=== PATIENT | male | born 1955 | race Caucasian/White ===

== ENCOUNTER 2016-08-28 09:50 | Inpatient (IN) ==
--- NOTE | 2016-08-28 10:11 | Emergency Department Note ---
Disposition Clinical Impression: Splenic infarction, Abdominal pain Atrial fibrillation Qualifiers: Atrial fibrillation type: chronic Qualified Code(s): I48.2 - Chronic atrial fibrillation Disposition: Admitted As Inpatient Condition: Fair Time of Disposition: 13:00 Abdominal Pain HPI - General Chief Complaint: ED Abdominal Pain Stated Complaint: LLQ pain Time Seen by Provider: 08/28/16 10:09 Source: patient, family - History of Present Illness HPI Narrative: . 61-year-old male with past medical history significant for CVA, HI status post angioplasty/stent, atrial fibrillation, CAD, see the A, DM2, HLD, HTN, GERD , nephrolithiasis, arthritis, anxiety, history of tobacco abuse. Patient presents with a five-day history of left lower abdominal pain and constipation. Patient has been previously seen in the ED. He had an x-ray on 08/25/2016 which demonstrates no evidence of bowel obstruction. He was treated as an outpatient with stool softeners and MiraLAX. He then saw his PCP yesterday and was prescribed lactulose. Patient states that he took 2 doses of lactulose, but has still not had a bowel movement. Patient does admit to some chills, nausea, 2 episodes of nonbloody vomit last night. Patient denies fever, diaphoresis, chest pain, shortness of breath, hematochezia, melena. Patient states last colonoscopy was approximately 3 years ago in which he had polyps resected. Patient denies any history of previous bowel surgeries Pain Scale: 10 - Related Data Home Medications Medication Instructions Recorded Confirmed Cholecalciferol (Vitamin D3) 50,000 unit PO MO 11/23/14 08/28/16 [Vitamin D3] Fenofibrate [Tricor] 145 mg PO HS #0 11/23/14 08/28/16 Lisinopril [Zestril] 40 mg PO DAILY 11/23/14 08/28/16 Metoprolol [Lopressor] 100 mg PO BID 11/23/14 08/28/16 Rosuvastatin [Crestor] 40 mg PO HS 11/23/14 08/28/16 Esomeprazole Magnesium [Nexium] 20 mg PO DAILY 08/13/15 08/28/16 Gemfibrozil [Lopid] 600 mg PO BIDWM 08/13/15 08/28/16 Oxybutynin Chloride [Ditropan Xl] 10 mg PO DAILY 08/13/15 08/28/16 Ranitidine HCl [Heartburn Relief] 150 mg PO BID 08/13/15 08/28/16 Baclofen 20 mg PO HS 08/01/16 08/28/16 Docusate [Colace] 100 mg PO BID 08/01/16 08/28/16 [place]-3/Dha/Epa/Fish Oil [Fish Oil 1,000 mg PO TID 08/01/16 08/28/16 1,000 mg Softgel] Oxycodone HCl [Oxaydo] 5 mg PO Q6H PRN 08/01/16 08/28/16 Aspirin [Ecotrin] 325 mg PO DAILY 08/28/16 08/28/16 BuPROPion XL (24 HR) [Wellbutrin 150 mg PO DAILY 08/28/16 08/28/16 XL] Clopidogrel [Plavix] 75 mg PO DAILY 08/28/16 08/28/16 Insulin ASPART [NovoLOG] 6 unit SQ TIDWM MDD PLUS SLIDING 08/28/16 08/28/16 SCALE Insulin Glargine [Lantus] 42 unit SQ BID 08/28/16 08/28/16 Isosorbide MONOnitrate (24 HR) 120 mg PO DAILY 08/28/16 08/28/16 [Imdur] Lactulose 10 gm PO DAILY 08/28/16 08/28/16 Magnesium Oxide [Magnesium] 400 mg PO DAILY 08/28/16 08/28/16 Potassium Chloride [Klor-Con] 20 meq PO DAILY 08/28/16 08/28/16 Sitagliptin Phosphate [Januvia] 50 mg PO DAILY 08/28/16 08/28/16 Previous Rx's Medication Instructions Recorded Polyethylene Glycol 3350 [MiraLAX 1 scoop PO BID #510 gm 08/26/16 Powder Bulk 17.9 Oz] Allergies Allergy/AdvReac Type Severity Reaction Status Date / Time No Known Allergies Allergy Verified 08/28/16 09:54 All systems ED: reviewed and negative except as stated. Constitutional: Reports: as per HPI Eyes: Reports: as per HPI ENT ED: Reports: as per HPI Cardiovascular: Reports: as per HPI Respiratory: Reports: as per HPI Gastrointestinal: Reports: as per HPI Genitourinary: Reports: as per HPI Musculoskeletal: Reports: as per HPI Integumentary: Reports: as per HPI Neurological: Reports: as per HPI Psychiatric: Reports: as per HPI Endocrine: Reports: as per HPI Hematological/Lymphatic: Reports: as per HPI Allergic/Immunologic: Reports: as per HPI Abdominal Pain PMH - Past Medical History Medical history: Reports: arthritis, atrial fibrillation, coronary artery disease, CVA, diabetes, GERD, hyperlipidemia, hypertension, kidney stones, myocardial infarction Male Surgical History: Reports: angioplasty/stent Psychiatric history: Reports: anxiety - Social History Smoking status: Former smoker Alcohol use: Reports: none Drug use: Reports: none Physical Exam - General Limitations: no limitations General appearance: alert, in no apparent distress - Head Head exam: atraumatic, normocephalic, normal inspection - Neck Neck exam: Present: normal inspection, full ROM - Chest Chest inspection: Present: normal inspection, symmetric chest wall rise. Absent : tenderness - Respiratory Respiratory exam: Present: normal lung sounds bilaterally - Cardiovascular Cardiovascular exam: Present: irregular rhythm, +S1, +S2. Absent: systolic murmur, diastolic murmur - Abdominal Exam Abdominal exam: Present: soft, tenderness, distention, rebound (Rebound tenderness to left lower quadrant left lateral abdomen upon palpation of right abdomen), rigidity (Rigidity to left lateral abdomen), hyperactive bowel sounds , other (Approximately 12cm area of firmness to left lateral abdominal wall). Absent: guarding Abdominal tenderness: Present: LUQ, LLQ - Extremities Exam Extremities exam: Present: normal inspection, full ROM - Back Exam Back exam: Present: CVA tenderness (L). Absent: CVA tenderness (R) - Neurological Exam Neurological exam: Present: alert, oriented X3 - Psychiatric Psychiatric exam: Present: normal affect, normal mood - Skin Skin exam: Present: warm, dry, intact Course - Reevaluation(s) Reevaluation #1: CT results demonstrate splenic infarct with a splenic inflammatory changes. Also, CT demonstrates fat stranding at the pancreatic tell which may be related to use a splenic infarct or may be due to acute pancreatitis. My suspicion for pancreatitis is low given that the patient has a normal lipase. I suspect that the inflammatory changes around the pancreatic tell are related to the splenic infarct. I have spoken to the hospitalists, who except patient for admission. Time: 12:57 Vital Signs Temperature 97.8 F 08/28/16 09:51 Pulse Rate 70 08/28/16 09:51 Respiratory Rate 17 08/28/16 09:51 Blood Pressure 122/68 08/28/16 09:51 O2 Sat by Pulse Oximetry 96 08/28/16 09:51 Temperature 97.8 F 08/28/16 09:51 Pulse Rate 73 08/28/16 12:24 Respiratory Rate 16 08/28/16 15:18 Blood Pressure 129/83 08/28/16 15:18 O2 Sat by Pulse Oximetry 96 08/28/16 12:24 Oxygen Delivery Oxygen Delivery Room Air Abdominal Pain - MDM Narrative Medical decision making narrative: Patient is here with 5 day history of constipation. He has failed outpatient treatment with stool softener, MiraLAX, lactulose. He had abdominal x-ray performed on 08/25/2016 which demonstrated no evidence of bowel obstruction. He did have substantial amount of stool with gas in the colon. On exam, patient does have tenderness to left upper quadrant and left lateral abdomen as well as tenderness left lower quadrant. Given that the patient has failed outpatient therapy, we will proceed with CT with IV contrast to further evaluate the abdomen. Patient has recent CVA on 08/08/2016 for which she was transferred to [facility]. Patient's Coumadin was stopped at that time as the patient was placed on Plavix. - Lab Data Result diagrams: 08/28/16 10:36 08/28/16 10:36 Lab Results 08/28/16 08/28/16 08/28/16 Range/Units 10:36 10:36 10:36 WBC 9.7 (4.3-11.1) K/mcL RBC 4.87 (4.19-5.50) M/mcL Hgb 14.5 (12.9-16.9) g/dL Hct 43.4 (37.5-50.1) % MCV 89.1 (83.0-100.0) fL MCH 29.8 (28.0-33.3) pg MCHC 33.4 (31.6-35.5) g/dL RDW 13.7 (11.5-14.5) % Plt Count 227 (140-400) K/mcL MPV 10.1 (9.4-12.4) fL PT 14.1 H (9.4-12.1) Seconds INR 1.3 APTT 35.5 (26.0-36.0) Seconds Sodium 136 (136-145) mEq/L Potassium 4.5 (3.5-4.5) mEq/L Chloride 105 (98-109) mEq/L Carbon Dioxide 20 (19-29) mEq/L BUN 21 (8-26) mg/dL Creatinine 1.16 (0.72-1.25) mg/dL Est GFR ( Amer) > 60 (> 60) Est GFR (Non-Af Amer) > 60 (> 60) BUN/Creatinine Ratio 18 (6-26) Glucose 120 H (70-99) mg/dL Calculated Osmolality 286 (280-300) Lactic Acid (0.5-2.2) mmol/L Calcium 10.1 (8.6-10.8) mg/dL Total Bilirubin 1.1 (0.2-1.2) mg/dL AST 23 (5-34) Units/L ALT 16 (0-55) Units/L Alkaline Phosphatase 55 (38-126) Units/L Serum Total Protein 8.1 (6.0-8.3) g/dL Albumin 3.5 (3.5-5.0) g/dL Globulin 4.6 H (2.4-3.5) g/dL Albumin/Globulin Ratio 0.8 L (1.1-2.2) Lipase 19 (8-78) Units/L 05/25/17 Range/Units 11:15 WBC (4.3-11.1) K/mcL RBC (4.19-5.50) M/mcL Hgb (12.9-16.9) g/dL Hct (37.5-50.1) % MCV (83.0-100.0) fL MCH (28.0-33.3) pg MCHC (31.6-35.5) g/dL RDW (11.5-14.5) % Plt Count (140-400) K/mcL MPV (9.4-12.4) fL PT (9.4-12.1) Seconds INR APTT (26.0-36.0) Seconds Sodium (136-145) mEq/L Potassium (3.5-4.5) mEq/L Chloride (98-109) mEq/L Carbon Dioxide (19-29) mEq/L BUN (8-26) mg/dL Creatinine (0.72-1.25) mg/dL Est GFR ( Amer) (> 60) Est GFR (Non-Af Amer) (> 60) BUN/Creatinine Ratio (6-26) Glucose (70-99) mg/dL Calculated Osmolality (280-300) Lactic Acid 0.8 (0.5-2.2) mmol/L Calcium (8.6-10.8) mg/dL Total Bilirubin (0.2-1.2) mg/dL AST (5-34) Units/L ALT (0-55) Units/L Alkaline Phosphatase (38-126) Units/L Serum Total Protein (6.0-8.3) g/dL Albumin (3.5-5.0) g/dL Globulin (2.4-3.5) g/dL Albumin/Globulin Ratio (1.1-2.2) Lipase (8-78) Units/L
[2016-08-28 10:43] LABS: Hematocrit 43.4 % (37.5-50.1); Hemoglobin 14.5 g/dL (12.9-16.9); Mean Corpuscular HGB Conc 33.4 g/dL (31.6-35.5); Mean Corpuscular Hemoglobin 29.8 pg (28.0-33.3); Mean Corpuscular Volume 89.1 fL (83.0-100.0); Mean Platelet Volume 10.1 fL (9.4-12.4); Platelet Count 227 K/mcL (140-400); Red Blood Count 4.87 M/mcL (4.19-5.50); Red Cell Distribution Width 13.7 % (11.5-14.5)
[2016-08-28 10:57] LABS: BUN/Creatinine Ratio 18 (6-26); Blood Urea Nitrogen 21 mg/dL (8-26); Calcium 10.1 mg/dL (8.6-10.8); Carbon Dioxide 20 mEq/L (19-29); Chloride 105 mEq/L (98-109); Glucose 120 mg/dL (70-99); Osmolality,Calculated 286 (280-300); Potassium 4.5 mEq/L (3.5-4.5); Sodium 136 mEq/L (136-145); eGFR For African Americans > 60 (> 60); eGFR For Non-African Americans > 60 (> 60)
--- NOTE | 2016-08-28 11:04 | Emergency Department Note ---
START Narrative - START START: I examined this patient and my medical decision-making was reviewed with the SHIPPING AND RECEIVING SPECIALIST/PA/Advanced Practice Nurse/Resident Physician. I agree with the documented findings, disposition and treatment plan as described except to the extent set forth below. Patient does complain of left lower quadrant abdominal pain and I did review the previous record. Did have a abdominal x-ray which was negative. On my exam most the pain is left upper quadrant and this is minimal to moderate pain but soft without rigidity, rebound, guarding. Abdominal skin is normal in appearance. The patient denies any chest pain or shortness of breath or diaphoresis. CT scan and lab results are pending 1104 I did review the patient's EKG which shows atrial fibrillation with rate of 60 without acute ischemic change. The patient does have a history of atrial fibrillation 1105 I did review the patient's CT showing a splenic infarction although the splenic artery and vein are patent. The patient will be admitted to the hospital 1254
[2016-08-28 11:11] LABS: Alanine Aminotransferase 16 Units/L (0-55); Albumin 3.5 g/dL (3.5-5.0); Albumin/Globulin Ratio 0.8 (1.1-2.2); Alkaline Phosphatase 55 Units/L (38-126); Aspartate Amino Transferase 23 Units/L (5-34); Bilirubin,Total 1.1 mg/dL (0.2-1.2); Globulin 4.6 g/dL (2.4-3.5); Lipase 19 Units/L (8-78); Total Protein 8.1 g/dL (6.0-8.3)
[2016-08-28 13:13] LABS: INR 1.3; Prothrombin Time 14.1 Seconds (9.4-12.1)
[2016-08-28 13:16] LABS: Activated Partial Thrombo Time 35.5 Seconds (26.0-36.0)
--- NOTE | 2016-08-28 14:24 | Electrocardiograph Report ---
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
[2016-08-28] MEDS ORDERED: *HR* HYDROcodone/Acet 5/325 mg TABLET PO PRN (14:48)
[2016-08-28] MEDS ORDERED: *HR* Morphine 2 MG/ML SYRINGE IVP PRN (14:48)
[2016-08-28] MEDS ORDERED: Acetaminophen 325 MG TABLET PO PRN (14:48)
[2016-08-28] MEDS ORDERED: Naloxone 0.4 MG/ML INJ IVP PRN (14:48)
[2016-08-28] MEDS ORDERED: MOM Conc 10 ML UD.LIQ PO PRN (14:48)
--- NOTE | 2016-08-28 15:18 | Internal Med History&Physical ---
<DenisIban - Last Filed: 08/28/16 16:15> Date of Encounter: 08/28/16 Time of Encounter: 14:30 Assessment and Plan (1) Abdominal pain Current visit: Yes Status: Acute Assess: Mr. Sapp is a 61 year old male presents from the ED with chief complaint of left lower quadrant pain. Patient reports this is new and he has no history of this. CT of abdomen/pelvis dated shows splenic infarction with unclear etiology, possibly due to acute pancreatitis. Patient's lipase levels currently normal on first lab draw. Plan: NPO except for medications Continue IV fluids Pain medications ordered based on mild, moderate, or severe pain MRI of abdomen/pelvis w/wo contrast ordered U/S of gallbladder ordered Continue aspirin and Plavix therapy Possible consult with vascular surgery to be placed based on patient's MRI results Qualifiers: Abdominal location: left lower quadrant Qualified Code(s): R10.32 - Left lower quadrant pain (2) Splenic infarction Current visit: Yes Status: Acute Assess: Patient presents with chief complaint of left lower quadrant pain. Patient reports this is new and he has no history of this. CT of abdomen/pelvis dated shows splenic infarction with unclear etiology, possibly due to acute pancreatitis. Patient's lipase levels currently normal on first lab draw. Plan: NPO except for medications Continue IV fluids Pain medications ordered based on mild, moderate, or severe pain MRI of abdomen/pelvis w/wo contrast ordered U/S of gallbladder ordered Continue aspirin and Plavix therapy Possible consult with vascular surgery to be placed based on patient's MRI results (3) Constipation Current visit: Yes Status: Acute Assess: Patient presents with current acute complaint of constipation since 08/24/16. Patient was previously seen in ED on 08/25/16. He was also treated as an outpatient with stool softeners and MiraLAX for complaint of constipation and was prescribed lactulose. Patient reports after 2 doses of lactulose he still had no BM. Plan: Lactulose 20 mg BID ordered Continue Colace Continue Miralax Monitor I&O NPO except for medications Qualifiers: Constipation type: other constipation type Qualified Code(s): K59.09 - Other constipation (4) A-fib Current visit: Yes Status: Chronic Assess: Patient presents with history of chronic atrial fibrillation. EKG dated she is patient is currently in atrial fibrillation with rate of 60 without acute ischemic change. Plan: Continuous cardiac telemetry Continue Plavix and aspirin therapy Continue isosorbide Continue Lopressor Continue Crestor INR and APTT labs ordered Qualifiers: Atrial fibrillation type: paroxysmal Qualified Code(s): I48.0 - Paroxysmal atrial fibrillation (5) CAD (coronary artery disease) Current visit: Yes Status: Chronic Assess: Patient presents with history of chronic atrial fibrillation. EKG dated she is patient is currently in atrial fibrillation with rate of 60 without acute ischemic change. Patient has history of stent placement left carotid artery. Plan: Continuous cardiac telemetry Continue Plavix and aspirin therapy Continue isosorbide Continue Lopressor Continue Crestor INR and APTT labs ordered Qualifiers: Coronary Disease-Associated Artery/Lesion type: [place] artery [place] vs. transplanted heart: [place] heart Associated angina: with unspecified angina Qualified Code(s): I25.119 - Atherosclerotic heart disease of [place] coronary artery with unspecified angina pectoris (6) Diabetes mellitus Current visit: Yes Status: Acute Assess: Patient presents with history of chronic diabetes mellitus. Plan: Blood glucose monitoring ordered Continue patient's insulin Continue Januvia Correction dosing protocol ordered Qualifiers: Diabetes mellitus type: type 1 Diabetes mellitus complication status: without complication Qualified Code(s): E10.9 - Type 1 diabetes mellitus without complications (7) DVT prophylaxis Current visit: Yes Status: Acute Assess: Patient received DVT prophylaxis inpatient bed rest status. Plan: Continue Plavix and aspirin therapy Antiembolic stockings ordered Internal Medicine - H&P: HPI Chief complaint: LLQ abdominal pain/Splenic infarction Admitted From: Emergency Dept Plans for Post Hospital Care: Home History of present illness: Mr. Sapp is a 61 year old male presents from the ED with chief complaint of left lower quadrant pain. Patient also reports current problem of constipation and states his last bowel movement was 08/24/16. Patient reports moderate pain without rigidity or rebound. Abdominal skin is normal in appearance, yet abdomen appears distended. Patient also reports LLQ pain radiates to back. Mr. Sapp states that he is experiencing nausea and vomiting as well. Patient denies chest pain, SOB, diaphoresis, or bloody emesis. CT abdomen and pelvis dated 08/28/16 show splenic infarction with splenic artery and vein remaining patent. Patient has past medical history of CVAs (last CVA event of 08/08/16), MIs 2, status post angioplasty/stent, atrial fibrillation, CAD, DM, hyperlipidemia, hypertension, GERD, nephrolithiasis, arthritis, anxiety, and history of tobacco abuse (3 PPD). Patient was previously on Coumadin which was stopped when he was seen at [facility]. He was then placed on Plavix and aspirin therapy. Patient's EKG dated 08/28/16 shows he is currently in atrial fibrillation with rate of 60 without acute ischemic change. Patient states last colonoscopy was approximately 3 years ago with removal of polyps. Patient places inpatient status with continuous cardiac telemetry, nothing by mouth status, MRI of abdomen/pelvis w/wo contrast, and ultrasound gallbladder based on patient's report of presence of gallstones. Possible consult with vascular surgery based on results of patient's MRI. Past Med Surg Social Fam HX - Past Medical History Medical history: arthritis, atrial fibrillation, coronary artery disease, CVA, diabetes, GERD, hyperlipidemia, hypertension, kidney stones, myocardial infarction Psychiatric history: anxiety - Past Surgical History Surgical History: angioplasty/stent (Left carotid artery), other - Social History Smoking Status: Former smoker Packs per day: 3 PPD Smokeless Tobacco Status: Yes Alcohol use: none Drug use: none Current living situation: Home, With Family Activity Level: Independent ambulation Recent Out of Country Travel Within the Last 8 Weeks: No Exposure or Possible Exposure to Illness During Travel: No - Family History Father Adopted: No Race: Family Member Ethnicity: Non- Living Status: Age at : 50 Cause of : Massive DC Hx Family Cardiac Disorders: Yes (DC) Mother Race: Family Member Ethnicity: Non- Living Status: Age at : 65 Cause of : Renal failure Hx Family Cardiac Disorders: Yes (HTN, TIAs) Hx Family Genitourinary Disorders: Yes (Kidney failure) Brother Race: Family Member Ethnicity: Non- Living Status: Age at : 50 Cause of : DC Hx Family Cardiac Disorders: Yes (DC, HD) Sister Race: Family Member Ethnicity: Non- Living Status: Age at : 35 Cause of : Ovarian cancer Hx Family Cancer: Yes (Ovarian) Internal Medicine - H&P: Meds Cholecalciferol (Vitamin D3) [Vitamin D3] 50,000 unit PO MO 11/23/14 [History] Fenofibrate [Tricor] 145 mg PO HS #0 11/23/14 [History] Lisinopril [Zestril] 40 mg PO DAILY 11/23/14 [History] Metoprolol [Lopressor] 100 mg PO BID 11/23/14 [History] Rosuvastatin [Crestor] 40 mg PO HS 11/23/14 [History] Esomeprazole Magnesium [Nexium] 20 mg PO DAILY 08/13/15 [History] Gemfibrozil [Lopid] 600 mg PO BIDWM 08/13/15 [History] Oxybutynin Chloride [Ditropan Xl] 10 mg PO DAILY 08/13/15 [History] Ranitidine HCl [Heartburn Relief] 150 mg PO BID 08/13/15 [History] Baclofen 20 mg PO HS 08/01/16 [History] Docusate [Colace] 100 mg PO BID 08/01/16 [History] [place]-3/Dha/Epa/Fish Oil [Fish Oil 1,000 mg Softgel] 1,000 mg PO TID 08/01/16 [ History] Oxycodone HCl [Oxaydo] 5 mg PO Q6H PRN 08/01/16 [History] Polyethylene Glycol 3350 [MiraLAX Powder Bulk 17.9 Oz] 1 scoop PO BID #510 gm [Rx] Aspirin [Ecotrin] 325 mg PO DAILY 08/28/16 [History] BuPROPion XL (24 HR) [Wellbutrin XL] 150 mg PO DAILY 08/28/16 [History] Clopidogrel [Plavix] 75 mg PO DAILY 08/28/16 [History] Insulin ASPART [NovoLOG] 6 unit SQ TIDWM MDD PLUS SLIDING SCALE 08/28/16 [ History] Insulin Glargine [Lantus] 42 unit SQ BID 08/28/16 [History] Isosorbide MONOnitrate (24 HR) [Imdur] 120 mg PO DAILY 08/28/16 [History] Lactulose 10 gm PO DAILY 08/28/16 [History] Magnesium Oxide [Magnesium] 400 mg PO DAILY 08/28/16 [History] Potassium Chloride [Klor-Con] 20 meq PO DAILY 08/28/16 [History] Sitagliptin Phosphate [Januvia] 50 mg PO DAILY 08/28/16 [History] Allergies No Known Allergies Allergy (Verified 08/28/16 09:54) All Systems PM: A 10-system review of systems was performed and is negative for pertinent findings except as documented above in the HPI. - Constitutional Constitutional: as per HPI, anorexia (Related to abdominal pain, nausea, and vomiting) - EENT Eyes: no change in vision, no discharge, no pain, no photophobia Ears: no ear discharge, no ear pain, no tinnitus Nose, mouth and throat: no dysphagia, no nasal discharge, no neck pain, no sore throat - Breasts Breasts: as per HPI - Cardiovascular Cardiovascular ROS IM: as per HPI, irregular heart rhythm - Respiratory Respiratory: no cough, no dyspnea, no wheezing, no excessive phlegm production - Gastrointestinal Gastrointestinal: as per HPI, abdominal pain, constipation, nausea, vomiting - Genitourinary Genitourinary ROS male: as per HPI - Musculoskeletal Musculoskeletal ROS IM: no numbness, no tingling - Integumentary Integumentary IM: no rash, no unusual bruising - Neurological Neurological ROS: no confusion, no convulsions, no focal weakness, no numbness, no tingling, no tremor(s) - Psychiatric Psychiatric: as per HPI - Endocrine Endocrine IM: as per HPI - Hematologic/Lymphatic Hematologic/Lymphatic: no easy bruising - Allergic/Immunologic Allergic/Immunologic: as per HPI - Constitutional Vitals: Temp Pulse Resp BP Pulse Ox 97.8 F 73 16 138/81 96 08/28/16 09:51 08/28/16 12:24 08/28/16 12:24 08/28/16 12:24 08/28/16 12:24 General appearance: Present: cooperative, mild distress, A&O X 3, morbidly obese , pleasant, answers questions appropriately - Head Head exam: Present: atraumatic, normocephalic - Eye Eye exam: Present: PERRL, conjuntiva pink, sclera anicteric Pupils: Present: PERRL - ENT ENT exam: Present: normal exam, normal external ear exam - Neck Neck exam general surgery: Present: supple, trachea midline. Absent: lymphadenopathy - Respiratory Respiratory exam: Present: CTAB. Absent: accessory muscle use, rales, rhonchi, wheezes - Cardiovascular Cardiovascular exam: Present: irregular rhythm - GI/Abdominal GI/Abdominal exam: Present: distended, guarding, hypoactive bowel sounds, soft, tenderness - Rectal Rectal exam: Present: deferred - Additional comments: exam deferred. - Extremities Exam Extremities exam: Present: normal capillary refill, normal inspection, warm, radial pulses palpable and symetrical. Absent: calf tenderness, cyanotic, pedal edema - Back Exam Back exam: Present: normal inspection - Neurological Exam Neurological exam: Present: CN II-XII intact, oriented X3, no focal deficits. Absent: pronater drift, facial droop, speech deficit - Psychiatric Psychiatric exam: Present: normal affect, normal mood - Skin Skin exam: Present: dry, intact Internal Med - H&P Results - Labs CBC & Chem 7: 08/28/16 10:36 08/28/16 10:36 - EKG Data Prior EKG available for review: yes When compared to previous EKG: there are significant changes EKG comments: 08/28/16 15:26 EKG dated 08/25/16 shows sinus bradycardia with first-degree AV block, left axis deviation, and poor R-wave progression. EKG dated 08/28/16 shows atrial fibrillation with marked left axis deviation [ QRS axis < -30]. Pattern consistent with pulmonary disease. - Diagnostic Studies CT scan - abdomen Additional comments: CT of the abdomen/pelvis with contrast dated 08/28/16 shows: LOWER CHEST: Linear opacity in the left lower lobe likely representing subsegmental atelectasis. Additional gravity dependent atelectasis in both lower lobes. No pleural effusions. Mild cardiomegaly. Mild to moderate concentric left ventricular hypertrophy, sparing the apex. Trace pericardial effusion. At least moderate coronary atherosclerotic calcifications. ORGANS: Granulomatous calcifications in the liver. Mild hepatomegaly. Mild pancreatic atrophy. Stranding adjacent to the pancreatic tail and spleen. Wedge-shaped hypodensity in the inferior spleen. Unchanged 1.3 cm 1.0 cm left adrenal adenoma. Multiple bilateral simple appearing cysts (Bosniak category 1) . Exophytic 6.2 cm cyst arising from the medial interpolar region of the left kidney with thin area of calcification (Bosniak category 2). Non-obstructing calculi in both renal collecting systems. Normal gallbladder and right adrenal gland. GI/BOWEL: Redundant sigmoid colon. Otherwise normal course and caliber of the stomach, small bowel, colon, and rectum without obstruction. Normal appendix. Mild colonic diverticulosis without findings of acute diverticulitis. PELVIS: Mild anterior urinary bladder wall thickening with adjacent perivesical stranding. Moderate prostatomegaly. PERITONEUM/RETROPERITONEUM: Normal variant accessory right renal artery. Mild atherosclerosis. No evidence of hemodynamically significant stenoses nor venous thrombosis. Unchanged mildly enlarged is enteric lymph nodes, likely reactive. No retroperitoneal or pelvic lymphadenopathy. No free intraperitoneal fluid or gas. BONES/SOFT TISSUES: Laxity of the anterior abdominal wall musculature. Suspected sequela of medicinal injections in the subcutaneous tissues of the right lower quadrant anterior abdominal wall. Tiny fat-containing bilateral inguinal hernias. No inguinal lymphadenopathy. Diffuse osseous demineralization. No acute fractures or suspicious osseous lesions. OVERALL IMPRESSION: Acute appearing infarction involving the inferior spleen with adjacent inflammatory stranding. Of note, the splenic artery and splenic vein appear patent. Additional stranding adjacent portions of the pancreatic tail could be related to above process or acute pancreatitis. Incidental findings as above for which no follow-up is recommended. <Itz Vasquez H - Last Filed: 08/28/16 18:33> Date of Encounter: 08/28/16 Internal Medicine - H&P: HPI History of present illness: Mr. Sapp is a 61 year old male All Systems PM: A 10-system review of systems was performed and is negative for pertinent findings except as documented above in the HPI. - Constitutional Vitals: Temp Pulse Resp BP Pulse Ox 98.2 F 60 16 125/78 94 08/28/16 16:01 08/28/16 16:01 08/28/16 16:01 08/28/16 16:01 08/28/16 16:01 Internal Med - H&P Results - Labs CBC & Chem 7: 08/28/16 10:36 08/28/16 10:36 - Attending Attestation 1. Splenic infarct from unclear etiology possibly related to acute pancreatitis Lipase is normal by moment we will treat as acute pancreatitis clinically Nothing by mouth, continue IV fluids, morphine for pain Order an MRI with contrast to assess the possibility of either a pancreatic mass or an artery stenosis Consider vascular surgery vs GI consults depending on findings Order ultrasound of the right upper quadrant Continue aspirin and Plavix for now 2. History of CVA and atrial fibrillation, the patient went to [facility] where Coumadin was stopped and he was started on Plavix 3. Diabetes type 2, continue insulin sliding scale 4. History of left carotid stenosis status post and endarterectomy 5. Atrial fibrillation, stable 6. CAD with history of stents, continue aspirin and Plavix Patient will be admitted as inpatient. Expected stay more than 2 midnights. Full code. Time spent on this admission 40 minutes. Omeprazole for GI prophylaxis and subcutaneous heparin for DVT prophylaxis I examined this patient and my medical decision-making was reviewed with the GEOGRAPHIC INFORMATION SYSTEMS ENGINEER/PA/Advanced Practice Nurse/Resident Physician. I agree with the documented findings, disposition and treatment plan as described except to the extent set forth below.
--- NOTE | 2016-08-28 15:36 | Event Note ---
Date of Encounter: 08/28/16 Time of Encounter: 15:36 1. Splenic infarct from unclear etiology possibly related to acute pancreatitis Lipase is normal by moment we will treat as acute pancreatitis clinically Nothing by mouth, continue IV fluids, morphine for pain Order an MRI with contrast to assess the possibility of either a pancreatic mass or an artery stenosis Consider vascular surgery vs GI consults depending on findings Order ultrasound of the right upper quadrant Continue aspirin and Plavix for now 2. History of CVA and atrial fibrillation, the patient went to [facility] where Coumadin was stopped and he was started on Plavix 3. Diabetes type 2, continue insulin sliding scale 4. History of left carotid stenosis status post and endarterectomy 5. Atrial fibrillation, stable 6. CAD with history of stents, continue aspirin and Plavix Patient will be admitted as inpatient. Expected stay more than 2 midnights. Full code. Time spent on this admission 40 minutes. Omeprazole for GI prophylaxis and subcutaneous heparin for DVT prophylaxis
[2016-08-28] MEDS: Insulin LISPRO 300 UNITS/3 ML VIAL SQ SCH (18:40)
[2016-08-28] MEDS: 0.9 % Sodium Chloride 1,000 ML IVC SCH (18:52)
[2016-08-28 19:27] LABS: Hemoglobin A1C 7.4 %
[2016-08-28 20:08] LABS: Bilirubin,Urine Negative (Negative); Blood,Urine Negative (Negative); Clarity,Urine Clear (Clear); Color,Urine Yellow (Yellow); Glucose,Urine (UA) Normal (Normal); Ketones,Urine Negative (Negative); Leukocyte Esterase,Urine Negative (Negative); Nitrite,Urine Negative (Negative); PH,Urine 5.5 pH Units (5.0-8.0); Protein,Urine 30 mg/dL (Neg-Trace); Specific Gravity,Urine > 1.030 (1.010-1.025); Urobilinogen,Urine Normal (Normal)
[2016-08-28 20:10] LABS: Bacteria,Urine None Seen per hpf (None-Few); Hyaline Casts,Urine None Seen per lpf (None-Few); RBC,Urine 0-3 per hpf (0-3); Squamous Epithelial Cell,Urine Moderate per lpf (None-Few); WBC,Urine 0-3 per hpf (0-3)
[2016-08-28] MEDS: Baclofen 10 MG TABLET PO SCH (22:42)
[2016-08-28] MEDS: Fenofibrate 54 MG TABLET PO SCH (22:42)
[2016-08-28] MEDS: Metoprolol 100 MG TABLET PO SCH (22:42)
[2016-08-28] MEDS: Famotidine 20 MG TABLET PO SCH (22:43)
[2016-08-28] MEDS: Insulin DETEMIR 100 UNIT/ML X5UNITS SQ SCH (22:43)
[2016-08-28] MEDS: Lactulose Oral Soln 20 GM/30 ML UDC PO SCH (22:43)
[2016-08-28] MEDS: (Omega-3/Dha/Epa/Fish Oil [Fish Oil 1,000 Mg Softgel]) PO SCH (22:43)
[2016-08-29 05:02] LABS: Basophils % 0.5 %; Eosinophils # 0.1 K/mcL (0.0-0.6); Eosinophils % 1.2 %; Hematocrit 43.3 % (37.5-50.1); Hemoglobin 14.4 g/dL (12.9-16.9); Immature Granulocytes % 0.6 % (0-4); Lymphocytes # 1.6 K/mcL (0.6-4.6); Lymphocytes % 19.5 %; Mean Corpuscular HGB Conc 33.3 g/dL (31.6-35.5); Mean Corpuscular Hemoglobin 29.9 pg (28.0-33.3); Mean Corpuscular Volume 89.8 fL (83.0-100.0); Mean Platelet Volume 10.7 fL (9.4-12.4); Monocytes # 1.1 K/mcL (0.0-1.3); Neutrophils # 5.4 K/mcL (1.6-8.9); Platelet Count 248 K/mcL (140-400); Red Blood Count 4.82 M/mcL (4.19-5.50); Red Cell Distribution Width 13.7 % (11.5-14.5); Segmented Neutrophils % 65.2 %
[2016-08-29 05:18] LABS: INR 1.4
[2016-08-29 05:21] LABS: Activated Partial Thrombo Time 33.8 Seconds (26.0-36.0); Alanine Aminotransferase 14 Units/L (0-55); Albumin 3.2 g/dL (3.5-5.0); Albumin/Globulin Ratio 0.7 (1.1-2.2); Alkaline Phosphatase 54 Units/L (38-126); Aspartate Amino Transferase 23 Units/L (5-34); BUN/Creatinine Ratio 21 (6-26); Bilirubin,Total 0.9 mg/dL (0.2-1.2); Blood Urea Nitrogen 26 mg/dL (8-26); Calcium 10.2 mg/dL (8.6-10.8); Carbon Dioxide 20 mEq/L (19-29); Chloride 109 mEq/L (98-109); Chol/HDL Ratio 9.1 (0-4.9); Cholesterol 136 mg/dL (< 200); Globulin 4.8 g/dL (2.4-3.5); Glucose 82 mg/dL (70-99); HDL Cholesterol 15 mg/dL (40-59); LDL Cholesterol,Calculated 89 mg/dL (0-99); Osmolality,Calculated 290 (280-300); Sodium 138 mEq/L (136-145); Triglycerides 162 mg/dL (< 150); eGFR For African Americans > 60 (> 60); eGFR For Non-African Americans > 60 (> 60)
[2016-08-29] MEDS: 0.9 % Sodium Chloride 1,000 ML IVC SCH ×2 (06:29→17:01)
[2016-08-29] MEDS: Insulin LISPRO 300 UNITS/3 ML VIAL SQ SCH ×3 (07:36→17:20)
[2016-08-29] MEDS: Famotidine 20 MG TABLET PO SCH ×2 (08:54→21:33)
[2016-08-29] MEDS: Aspirin Enteric Coated 81 MG Tablet PO SCH (08:55)
[2016-08-29] MEDS: Magnesium Oxide 400 MG TABLET PO SCH (08:55)
[2016-08-29] MEDS: Metoprolol 100 MG TABLET PO SCH ×2 (08:55→21:33)
[2016-08-29] MEDS: Cholecalciferol (D-3) 1,000 UNIT TABLET PO SCH (08:55)
[2016-08-29] MEDS: Lisinopril 20 MG TABLET PO SCH (08:55)
[2016-08-29] MEDS: Isosorbide MONOnitrate (24 HR) 60 MG TAB.ER.24H PO SCH (08:55)
[2016-08-29] MEDS: BuPROPion XL (24 HR) 150 MG TABLET PO SCH (08:55)
[2016-08-29] MEDS: Lactulose Oral Soln 20 GM/30 ML UDC PO SCH ×2 (08:56→21:32)
[2016-08-29] MEDS: Pantoprazole 40 MG VIAL IVP SCH (08:56)
[2016-08-29] MEDS: *HR* SitaGLIPtin 25 MG TABLET PO SCH (08:57)
[2016-08-29] MEDS: Insulin DETEMIR 100 UNIT/ML X5UNITS SQ SCH ×2 (08:58→21:41)
[2016-08-29] MEDS ORDERED: NON-FORMULARY MEDICATION 1 EACH EACH (Esomeprazole Magnesium [Nexium] 20 MG) PO SCH (09:00)
[2016-08-29] MEDS: (Omega-3/Dha/Epa/Fish Oil [Fish Oil 1,000 Mg Softgel]) PO SCH ×3 (09:18→21:33)
--- NOTE | 2016-08-29 11:00 | Internal Med Progress Note ---
Date of Encounter: 08/29/16 Time of Encounter: 10:00 - Assessment and plan (1) Splenic infarction Current Visit: Yes Status: Acute Assessment and plan: Likely secondary to cardioembolic event given history of A. fib and strokes. He will need anticoagulation. He may benefit from PEPE and left a troponin which ablation. I have called and discussed the case with cardiology. (2) Atrial fibrillation Current Visit: Yes Status: Acute Assessment and plan: Currently he is not anticoagulated. He has been on Coumadin in the past and this was stopped with and carotid stent was placed due to initiation of therapy with Plavix. Qualifiers: Atrial fibrillation type: paroxysmal Qualified Code(s): I48.0 - Paroxysmal atrial fibrillation (3) Abdominal pain Current Visit: Yes Status: Acute Assessment and plan: We will treat this with IV morphine. Pain is likely related to acute splenic infarct. Qualifiers: Abdominal location: left lower quadrant Qualified Code(s): R10.32 - Left lower quadrant pain (4) Diabetes mellitus Current Visit: Yes Status: Acute Assessment and plan: Insulin sliding scale. Qualifiers: Diabetes mellitus type: type 1 Diabetes mellitus complication status: without complication Qualified Code(s): E10.9 - Type 1 diabetes mellitus without complications (5) Stenosis of left internal carotid artery with cerebral infarction Current Visit: No Status: Acute Assessment and plan: Status post carotid stent placement. Continue with aspirin and Plavix. - Subjective Interval history: 08/29/2016: Patient reports left lower quadrant abdominal pain sharp on and off for the last 5 days, improved at this moment. Denies any aggravating or alleviating factors. No nausea or vomiting associated. He does report some diarrhea. He presented to the hospital 5 days ago and his x-ray showed constipation. His symptoms did not improve and he came back to the hospital for further evaluation and treatment. - Constitutional Vitals: Temp Pulse Resp BP Pulse Ox 97.8 F 62 16 117/68 94 08/29/16 07:36 08/29/16 07:36 08/29/16 07:36 08/29/16 07:36 08/29/16 07:36 General appearance: Present: cooperative, mild distress, A&O X 3, morbidly obese , pleasant, answers questions appropriately - Eye Eye exam: Present: PERRL, conjuntiva pink, sclera anicteric Pupils: Present: PERRL - Neck Neck exam general surgery: Present: supple, trachea midline. Absent: lymphadenopathy - Respiratory Respiratory exam: Present: CTAB. Absent: accessory muscle use, rales, rhonchi, wheezes - Cardiovascular Cardiovascular exam: Present: irregular rhythm, +S1, +S2. Absent: diastolic murmur, gallop, rubs, systolic murmur - GI/Abdominal GI/Abdominal exam: Present: normal bowel sounds, soft, no peritoneal signs. Absent: distended, tenderness - Extremities Exam Extremities exam: Present: warm, radial pulses palpable and symetrical. Absent : calf tenderness, cyanotic, pedal edema - Skin Skin exam: Present: dry, intact Internal Medicine: Result - Labs CBC & Chem 7: 08/29/16 16:47 08/29/16 04:45 Labs: Short CBC 08/29/16 Range/Units 04:45 WBC 8.3 (4.3-11.1) K/mcL Hgb 14.4 (12.9-16.9) g/dL Hct 43.3 (37.5-50.1) % Plt Count 248 (140-400) K/mcL Neutrophils # 5.4 (1.6-8.9) K/mcL BMP 08/29/16 04:45 Sodium 138 Potassium 4.0 Chloride 109 Carbon Dioxide 20 BUN 26 Creatinine 1.21 Glucose 82 Calcium 10.2 Liver Function 08/29/16 Range/Units 04:45 Total Bilirubin 0.9 (0.2-1.2) mg/dL AST 23 (5-34) Units/L ALT 14 (0-55) Units/L Alkaline Phosphatase 54 (38-126) Units/L Albumin 3.2 L (3.5-5.0) g/dL Urine 08/28/16 Range/Units 18:05 Urine Color Yellow (Yellow) Urine Clarity Clear (Clear) Urine pH 5.5 (5.0-8.0) pH Units Ur Specific [place] > 1.030 H (1.010-1.025) Urine Protein 30 H (Neg-Trace) mg/dL Urine Glucose (UA) Normal (Normal) mg/dL - ABG Interpretation ABG results: PT/INR, D-dimer PT 15.0 Seconds (9.4-12.1) H 08/29/16 04:45 - Impressions Impressions Abdomen MRI 08/28/16 15:02 IMPRESSION: 1. Findings compatible with splenic infarct. 2. No suspicious soft tissue mass identified. D/ / 08/28/2016 23:25:13 Vic Osman MD / aniyah Interpreting Provider: Vic Osman MD Gallbladder Ultrasound 08/28/16 20:30 IMPRESSION: 1. No cholelithiasis or acute abnormality in the upper abdomen. 2. Multiple small simple right renal cysts. D/ / Miguel Angel Moran MD / Miguel Angel Moran MD Interpreting Provider: Miguel Angel Moran MD - VTE Documentation of Mechanical Device: Graduated compression elastic hosiery Consult Discharge Plan - Plan Referrals: Jayme Alarcon MD [Primary Care Provider] -
--- NOTE | 2016-08-29 12:09 | Cardiology Consult Note ---
Addendum entered and electronically signed by Raimundo Ray CNP 08/29/16 14:30: If okay with neurology to start Coumadin, recommend bridging with heparin gtt until therapeutic. Discussed with urology regarding hemorrhagic renal cyst noted on MRI of ABD. No contraindication to anticoagulation from urology standpoint, as these hemorrhagic cysts are low risk. Await neurology recommendations. Original Note: Date of Encounter: 08/29/16 Time of Encounter: 12:01 Assessment and Plan (1) A-fib Current Visit: Yes Status: Chronic Known hx of PAF, previously anticoagulated on Coumadin. Coumadin was recently stopped 08/2016 by [facility] following CVA and left carotid stenting with distal protective device for high grade left internal carotid stenosis. He was started on DAPT with 325mg ASA and 75mg Plavix daily. Plan was for follow -up in 4 weeks with carotid duplex at that time, then determine when to restart Coumadin. However, pt now presents with splenic infart. CHADSVASC is 5 (Age, HTN, vascular disease, DM). He is high risk for recurrent embolic events. Rate controlled on BB. 24 hour tele AVG HR 61, A-Fib, longest pause 2.8 seconds during stress. Would recommend resuming Coumadin now that he presents with embolic event-- splenic infarct. However, had CVA 3 weeks ago at [facility]. Will consult neurology for their input/approval prior to restarting Coumadin. If okay with neurology, will restart. Will need to remain on ASA and Plavix as well given recent left carotid stent. 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 Now s/p left carotid stenting with distal protective device. On ASA and Plavix. Coumadin was stopped by [facility] with plans to discuss restart date when he has carotid duplex in upcoming weeks. Now presents with splenic infarct. Recommend resuming Coumadin if okay with neurology. Will consult. Will need to remain on ASA and Plavix as well given recent left carotid stent. (3) CAD (coronary artery disease) Current Visit: Yes Status: Chronic Known hx of CAD and PCI. Most recent LHC was 08/01/16, showed double vessel CAD, previously stented mid RCA and OM1 are patent. ASA, Plavix, Statin, BB, LANETTE-I, nitrates. Qualifiers: Coronary Disease-Associated Artery/Lesion type: [place] artery [place] vs. transplanted heart: [place] heart Associated angina: with unspecified angina Qualified Code(s): I25.119 - Atherosclerotic heart disease of [place] coronary artery with unspecified angina pectoris (4) Splenic infarction Current Visit: Yes Status: Acute As above, management per primary team. Splenic infarct with known A-Fib with Coumadin currently on hold s/p CVA . Recommend resuming Coumadin if okay with neurology. Discussion w patient/family: The assessment and plan as outlined above was discussed with the patient and/or family members who expressed understanding and agreement. All questions were answered. Thank you for involving us in the care of your patient. Please call with any questions. I will discuss all the above with Dr. Pitts and make changes as necessary. History of Present Illness Consult date: 08/29/16 Requesting physician: Kendell Mosquera Consult reason: A-Fib, splenic infarct, anticoagulation recommendations Chief complaint: abdominal pain History of present illness: Mr. Sapp is a 61 year old male with PMH of CVAs, most recently 08/08/16 at which time he had left carotid stenting with distal protection device for high grade left carotid stenosis, PAF previously on Coumadin stopped recently at [facility] , CAD s/p OR and PCI, anxiety/depression, DM, GERD, s/p loop recorder insertion 08/2015 for frequent PVCs, NSVT--had normal EP study that presented from the ED with chief complaint of left lower quadrant pain. Patient also reports problems with constipation and states his last bowel movement was 08/24/16, but now he has started having diarrhea since admission. Patient reports moderate pain without rigidity or rebound. LLQ pain radiates to back. Pain was intermittent, associated with nausea and vomiting. Patient denies chest pain, SOB, diaphoresis. CT abdomen and pelvis 08/28/16 shows splenic infarction with splenic artery and vein remaining patent. Cardiology has been consulted for embolic event in setting of A-Fib. EKG on admission A-Fib HR 60. Recent CV testing: Loop interrogation 08/20/16 Multiple episodes sensed--pauses, tachycardia and bradycardia, EGM attached in eCW for review.Per Dr. Jcarlos Marti on 08/26/16 PAF, PVC's, sinus vikram/th. C 08/01/16: Double vessel CAD. Previously stented mid RCA and OM1 are patent. Stress 01/17/16: Frequent monomorphic PVCs, possibly outflow tract origin noted during stress and recovery. Gated EF 65%. Small sized, moderate intensity, fixed apical inferior perfusion defect possibly due to small prior infarct. Perfusion imaging was negative for ischemia. Echo 01/16/16: SR with frequent PVCs, LVEF 60-65%, mild concentric LVH, moderate diastolic dysfunction, mild dilated left atrium, no significant valvular dysfunction. EP study 08/2015 normal with nothing inducible. Past Med Surg Social Fam HX - Past Medical History Medical history: arthritis, atrial fibrillation, coronary artery disease, CVA, diabetes, GERD, hyperlipidemia, hypertension, kidney stones, myocardial infarction Psychiatric history: anxiety - Past Surgical History Surgical History: angioplasty/stent (Left carotid artery), other - Social History Smoking Status: Former smoker Packs per day: 3 PPD Smokeless Tobacco Status: Yes Alcohol use: none Drug use: none - Family History Mother Race: Family Member Ethnicity: Non- Living Status: Age at : 65 Cause of : Renal failure Hx Family Cardiac Disorders: Yes (HTN, TIAs) Hx Family Genitourinary Disorders: Yes (Kidney failure) Brother Race: Family Member Ethnicity: Non- Living Status: Age at : 50 Cause of : OR Hx Family Cardiac Disorders: Yes ([place], HD) Sister Race: Family Member Ethnicity: Non- Living Status: Age at : 35 Cause of : Ovarian cancer Hx Family Cancer: Yes (Ovarian) Father Adopted: No Race: Family Member Ethnicity: Non- Living Status: Age at : 50 Cause of : Massive OR Hx Family Cardiac Disorders: Yes (OR) Medications and Allergies Cholecalciferol (Vitamin D3) [Vitamin D3] 50,000 unit PO MO 11/23/14 [History] Fenofibrate [Tricor] 145 mg PO HS #0 11/23/14 [History] Lisinopril [Zestril] 40 mg PO DAILY 11/23/14 [History] Metoprolol [Lopressor] 100 mg PO BID 11/23/14 [History] Rosuvastatin [Crestor] 40 mg PO HS 11/23/14 [History] Esomeprazole Magnesium [Nexium] 20 mg PO DAILY 08/13/15 [History] Gemfibrozil [Lopid] 600 mg PO BIDWM 08/13/15 [History] Oxybutynin Chloride [Ditropan Xl] 10 mg PO DAILY 08/13/15 [History] Ranitidine HCl [Heartburn Relief] 150 mg PO BID 08/13/15 [History] Baclofen 20 mg PO HS 08/01/16 [History] Docusate [Colace] 100 mg PO BID 08/01/16 [History] [place]-3/Dha/Epa/Fish Oil [Fish Oil 1,000 mg Softgel] 1,000 mg PO TID 08/01/16 [ History] Oxycodone HCl [Oxaydo] 5 mg PO Q6H PRN 08/01/16 [History] Polyethylene Glycol 3350 [MiraLAX Powder Bulk 17.9 Oz] 1 scoop PO BID #510 gm [Rx] Aspirin [Ecotrin] 325 mg PO DAILY 08/28/16 [History] BuPROPion XL (24 HR) [Wellbutrin XL] 150 mg PO DAILY 08/28/16 [History] Clopidogrel [Plavix] 75 mg PO DAILY 08/28/16 [History] Insulin ASPART [NovoLOG] 6 unit SQ TIDWM MDD PLUS SLIDING SCALE 08/28/16 [ History] Insulin Glargine [Lantus] 42 unit SQ BID 08/28/16 [History] Isosorbide MONOnitrate (24 HR) [Imdur] 120 mg PO DAILY 08/28/16 [History] Lactulose 10 gm PO DAILY 08/28/16 [History] Magnesium Oxide [Magnesium] 400 mg PO DAILY 08/28/16 [History] Potassium Chloride [Klor-Con] 20 meq PO DAILY 08/28/16 [History] Sitagliptin Phosphate [Januvia] 50 mg PO DAILY 08/28/16 [History] Allergies No Known Allergies Allergy (Verified 08/28/16 09:54) All Systems Review: A 10-system review of systems was performed and is negative for pertinent findings except as documented above in the HPI. - Cardiovascular Cardiovascular: as per HPI - Gastrointestinal Gastrointestinal: abdominal pain, constipation, diarrhea, nausea Physical Examination Vital Signs Temp Pulse Resp BP Pulse Ox 08/29/16 12:03 98.4 F 66 20 108/71 96 08/29/16 07:36 97.8 F 62 16 117/68 94 08/29/16 02:55 98.4 F 64 14 115/70 95 08/28/16 19:22 98.5 F 68 16 118/72 95 08/28/16 16:01 98.2 F 60 16 125/78 94 08/28/16 15:18 16 129/83 08/28/16 13:54 69 16 128/96 95 08/28/16 12:24 73 16 138/81 96 Intake and Output 08/28/16 08/29/16 08/29/16 23:59 07:59 15:59 Intake Total 1000 / 1000 270 / 270 Output Total 0 / 0 0 / 0 500 / 500 Balance 0 / 0 1000 / 1000 -230 / -230 Intake: IV Fluids 1000 / 1000 270 / 270 0.9 % Sodium Chloride 1, 1000 / 1000 270 / 270 000 ML @ 100 mls/hr IVC . Q10H [facility] Rx#:[id number] Output: Urine 0 / 0 0 / 0 500 / 500 Other: Meal NPO Stool Size Small Stool Consistency loose Stool Color Brown # Voids 1 # Bowel Movements 1 Weight 105.69 kg Blood Glucose* 89 78 67 Patient Weight 08/29/16 23:59 Weight 105.69 kg General: Conversant, No Apparent Distress HEENT: Atraumatic, Normocephaly, Mucus Membranes Moist Neck: No JVD, Normal carotid pulses Cardiac: Other (irregularly irregular) Lungs: Normal Breath Sounds, No Wheeze, Rales, Rhonchi Neuro: Alert and responsive, No focal deficits noted Abdomen: Soft Skin: No rashes noted on visualized skin Musculoskeletal: No Chest Wall Tenderness Extremities: No Clubbing, No Cyanosis, No Edema, Normal Pulses Results 08/29/16 04:45 08/29/16 04:45 Lab Results 08/29/16 08/29/16 08/29/16 04:45 04:45 04:45 WBC 8.3 Hgb 14.4 Hct 43.3 Plt Count 248 INR 1.4 APTT 33.8 Sodium 138 Potassium 4.0 Chloride 109 Carbon Dioxide 20 BUN 26 Creatinine 1.21 Glucose 82 Calcium 10.2 Total Bilirubin 0.9 AST 23 ALT 14 Alkaline Phosphatase 54 Short CBC 08/29/16 Range/Units 04:45 WBC 8.3 (4.3-11.1) K/mcL Hgb 14.4 (12.9-16.9) g/dL Hct 43.3 (37.5-50.1) % Plt Count 248 (140-400) K/mcL Neutrophils # 5.4 (1.6-8.9) K/mcL BMP 08/29/16 Range/Units 04:45 Sodium 138 (136-145) mEq/L Potassium 4.0 (3.5-4.5) mEq/L Chloride 109 (98-109) mEq/L Carbon Dioxide 20 (19-29) mEq/L BUN 26 (8-26) mg/dL Creatinine 1.21 (0.72-1.25) mg/dL Glucose 82 (70-99) mg/dL Calcium 10.2 (8.6-10.8) mg/dL Liver Function 08/29/16 Range/Units 04:45 Total Bilirubin 0.9 (0.2-1.2) mg/dL AST 23 (5-34) Units/L ALT 14 (0-55) Units/L Alkaline Phosphatase 54 (38-126) Units/L Albumin 3.2 L (3.5-5.0) g/dL Urine 08/28/16 Range/Units 18:05 Urine Color Yellow (Yellow) Urine Clarity Clear (Clear) Urine pH 5.5 (5.0-8.0) pH Units Ur Specific [place] > 1.030 H (1.010-1.025) Urine Protein 30 H (Neg-Trace) mg/dL Urine Glucose (UA) Normal (Normal) mg/dL Impressions Abdomen/Pelvis CT 08/28/16 10:47 IMPRESSION: 1. Acute appearing infarction involving the inferior spleen with adjacent inflammatory stranding. Of note, the splenic artery and splenic vein appear patent. 2. Additional stranding adjacent to portions of the pancreatic tail could be related to the above process or acute pancreatitis. 3. Incidental findings as above for which no follow-up is recommended. D/ / Wesley Hedrick MD / Wesley Hedrick MD Interpreting Provider: Wesley Hedrick MD Abdomen MRI 08/28/16 15:02 IMPRESSION: 1. Findings compatible with splenic infarct. 2. No suspicious soft tissue mass identified. D/ / 08/28/2016 23:25:13 Vic Osman MD / aniyah Interpreting Provider: Vic Osman MD Gallbladder Ultrasound 08/28/16 20:30 IMPRESSION: 1. No cholelithiasis or acute abnormality in the upper abdomen. 2. Multiple small simple right renal cysts. D/ / Miguel Angel Moran MD / Miguel Angel Moran MD Interpreting Provider: Miguel Angel Moran MD Active Medications Acetaminophen (Tylenol) 650 mg PO Q6HR PRN PRN Reason: Mild Pain (1-3) Stop: 02/27/17 14:49 Acetaminophen/Hydrocodone Bitart ([place] 5-325 Mg) 1 tab PO Q4HR PRN PRN Reason: Moderate Pain (4-6) Stop: 02/27/17 14:49 Last Admin: 08/29/16 01:31 Dose: 1 tab Aspirin (Aspirin Ec) 81 mg PO DAILY [facility] Stop: 02/28/17 09:01 Last Admin: 08/29/16 08:55 Dose: 81 mg Baclofen (Lioresal) 20 mg PO HS [facility] Stop: 02/27/17 21:01 Last Admin: 08/28/16 22:42 Dose: 20 mg Bupropion HCl (Wellbutrin Xl) 150 mg PO DAILY [facility] Stop: 02/28/17 09:01 Last Admin: 08/29/16 08:55 Dose: 150 mg Clopidogrel Bisulfate (Plavix) 75 mg PO DAILY [facility] Stop: 02/28/17 09:01 Last Admin: 08/29/16 08:54 Dose: 75 mg Docusate Sodium (Colace) 100 mg PO BID PRN PRN Reason: Constipation Stop: 02/27/17 14:49 Famotidine (Pepcid) 20 mg PO BID [facility] Stop: 02/27/17 21:01 Last Admin: 08/29/16 08:54 Dose: 20 mg Fenofibrate (Tricor) 162 mg PO HS [facility] PRN Reason: Protocol Stop: 02/27/17 21:01 Last Admin: 08/28/16 22:42 Dose: 162 mg Gemfibrozil (Lopid) 600 mg PO BIDWM [facility] Stop: 02/27/17 17:01 Last Admin: 08/29/16 08:54 Dose: 600 mg Sodium Chloride (0.9 % Sodium Chloride) 1,000 mls @ 100 mls/hr IVC .Q10H [facility] Stop: 02/27/17 17:16 Last Infusion: 08/29/16 09:05 Dose: 100 mls/hr Insulin Detemir (Levemir) 42 unit SQ BID [facility] Stop: 02/27/17 21:01 Last Admin: 08/29/16 08:58 Dose: Not Given Insulin Human Lispro (Humalog) 6 units SQ TIDAC [facility] Stop: 02/27/17 16:31 Last Admin: 08/29/16 07:36 Dose: Not Given Isosorbide Mononitrate (Imdur) 120 mg PO DAILY [facility] Stop: 02/28/17 09:01 Last Admin: 08/29/16 08:55 Dose: 120 mg Lactulose (Lactulose) 20 gm PO BID [facility] Stop: 02/27/17 21:01 Last Admin: 08/29/16 08:56 Dose: 20 gm Lisinopril (Zestril) 40 mg PO DAILY [facility] PRN Reason: Protocol Stop: 02/28/17 09:01 Last Admin: 08/29/16 08:55 Dose: 40 mg Magnesium Hydroxide (Milk Of Magnesia Conc) 10 ml PO DAILY PRN PRN Reason: Indigestion Stop: 02/27/17 14:49 Magnesium Oxide (Mag-Ox) 400 mg PO DAILY [facility] PRN Reason: Protocol Stop: 02/28/17 09:01 Last Admin: 08/29/16 08:55 Dose: 400 mg Metoprolol Tartrate (Lopressor) 100 mg PO BID [facility] Stop: 02/27/17 21:01 Last Admin: 08/29/16 08:55 Dose: 100 mg Morphine Sulfate (Morphine Sulfate) 2 mg IVP Q4HR PRN PRN Reason: Severe Pain (7-10) Stop: 02/27/17 14:49 Naloxone HCl (Narcan) 0.4 mg IVP Q2MIN PRN PRN Reason: Opioid Reversal Stop: 02/27/17 14:49 ([place]-3/Dha/Epa/Fish Oil [Fish Oil 1 ,000 Mg Softgel]) 1,000 mg PO TID [facility] Stop: 02/27/17 21:01 Last Admin: 08/29/16 09:18 Dose: Not Given Oxybutynin Chloride (Ditropan) 5 mg PO BID [facility] Stop: 02/28/17 09:01 Last Admin: 08/29/16 08:55 Dose: 5 mg Pantoprazole Sodium (Protonix) 40 mg IVP DAILY [facility] Stop: 02/28/17 09:01 Last Admin: 08/29/16 08:56 Dose: 40 mg Potassium Chloride (Potassium Chloride) 20 meq PO DAILY [facility] Stop: 02/28/17 09:01 Last Admin: 08/29/16 08:55 Dose: 20 meq Promethazine HCl (Phenergan) 12.5 mg PO Q6HR PRN PRN Reason: Nausea And Vomiting Stop: 02/27/17 14:49 Rosuvastatin Calcium (Crestor) 40 mg PO HS [facility] Stop: 02/27/17 21:01 Last Admin: 08/28/16 22:43 Dose: 40 mg Sitagliptin Phosphate (Januvia) 50 mg PO DAILY [facility] Stop: 02/28/17 09:01 Last Admin: 08/29/16 08:57 Dose: Not Given Vitamin D (Vitamin D) 1,000 unit PO DAILY [facility] Stop: 02/28/17 09:01 Last Admin: 08/29/16 08:55 Dose: 1,000 unit - Imaging and Cardiology Stress Test: report reviewed Echo: report reviewed Cardiac cath: report reviewed - EKG Interpretation EKG results cardiology: personally reviewed (A-Fib rate 60), other (24 hr tele AVG HR 61, A-Fib, longest pause 2.8 seconds.) Consult Discharge Plan - Plan Referrals: Jayme Alarcon MD [Primary Care Provider] -
[2016-08-29] MEDS ORDERED: D5% in Water 1,000 ML IVC PRN (12:32)
[2016-08-29] MEDS ORDERED: *HR* Dextrose 50 % in Water (Syg) 50 ML SYRINGE IVP PRN (12:32)
[2016-08-29] MEDS ORDERED: Dextrose Gel 15 GM PO PRN ×2 (12:32)
--- NOTE | 2016-08-29 16:05 | Neurology - Consult Note ---
Date of Encounter: 08/29/16 Time of Encounter: 15:56 Assessment and Plan (1) Atrial fibrillation Current Visit: Yes Status: Acute Patient has no signs and symptoms of new neurological symptoms. The CT of head was reviewed and showed resolving left frontal infarct without cerebral hemorrhage, midline shift or mass effects. Patient is three weeks out since last stroke. I think it is okay to start anticoagulation due to the discovered splenic infarct and risk of further arterial embolism related to atrial fibrillation. Discussed with the detention attendant radiologic electronic specialist and agrees to proceed with heparin drip bridge to coumadin.Also discussed with the patient and family members. Thank you for the consultation Qualifiers: Atrial fibrillation type: paroxysmal Qualified Code(s): I48.0 - Paroxysmal atrial fibrillation History of Present Illness Chief complaint: history of CVA and the use of coumadin HPI: Mr. Sapp is a 61 year old male with recent CVA, s/p left carotid stent placement, CAD, hyperlipidemia, Obesity, HTN, CKD, who developed acute onset of abdominal pain and was found to have spleen infarct. Neurology was consulted regarding coumadin use. Patient has history of atrial fibrillation and he was on anticoagulation therapy. he developed stroke like symptoms on 08/08/2016 and eventually transferred to [facility] where he has stroke work up and found left hemisphere cerebral infarct. He was found to have critical left ICA stenosis and had stent placement. Apparently he has been doing well since the procedure. Weakness is minimal at present time. His coumadin was discontinued and he was told to be re-evaluated later (09/24/2016) for possible resumption of anticoagulation therapy. He developed abdominal pain and found to have spleen infarct. Patient completed CT of head which showed no acute intracranial abnormality. No acute cerebral hemorrhage. Subacute or chronic cerebral infarct at the left frontal lobe noted. Currently patient has no discomforts. Abdonimal pain improved. He has no focal neurological deficits. Is somewhat indifferent, this could be related to left frontal infarct. Past Med Surg Social Fam HX - Past Medical History Medical history: arthritis, atrial fibrillation, coronary artery disease, CVA, diabetes, GERD, hyperlipidemia, hypertension, kidney stones, myocardial infarction Psychiatric history: anxiety - Past Surgical History Surgical History: angioplasty/stent (Left carotid artery), other - Social History Smoking Status: Former smoker Packs per day: 3 PPD Smokeless Tobacco Status: Yes Alcohol use: none Drug use: none - Family History Mother Race: Family Member Ethnicity: Non- Living Status: Age at : 65 Cause of : Renal failure Hx Family Cardiac Disorders: Yes (HTN, TIAs) Hx Family Genitourinary Disorders: Yes (Kidney failure) Brother Race: Family Member Ethnicity: Non- Living Status: Age at : 50 Cause of : PA Hx Family Cardiac Disorders: Yes ([place], HD) Sister Race: Family Member Ethnicity: Non- Living Status: Age at : 35 Cause of : Ovarian cancer Hx Family Cancer: Yes (Ovarian) Father Adopted: No Race: Family Member Ethnicity: Non- Living Status: Age at : 50 Cause of : Massive PA Hx Family Cardiac Disorders: Yes (PA) Medications and Allergies Cholecalciferol (Vitamin D3) [Vitamin D3] 50,000 unit PO MO 11/23/14 [History] Fenofibrate [Tricor] 145 mg PO HS #0 11/23/14 [History] Lisinopril [Zestril] 40 mg PO DAILY 11/23/14 [History] Metoprolol [Lopressor] 100 mg PO BID 11/23/14 [History] Rosuvastatin [Crestor] 40 mg PO HS 11/23/14 [History] Esomeprazole Magnesium [Nexium] 20 mg PO DAILY 08/13/15 [History] Gemfibrozil [Lopid] 600 mg PO BIDWM 08/13/15 [History] Oxybutynin Chloride [Ditropan Xl] 10 mg PO DAILY 08/13/15 [History] Ranitidine HCl [Heartburn Relief] 150 mg PO BID 08/13/15 [History] Baclofen 20 mg PO HS 08/01/16 [History] Docusate [Colace] 100 mg PO BID 08/01/16 [History] [place]-3/Dha/Epa/Fish Oil [Fish Oil 1,000 mg Softgel] 1,000 mg PO TID 08/01/16 [ History] Oxycodone HCl [Oxaydo] 5 mg PO Q6H PRN 08/01/16 [History] Polyethylene Glycol 3350 [MiraLAX Powder Bulk 17.9 Oz] 1 scoop PO BID #510 gm [Rx] Aspirin [Ecotrin] 325 mg PO DAILY 08/28/16 [History] BuPROPion XL (24 HR) [Wellbutrin XL] 150 mg PO DAILY 08/28/16 [History] Clopidogrel [Plavix] 75 mg PO DAILY 08/28/16 [History] Insulin ASPART [NovoLOG] 6 unit SQ TIDWM MDD PLUS SLIDING SCALE 08/28/16 [ History] Insulin Glargine [Lantus] 42 unit SQ BID 08/28/16 [History] Isosorbide MONOnitrate (24 HR) [Imdur] 120 mg PO DAILY 08/28/16 [History] Lactulose 10 gm PO DAILY 08/28/16 [History] Magnesium Oxide [Magnesium] 400 mg PO DAILY 08/28/16 [History] Potassium Chloride [Klor-Con] 20 meq PO DAILY 08/28/16 [History] Sitagliptin Phosphate [Januvia] 50 mg PO DAILY 08/28/16 [History] Allergies No Known Allergies Allergy (Verified 08/28/16 09:54) All Systems: A 10-system review of systems was performed and is negative for pertinent findings except as documented above in the HPI. 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, hip flexors, tibialis Anterior, quadriceps, toe extension (EHL), plantarflexion Motor examination - left side: 5/5: deltoids, biceps, triceps, wrist flexion, wrist extension, hip flexors, 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, quadriceps, tibialis Anterior, toe extension (EHL), plantarflexion Detailed sensory examination: intact Posture: other (none) Reflex and gait examination: normal gait Reflexes: Biceps: 1+, Triceps: 1+, Brachioradialis: 1+, Patella: 1+, Achilles: 1 + Mental Status Examination: awake, alert (patient is somewhat indifferent), oriented to person, oriented to place, oriented to time, follows commands appropriately, answers questions appropriately, no agnosia, no aphasia, no aproxia, lucid Cranial nerve examination: PERRL, EOMI, visual riley intact, corneal reflexes brisk symmetrically, sensory to face intact, mastication intact, no facial asymmetry is present, no dysarthria, hearing is intact symmetrically, soft palate elevates bilaterally upon phonation, gag reflex intact, flexes SCM and trapezius muscles symmetrically with full power, tongue protrudes midline, no atrophy or facial fasiculations present Results - Laboratory Findings CBC and BMP: 08/29/16 04:45 08/29/16 04:45 Abnormal lab findings: Abnormal lab results PT 15.0 Seconds (9.4-12.1) H 08/29/16 04:45 Hemoglobin A1c 7.4 % (-5.6) H 08/28/16 10:41 Albumin 3.2 g/dL (3.5-5.0) L 08/29/16 04:45 Globulin 4.8 g/dL (2.4-3.5) H 08/29/16 04:45 Albumin/Globulin Ratio 0.7 (1.1-2.2) L 08/29/16 04:45 Triglycerides 162 mg/dL (< 150) H 08/29/16 04:45 VLDL Cholesterol, Calc 32 mg/dL (< 31) H 08/29/16 04:45 HDL Cholesterol 15 mg/dL (40-59) L 08/29/16 04:45 Cholesterol/HDL Ratio 9.1 (0-4.9) H 08/29/16 04:45 Ur Specific [place] > 1.030 (1.010-1.025) H 08/28/16 18:05 Urine Protein 30 mg/dL (Neg-Trace) H 08/28/16 18:05 Ur Squamous Epith Cells Moderate per lpf (None-Few) H 08/28/16 18:05 Consult Discharge Plan - Plan Referrals: Jayme Alarcon MD [Primary Care Provider] -
[2016-08-29] MEDS ORDERED: *HR* Heparin 5,000 UNIT/ML VIAL IVP ONE (16:16)
[2016-08-29] MEDS ORDERED: *HR* Heparin 5,000 UNIT/ML VIAL IVP PRN ×2 (16:16)
--- NOTE | 2016-08-29 16:25 | Event Note ---
Date of Encounter: 08/29/16 Time of Encounter: 16:24 - Cardiology Event Note Per discussion with , will start coumadin per pharmacy and heparin drip for bridging. Will continue to monitor.
[2016-08-29 16:55] LABS: Hemoglobin 14.3 g/dL (12.9-16.9); Mean Corpuscular HGB Conc 33.3 g/dL (31.6-35.5); Mean Corpuscular Hemoglobin 29.9 pg (28.0-33.3); Mean Corpuscular Volume 89.8 fL (83.0-100.0); Mean Platelet Volume 10.3 fL (9.4-12.4); Platelet Count 274 K/mcL (140-400); Red Blood Count 4.79 M/mcL (4.19-5.50); Red Cell Distribution Width 13.8 % (11.5-14.5)
[2016-08-29 16:59] LABS: INR 1.3; Prothrombin Time 14.6 Seconds (9.4-12.1)
[2016-08-29] MEDS ORDERED: Warfarin perPT PO PRN ×2 (18:00→18:50)
[2016-08-29] MEDS: Heparin 25,000 UNIT/500 ML D5W 25,000 UNIT/500 ML MLS IVC SCH (18:27)
[2016-08-29] MEDS ORDERED: *HR* Warfarin 4 MG TABLET PO SCH (18:59)
[2016-08-29] MEDS ORDERED: *HR* Warfarin 5 MG TABLET PO ONE ×2 (19:15)
[2016-08-29] MEDS ORDERED: *HR* Warfarin 1 MG TABLET PO ONE ×2 (19:15)
[2016-08-29] MEDS: Baclofen 10 MG TABLET PO SCH (21:33)
[2016-08-29] MEDS: Fenofibrate 54 MG TABLET PO SCH (21:33)
[2016-08-30 01:04] LABS: Basophils % 0.5 %; Eosinophils # 0.2 K/mcL (0.0-0.6); Eosinophils % 3.1 %; Hematocrit 42.1 % (37.5-50.1); Hemoglobin 13.7 g/dL (12.9-16.9); Immature Granulocytes % 0.2 % (0-4); Lymphocytes # 1.8 K/mcL (0.6-4.6); Lymphocytes % 27.7 %; Mean Corpuscular HGB Conc 32.5 g/dL (31.6-35.5); Mean Corpuscular Hemoglobin 29.2 pg (28.0-33.3); Mean Corpuscular Volume 89.8 fL (83.0-100.0); Mean Platelet Volume 10.6 fL (9.4-12.4); Monocytes # 0.8 K/mcL (0.0-1.3); Monocytes % 12.1 %; Neutrophils # 3.6 K/mcL (1.6-8.9); Platelet Count 249 K/mcL (140-400); Red Blood Count 4.69 M/mcL (4.19-5.50); Red Cell Distribution Width 13.6 % (11.5-14.5); Segmented Neutrophils % 56.4 %
[2016-08-30 01:17] LABS: BUN/Creatinine Ratio 20 (6-26); Blood Urea Nitrogen 23 mg/dL (8-26); Calcium 9.6 mg/dL (8.6-10.8); Carbon Dioxide 20 mEq/L (19-29); Chloride 107 mEq/L (98-109); Glucose 109 mg/dL (70-99); Osmolality,Calculated 290 (280-300); Potassium 3.9 mEq/L (3.5-4.5); Sodium 138 mEq/L (136-145); eGFR For African Americans > 60 (> 60); eGFR For Non-African Americans > 60 (> 60)
[2016-08-30 01:20] LABS: INR 1.4; Prothrombin Time 14.7 Seconds (9.4-12.1)
[2016-08-30] MEDS: *HR* SitaGLIPtin 25 MG TABLET PO SCH (07:57)
[2016-08-30] MEDS: Lisinopril 20 MG TABLET PO SCH (07:57)
[2016-08-30] MEDS: Famotidine 20 MG TABLET PO SCH ×2 (07:57→19:40)
[2016-08-30] MEDS: Aspirin Enteric Coated 81 MG Tablet PO SCH (07:57)
[2016-08-30] MEDS: Metoprolol 100 MG TABLET PO SCH (07:57)
[2016-08-30] MEDS: Magnesium Oxide 400 MG TABLET PO SCH (07:57)
[2016-08-30] MEDS: Cholecalciferol (D-3) 1,000 UNIT TABLET PO SCH (07:57)
[2016-08-30] MEDS: BuPROPion XL (24 HR) 150 MG TABLET PO SCH (07:57)
[2016-08-30] MEDS: Lactulose Oral Soln 20 GM/30 ML UDC PO SCH ×2 (07:58→19:38)
[2016-08-30] MEDS: Isosorbide MONOnitrate (24 HR) 60 MG TAB.ER.24H PO SCH (07:58)
[2016-08-30] MEDS: Pantoprazole 40 MG VIAL IVP SCH (07:58)
[2016-08-30] MEDS: (Omega-3/Dha/Epa/Fish Oil [Fish Oil 1,000 Mg Softgel]) PO SCH ×3 (08:06→19:40)
[2016-08-30] MEDS: Insulin LISPRO 300 UNITS/3 ML VIAL SQ SCH ×3 (08:49→17:42)
[2016-08-30] MEDS: Insulin DETEMIR 100 UNIT/ML X5UNITS SQ SCH ×2 (08:49→19:44)
--- NOTE | 2016-08-30 11:21 | Cardiology Progress Note ---
Date of Encounter: 08/30/16 Time of Encounter: 11:19 Assessment and Plan (1) Afib Current Visit: No Status: Chronic Reviewed hospital medical records. Briefly, patient recently had a CVA 2016 and underwent left carotid stenting with a distal protective device. He was not on coumadin post procedure with plans to discuss at follow up visit. He now presents with splenic infarct. Neurology felt there was no contraindication from their standpoint to restart anticoagulation. Heparin to coumadin bridge is currently active. Patient should remain on ASA/Plavix for a minimum of 30days post stenting and then triple therapy can be further discussed. Presently, Hgb is stable and there is no evidence for bleeding. Patient has no new complaints today. Patient is rate controlled on metoprolol. Noted on telemetry are occasional pauses up to 2.8 seconds which are mainly nocturnal. Recommend decreasing metoprolol to 75mg BID. Coumadin to be dosed by pharmacy. Heparin should be stopped when INR 2-3. No further recommendations. We will sign off. Please call with questions. Qualifiers: Atrial fibrillation type: persistent Qualified Code(s): I48.1 - Persistent atrial fibrillation Discussion w patient/family: The assessment and plan as outlined above was discussed with the patient and/or family members who expressed understanding and agreement. All questions were answered. Thank you for involving us in the care of your patient. Please call with any questions. Subjective Principal diagnosis: Splenic Infarct Interval history: Patient reports no new complaints today. There were no acute overnight findings. Family at bedside. Objective Vital signs were reviewed. Afebrile Normotensive Normal heart rate Oxygenating on room air General: Conversant, No Apparent Distress HEENT: Mucus Membranes Moist Neck: No JVD Cardiac: Normal S1 and S2, No Murmur, Other (irregular rhythm, normal rate) Lungs: Normal Breath Sounds, No Wheeze, Rales, Rhonchi Neuro: Alert and responsive, No focal deficits noted Abdomen: Soft, Other (bowel sounds present) Extremities: No Edema Results 08/30/16 00:31 08/30/16 00:31 Lab Results 08/29/16 08/29/16 08/30/16 16:34 16:47 00:31 WBC 8.0 Hgb 14.3 Hct 43.0 Plt Count 274 INR 1.3 APTT 36.0 62.6 H D Sodium Potassium Chloride Carbon Dioxide BUN Creatinine Glucose Calcium 08/30/16 08/30/16 08/30/16 00:31 00:31 00:31 WBC 6.4 Hgb 13.7 Hct 42.1 Plt Count 249 INR 1.4 APTT Sodium 138 Potassium 3.9 Chloride 107 Carbon Dioxide 20 BUN 23 Creatinine 1.13 Glucose 109 H Calcium 9.6 08/30/16 07:56 WBC Hgb Hct Plt Count INR APTT 62.4 H Sodium Potassium Chloride Carbon Dioxide BUN Creatinine Glucose Calcium - EKG Interpretation EKG results cardiology: other (Telemetry reviewed; average HR 62 bpm, occasional pauses up to 2.8 seconds mainly nocturnal) - VTE Documentation of Mechanical Device: Graduated compression elastic hosiery Consult Discharge Plan - Plan Referrals: Jayme Alarcon MD [Primary Care Provider] -
[2016-08-30] MEDS: 0.9 % Sodium Chloride 1,000 ML IVC SCH ×2 (11:49→14:45)
[2016-08-30] MEDS: Heparin 25,000 UNIT/500 ML D5W 25,000 UNIT/500 ML MLS IVC SCH (11:58)
--- NOTE | 2016-08-30 12:13 | Internal Med Progress Note ---
Date of Encounter: 08/30/16 Time of Encounter: 10:00 - Assessment and plan (1) HTN (hypertension) Current Visit: No Status: Chronic Assessment and plan: BP is stable, continue home medications Qualifiers: Hypertension type: essential hypertension Qualified Code(s): I10 - Essential (primary) hypertension (2) CAD (coronary artery disease) Current Visit: Yes Status: Chronic Assessment and plan: Continue aspirin, Plavix, beta allan, and statin. Patient has no chest pain Qualifiers: Coronary Disease-Associated Artery/Lesion type: [place] artery [place] vs. transplanted heart: [place] heart Associated angina: with unspecified angina Qualified Code(s): I25.119 - Atherosclerotic heart disease of [place] coronary artery with unspecified angina pectoris (3) DM2 (diabetes mellitus, type 2) Current Visit: Yes Status: Chronic Assessment and plan: Continue patient's basal and prandial insulin. Closely monitor glucose level. Qualifiers: Diabetes mellitus complication status: without complication Diabetes mellitus shelter insulin use: with shelter use Qualified Code(s): E11.9 - Type 2 diabetes mellitus without complications; Z79.4 - assisted (current) use of insulin (4) DVT prophylaxis Current Visit: Yes Status: Acute Assessment and plan: Patient is on heparin drip and Coumadin. (5) Splenic infarction Current Visit: Yes Status: Acute Assessment and plan: Likely secondary to cardioembolic event given history of A. fib and strokes. He will need anticoagulation. Cardiology consult appreciated. Heparin drip and Coumadin started. Follow-up PT/INR. Patient is abdominal pain-free now. (6) Atrial fibrillation Current Visit: Yes Status: Acute Assessment and plan: Patient is started with Coumadin and bridged with heparin drip. - We will continue follow-up PT/INR until therapeutic. Pt is at high risk because he is on heparin drip, need close monitoring. 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 Continue with aspirin and Plavix. - Time Spent With Patient Greater than 35 minutes - Subjective Interval history: Patient is a 61-year-old male admitted for splenic infarction. History is significant for A. fib, CVA, carotid stenosis S/P stent, CAD, diabetes, tobacco abuse, hypertension Patient was seen and examined. No further abdominal pain. Vitals are stable. Cardiology and neurology consult appreciated. On heparin drip and Coumadin. - Constitutional Vitals: Temp Pulse Resp BP Pulse Ox 97.7 F 64 18 105/67 95 08/30/16 11:20 08/30/16 11:20 08/30/16 11:20 08/30/16 11:20 08/30/16 11:20 General appearance: Present: cooperative, mild distress, A&O X 3, morbidly obese , pleasant, answers questions appropriately - Head Head exam: Present: atraumatic, normocephalic - Eye Eye exam: Present: PERRL, conjuntiva pink, sclera anicteric Pupils: Present: PERRL - Neck Neck exam general surgery: Present: supple, trachea midline. Absent: lymphadenopathy - Respiratory Respiratory exam: Present: CTAB. Absent: accessory muscle use, rales, rhonchi, wheezes - Cardiovascular Cardiovascular exam: Present: irregular rhythm, +S1, +S2. Absent: diastolic murmur, gallop, rubs, systolic murmur - GI/Abdominal GI/Abdominal exam: Present: normal bowel sounds, soft, no peritoneal signs. Absent: distended, tenderness - Extremities Exam Extremities exam: Present: warm, radial pulses palpable and symetrical. Absent : calf tenderness, cyanotic, pedal edema - Neurological Exam Neurological exam: Present: CN II-XII intact, oriented X3, no focal deficits. Absent: pronater drift, facial droop, speech deficit - Skin Skin exam: Present: dry, intact Internal Medicine: Result - Labs CBC & Chem 7: 08/30/16 00:31 08/30/16 00:31 Labs: Short CBC 08/29/16 08/30/16 Range/Units 16:47 00:31 WBC 8.0 6.4 (4.3-11.1) K/mcL Hgb 14.3 13.7 (12.9-16.9) g/dL Hct 43.0 42.1 (37.5-50.1) % Plt Count 274 249 (140-400) K/mcL Neutrophils # 3.6 (1.6-8.9) K/mcL BMP 08/30/16 00:31 Sodium 138 Potassium 3.9 Chloride 107 Carbon Dioxide 20 BUN 23 Creatinine 1.13 Glucose 109 H Calcium 9.6 - ABG Interpretation ABG results: PT/INR, D-dimer PT 14.7 Seconds (9.4-12.1) H 08/30/16 00:31 - Impressions Impressions Abdomen MRI 08/28/16 15:02 IMPRESSION: 1. Findings compatible with splenic infarct. 2. No suspicious soft tissue mass identified. D/ / 08/28/2016 23:25:13 Vic Osman MD / [facility] Interpreting Provider: Vic Osman MD Head CT 08/29/16 13:24 IMPRESSION: 1. Stable left frontal lobe hypodense changes suggesting subacute versus remote infarct. There may be some cortical laminar necrosis. 2. No acute intracranial hemorrhage or global mass effect. D/ / 08/29/2016 14:17:47 Jatinder Martinez MD / [facility] Inter[facility] Provider: Jatinder Martinez MD - VTE Documentation of Mechanical Device: Graduated compression elastic hosiery Consult Discharge Plan - Plan Referrals: Jayme Alarcon MD [Primary Care Provider] -
[2016-08-30] MEDS ORDERED: *HR* Warfarin 5 MG TABLET PO SCH (18:00)
[2016-08-30] MEDS: Baclofen 10 MG TABLET PO SCH (19:39)
[2016-08-30] MEDS: Fenofibrate 54 MG TABLET PO SCH (19:39)
[2016-08-31] MEDS: Heparin 25,000 UNIT/500 ML D5W 25,000 UNIT/500 ML MLS IVC SCH ×2 (03:26→17:48)
[2016-08-31 05:49] LABS: Basophils % 0.8 %; Eosinophils # 0.2 K/mcL (0.0-0.6); Eosinophils % 4.1 %; Hematocrit 40.9 % (37.5-50.1); Hemoglobin 13.2 g/dL (12.9-16.9); Immature Granulocytes % 0.2 % (0-4); Immature Platelets 2.9 % (1.1-6.1); Lymphocytes # 1.8 K/mcL (0.6-4.6); Lymphocytes % 37.3 %; Mean Corpuscular HGB Conc 32.3 g/dL (31.6-35.5); Mean Corpuscular Hemoglobin 29.3 pg (28.0-33.3); Mean Corpuscular Volume 90.9 fL (83.0-100.0); Mean Platelet Volume 10.4 fL (9.4-12.4); Monocytes # 0.6 K/mcL (0.0-1.3); Monocytes % 12.4 %; Neutrophils # 2.2 K/mcL (1.6-8.9); Platelet Count 256 K/mcL (140-400); Red Cell Distribution Width 13.4 % (11.5-14.5); Segmented Neutrophils % 45.2 %
[2016-08-31 05:54] LABS: INR 1.8; Prothrombin Time 19.2 Seconds (9.4-12.1)
[2016-08-31 05:57] LABS: Activated Partial Thrombo Time 73.9 Seconds (26.0-36.0)
[2016-08-31 06:00] LABS: BUN/Creatinine Ratio 14 (6-26); Blood Urea Nitrogen 16 mg/dL (8-26); Calcium 9.7 mg/dL (8.6-10.8); Carbon Dioxide 23 mEq/L (19-29); Chloride 109 mEq/L (98-109); Glucose 143 mg/dL (70-99); Osmolality,Calculated 294 (280-300); Potassium 3.9 mEq/L (3.5-4.5); Sodium 140 mEq/L (136-145); eGFR For African Americans > 60 (> 60); eGFR For Non-African Americans > 60 (> 60)
[2016-08-31] MEDS: Isosorbide MONOnitrate (24 HR) 60 MG TAB.ER.24H PO SCH (07:51)
[2016-08-31] MEDS: Magnesium Oxide 400 MG TABLET PO SCH (07:51)
[2016-08-31] MEDS: *HR* SitaGLIPtin 25 MG TABLET PO SCH (07:51)
[2016-08-31] MEDS: Famotidine 20 MG TABLET PO SCH (07:51)
[2016-08-31] MEDS: Lisinopril 20 MG TABLET PO SCH (07:56)
[2016-08-31] MEDS: BuPROPion XL (24 HR) 150 MG TABLET PO SCH (07:56)
[2016-08-31] MEDS: Cholecalciferol (D-3) 1,000 UNIT TABLET PO SCH (07:56)
[2016-08-31] MEDS: Aspirin Enteric Coated 81 MG Tablet PO SCH (07:56)
[2016-08-31] MEDS: Pantoprazole 40 MG VIAL IVP SCH (07:56)
[2016-08-31] MEDS: Insulin LISPRO 300 UNITS/3 ML VIAL SQ SCH ×3 (07:57→17:50)
[2016-08-31] MEDS: Lactulose Oral Soln 20 GM/30 ML UDC PO SCH ×2 (07:57→20:42)
[2016-08-31] MEDS: Insulin DETEMIR 100 UNIT/ML X5UNITS SQ SCH ×2 (07:58→20:43)
[2016-08-31] MEDS: (Omega-3/Dha/Epa/Fish Oil [Fish Oil 1,000 Mg Softgel]) PO SCH ×3 (07:59→20:44)
--- NOTE | 2016-08-31 17:10 | Internal Med Progress Note ---
Date of Encounter: 08/31/16 Time of Encounter: 09:00 - Assessment and plan (1) HTN (hypertension) Current Visit: No Status: Chronic Assessment and plan: BP is stable, continue home medications Qualifiers: Hypertension type: essential hypertension Qualified Code(s): I10 - Essential (primary) hypertension (2) CAD (coronary artery disease) Current Visit: Yes Status: Chronic Assessment and plan: Continue aspirin, Plavix, beta allan, and statin. Patient has no chest pain Qualifiers: Coronary Disease-Associated Artery/Lesion type: [place] artery [place] vs. transplanted heart: [place] heart Associated angina: with unspecified angina Qualified Code(s): I25.119 - Atherosclerotic heart disease of [place] coronary artery with unspecified angina pectoris (3) DM2 (diabetes mellitus, type 2) Current Visit: Yes Status: Chronic Assessment and plan: Continue patient's basal and prandial insulin. Closely monitor glucose level. Qualifiers: Diabetes mellitus complication status: without complication Diabetes mellitus penitentiary insulin use: with penitentiary use Qualified Code(s): E11.9 - Type 2 diabetes mellitus without complications; Z79.4 - jail (current) use of insulin (4) DVT prophylaxis Current Visit: Yes Status: Acute Assessment and plan: Patient is on heparin drip and Coumadin. (5) Splenic infarction Current Visit: Yes Status: Acute Assessment and plan: Likely secondary to cardioembolic event given history of A. fib and strokes. He will need anticoagulation. Cardiology consult appreciated. Heparin drip and Coumadin started. Follow-up PT/INR. Patient is abdominal pain-free now. (6) Atrial fibrillation Current Visit: Yes Status: Acute Assessment and plan: Patient is started with Coumadin and bridged with heparin drip. - We will continue follow-up PT/INR until therapeutic. Pt is at high risk because he is on heparin drip, need close monitoring. 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 Continue with aspirin and Plavix. - Time Spent With Patient Greater than 35 minutes - Subjective Interval history: Patient is a 61-year-old male admitted for splenic infarction. History is significant for A. fib, CVA, carotid stenosis S/P stent, CAD, diabetes, tobacco abuse, hypertension Patient was seen and examined. No further abdominal pain. Vitals are stable. Cardiology and neurology consult appreciated. On heparin drip and Coumadin. INR 1.8 today - Constitutional Vitals: Temp Pulse Resp BP Pulse Ox 97.7 F 53 18 133/64 97 08/31/16 15:55 08/31/16 15:55 08/31/16 15:55 08/31/16 15:55 08/31/16 15:55 General appearance: Present: cooperative, A&O X 3, morbidly obese, pleasant, no acute distress, answers questions appropriately - Head Head exam: Present: atraumatic, normocephalic - Eye Eye exam: Present: PERRL, conjuntiva pink, sclera anicteric Pupils: Present: PERRL - Neck Neck exam general surgery: Present: supple, trachea midline. Absent: lymphadenopathy - Respiratory Respiratory exam: Present: CTAB. Absent: accessory muscle use, rales, rhonchi, wheezes - Cardiovascular Cardiovascular exam: Present: RRR, +S1, +S2. Absent: diastolic murmur, gallop, rubs, systolic murmur - GI/Abdominal GI/Abdominal exam: Present: normal bowel sounds, soft, no peritoneal signs. Absent: distended, tenderness - Extremities Exam Extremities exam: Present: warm, radial pulses palpable and symetrical. Absent : calf tenderness, cyanotic, pedal edema - Neurological Exam Neurological exam: Present: CN II-XII intact, oriented X3, no focal deficits. Absent: pronater drift, facial droop, speech deficit - Skin Skin exam: Present: dry, intact Internal Medicine: Result - Labs CBC & Chem 7: 08/31/16 05:40 08/31/16 05:40 Labs: Short CBC 08/31/16 Range/Units 05:40 WBC 4.9 (4.3-11.1) K/mcL Hgb 13.2 (12.9-16.9) g/dL Hct 40.9 (37.5-50.1) % Plt Count 256 (140-400) K/mcL Neutrophils # 2.2 (1.6-8.9) K/mcL BMP 08/31/16 05:40 Sodium 140 Potassium 3.9 Chloride 109 Carbon Dioxide 23 BUN 16 Creatinine 1.12 Glucose 143 H Calcium 9.7 - ABG Interpretation ABG results: PT/INR, D-dimer PT 19.2 Seconds (9.4-12.1) H 08/31/16 05:40 - VTE Documentation of Mechanical Device: Graduated compression elastic hosiery Consult Discharge Plan - Plan Referrals: Jayme Alarcon MD [Primary Care Provider] -
[2016-08-31] MEDS ORDERED: *HR* Warfarin 3 MG TABLET PO SCH (18:00)
[2016-08-31] MEDS: Fenofibrate 54 MG TABLET PO SCH (20:42)
[2016-08-31] MEDS: Baclofen 10 MG TABLET PO SCH (20:43)
[2016-09-01] MEDS: Aspirin Enteric Coated 81 MG Tablet PO SCH (08:15)
[2016-09-01] MEDS: *HR* SitaGLIPtin 25 MG TABLET PO SCH (08:16)
[2016-09-01] MEDS: Isosorbide MONOnitrate (24 HR) 60 MG TAB.ER.24H PO SCH (08:16)
[2016-09-01] MEDS: Lactulose Oral Soln 20 GM/30 ML UDC PO SCH (08:17)
[2016-09-01] MEDS: Insulin DETEMIR 100 UNIT/ML X5UNITS SQ SCH (08:17)
[2016-09-01] MEDS: Insulin LISPRO 300 UNITS/3 ML VIAL SQ SCH ×2 (08:18→12:25)
[2016-09-01] MEDS: Lisinopril 20 MG TABLET PO SCH (08:18)
[2016-09-01] MEDS: BuPROPion XL (24 HR) 150 MG TABLET PO SCH (08:18)
[2016-09-01] MEDS: Cholecalciferol (D-3) 1,000 UNIT TABLET PO SCH (08:18)
[2016-09-01] MEDS: (Omega-3/Dha/Epa/Fish Oil [Fish Oil 1,000 Mg Softgel]) PO SCH (08:29)
[2016-09-01] MEDS: Magnesium Oxide 400 MG TABLET PO SCH (08:30)
[2016-09-01] MEDS: Heparin 25,000 UNIT/500 ML D5W 25,000 UNIT/500 ML MLS IVC SCH (08:31)
[2016-09-01 08:48] LABS: INR 2.2; Prothrombin Time 24.1 Seconds (9.4-12.1)
[2016-09-01 08:51] LABS: Activated Partial Thrombo Time 59.2 Seconds (26.0-36.0)
--- NOTE | 2016-09-01 11:02 | Discharge Summary ---
Date of Encounter: 09/01/16 Time of Encounter: 10:00 - Discharge Diagnosis (1) HTN (hypertension) Priority: Secondary Status: Chronic Qualifiers: Hypertension type: essential hypertension Qualified Code(s): I10 - Essential (primary) hypertension (2) CAD (coronary artery disease) Priority: Secondary Status: Chronic Qualifiers: Coronary Disease-Associated Artery/Lesion type: [place] artery [place] vs. transplanted heart: [place] heart Associated angina: with unspecified angina Qualified Code(s): I25.119 - Atherosclerotic heart disease of [place] coronary artery with unspecified angina pectoris (3) DM2 (diabetes mellitus, type 2) Priority: Secondary Status: Chronic Qualifiers: Diabetes mellitus complication status: without complication Diabetes mellitus detention insulin use: with extermination supervisor use Qualified Code(s): E11.9 - Type 2 diabetes mellitus without complications; Z79.4 - assisted (current) use of insulin (4) DVT prophylaxis Priority: Secondary Status: Acute (5) Splenic infarction Priority: Primary Status: Acute (6) Atrial fibrillation Priority: Primary Status: Acute Qualifiers: Atrial fibrillation type: paroxysmal Qualified Code(s): I48.0 - Paroxysmal atrial fibrillation (7) 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 Metoprolol [Lopressor] 50 mg PO BID #60 tablet Warfarin [Coumadin] 2.5 mg PO TUTHSA@1800 #7 tablet Warfarin [Coumadin] 5 mg PO SUMOWEFR@1800 #8 tablet Home Medications: Cholecalciferol (Vitamin D3) [Vitamin D3] 50,000 unit PO MO 11/23/14 [History] Fenofibrate [Tricor] 145 mg PO HS #0 11/23/14 [History] Lisinopril [Zestril] 40 mg PO DAILY 11/23/14 [History] Rosuvastatin [Crestor] 40 mg PO HS 11/23/14 [History] Esomeprazole Magnesium [Nexium] 20 mg PO DAILY 08/13/15 [History] Gemfibrozil [Lopid] 600 mg PO BIDWM 08/13/15 [History] Oxybutynin Chloride [Ditropan Xl] 10 mg PO DAILY 08/13/15 [History] Ranitidine HCl [Heartburn Relief] 150 mg PO BID 08/13/15 [History] Baclofen 20 mg PO HS 08/01/16 [History] Docusate [Colace] 100 mg PO BID 08/01/16 [History] Hector-3/Dha/Epa/Fish Oil [Fish Oil 1,000 mg Softgel] 1,000 mg PO TID 08/01/16 [ History] Oxycodone HCl [Oxaydo] 5 mg PO Q6H PRN 08/01/16 [History] Polyethylene Glycol 3350 [MiraLAX Powder Bulk 17.9 Oz] 1 scoop PO BID #510 gm [Rx] BuPROPion XL (24 HR) [Wellbutrin Xl] 150 mg PO DAILY 08/28/16 [History] Clopidogrel [Plavix] 75 mg PO DAILY 08/28/16 [History] Insulin ASPART [NovoLOG] 6 unit SQ TIDWM MDD PLUS SLIDING SCALE 08/28/16 [ History] Insulin Glargine [Lantus] 42 unit SQ BID 08/28/16 [History] Isosorbide MONOnitrate (24 HR) [Imdur] 120 mg PO DAILY 08/28/16 [History] Lactulose 10 gm PO DAILY 08/28/16 [History] Magnesium Oxide [Magnesium] 400 mg PO DAILY 08/28/16 [History] Potassium Chloride [Klor-Con] 20 meq PO DAILY 08/28/16 [History] Sitagliptin Phosphate [Januvia] 50 mg PO DAILY 08/28/16 [History] Aspirin Enteric Coated [Aspirin EC] 81 mg PO DAILY #30 tablet. 09/01/16 [Rx] Metoprolol [Lopressor] 50 mg PO BID #60 tablet 09/01/16 [Rx] Warfarin [Coumadin] 2.5 mg PO TUTHSA@1800 #7 tablet 09/01/16 [Rx] Warfarin [Coumadin] 5 mg PO SUMOWEFR@1800 #8 tablet 09/01/16 [Rx] Allergies/Adverse Reactions: Allergies No Known Allergies Allergy (Verified 08/28/16 09:54) Procedures/tests Complete & Pending: Procedures Performed prior 72 hours Category Date Time Status CT head/brain wo con [CT] Stat Cat Scan 08/29/16 13:24 Completed - Notes to Outpatient Provider 1. Follow-up with anticoagulation clinic in 5 days. 2. Home medication adjustment: Metoprolol decreased to 50 mg twice a day because of bradycardia. Aspirin dose decreased to 81 mg daily because co- adminitration of Coumadin. Date of admission: 08/28/16 14:48 Primary care physician: Jayme Alarcon MD Consults: 08/29/16 10:17 Consult to Cardiology [CONS] Routine Comment: Consulting Provider: Cardiology Mary Reason for Consult: A flutter; cardioembolic event Time Notified: 10:18 Call Completed: Yes 08/29/16 13:04 Consult to Neurology [CONS] Routine Consulting Provider: Neurology [facility] Reason for Consult: Recent CVA 08/08/16 secondary to left ICA stenosis at [facility]. Known A-Fib. Now with splenic infarct off Coumadin and on ASA and Plavix s/p left carotid stent. Want to resume Coumadin if okay from neuro standpoint. Call Completed: Yes Discharging clinician: Shakila Dent Anticipated date of discharge: 09/01/16 - Patient Status Disposition: Home Health Service Condition: Fair Functional capacity at discharge: uses cane/walker Overall status at discharge: patient is back to baseline - Discharge Instructions Follow Up With: Jayme Alarcon MD [Primary Care Provider] - Additional Instructions: Anticoagulation clinic on 09/05 - Diet and Activity Activity: increase activity as tolerated Diet: diabetic diet Interval History: Mr. Sapp is a 61 year old male presents from the ED with chief complaint of left lower quadrant pain. Patient also reports current problem of constipation and states his last bowel movement was 08/24/16. Patient reports moderate pain without rigidity or rebound. Abdominal skin is normal in appearance, yet abdomen appears distended. Patient also reports LLQ pain radiates to back. Mr. Sapp states that he is experiencing nausea and vomiting as well. Patient denies chest pain, SOB, diaphoresis, or bloody emesis. CT abdomen and pelvis dated 08/28/16 show splenic infarction with splenic artery and vein remaining patent. Patient has past medical history of CVAs (last CVA event of 08/08/16), MIs 2, status post angioplasty/stent, atrial fibrillation, CAD, DM, hyperlipidemia, hypertension, GERD, nephrolithiasis, arthritis, anxiety, and history of tobacco abuse (3 PPD). Patient was previously on Coumadin which was stopped when he was seen at [facility]. He was then placed on Plavix and aspirin therapy. Patient's EKG dated 08/28/16 shows he is currently in atrial fibrillation with rate of 60 without acute ischemic change. Patient states last colonoscopy was approximately 3 years ago with removal of polyps. Hospital course: Mr. Sapp is a 61 year old male admitted for splenic infarct. Patient has a history of A. fib on Coumadin previously. His Coumadin is on hold recently because of carotid procedure in [facility]. He was placed on pain medication, close monitoring. Cardiology and neurology consult was called. Patient was recommended to restart Coumadin, and bridged by heparin drip. After treatment, his abdominal pain resolved. His INR reached therapeutic level, heparin drip was discontinued. Patient feels fine, no complaints. Patient is stable to discharge home and continue previous level of care. Patient was seen and examined. He is awake alert, oriented 3. No complaint. No abdominal pain. Vitals are stable. Stable to discharge home with by mouth Coumadin at his previous dose. Patient followed up with anticoagulation clinic for previously and will continue to follow up with them after placed on Coumadin. - Time Spent with Patient Total time spent providing and/or coordinating discharge services: 40 min Greater than 30 minutes - Constitutional Vitals: Temp Pulse Resp BP Pulse Ox 98.1 F 48 16 145/84 99 09/01/16 06:54 09/01/16 06:54 09/01/16 06:54 09/01/16 06:54 09/01/16 06:54 General appearance: Present: cooperative, A&O X 3, morbidly obese, pleasant, no acute distress, answers questions appropriately - Head Head exam: Present: atraumatic, normocephalic - Eye Eye exam: Present: PERRL, conjuntiva pink, sclera anicteric Pupils: Present: PERRL - Neck Neck exam general surgery: Present: supple, trachea midline. Absent: lymphadenopathy - Respiratory Respiratory exam: Present: CTAB. Absent: accessory muscle use, rales, rhonchi, wheezes - Cardiovascular Cardiovascular exam: Present: RRR, +S1, +S2. Absent: diastolic murmur, gallop, rubs, systolic murmur - GI/Abdominal GI/Abdominal exam: Present: normal bowel sounds, soft, no peritoneal signs. Absent: distended, tenderness - Extremities Exam Extremities exam: Present: warm, radial pulses palpable and symetrical. Absent : calf tenderness, cyanotic, pedal edema - Neurological Exam Neurological exam: Present: CN II-XII intact, oriented X3, no focal deficits. Absent: pronater drift, facial droop, speech deficit - Skin Skin exam: Present: dry, intact - VTE Documentation of Mechanical Device: Graduated compression elastic hosiery
--- NOTE | 2016-09-01 11:34 | Physician Discharge Referral ---
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 For more information, call the [place] Tobacco Quit Line at 8-907-HJBY-NOW. - Diet/Nutrition Diet/Nutrition Orders: Cardiac, No Concentrated Sweets - Services Needed Following services are medically necessary services: Nursing, Home Health Aide - Transfer Medications Prescriptions: Aspirin Enteric Coated [Aspirin EC] 81 mg PO DAILY #30 tablet. Metoprolol [Lopressor] 50 mg PO BID #60 tablet Warfarin [Coumadin] 2.5 mg PO TUTHSA@1800 #7 tablet Warfarin [Coumadin] 5 mg PO SUMOWEFR@1800 #8 tablet Home Medications: Cholecalciferol (Vitamin D3) [Vitamin D3] 50,000 unit PO MO 11/23/14 [History] Fenofibrate [Tricor] 145 mg PO HS #0 11/23/14 [History] Lisinopril [Zestril] 40 mg PO DAILY 11/23/14 [History] Rosuvastatin [Crestor] 40 mg PO HS 11/23/14 [History] Esomeprazole Magnesium [Nexium] 20 mg PO DAILY 08/13/15 [History] Gemfibrozil [Lopid] 600 mg PO BIDWM 08/13/15 [History] Oxybutynin Chloride [Ditropan Xl] 10 mg PO DAILY 08/13/15 [History] Ranitidine HCl [Heartburn Relief] 150 mg PO BID 08/13/15 [History] Baclofen 20 mg PO HS 08/01/16 [History] Docusate [Colace] 100 mg PO BID 08/01/16 [History] [place]-3/Dha/Epa/Fish Oil [Fish Oil 1,000 mg Softgel] 1,000 mg PO TID 08/01/16 [ History] Oxycodone HCl [Oxaydo] 5 mg PO Q6H PRN 08/01/16 [History] Polyethylene Glycol 3350 [MiraLAX Powder Bulk 17.9 Oz] 1 scoop PO BID #510 gm [Rx] BuPROPion XL (24 HR) [Wellbutrin Xl] 150 mg PO DAILY 08/28/16 [History] Clopidogrel [Plavix] 75 mg PO DAILY 08/28/16 [History] Insulin ASPART [NovoLOG] 6 unit SQ TIDWM MDD PLUS SLIDING SCALE 08/28/16 [ History] Insulin Glargine [Lantus] 42 unit SQ BID 08/28/16 [History] Isosorbide MONOnitrate (24 HR) [Imdur] 120 mg PO DAILY 08/28/16 [History] Lactulose 10 gm PO DAILY 08/28/16 [History] Magnesium Oxide [Magnesium] 400 mg PO DAILY 08/28/16 [History] Potassium Chloride [Klor-Con] 20 meq PO DAILY 08/28/16 [History] Sitagliptin Phosphate [Januvia] 50 mg PO DAILY 08/28/16 [History] Aspirin Enteric Coated [Aspirin EC] 81 mg PO DAILY #30 tablet. 09/01/16 [Rx] Metoprolol [Lopressor] 50 mg PO BID #60 tablet 09/01/16 [Rx] Warfarin [Coumadin] 2.5 mg PO TUTHSA@1800 #7 tablet 09/01/16 [Rx] Warfarin [Coumadin] 5 mg PO SUMOWEFR@1800 #8 tablet 09/01/16 [Rx] Allergies/Adverse Reactions: Allergies No Known Allergies Allergy (Verified 08/28/16 09:54) Certification: Further, I certify that my clinical findings support that this patient is homebound (i.e. absences from home require considerable and taxing effort and are for medical reasons or evangelical services or infrequently or short duration when for other reasons) because: Homebound Reason: Patient requires assistance of a person or device to safely leave home Attestation: My signature below is to certify that this patient is under my care and that I, or nurse practitioner, or a physician's patient clerical assistant working with me, has a face-to -face encounter with this patient.
[2016-09-01 11:42] VITALS: BP 106/61
[2016-09-01] MEDS ORDERED: *HR* Warfarin 5 MG TABLET PO SCH (18:00)
--- NOTE | 2016-09-02 17:35 | Electrocardiograph Report ---
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
[2016-09-02] MEDS ORDERED: *HR* Warfarin 2.5 MG TABLET PO SCH (18:00)
== END 2016-09-01 13:00 | disposition home health service (06) | DRG 816 ==
LOC: EMEROO 09:50 → 3ANU 09:50 → SUATTDRO 14:48 → 3ANU 15:34
PROVIDERS: ADMIT Internal Medicine; ATTEND Internal Medicine

== ENCOUNTER 2017-03-01 16:46 | Inpatient (IN) ==
[2017-03-01] MEDS: 0.9 % Sodium Chloride 1,000 ML IVC SCH ×3 (17:22→23:00)
[2017-03-01 17:25] LABS: Basophils # 0.1 K/mcL (0.0-0.2); Basophils % 0.4 %; Hematocrit 44.9 % (37.5-50.1); Hemoglobin 14.8 g/dL (12.9-16.9); Immature Granulocytes % 1.1 % (0-4); Lymphocytes # 1.6 K/mcL (0.6-4.6); Lymphocytes % 8.3 %; Mean Corpuscular Hemoglobin 29.8 pg (28.0-33.3); Mean Corpuscular Volume 90.5 fL (83.0-100.0); Mean Platelet Volume 10.8 fL (9.4-12.4); Monocytes % 10.7 %; Platelet Count 236 K/mcL (140-400); Red Blood Count 4.96 M/mcL (4.19-5.50); Red Cell Distribution Width 14.2 % (11.5-14.5); Segmented Neutrophils % 79.5 %
[2017-03-01 17:29] LABS: INR 2.2; Prothrombin Time 23.8 Seconds (9.4-12.1)
[2017-03-01] MEDS ORDERED: Ondansetron 4 MG/2 ML VIAL IVP ONE (17:35)
--- NOTE | 2017-03-01 17:38 | Emergency Department Note ---
START Narrative - START START: I examined this patient and my medical decision-making was reviewed with the Resident Physician. I agree with the documented findings, disposition and treatment plan as described except to the extent set forth below. 62-year-old male presents to the ER with fevers malaise weakness. Started getting sick 2 days ago. Having some difficulty with urination. Now he feels extremely weak. Denies any cough or sputum production. Denies abdominal pain. No head or neck pain. Fever up to 102 today. Concerns for Sirs with sepsis. We have ordered blood cultures. IV fluids. Fever control. We will treat with antibiotics accordingly. Critical care time approximately 35 minutes spent in medical management medical resuscitation of sepsis. Patient was found to be in A. fib. He states this is chronic. He is on Coumadin. We will also check coags.
[2017-03-01 17:40] LABS: Albumin 3.4 g/dL (3.5-5.0); Albumin/Globulin Ratio 0.7 (1.1-2.2); Bilirubin,Direct 0.6 mg/dL (0.0-0.5); Bilirubin,Indirect 0.7 mg/dL (0.0-1.2); Bilirubin,Total 1.3 mg/dL (0.2-1.2); Calcium 10.3 mg/dL (8.6-10.8); Magnesium 1.8 mg/dL (1.6-2.6); Potassium 4.7 mEq/L (3.5-4.5); Total Protein 8.4 g/dL (6.0-8.3)
--- NOTE | 2017-03-01 17:47 | Emergency Department Note ---
Disposition Clinical Impression: UTI (urinary tract infection) Qualifiers: Urinary tract infection type: acute cystitis Hematuria presence: without hematuria Qualified Code(s): N30.00 - Acute cystitis without hematuria Sepsis Qualifiers: Sepsis type: sepsis due to unspecified organism Qualified Code(s): A41.9 - Sepsis, unspecified organism Disposition: Admitted As Inpatient Condition: Fair Referrals: Jayme Alarcon MD [Primary Care Provider] - Forms: ED Satisfaction Letter Time of Disposition: 18:41 General Adult HPI - General Chief complaint: ED Nausea/Vomiting/Diarrhea Stated complaint: Fatigue, vomiting Time Seen by Provider: 03/01/17 16:55 Source: patient, family Limitations: no limitations Nursing Notes Reviewed: Yes Vital Signs Reviewed: Yes - History of Present Illness HPI Narrative: 62-year-old male presenting to the emergency department with chief complaint of feeling overall [place] not well for the past 2 days. According to his patient does have significant past medical history multiple stent placements, previous stroke, A. fib. He is currently on Coumadin for the A. fib. It was last checked approximately one week ago was within normal limits. Patient states for the past 2 days he has just been feeling not well, weak and more tired than normal. Patient slightly toxic appearing in the room. According to symptoms have progressively been getting worse since yesterday. He is febrile here 102.3. Patient denies any chest pain, shortness of breath or abdominal pain. He denies any dizziness, passing out or hitting his head. Pain Scale: 8 - Related Data Home Medications Medication Instructions Recorded Confirmed Cholecalciferol (Vitamin D3) 50,000 unit PO MO 11/23/14 10/09/16 [Vitamin D3] Fenofibrate [Tricor] 145 mg PO HS #0 11/23/14 10/09/16 Lisinopril [Zestril] 40 mg PO DAILY 11/23/14 10/09/16 Rosuvastatin [Crestor] 20 mg PO HS 11/23/14 10/09/16 Esomeprazole Magnesium [Nexium] 20 mg PO DAILY 08/13/15 10/09/16 Gemfibrozil [Lopid] 600 mg PO BIDWM 08/13/15 10/09/16 Oxybutynin Chloride [Ditropan Xl] 10 mg PO DAILY 08/13/15 10/09/16 Ranitidine HCl [Heartburn Relief] 150 mg PO BID 08/13/15 10/09/16 Baclofen 20 mg PO HS 08/01/16 10/09/16 Docusate [Colace] 100 mg PO BID 08/01/16 10/09/16 [place]-3/Dha/Epa/Fish Oil [Fish Oil 1,000 mg PO TID 08/01/16 10/09/16 1,000 mg Softgel] Oxycodone HCl [Oxaydo] 5 mg PO Q6H PRN 08/01/16 10/09/16 BuPROPion XL (24 HR) [Wellbutrin 150 mg PO DAILY 08/28/16 10/09/16 Xl] Insulin ASPART [NovoLOG] 6 unit SQ TIDWM MDD PLUS SLIDING 08/28/16 10/09/16 SCALE Insulin Glargine [Lantus] 42 unit SQ BID 08/28/16 10/09/16 Isosorbide MONOnitrate (24 HR) 120 mg PO DAILY 08/28/16 10/09/16 [Imdur] Sitagliptin Phosphate [Januvia] 100 mg PO DAILY 08/28/16 10/09/16 Previous Rx's Medication Instructions Recorded Aspirin Enteric Coated [Aspirin EC] 81 mg PO DAILY #30 tablet. 09/01/16 Metoprolol [Lopressor] 50 mg PO BID #60 tablet 09/01/16 Warfarin [Coumadin] 2.5 mg PO TUTHSA@1800 #7 tablet 09/01/16 Warfarin [Coumadin] 5 mg PO SUMOWEFR@1800 #8 tablet 09/01/16 Clotrimazole 1% CRM [Lotrimin 1%] 1 appl TP TID PRN #30 tube 10/09/16 Fluconazole [Diflucan] 100 mg PO Q2HR #4 tablet 10/09/16 Allergies Allergy/AdvReac Type Severity Reaction Status Date / Time No Known Allergies Allergy Verified 03/01/17 16:52 All systems ED: reviewed and negative except as stated. Constitutional: Reports: fever, weakness Eyes: Reports: as per HPI ENT ED: Reports: as per HPI Cardiovascular: Denies: chest pain, palpitations Respiratory: Denies: cough, dyspnea, wheezes Gastrointestinal: Denies: abdominal pain, nausea, vomiting Genitourinary: Reports: as per HPI Musculoskeletal: Reports: as per HPI Integumentary: Denies: rash, abrasion, lesions Neurological: Reports: as per HPI Psychiatric: Reports: as per HPI Endocrine: Reports: as per HPI Hematological/Lymphatic: Reports: as per HPI Allergic/Immunologic: Reports: as per HPI Past Medical History - Past Medical History Attestation: Yes The following information was validated with the patient. Medical history: Reports: non-contributory, atrial fibrillation, CVA, diabetes, hyperlipidemia, hypertension, renal disease Surgical history: Reports: angioplasty/stent (Left carotid artery), other Psychiatric history: Reports: anxiety - Social History Smoking Status: Never smoker Smokeless Tobacco Status: No Alcohol use: Reports: none Drug use: Reports: none Physical Exam - General Limitations: no limitations General appearance: alert, in no apparent distress - Head Head exam: atraumatic, normocephalic, normal inspection - Eye Eye exam: Present: normal appearance. Absent: scleral icterus, conjunctival injection - ENT ENT exam: normal exam, normal oropharynx, mucous membranes dry - Neck Neck exam: Present: normal inspection, full ROM. Absent: tenderness, meningismus - Chest Chest inspection: Present: normal inspection, symmetric chest wall rise. Absent : tenderness, rash - Respiratory Respiratory exam: Present: normal lung sounds bilaterally. Absent: respiratory distress, wheezes - Cardiovascular Cardiovascular exam: Present: regular rate, normal rhythm, normal heart sounds - Abdominal Exam Abdominal exam: Present: soft, Non-Tender. Absent: distention, guarding, rebound - Extremities Exam Extremities exam: Present: normal inspection, full ROM - Back Exam Back exam: Present: normal inspection. Absent: CVA tenderness (R), CVA tenderness (L) - Neurological Exam Neurological exam: Present: alert, oriented X3 - Psychiatric Psychiatric exam: Present: normal affect, normal mood - Skin Skin exam: Present: warm, intact Course Course Narrative: 62-year-old male presenting to the emergency Department chief complaint of overall weakness and not feeling well. Patient is slightly toxic appearing in the room. Concern for sepsis at this time. We will perform a septic workup including UA, chest x-ray and blood cultures along with basic lab work. Patient denies any specific concerns at this time including chest pain or shortness of breath. Disposition most likely will be admission although pending these results. He is febrile but otherwise stable at this time. Vital signs are stable. He is alert and oriented 3 with family at bedside. He agrees with this plan. - Reevaluation(s) Reevaluation #1: Patient lab work shows elevated white blood cell count along with elevated lactic acid. We have provided the patient with 3 L of fluid and will start Rocephin at this time for urinary tract infection. Urinary tract infection to be the source at this time. No other signs of infection on any of the patient' s other lab work. We will admit the patient this time for sepsis due to UTI. The accepting physician Dr. Read agrees to accept the patient at this time. Patient alert and oriented 3 in the room with stable vital signs at this time. He agrees with this plan. Family at bedside also agrees with this plan. Time: 18:48 Vital Signs Temperature 102.3 F H 03/01/17 16:47 Pulse Rate 96 03/01/17 16:47 Respiratory Rate 18 03/01/17 16:47 Blood Pressure 100/51 03/01/17 16:47 O2 Sat by Pulse Oximetry 93 03/01/17 16:47 Temperature 102.3 F H 03/01/17 16:47 Pulse Rate 78 03/01/17 18:39 Respiratory Rate 22 03/01/17 18:39 Blood Pressure 122/67 03/01/17 18:39 O2 Sat by Pulse Oximetry 94 03/01/17 18:39 Oxygen Delivery Oxygen Delivery Nasal Cannula Medical Decision Making - Lab Data Result diagrams: 03/01/17 17:10 03/01/17 17:10 Lab Results 03/01/17 03/01/17 03/01/17 Range/Units 17:10 17:10 17:10 WBC 18.8 H (4.3-11.1) K/mcL RBC 4.96 (4.19-5.50) M/mcL Hgb 14.8 (12.9-16.9) g/dL Hct 44.9 (37.5-50.1) % MCV 90.5 (83.0-100.0) fL MCH 29.8 (28.0-33.3) pg MCHC 33.0 (31.6-35.5) g/dL RDW 14.2 (11.5-14.5) % Plt Count 236 (140-400) K/mcL MPV 10.8 (9.4-12.4) fL Immature Gran % 1.1 (0-4) % Seg Neutrophils % 79.5 % Lymphocytes % 8.3 % Monocytes % 10.7 % Eosinophils % 0.0 % Basophils % 0.4 % Neutrophils # 15.0 H (1.6-8.9) K/mcL Lymphocytes # 1.6 (0.6-4.6) K/mcL Monocytes # 2.0 H (0.0-1.3) K/mcL Eosinophils # 0.0 (0.0-0.6) K/mcL Basophils # 0.1 (0.0-0.2) K/mcL PT 23.8 H (9.4-12.1) Seconds INR 2.2 Sodium 135 L (136-145) mEq/L Potassium 4.7 H (3.5-4.5) mEq/L Chloride 102 (98-109) mEq/L Carbon Dioxide 22 (19-29) mEq/L BUN 40 H (8-26) mg/dL Creatinine 2.00 H (0.72-1.25) mg/dL Est GFR ( Amer) 41 L (> 60) Est GFR (Non-Af Amer) 34 L (> 60) BUN/Creatinine Ratio 20 (6-26) Glucose 274 H (70-99) mg/dL Calculated Osmolality 300 (280-300) Lactic Acid (0.5-2.2) mmol/L Calcium 10.3 (8.6-10.8) mg/dL Magnesium 1.8 (1.6-2.6) mg/dL Total Bilirubin 1.3 H (0.2-1.2) mg/dL Direct Bilirubin 0.6 H (0.0-0.5) mg/dL Indirect Bilirubin 0.7 (0.0-1.2) mg/dL AST 26 (5-34) Units/L ALT 24 (0-55) Units/L Alkaline Phosphatase 78 (38-126) Units/L Troponin I (0-0.03) ng/mL Serum Total Protein 8.4 H (6.0-8.3) g/dL Albumin 3.4 L (3.5-5.0) g/dL Globulin 5.0 H (2.4-3.5) g/dL Albumin/Globulin Ratio 0.7 L (1.1-2.2) Urine Color (Yellow) Urine Clarity (Clear) Urine pH (5.0-8.0) pH Units Ur Specific [place] (1.010-1.025) Urine Protein (Neg-Trace) mg/dL Urine Glucose (UA) (Normal) mg/dL Urine Ketones (Negative) mg/dL Urine Blood (Negative) Urine Nitrite (Negative) Urine Bilirubin (Negative) Urine Urobilinogen (Normal) mg/dL Ur Leukocyte Esterase (Negative) Urine Microscopic RBC (0-3) per hpf Urine Microscopic WBC (0-3) per hpf Ur Squamous Epith Cells (None-Few) per lpf Urine Bacteria (None-Few) per hpf Ur Culture Indicated? (NO) 03/01/17 03/01/17 03/01/17 Range/Units 17:10 17:10 18:06 WBC (4.3-11.1) K/mcL RBC (4.19-5.50) M/mcL Hgb (12.9-16.9) g/dL Hct (37.5-50.1) % MCV (83.0-100.0) fL MCH (28.0-33.3) pg MCHC (31.6-35.5) g/dL RDW (11.5-14.5) % Plt Count (140-400) K/mcL MPV (9.4-12.4) fL Immature Gran % (0-4) % Seg Neutrophils % % Lymphocytes % % Monocytes % % Eosinophils % % Basophils % % Neutrophils # (1.6-8.9) K/mcL Lymphocytes # (0.6-4.6) K/mcL Monocytes # (0.0-1.3) K/mcL Eosinophils # (0.0-0.6) K/mcL Basophils # (0.0-0.2) K/mcL PT (9.4-12.1) Seconds INR Sodium (136-145) mEq/L Potassium (3.5-4.5) mEq/L Chloride (98-109) mEq/L Carbon Dioxide (19-29) mEq/L BUN (8-26) mg/dL Creatinine (0.72-1.25) mg/dL Est GFR ( Amer) (> 60) Est GFR (Non-Af Amer) (> 60) BUN/Creatinine Ratio (6-26) Glucose (70-99) mg/dL Calculated Osmolality (280-300) Lactic Acid 3.5 H (0.5-2.2) mmol/L Calcium (8.6-10.8) mg/dL Magnesium (1.6-2.6) mg/dL Total Bilirubin (0.2-1.2) mg/dL Direct Bilirubin (0.0-0.5) mg/dL Indirect Bilirubin (0.0-1.2) mg/dL AST (5-34) Units/L ALT (0-55) Units/L Alkaline Phosphatase (38-126) Units/L Troponin I 0.03 (0-0.03) ng/mL Serum Total Protein (6.0-8.3) g/dL Albumin (3.5-5.0) g/dL Globulin (2.4-3.5) g/dL Albumin/Globulin Ratio (1.1-2.2) Urine Color Dark Yellow (Yellow) Urine Clarity Turbid A (Clear) Urine pH 5.5 (5.0-8.0) pH Units Ur Specific [place] 1.022 (1.010-1.025) Urine Protein 100 H (Neg-Trace) mg/dL Urine Glucose (UA) Normal (Normal) mg/dL Urine Ketones Negative (Negative) mg/dL Urine Blood Large H (Negative) Urine Nitrite Negative (Negative) Urine Bilirubin Small H (Negative) Urine Urobilinogen Normal (Normal) mg/dL Ur Leukocyte Esterase Large H (Negative) Urine Microscopic RBC Present (0-3) per hpf Urine Microscopic WBC TNTC H (0-3) per hpf Ur Squamous Epith Cells Many H (None-Few) per lpf Urine Bacteria Many H (None-Few) per hpf Ur Culture Indicated? YES A (NO)
[2017-03-01 18:16] LABS: Bilirubin,Urine Small (Negative); Blood,Urine Large (Negative); Clarity,Urine Turbid (Clear); Color,Urine Dark Yellow (Yellow); Glucose,Urine (UA) Normal (Normal); Ketones,Urine Negative (Negative); Leukocyte Esterase,Urine Large (Negative); Nitrite,Urine Negative (Negative); PH,Urine 5.5 pH Units (5.0-8.0); Protein,Urine 100 mg/dL (Neg-Trace); Specific Gravity,Urine 1.022 (1.010-1.025); Urobilinogen,Urine Normal (Normal)
[2017-03-01 18:19] LABS: Bacteria,Urine Many per hpf (None-Few); Squamous Epithelial Cell,Urine Many per lpf (None-Few); WBC,Urine TNTC per hpf (0-3)
[2017-03-01 18:28] LABS: RBC,Urine Present per hpf (0-3)
[2017-03-01] MEDS ORDERED: cefTRIAXone 2,000 MG in Water for inj. (sterile) 20 ML IVP ONE (18:33)
[2017-03-01] MEDS ORDERED: 0.9 % Sodium Chloride 1,000 ML IVC ONE ×2 (18:34→20:26)
[2017-03-01] MEDS ORDERED: Naloxone 0.4 MG/ML INJ IVP PRN (20:22)
[2017-03-01] MEDS ORDERED: Acetaminophen 325 MG TABLET PO PRN (20:22)
[2017-03-01] MEDS ORDERED: Ondansetron ODT 4 MG TAB.RAPDIS SL PRN (20:22)
--- NOTE | 2017-03-01 20:22 | Internal Med History&Physical ---
<Ramona Mcallister - Last Filed: 03/01/17 21:28> Date of Encounter: 03/01/17 Time of Encounter: 20:14 Assessment and Plan (1) Sepsis Current visit: Yes Status: Acute 3 SIRS criteria: (HR 96, temperature 102.3, WBC 18.8) lactic acid 3.5, creatinine 2.0 at admission Severe sepsis with source of infection most likely UTI due to abnormal urinalysis showing large leukocyte esterase positive Patient reported dysuria, increased urinary frequency, fever, chills, weakness, fatigue CXR showed no acute cardiopulmonary process Upon my exam he was afebrile, BP 100/52, HR 71, lactic acid 1.5 Blood and urine cultures pending IV ceftriaxone IV fluids 100ml/hr IV fluid bolus (1) close hemodynamic monitoring Qualifiers: Sepsis type: sepsis due to unspecified organism Qualified Code(s): A41.9 - Sepsis, unspecified organism (2) UTI (urinary tract infection) Current visit: Yes Status: Acute Comlicated UTI Abnormal urinalysis showing large leukocyte esterase positive Patient reported dysuria, increased urinary frequency, fever, chills, weakness No history of UTI, urethral discharge, genital lesions IV ceftriaxone urine culture pending Qualifiers: Urinary tract infection type: acute cystitis Hematuria presence: without hematuria Qualified Code(s): N30.00 - Acute cystitis without hematuria (3) ELIN (acute kidney injury) Current visit: Yes Status: Acute Patient has a history of reported renal disease. He has an ELIN due to baseline creatinine about 1.2 and creatinine now is 2.0 which is 1.5x the baseline continue IV fluids avoid nephrotoxic agents close creatinine monitoring (4) Atrial fibrillation Current visit: No Status: Acute Patient has a history of A. fib that is rate controlled with metoprolol and anticoagulation with coumadin HR stable continue home medications pharmacy to dose coumadin monitor PT and INR Qualifiers: Atrial fibrillation type: paroxysmal Qualified Code(s): I48.0 - Paroxysmal atrial fibrillation (5) Diabetes mellitus Current visit: No Status: Acute Patient has a history of diabetes on insulin not well controlled glucose 274 close glucose monitoring levemir 20unit BID lispro 5unit TIDWM and ACHS PRN diabetic diet Qualifiers: Diabetes mellitus type: type 1 Diabetes mellitus complication status: without complication Qualified Code(s): E10.9 - Type 1 diabetes mellitus without complications (6) HIRAL (obstructive sleep apnea) Current visit: Yes Status: Acute Patient uses CPAP at night CPAP ordered (7) DVT prophylaxis Current visit: No Status: Acute continue coumadin that patient takes for A.fib Internal Medicine - H&P: HPI Chief complaint: weakness Admitted From: Home Plans for Post Hospital Care: Home History of present illness: Mr. Sapp is a 62 year old male with a past medical history of CAD, 3 stents, A.fib on Coumadin, CVA, diabetes, renal disease who presented to the hospital complaining of weakness. He stated that 2 days ago he started having dysuria and yesterday evening he became lethargic. His is at bedside and stated that the lethargy continued to worsen today and that he was sleeping most of the day, so then she told him he had to go to the hospital. He stated that he had to dysuria, increased urinary frequency, weakness, fever, chills, decreased appetite, nausea, confusion. He reported that he has had kidney stones before that he was able to pass a home. He denied hematuria, headache, changes in vision, chest pain, shortness of breath, vomiting, diarrhea, back pain. He denied ever having a UTI in the past, recent travel or sickness. The patient is a full code. Patient found to be septic. Urinalysis demonstrated UTI with leukocyte esterase positive. In the ED the patient was given 3 IV fluid boluses, dose of Rocephin, blood and urine cultures taken. Past Med Surg Social Fam HX - Past Medical History Medical history: non-contributory, atrial fibrillation, CVA, diabetes, hyperlipidemia, hypertension, myocardial infarction, renal disease Psychiatric history: anxiety - Past Surgical History Surgical History: angioplasty/stent, other - Social History Smoking Status: Former smoker Smokeless Tobacco Status: No Alcohol use: none Drug use: none Current living situation: Home - Family History Mother Family Member Ethnicity: Non- Living Status: Hx Family Cardiac Disorders: Yes (HTN, TIAs) Brother Family Member Ethnicity: Non- Living Status: Hx Family Cardiac Disorders: Yes ([place], HD) Sister Family Member Ethnicity: Non- Living Status: Hx Family Cardiac Disorders: Yes Hx Family Cancer: Yes (Ovarian) Father Adopted: No Family Member Ethnicity: Non- Living Status: Hx Family Cardiac Disorders: Yes ([place]) Internal Medicine - H&P: Meds Cholecalciferol (Vitamin D3) [Vitamin D3] 50,000 unit PO MO 11/23/14 [History] Fenofibrate [Tricor] 145 mg PO HS #0 11/23/14 [History] Lisinopril [Zestril] 40 mg PO DAILY 11/23/14 [History] Rosuvastatin [Crestor] 20 mg PO HS 11/23/14 [History] Esomeprazole Magnesium [Nexium] 20 mg PO DAILY 08/13/15 [History] Gemfibrozil [Lopid] 600 mg PO BIDWM 08/13/15 [History] Oxybutynin Chloride [Ditropan Xl] 10 mg PO DAILY 08/13/15 [History] Ranitidine HCl [Heartburn Relief] 150 mg PO BID 08/13/15 [History] Baclofen 20 mg PO HS 08/01/16 [History] Docusate [Colace] 100 mg PO BID 08/01/16 [History] [place]-3/Dha/Epa/Fish Oil [Fish Oil 1,000 mg Softgel] 1,000 mg PO TID 08/01/16 [ History] Oxycodone HCl [Oxaydo] 5 mg PO Q6H PRN 08/01/16 [History] BuPROPion XL (24 HR) [Wellbutrin Xl] 150 mg PO DAILY 08/28/16 [History] Insulin ASPART [NovoLOG] 6 unit SQ TIDWM MDD PLUS SLIDING SCALE 08/28/16 [ History] Insulin Glargine [Lantus] 42 unit SQ BID 08/28/16 [History] Isosorbide MONOnitrate (24 HR) [Imdur] 120 mg PO DAILY 08/28/16 [History] Sitagliptin Phosphate [Januvia] 100 mg PO DAILY 08/28/16 [History] Aspirin Enteric Coated [Aspirin EC] 81 mg PO DAILY #30 tablet. 09/01/16 [Rx] Metoprolol [Lopressor] 50 mg PO BID #60 tablet 09/01/16 [Rx] Warfarin [Coumadin] 2.5 mg PO TUTHSA@1800 #7 tablet 09/01/16 [Rx] Warfarin [Coumadin] 5 mg PO SUMOWEFR@1800 #8 tablet 09/01/16 [Rx] Clotrimazole 1% CRM [Lotrimin 1%] 1 appl TP TID PRN #30 tube 10/09/16 [Rx] Fluconazole [Diflucan] 100 mg PO Q2HR #4 tablet 10/09/16 [Rx] 3 Allergy/AdvReac Type Severity Reaction Status Date / Time No Known Allergies Allergy Verified 03/01/17 16:52 All Systems PM: A 10-system review of systems was performed and is negative for pertinent findings except as documented above in the HPI. - Constitutional Constitutional: anorexia, chills, fatigue, fever(s), malaise, weakness - EENT Eyes: no blurry vision, no change in vision - Cardiovascular Cardiovascular ROS IM: no chest pain, no edema, no syncope - Respiratory Respiratory: cough, no dyspnea, no wheezing - Gastrointestinal Gastrointestinal: nausea, no abdominal pain, no diarrhea, no vomiting - Genitourinary Genitourinary ROS male: difficulty urinating, dysuria, urinary frequency, no flank pain, no genital lesions, no genital pain, no hematuria, no penile discharge, no testicular pain - Musculoskeletal Musculoskeletal ROS IM: no back pain - Neurological Neurological ROS: confusion, no dizziness, no frequent falls, no headache(s) - Constitutional Vitals: Temp Pulse Resp BP Pulse Ox 98.2 F 71 18 100/52 97 03/01/17 19:44 03/01/17 19:44 03/01/17 19:44 03/01/17 19:44 03/01/17 19:44 General appearance: Present: mild distress, A&O X 3, obese - Head Head exam: Present: atraumatic, normocephalic - Eye Eye exam: Present: conjunctival injection, PERRL. Absent: scleral icterus - ENT ENT exam: Present: mucous membranes moist, normal exam - Neck Neck exam general surgery: Present: supple. Absent: lymphadenopathy, tenderness - Respiratory Respiratory exam: Present: CTAB. Absent: rales, rhonchi, wheezes - Cardiovascular Cardiovascular exam: Present: irregular rhythm. Absent: clicks - GI/Abdominal GI/Abdominal exam: Present: normal bowel sounds, soft. Absent: firm, guarding, tenderness - Extremities Exam Extremities exam: Present: normal inspection. Absent: joint swelling, tenderness - Back Exam Back exam: Present: normal inspection. Absent: CVA tenderness (L), CVA tenderness (R), tenderness - Skin Skin exam: Present: diaphoretic, dry, intact Internal Med - H&P Results - Labs CBC & Chem 7: 03/01/17 17:10 03/01/17 17:10 <Kendell Mosquera - Last Filed: 03/01/17 23:22> Date of Encounter: 03/01/17 Internal Medicine - H&P: HPI History of present illness: Mr. Sapp is a 62 year old male All Systems PM: A 10-system review of systems was performed and is negative for pertinent findings except as documented above in the HPI. - Constitutional Vitals: Temp Pulse Resp BP Pulse Ox 98.2 F 71 32 100/52 100 03/01/17 19:44 03/01/17 19:44 03/01/17 22:51 03/01/17 19:44 03/01/17 22:51 Internal Med - H&P Results - Labs CBC & Chem 7: 03/01/17 17:10 03/01/17 17:10 - Attending Attestation I conducted a face to face diagnostic evaluation of this patient and my medical decision-making was reviewed with the Resident Physician, Dr. Ramona Mcallister. I agree with the documented findings, disposition and treatment plan as described except to the extent set forth below: Patient is confused, awake alert to self and place, not to date. Heart is irregularly irregular S1 and S2. Lungs are clear. Abdomen soft. Urinalysis positive for large leukocyte esterase, WBC too numerous to count, large blood. EKG personally reviewed shows atrial fibrillation 92 bpm, left axis deviation, left anterior fascicular block and no ST or T-wave changes. Plan: Patient will be admitted for severe sepsis secondary to UTI. We will initiate treatment with IV ceftriaxone, IV fluids. Follow-up blood cultures urine culture and de-escalate antibiotic therapy accordingly. He is at high risk for morbidity, mortality and complications due to acute change in mental status secondary to sepsis induced metabolic encephalopathy.
[2017-03-01] MEDS: Insulin LISPRO 300 UNITS/3 ML VIAL SQ SCH (23:00)
[2017-03-01] MEDS: cefTRIAXone 2,000 MG in Water for inj. (sterile) 20 ML IVP SCH (23:00)
[2017-03-01] MEDS: Insulin DETEMIR 100 UNIT/ML X5UNITS SQ SCH (23:16)
[2017-03-02 04:13] LABS: Basophils # 0.1 K/mcL (0.0-0.2); Basophils % 0.4 %; Eosinophils % 0.1 %; Hematocrit 40.6 % (37.5-50.1); Immature Granulocytes % 0.5 % (0-4); Lymphocytes % 15.1 %; Mean Corpuscular Hemoglobin 29.8 pg (28.0-33.3); Mean Corpuscular Volume 93.1 fL (83.0-100.0); Mean Platelet Volume 10.7 fL (9.4-12.4); Monocytes % 7.9 %; Neutrophils # 10.1 K/mcL (1.6-8.9); Platelet Count 169 K/mcL (140-400); Red Blood Count 4.36 M/mcL (4.19-5.50); Red Cell Distribution Width 14.2 % (11.5-14.5)
[2017-03-02 04:21] LABS: Potassium 4.1 mEq/L (3.5-4.5)
[2017-03-02 04:32] LABS: Calcium 8.4 mg/dL (8.6-10.8)
[2017-03-02] MEDS: Insulin DETEMIR 100 UNIT/ML X5UNITS SQ SCH ×2 (08:36→21:32)
[2017-03-02] MEDS: Insulin LISPRO 300 UNITS/3 ML VIAL SQ SCH ×3 (08:36→18:02)
--- NOTE | 2017-03-02 09:14 | Internal Med Progress Note ---
<Iban Moya - Last Filed: 03/02/17 14:38> Date of Encounter: 03/02/17 Time of Encounter: 09:09 - Assessment and plan (1) Sepsis Current Visit: Yes Status: Acute Assessment and plan: Patient met sepsis criteria with heart rate greater than 90, elevated WBC, fevers greater than 102 and urinary tract infection. - Patient responding well to ceftriaxone for antibiotic coverage - Tolerating IV fluids with current blood pressure stable. - Blood cultures pending results - Lactic acid improved from 3.5-1.5. Qualifiers: Sepsis type: sepsis due to unspecified organism Qualified Code(s): A41.9 - Sepsis, unspecified organism (2) HTN (hypertension) Current Visit: No Status: Chronic Assessment and plan: History of hypertension, blood pressure currently stable in the setting of sepsis. - Continue to hold antihypertensive medications until blood pressures stabilized. Qualifiers: Hypertension type: essential hypertension Qualified Code(s): I10 - Essential (primary) hypertension (3) A-fib Current Visit: No Status: Chronic Assessment and plan: History of atrial fibrillation, takes metoprolol 25 mg by mouth twice a day. Patient currently rate controlled without metoprolol in the setting of sepsis. - We will restart metoprolol tomorrow if blood pressure stable. - Continue warfarin therapy. Qualifiers: Atrial fibrillation type: paroxysmal Qualified Code(s): I48.0 - Paroxysmal atrial fibrillation (4) CAD (coronary artery disease) Current Visit: No Status: Chronic Assessment and plan: Continue aspirin, rosuvastatin, cardiac diet, beta allan when patient is stable. Qualifiers: Coronary Disease-Associated Artery/Lesion type: [place] artery [place] vs. transplanted heart: [place] heart Associated angina: with unspecified angina Qualified Code(s): I25.119 - Atherosclerotic heart disease of [place] coronary artery with unspecified angina pectoris (5) UTI (urinary tract infection) Current Visit: Yes Status: Acute Assessment and plan: Patient admitted with sepsis with urinary tract infection. - Improving on ceftriaxone - Continue 14 days of antibiotic coverage Qualifiers: Urinary tract infection type: acute cystitis Hematuria presence: without hematuria Qualified Code(s): N30.00 - Acute cystitis without hematuria (6) ELIN (acute kidney injury) Current Visit: Yes Status: Acute Assessment and plan: Patient presented with acute kidney injury in the setting of urinary tract infection sepsis. Creatinine at admission was 2.0 currently 1.45. Turning in the correct direction after IV fluids and antibiotics. - Continue to monitor daily. - Avoid nephrotoxic medications and renally dose antibiotics (7) HIRAL (obstructive sleep apnea) Current Visit: Yes Status: Acute Assessment and plan: Known history of HIRAL, continue use BiPAP and patient. (8) DM2 (diabetes mellitus, type 2) Current Visit: No Status: Chronic Assessment and plan: Known type II diabetic, currently glucose is controlled. Continue before meals and at bedtime glucose checks - Continue Levemir and sliding scale insulin. 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 Sapp 62-year-old male is seen and evaluated patient bedside this morning. He is alert awake oriented interactive in no acute distress. He states that he is feeling well but does have occasional sweating and chills. He denies any nausea, vomiting, chest pain, chest pressure or shortness of breath, nausea vomiting diarrhea constipation. He has had occasional urinary discomfort and lack of appetite. He states that his lack of appetite has been present since Thursday. He denies any pelvic pain or back pain or flank pain. He has not noticed any blood in his urine or abnormal urinary smell. He does however say that when he passes gas he has a white output around his rectum which she states is likely his infection with his bladder. - Constitutional Vitals: Temp Pulse Resp BP Pulse Ox 99.0 F 87 20 129/83 98 03/02/17 07:39 03/02/17 07:44 03/02/17 07:39 03/02/17 07:39 03/02/17 07:39 General appearance: Present: mild distress, A&O X 3, obese - Head Head exam: Present: atraumatic, normocephalic - Neck Neck exam general surgery: Present: supple, trachea midline. Absent: lymphadenopathy - Respiratory Respiratory exam: Present: CTAB. Absent: accessory muscle use, rales, rhonchi, wheezes - Cardiovascular Cardiovascular exam: Present: irregular rhythm - GI/Abdominal GI/Abdominal exam: Present: normal bowel sounds, soft Additional comments: Obese abdomen, soft nontender to palpation, patient has diastases recti., Negative for CVA tenderness - Extremities Exam Extremities exam: Present: warm, radial pulses palpable and symmetrical. Absent : calf tenderness, cyanotic, pedal edema - Neurological Exam Neurological exam: Present: alert, oriented X3, no focal deficits. Absent: pronater drift, facial droop, speech deficit - Psychiatric Psychiatric exam: Present: normal affect, normal mood Internal Medicine: Result - Labs CBC & Chem 7: 03/02/17 03:17 03/02/17 03:17 Labs: Short CBC 03/02/17 Range/Units 03:17 WBC 13.2 H (4.3-11.1) K/mcL Hgb 13.0 D (12.9-16.9) g/dL Hct 40.6 (37.5-50.1) % Plt Count 169 (140-400) K/mcL Neutrophils # 10.1 H (1.6-8.9) K/mcL BMP 03/02/17 03:17 Sodium 139 Potassium 4.1 Chloride 111 H Carbon Dioxide 20 BUN 34 H Creatinine 1.45 H Glucose 123 H Calcium 8.4 L D - ABG Interpretation ABG results: PT/INR, D-dimer PT 23.8 Seconds (9.4-12.1) H 03/01/17 17:10 Consult Discharge Plan - Plan Referrals: Jayme Alarcon MD [Primary Care Provider] - 03/10/17 9:45 am () <Itz Vasquez H - Last Filed: 03/02/17 15:25> Date of Encounter: 03/02/17 - Constitutional Vitals: Temp Pulse Resp BP Pulse Ox 98.6 F 81 16 120/60 97 03/02/17 10:00 03/02/17 13:57 03/02/17 13:57 03/02/17 10:00 03/02/17 13:57 Internal Medicine: Result - Labs CBC & Chem 7: 03/02/17 03:17 03/02/17 03:17 Labs: Short CBC 03/02/17 Range/Units 03:17 WBC 13.2 H (4.3-11.1) K/mcL Hgb 13.0 D (12.9-16.9) g/dL Hct 40.6 (37.5-50.1) % Plt Count 169 (140-400) K/mcL Neutrophils # 10.1 H (1.6-8.9) K/mcL BMP 03/02/17 03:17 Sodium 139 Potassium 4.1 Chloride 111 H Carbon Dioxide 20 BUN 34 H Creatinine 1.45 H Glucose 123 H Calcium 8.4 L D - ABG Interpretation ABG results: PT/INR, D-dimer PT 23.8 Seconds (9.4-12.1) H 03/01/17 17:10 - Impressions Impressions Abdomen/Pelvis CT 03/02/17 09:06 IMPRESSION: 1. Mild stranding adjacent to the urinary bladder and focus of gas within the bladder could be seen with urinary tract infection. Recent instrumentation could introduce gas into the bladder. 2. Bilateral renal calculi without evidence of obstructing calculus. 3. Fatty infiltration of the liver. 4. Evolution of the splenic infarct with scarring now present. 5. Colonic diverticulosis without evidence of acute diverticulitis. D/ / Geoff Gallagher MD / Geoff Gallagher MD Interpreting Provider: Geoff Gallagher MD - Attending Attestation Sepsis secondary to UTI Continue Rocephin day 2 BPH Start Flomax I examined this patient and my medical decision-making was reviewed with the Resident Physician. I agree with the documented findings, disposition and treatment plan as described except to the extent set forth below.
[2017-03-02] MEDS: 0.9 % Sodium Chloride 1,000 ML IVC SCH ×2 (10:51→21:39)
--- NOTE | 2017-03-02 11:32 | Electrocardiograph Report ---
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
[2017-03-02] MEDS ORDERED: Warfarin perPT PO PRN (18:00)
[2017-03-02] MEDS ORDERED: *HR* Warfarin 5 MG TABLET PO ONE (18:00)
[2017-03-02] MEDS: cefTRIAXone 2,000 MG in Water for inj. (sterile) 20 ML IVP SCH (21:32)
[2017-03-03] MEDS: 0.9 % Sodium Chloride 1,000 ML IVC SCH (07:27)
[2017-03-03] MEDS: Insulin LISPRO 300 UNITS/3 ML VIAL SQ SCH (07:44)
[2017-03-03 08:32] LABS: Basophils % 0.4 %; Eosinophils # 0.1 K/mcL (0.0-0.6); Eosinophils % 0.6 %; Hematocrit 36.7 % (37.5-50.1); Hemoglobin 12.3 g/dL (12.9-16.9); Immature Granulocytes % 0.4 % (0-4); Lymphocytes # 1.1 K/mcL (0.6-4.6); Lymphocytes % 13.6 %; Mean Corpuscular HGB Conc 33.5 g/dL (31.6-35.5); Mean Corpuscular Hemoglobin 30.1 pg (28.0-33.3); Mean Corpuscular Volume 89.7 fL (83.0-100.0); Monocytes # 0.6 K/mcL (0.0-1.3); Monocytes % 6.8 %; Neutrophils # 6.5 K/mcL (1.6-8.9); Platelet Count 154 K/mcL (140-400); Red Blood Count 4.09 M/mcL (4.19-5.50); Red Cell Distribution Width 13.9 % (11.5-14.5); Segmented Neutrophils % 78.2 %
[2017-03-03 08:34] LABS: INR 1.9; Prothrombin Time 20.6 Seconds (9.4-12.1)
[2017-03-03 08:47] LABS: Alanine Aminotransferase 15 Units/L (0-55); Albumin/Globulin Ratio 0.5 (1.1-2.2); Alkaline Phosphatase 68 Units/L (38-126); Aspartate Amino Transferase 21 Units/L (5-34); BUN/Creatinine Ratio 16 (6-26); Bilirubin,Total 0.6 mg/dL (0.2-1.2); Calcium 9.2 mg/dL (8.6-10.8); Carbon Dioxide 24 mEq/L (19-29); Chloride 104 mEq/L (98-109); Globulin 4.6 g/dL (2.4-3.5); Glucose 169 mg/dL (70-99); Osmolality,Calculated 285 (280-300); Potassium 3.7 mEq/L (3.5-4.5); Sodium 135 mEq/L (136-145); eGFR For African Americans > 60 (> 60); eGFR For Non-African Americans > 60 (> 60)
[2017-03-03 08:50] LABS: Albumin 2.4 g/dL (3.5-5.0); Blood Urea Nitrogen 16 mg/dL (8-26)
[2017-03-03] MEDS: Insulin DETEMIR 100 UNIT/ML X5UNITS SQ SCH (09:07)
--- NOTE | 2017-03-03 09:33 | Discharge Summary ---
<Iban Moya - Last Filed: 03/03/17 09:09> Date of Encounter: 03/03/17 Time of Encounter: 09:10 - Discharge Diagnosis (1) Sepsis Priority: Primary Status: Acute Qualifiers: Sepsis type: sepsis due to unspecified organism Qualified Code(s): A41.9 - Sepsis, unspecified organism (2) UTI (urinary tract infection) Priority: Primary Status: Acute Qualifiers: Urinary tract infection type: acute cystitis Hematuria presence: without hematuria Qualified Code(s): N30.00 - Acute cystitis without hematuria (3) HTN (hypertension) Priority: Secondary Status: Chronic Qualifiers: Hypertension type: essential hypertension Qualified Code(s): I10 - Essential (primary) hypertension (4) A-fib Priority: Secondary Status: Chronic Qualifiers: Atrial fibrillation type: paroxysmal Qualified Code(s): I48.0 - Paroxysmal atrial fibrillation (5) CAD (coronary artery disease) Priority: Secondary Status: Chronic Qualifiers: Coronary Disease-Associated Artery/Lesion type: [place] artery [place] vs. transplanted heart: [place] heart Associated angina: with unspecified angina Qualified Code(s): I25.119 - Atherosclerotic heart disease of [place] coronary artery with unspecified angina pectoris (6) ELIN (acute kidney injury) Priority: Primary Status: Acute (7) HIRAL (obstructive sleep apnea) Priority: Secondary Status: Acute (8) DM2 (diabetes mellitus, type 2) Priority: Secondary Status: Chronic Qualifiers: Diabetes mellitus complication status: without complication Diabetes mellitus prison insulin use: with prison use Qualified Code(s): E11.9 - Type 2 diabetes mellitus without complications; Z79.4 - correction (current) use of insulin - Discharge Medications Prescriptions: Cefdinir [Omnicef] 300 mg PO Q12H 8 Days #16 capsule Tamsulosin [Flomax] 0.4 mg PO DAILY 30 Days #30 capsule Home Medications: Cholecalciferol (Vitamin D3) [Vitamin D3] 50,000 unit PO MO 11/23/14 [History] Fenofibrate [Tricor] 145 mg PO HS #0 11/23/14 [History] Lisinopril [Zestril] 40 mg PO DAILY 11/23/14 [History] Esomeprazole Magnesium [Nexium] 20 mg PO DAILY 08/13/15 [History] Gemfibrozil [Lopid] 600 mg PO BIDWM 08/13/15 [History] Oxybutynin Chloride [Ditropan Xl] 10 mg PO DAILY 08/13/15 [History] Ranitidine HCl [Heartburn Relief] 150 mg PO BID 08/13/15 [History] Baclofen 20 mg PO HS 08/01/16 [History] Docusate [Colace] 100 mg PO BID 08/01/16 [History] [place]-3/Dha/Epa/Fish Oil [Fish Oil 1,000 mg Softgel] 1,000 mg PO TID 08/01/16 [ History] BuPROPion XL (24 HR) [Wellbutrin Xl] 150 mg PO DAILY 08/28/16 [History] Isosorbide MONOnitrate (24 HR) [Imdur] 120 mg PO DAILY 08/28/16 [History] Aspirin Enteric Coated [Aspirin EC] 81 mg PO DAILY #30 tablet. 09/01/16 [Rx] Insulin Regular U-500 [HumuLIN R U-500] 50 unit SQ 1200 03/02/17 [History] Insulin Regular U-500 [HumuLIN R U-500] 70 unit SQ BID 03/02/17 [History] Metoprolol [Lopressor] 25 mg PO BID 03/02/17 [History] Potassium Chloride [K-Tab ER] 20 meq PO DAILY 03/02/17 [History] Rosuvastatin [Crestor] 40 mg PO HS 03/02/17 [History] Warfarin [Coumadin] 2.5 mg PO SUTUWETHSA 03/02/17 [History] Warfarin [Coumadin] 5 mg PO MOFR 03/02/17 [History] Cefdinir [Omnicef] 300 mg PO Q12H 8 Days #16 capsule 03/03/17 [Rx] Tamsulosin [Flomax] 0.4 mg PO DAILY 30 Days #30 capsule 03/03/17 [Rx] Allergies/Adverse Reactions: 3 Allergy/AdvReac Type Severity Reaction Status Date / Time No Known Allergies Allergy Verified 03/01/17 16:52 Procedures/tests Complete & Pending: Procedures Performed prior 72 hours Category Date Time Status CT kidney stone [CT] Stat Cat Scan 03/02/17 09:06 Completed Date of admission: 03/01/17 19:01 Primary care physician: Jayme Alarcon MD Consults: 03/01/17 19:59 Consult to Nutrition [CONS] Routine Comment: Consulting Provider: NUTRITION Reason for Dietary Consult: MST Score Other:: pt family states he has lost weight consistently for a few months Discharging clinician: Iban Moya Anticipated date of discharge: 03/03/17 - Patient Status Disposition: Home, Self-Care Condition: Good Functional capacity at discharge: independent ambulation Overall status at discharge: patient is progressing back to baseline - Discharge Instructions Instructions: Urinary Tract Infection in Men (DC) Follow Up With: Jayme Alarcon MD [Primary Care Provider] - 03/10/17 9:45 am () Additional Instructions: 1. Follow-up with your primary care provider in the next 3-5 days 2. Take all prescriptions as prescribed, any concerns or questions contact her primary care provider. 3. Return to the emergency department if: Recurrence of fevers, chills sweating , burning with urination or trouble urinating. 4.Follow up with urology within 2 weeks - Diet and Activity Activity: increase activity as tolerated Diet: advance to your usual diet, diabetic diet Interval History: Mr. Sapp 62 year old male with a past medical history of CAD, 3 stents, A.fib on Coumadin, CVA, diabetes, renal disease who presented to the hospital complaining of weakness on 03/01/2017. Laboratory work and urinalysis were collected used on a having a urinary tract infection, leukocytosis, fever of 102.3 and low blood pressure. He was also found to have acute kidney injury with a creatinine 2.0 and hyperglycemia. He was started on ceftriaxone, provided IV fluids and blood cultures were collected. After initiation of therapy Mr. Sapp demonstrated significant improvements in his symptoms and his WBC count started to trend down. He remained afebrile after initiation of antibiotic therapy and receiving fluids. CT with stone protocol was ordered as patient demonstrated large blood in his urine and a history of renal stones. No obstructing renal stones were identified but he does have stones in his kidneys bilaterally. After further discussion patient had frequent nightly awakenings to use the bathroom and difficulty with initiating and discontinuing his stream. He was started on Flomax 0.4 mg orally daily. His urine culture grew Escherichia coli. On 03/03/2017 he was seen and evaluated patient bedside and deemed stable for discharge home. He denied any fevers chills sweating, urinary burning discomfort or difficulty starting or stopping his stream. There is discussed he should follow-up with his primary care provider which has an appointment on Thursday of next week. A prescription for Omnicef and tamsulosin was provided at the time of discharge. Hospital course: Mr. Sapp is a 62 year old male - Time Spent with Patient Total time spent providing and/or coordinating discharge services: - Constitutional Vitals: Temp Pulse Resp BP Pulse Ox 99.1 F 87 16 151/87 98 03/03/17 07:33 03/03/17 07:33 03/03/17 07:33 03/03/17 07:33 03/03/17 07:33 General appearance: Present: mild distress, A&O X 3, obese Exam: General: Patient alert, awake, oriented 3, interactive, in no acute distress HEENT: Normocephalic, atraumatic, pupils equal reactive to light, nasal cavity patent and open septum median position, oral mucosa moist, uvula midline, neck supple trachea midline no palpable lymphadenopathy, no thyromegaly. Chest: Symmetric bilateral correlating with respiratory effort, effort nonlabored. Cardiac: Irregularly irregular heart rate and rhythm. Radial pulses 2+ bilateral, posterior tibial and dorsal pedal pulses 2+ bilateral. Respiratory: Clear to auscultation all lung riley Abdomen: Soft, obese, nontender to palpation, diathesis recti, positive bowel sounds Extremities: Symmetric bilateral, bilateral lower extremities without erythema or edema patient moving all 4 extremities spontaneously. Neurologic: No focal deficits appreciated on examination. Face symmetric, muscle strength symmetric bilateral upper and lower extremities. <Itz Vasquez H - Last Filed: 03/03/17 10:30> Date of Encounter: 03/03/17 Procedures/tests Complete & Pending: Procedures Performed prior 72 hours Category Date Time Status CT kidney stone [CT] Stat Cat Scan 03/02/17 09:06 Completed Date of admission: 03/01/17 19:01 Primary care physician: Jayme Alarcon MD Consults: 03/01/17 19:59 Consult to Nutrition [CONS] Routine Comment: Consulting Provider: NUTRITION Reason for Dietary Consult: MST Score Other:: pt family states he has lost weight consistently for a few months Hospital course: Mr. Sapp is a 62 year old male - Time Spent with Patient Total time spent providing and/or coordinating discharge services: Greater than 30 minutes (40 min) - Constitutional Vitals: Temp Pulse Resp BP Pulse Ox 99.1 F 85 16 151/87 98 03/03/17 07:33 03/03/17 10:06 03/03/17 07:33 03/03/17 07:33 03/03/17 10:06 - Attending Attestation sepsis 2ry to E coli UTI will call the patient to switch antibiotic therapy if needed after obtaining the final report of the culture I examined this patient and my medical decision-making was reviewed with the Resident Physician. I agree with the documented findings, disposition and treatment plan as described except to the extent set forth below.
[2017-03-03 11:07] VITALS: BP 143/70
--- NOTE | 2017-03-03 11:46 | Physician Discharge Referral ---
Home Health/Hosp Referral Info Transfer to: Home Health Provider in Charge Post Discharge: PCP - Diagnosis (1) Sepsis Priority: Primary Status: Acute (2) UTI (urinary tract infection) Priority: Primary Status: Acute (3) HTN (hypertension) Priority: Primary Status: Chronic (4) A-fib Priority: Secondary Status: Chronic (5) CAD (coronary artery disease) Priority: Secondary Status: Chronic (6) ELIN (acute kidney injury) Priority: Primary Status: Resolved (7) HIRAL (obstructive sleep apnea) Priority: Secondary Status: Acute (8) DM2 (diabetes mellitus, type 2) Priority: Secondary Status: Chronic - Respiratory Orders Smoking Cessation: Smoking cessation has been advised. For more information, call the [place] Tobacco Quit Line at 7-839-HAFL-NOW. - Diet/Nutrition Diet/Nutrition: List: Diabetic diet - Activity Activity Orders: Ambulate - Services Needed Following services are medically necessary services: Nursing, Home Health Aide - Transfer Medications Prescriptions: Cefdinir [Omnicef] 300 mg PO Q12H 8 Days #16 capsule Tamsulosin [Flomax] 0.4 mg PO DAILY 30 Days #30 capsule Home Medications: Cholecalciferol (Vitamin D3) [Vitamin D3] 50,000 unit PO MO 11/23/14 [History] Fenofibrate [Tricor] 145 mg PO HS #0 11/23/14 [History] Lisinopril [Zestril] 40 mg PO DAILY 11/23/14 [History] Esomeprazole Magnesium [Nexium] 20 mg PO DAILY 08/13/15 [History] Gemfibrozil [Lopid] 600 mg PO BIDWM 08/13/15 [History] Oxybutynin Chloride [Ditropan Xl] 10 mg PO DAILY 08/13/15 [History] Ranitidine HCl [Heartburn Relief] 150 mg PO BID 08/13/15 [History] Baclofen 20 mg PO HS 08/01/16 [History] Docusate [Colace] 100 mg PO BID 08/01/16 [History] [place]-3/Dha/Epa/Fish Oil [Fish Oil 1,000 mg Softgel] 1,000 mg PO TID 08/01/16 [ History] BuPROPion XL (24 HR) [Wellbutrin Xl] 150 mg PO DAILY 08/28/16 [History] Isosorbide MONOnitrate (24 HR) [Imdur] 120 mg PO DAILY 08/28/16 [History] Aspirin Enteric Coated [Aspirin EC] 81 mg PO DAILY #30 tablet. 09/01/16 [Rx] Insulin Regular U-500 [HumuLIN R U-500] 50 unit SQ 1200 03/02/17 [History] Insulin Regular U-500 [HumuLIN R U-500] 70 unit SQ BID 03/02/17 [History] Metoprolol [Lopressor] 25 mg PO BID 03/02/17 [History] Potassium Chloride [K-Tab ER] 20 meq PO DAILY 03/02/17 [History] Rosuvastatin [Crestor] 40 mg PO HS 03/02/17 [History] Warfarin [Coumadin] 2.5 mg PO SUTUWETHSA 03/02/17 [History] Warfarin [Coumadin] 5 mg PO MOFR 03/02/17 [History] Cefdinir [Omnicef] 300 mg PO Q12H 8 Days #16 capsule 03/03/17 [Rx] Tamsulosin [Flomax] 0.4 mg PO DAILY 30 Days #30 capsule 03/03/17 [Rx] Allergies/Adverse Reactions: 3 Allergy/AdvReac Type Severity Reaction Status Date / Time No Known Allergies Allergy Verified 03/01/17 16:52 Certification: Further, I certify that my clinical findings support that this patient is homebound (i.e. absences from home require considerable and taxing effort and are for medical reasons or islam services or infrequently or short duration when for other reasons) because: Homebound Reason: Patient requires assistance of a person or device to safely leave home, Leaving home requires considerable and taxing effort due to condition Attestation: My signature below is to certify that this patient is under my care and that I, or nurse practitioner, or a physician's hearing and speech assistant working with me, has a face-to -face encounter with this patient.
[2017-03-03] MEDS ORDERED: FLUARIX QUAD 2017-18 36MOS UP/PF 0.5 ML SYRINGE IM ONE (12:10)
[2017-03-03] MEDS ORDERED: *HR* Warfarin 2.5 MG TABLET PO ONE (18:00)
== END 2017-03-03 13:00 | disposition home or self-care (01) | DRG 871 ==
LOC: EMEROO 16:46 → 2NNU 19:01 → SUATTDRO 19:01 → 2NNU 19:27
PROVIDERS: ADMIT Internal Medicine; ATTEND Internal Medicine

== ENCOUNTER 2017-04-03 16:00 | Inpatient (IN) ==
[2017-04-03] MEDS ORDERED: 0.9 % Sodium Chloride 1,000 ML IVC ONE (16:44)
--- NOTE | 2017-04-03 16:49 | Emergency Department Note ---
Disposition Clinical Impression: Ureterolithiasis, Elevated troponin, Acute kidney injury Sepsis Qualifiers: Sepsis type: sepsis due to unspecified organism Qualified Code(s): A41.9 - Sepsis, unspecified organism Altered mental status Qualifiers: Altered mental status type: unspecified Qualified Code(s): R41.82 - Altered mental status, unspecified Disposition: Admitted As Inpatient Condition: Fair Altered Mental Status HPI - General Chief Complaint: ED Urogenital-Male Stated Complaint: Poss UTI Time Seen by Provider: 04/03/17 16:36 Source: patient Mode of arrival: private vehicle Limitations: no limitations Nursing Notes Reviewed: Yes Vital Signs Reviewed: Yes - History of Present Illness HPI Narrative: 62-year-old male history of atrial fibrillation on Coumadin, diabetes, recurrent nephrolithiasis, UTI who presents to the ER from urologist office due to altered mental status and concern for UTI. Family reports she was treated 2 weeks ago for UTI. States he finished his course of oral antibiotics at home. He was following up today at the urologist office where he was noted to be altered and less responsive. Family reports for 2 days he has been less responsive at home. States she has been confused intermittent leg. No trauma. No fevers. No chest pain, shortness of breath or cough. He has had intermittent nausea and vomiting. No diarrhea. No dysuria or hematuria. Noted to be hypotensive on arrival. MD complaint: altered mental status Onset (ago): day(s) Timing confirmed by: family member Context: history of similar presentation Associated symptoms: Reports: chills, nausea/vomiting. Denies: chest pain, cough, fever, shortness of breath - Related Data Home Medications Medication Instructions Recorded Confirmed Cholecalciferol (Vitamin D3) 50,000 unit PO MO 11/23/14 04/03/17 [Vitamin D3] Fenofibrate [Tricor] 145 mg PO HS #0 11/23/14 04/03/17 Lisinopril [Zestril] 40 mg PO DAILY 11/23/14 04/03/17 Esomeprazole Magnesium [Nexium] 20 mg PO DAILY 08/13/15 04/03/17 Gemfibrozil [Lopid] 600 mg PO BIDWM 08/13/15 04/03/17 Oxybutynin Chloride [Ditropan Xl] 10 mg PO DAILY 08/13/15 04/03/17 Ranitidine HCl [Heartburn Relief] 150 mg PO BID 08/13/15 04/03/17 Baclofen 20 mg PO HS 08/01/16 04/03/17 Docusate [Colace] 100 mg PO BID PRN 08/01/16 04/03/17 [place]-3/Dha/Epa/Fish Oil [Fish Oil 1,000 mg PO TID 08/01/16 04/03/17 1,000 mg Softgel] BuPROPion XL (24 HR) [Wellbutrin 150 mg PO DAILY 08/28/16 04/03/17 Xl] Isosorbide MONOnitrate (24 HR) 120 mg PO DAILY 08/28/16 04/03/17 [Imdur] Insulin Regular U-500 [HumuLIN R 200 unit SQ 1200 03/02/17 04/03/17 U-500] Insulin Regular U-500 [HumuLIN R 300 unit SQ QAM 03/02/17 04/03/17 U-500] Metoprolol [Lopressor] 25 mg PO BID 03/02/17 04/03/17 Potassium Chloride [K-Tab ER] 20 meq PO DAILY 03/02/17 04/03/17 Rosuvastatin [Crestor] 40 mg PO HS 03/02/17 04/03/17 Warfarin [Coumadin] 2.5 mg PO SUTUWETHSA 03/02/17 04/03/17 Warfarin [Coumadin] 5 mg PO MOFR 03/02/17 04/03/17 ALPRAZolam [Xanax 1 MG Tablet] 1 mg PO BID PRN 04/03/17 04/03/17 Insulin Regular U-500 [HumuLIN R 425 unit SQ QPM 04/03/17 04/03/17 U-500] Metformin HCl [Glucophage] 1,000 mg PO BID 04/03/17 04/03/17 Previous Rx's Medication Instructions Recorded Aspirin Enteric Coated [Aspirin EC] 81 mg PO DAILY #30 tablet. 09/01/16 Allergies Allergy/AdvReac Type Severity Reaction Status Date / Time No Known Allergies Allergy Verified 03/01/17 16:52 All systems ED: reviewed and negative except as stated. Constitutional: Reports: chills, weakness. Denies: fever Cardiovascular: Denies: chest pain Respiratory: Denies: cough, dyspnea Gastrointestinal: Reports: abdominal pain, nausea, vomiting. Denies: diarrhea Genitourinary: Denies: dysuria, hematuria Neurological: Reports: weakness Past Medical History - Past Medical History Attestation: Yes The following information was validated with the patient. Source: patient, old records reviewed, obtained from family Medical history: Reports: atrial fibrillation, CVA, diabetes, hyperlipidemia, hypertension, myocardial infarction, renal disease Surgical history: Reports: angioplasty/stent, other Psychiatric history: Reports: anxiety - Social History Smoking Status: Former smoker Smokeless Tobacco Status: No Alcohol use: Reports: none Drug use: Reports: none Physical Exam - General Limitations: no limitations General appearance: alert, in no apparent distress - Head Head exam: atraumatic, normocephalic, normal inspection - Eye Eye exam: Present: normal appearance, PERRL, EOMI - ENT ENT exam: normal exam - Neck Neck exam: Present: normal inspection, full ROM - Chest Chest inspection: Present: normal inspection, symmetric chest wall rise - Respiratory Respiratory exam: Present: normal lung sounds bilaterally - Cardiovascular Cardiovascular exam: Present: normal rhythm, tachycardia, normal heart sounds - Abdominal Exam Abdominal exam: Present: soft, tenderness (Mild bilateral CVA tenderness.). Absent: distention, rigidity - Extremities Exam Extremities exam: Present: normal inspection, full ROM - Expanded Upper Extremity Exam Shoulder exam: Present: normal inspection, full ROM Arm exam: Present: normal inspection, full ROM Elbow exam: Present: normal inspection, full ROM Forearm/Wrist exam: Present: normal inspection, full ROM Hand exam: Present: normal inspection, full ROM - Expanded Lower Extremity Exam Hip/Pelvis exam: Present: normal inspection, full ROM Upper leg exam: Present: normal inspection, full ROM Knee exam: Present: normal inspection, full ROM Lower leg exam: Present: normal inspection, full ROM Ankle exam: Present: normal inspection, full ROM Foot/toe exam: Present: normal inspection, full ROM Neurovascular/Tendon exam: Absent: motor deficit, sensory deficit - Neurological Exam Neurological exam: Present: alert, oriented X3, CN II-XII intact. Absent: motor sensory deficit - Expanded Neurological Exam Patient oriented to: Present: person, place, time Speech: Present: fluid speech Cranial nerves: EOM function (II, III, IV, ): Normal, facial sensation (V): Normal, spinal accessory function (XI): Normal, tongue deviation (XII): Normal Motor strength - LUE: 5/5 Motor strength - RUE: 5/5 Motor strength - LLE: 5/5 Motor strength - RLE: 5/5 Sensory exam upper extremity: light touch: Normal Sensory exam lower extremity: light touch: Normal Coma Scale Eye Opening: Spontaneous Coma Scale Motor Response: Obeys Commands Coma Scale Verbal Response: Oriented Coma Scale Total: 15 - Psychiatric Psychiatric exam: Present: normal affect - Skin Skin exam: Present: warm, dry, intact Course Course Narrative: Patient seen and examined the time of arrival. Alert and oriented 3. He is slow to respond but answers appropriately. Noted to be hypotensive. We will start 2 IVs, IV fluid resuscitation as well as an EKG, chest x-ray, CT scan of the head and abdomen as well as lactate and cultures - Reevaluation(s) Reevaluation #1: Discussed results of findings with patient and family. We will speak with Dr. Bernstein given his stones. Reevaluation #2: I updated the family on recommendations from urology. - Consultations Consultation #1: I spoke with the on-call urologist Dr. Bernstein. Discussed the patient's history exam labs and imaging to date. He recommends admit to the hospitalist service to start IV antibiotics and that he will see him tomorrow. Vital Signs Temperature 98.4 F 04/03/17 16:29 Pulse Rate 102 04/03/17 16:29 Respiratory Rate 18 04/03/17 16:29 Blood Pressure 86/48 04/03/17 16:29 O2 Sat by Pulse Oximetry 96 04/03/17 16:29 Temperature 98.4 F 04/03/17 16:29 Pulse Rate 99 04/03/17 19:37 Respiratory Rate 16 04/03/17 19:37 Blood Pressure 129/86 04/03/17 19:37 O2 Sat by Pulse Oximetry 93 04/03/17 19:37 Oxygen Delivery Oxygen Delivery Room Air Altered Mental Status - MDM Narrative Medical decision making narrative: 62-year-old presents to the ER due to altered mental status as well as concern for UTI and kidney stone. Was sent from urologist office. Family reports altered mental status for 2 days. Noted to be tachycardic and hypotensive here. Alert and oriented 3 with a nonfocal exam. CT scan demonstrates multiple ureteral stones with perinephric stranding and hydronephrosis. White count elevated at 15. Urinalysis to measure his UTI. He also does have an ELIN with a creatinine of 3. Case discussed with urology and admitted to the hospitalist service. Vancomycin And Zosyn started. He was pansensitive to Escherichia coli on his last UA. - Lab Data Lab results reviewed: Yes I reviewed the patient's lab results. Result diagrams: 04/03/17 16:55 04/03/17 16:55 Lab Results 04/03/17 04/03/17 04/03/17 Range/Units 16:55 16:55 16:55 WBC 15.4 H (4.3-11.1) K/mcL RBC 5.11 (4.19-5.50) M/mcL Hgb 15.0 (12.9-16.9) g/dL Hct 45.1 (37.5-50.1) % MCV 88.3 (83.0-100.0) fL MCH 29.4 (28.0-33.3) pg MCHC 33.3 (31.6-35.5) g/dL RDW 15.1 H (11.5-14.5) % Plt Count 215 (140-400) K/mcL MPV 10.6 (9.4-12.4) fL Immature Gran % 1.0 (0-4) % Seg Neutrophils % 88.7 % Lymphocytes % 5.2 % Monocytes % 4.6 % Eosinophils % 0.0 % Basophils % 0.5 % Neutrophils # 13.7 H (1.6-8.9) K/mcL Lymphocytes # 0.8 (0.6-4.6) K/mcL Monocytes # 0.7 (0.0-1.3) K/mcL Eosinophils # 0.0 (0.0-0.6) K/mcL Basophils # 0.1 (0.0-0.2) K/mcL Reactive Lymphocytes Present A (Not Present) Immature Plt Fraction 3.1 (1.1-6.1) % PT 37.6 H (9.4-12.1) Seconds INR 3.4 Sodium 135 L (136-145) mEq/L Potassium 4.7 (3.5-5.1) mEq/L Chloride 103 (98-107) mEq/L Carbon Dioxide 17 L (23-29) mEq/L BUN 51 H (8-23) mg/dL Creatinine 2.99 H (0.70-1.30) mg/dL Est GFR ( Amer) 26 L (> 60) Est GFR (Non-Af Amer) 21 L (> 60) BUN/Creatinine Ratio 17 (6-26) Glucose 212 H (70-105) mg/dL Calculated Osmolality 300 (280-300) Lactic Acid (0.5-2.2) mmol/L Calcium 9.0 (8.6-10.3) mg/dL Total Bilirubin 1.4 H (0.3-1.0) mg/dL AST 34 (13-39) Units/L ALT 17 (7-52) Units/L Alkaline Phosphatase 51 (34-104) Units/L Ammonia (16-53) mcmol/L Troponin I (< 0.04) ng/mL Serum Total Protein 7.2 (6.4-8.9) g/dL Albumin 3.8 (3.5-5.7) g/dL Globulin 3.4 (2.4-3.5) g/dL Albumin/Globulin Ratio 1.1 (1.1-2.2) TSH 4.587 (0.340-5.600) mcIU/mL Ur Specimen Adequacy Urine Color (Yellow) Urine Clarity (Clear) Urine pH (5.0-8.0) pH Units Ur Specific [facility] (1.010-1.025) Urine Protein (Neg-Trace) mg/dL Urine Glucose (UA) (Normal) mg/dL Urine Ketones (Negative) mg/dL Urine Blood (Negative) Urine Nitrite (Negative) Urine Bilirubin (Negative) Urine Urobilinogen (Normal) mg/dL Ur Leukocyte Esterase (Negative) Urine Microscopic RBC (0-3) per hpf Urine Microscopic WBC (0-3) per hpf Ur Squamous Epith Cells (None-Few) per lpf Amorphous Sediment (Few) Urine Bacteria (None-Few) per hpf Hyaline Casts (None-Few) per lpf Urine Mucus (Few) Ur Culture Indicated? (NO) Urine Opiates Screen (Tznuoz=071) ng/mL Ur Barbiturates Screen (Oyhptj=456) ng/mL Ur Phencyclidine Scrn (Cutoff=25) ng/mL Ur Amphetamines Screen (Jqawhm=0404) ng/mL U Benzodiazepines Scrn (Hkqnsu=814) ng/mL Urine Cocaine Screen (Cutoff= 300) ng/mL U Marijuana (THC) Screen (Cutoff = 50) ng/mL 04/03/17 04/03/17 04/03/17 Range/Units 16:55 16:55 16:55 WBC (4.3-11.1) K/mcL RBC (4.19-5.50) M/mcL Hgb (12.9-16.9) g/dL Hct (37.5-50.1) % MCV (83.0-100.0) fL MCH (28.0-33.3) pg MCHC (31.6-35.5) g/dL RDW (11.5-14.5) % Plt Count (140-400) K/mcL MPV (9.4-12.4) fL Immature Gran % (0-4) % Seg Neutrophils % % Lymphocytes % % Monocytes % % Eosinophils % % Basophils % % Neutrophils # (1.6-8.9) K/mcL Lymphocytes # (0.6-4.6) K/mcL Monocytes # (0.0-1.3) K/mcL Eosinophils # (0.0-0.6) K/mcL Basophils # (0.0-0.2) K/mcL Reactive Lymphocytes (Not Present) Immature Plt Fraction (1.1-6.1) % PT (9.4-12.1) Seconds INR Sodium (136-145) mEq/L Potassium (3.5-5.1) mEq/L Chloride (98-107) mEq/L Carbon Dioxide (23-29) mEq/L BUN (8-23) mg/dL Creatinine (0.70-1.30) mg/dL Est GFR ( Amer) (> 60) Est GFR (Non-Af Amer) (> 60) BUN/Creatinine Ratio (6-26) Glucose (70-105) mg/dL Calculated Osmolality (280-300) Lactic Acid 2.1 (0.5-2.2) mmol/L Calcium (8.6-10.3) mg/dL Total Bilirubin (0.3-1.0) mg/dL AST (13-39) Units/L ALT (7-52) Units/L Alkaline Phosphatase (34-104) Units/L Ammonia 77 H (16-53) mcmol/L Troponin I 0.06 H* (< 0.04) ng/mL Serum Total Protein (6.4-8.9) g/dL Albumin (3.5-5.7) g/dL Globulin (2.4-3.5) g/dL Albumin/Globulin Ratio (1.1-2.2) TSH (0.340-5.600) mcIU/mL Ur Specimen Adequacy Urine Color (Yellow) Urine Clarity (Clear) Urine pH (5.0-8.0) pH Units Ur Specific [facility] (1.010-1.025) Urine Protein (Neg-Trace) mg/dL Urine Glucose (UA) (Normal) mg/dL Urine Ketones (Negative) mg/dL Urine Blood (Negative) Urine Nitrite (Negative) Urine Bilirubin (Negative) Urine Urobilinogen (Normal) mg/dL Ur Leukocyte Esterase (Negative) Urine Microscopic RBC (0-3) per hpf Urine Microscopic WBC (0-3) per hpf Ur Squamous Epith Cells (None-Few) per lpf Amorphous Sediment (Few) Urine Bacteria (None-Few) per hpf Hyaline Casts (None-Few) per lpf Urine Mucus (Few) Ur Culture Indicated? (NO) Urine Opiates Screen (Opxqks=852) ng/mL Ur Barbiturates Screen (Htgten=582) ng/mL Ur Phencyclidine Scrn (Cutoff=25) ng/mL Ur Amphetamines Screen (Xctbgn=0542) ng/mL U Benzodiazepines Scrn (Vhkpsv=975) ng/mL Urine Cocaine Screen (Cutoff= 300) ng/mL U Marijuana (THC) Screen (Cutoff = 50) ng/mL 04/03/17 04/03/17 Range/Units 17:30 17:30 WBC (4.3-11.1) K/mcL RBC (4.19-5.50) M/mcL Hgb (12.9-16.9) g/dL Hct (37.5-50.1) % MCV (83.0-100.0) fL MCH (28.0-33.3) pg MCHC (31.6-35.5) g/dL RDW (11.5-14.5) % Plt Count (140-400) K/mcL MPV (9.4-12.4) fL Immature Gran % (0-4) % Seg Neutrophils % % Lymphocytes % % Monocytes % % Eosinophils % % Basophils % % Neutrophils # (1.6-8.9) K/mcL Lymphocytes # (0.6-4.6) K/mcL Monocytes # (0.0-1.3) K/mcL Eosinophils # (0.0-0.6) K/mcL Basophils # (0.0-0.2) K/mcL Reactive Lymphocytes (Not Present) Immature Plt Fraction (1.1-6.1) % PT (9.4-12.1) Seconds INR Sodium (136-145) mEq/L Potassium (3.5-5.1) mEq/L Chloride (98-107) mEq/L Carbon Dioxide (23-29) mEq/L BUN (8-23) mg/dL Creatinine (0.70-1.30) mg/dL Est GFR ( Amer) (> 60) Est GFR (Non-Af Amer) (> 60) BUN/Creatinine Ratio (6-26) Glucose (70-105) mg/dL Calculated Osmolality (280-300) Lactic Acid (0.5-2.2) mmol/L Calcium (8.6-10.3) mg/dL Total Bilirubin (0.3-1.0) mg/dL AST (13-39) Units/L ALT (7-52) Units/L Alkaline Phosphatase (34-104) Units/L Ammonia (16-53) mcmol/L Troponin I (< 0.04) ng/mL Serum Total Protein (6.4-8.9) g/dL Albumin (3.5-5.7) g/dL Globulin (2.4-3.5) g/dL Albumin/Globulin Ratio (1.1-2.2) TSH (0.340-5.600) mcIU/mL Ur Specimen Adequacy See below A Urine Color Yellow (Yellow) Urine Clarity Cloudy A (Clear) Urine pH 5.0 (5.0-8.0) pH Units Ur Specific [facility] >= 1.030 H (1.010-1.025) Urine Protein 30 H (Neg-Trace) mg/dL Urine Glucose (UA) 100 H (Normal) mg/dL Urine Ketones Negative (Negative) mg/dL Urine Blood Moderate H (Negative) Urine Nitrite Negative (Negative) Urine Bilirubin Moderate H (Negative) Urine Urobilinogen Normal (Normal) mg/dL Ur Leukocyte Esterase Small H (Negative) Urine Microscopic RBC 3-5 H (0-3) per hpf Urine Microscopic WBC 5-15 H (0-3) per hpf Ur Squamous Epith Cells Few (None-Few) per lpf Amorphous Sediment Moderate H (Few) Urine Bacteria Moderate H (None-Few) per hpf Hyaline Casts Few (None-Few) per lpf Urine Mucus Few (Few) Ur Culture Indicated? YES A (NO) Urine Opiates Screen Positive H (Rxdock=410) ng/mL Ur Barbiturates Screen Negative (Butqxx=067) ng/mL Ur Phencyclidine Scrn Negative (Cutoff=25) ng/mL Ur Amphetamines Screen Negative (Tcyxis=9600) ng/mL U Benzodiazepines Scrn Negative (Gokoaf=802) ng/mL Urine Cocaine Screen Negative (Cutoff= 300) ng/mL U Marijuana (THC) Screen Negative (Cutoff = 50) ng/mL - Radiology Data Radiology results reviewed: Yes I reviewed the patient's radiology results. Chest X-Ray 04/03/17 16:44 IMPRESSION: No acute process. D/ / Wesley Vázquez MD / Wesley Vázquez MD Interpreting Provider: Wesley Vázquez MD Abdomen/Pelvis CT 04/03/17 16:45 IMPRESSION: Left periureteral and perinephric stranding as well as left hydronephrosis and left hydroureter with 3 obstructing left ureteral stones, largest within the proximal ureter measuring 6 mm. Wall thickening of the urinary bladder suspected, likely accentuated by lack distention. Perivesical stranding is also present. Correlation for cystitis is recommended. Bilateral nephrolithiasis. D/ / Laurence Mcintosh Cha, MD / Laurence Mcintosh Cha, MD Interpreting Provider: Laurence Mcintosh Cha, MD Head CT 04/03/17 16:45 IMPRESSION: No acute intracranial abnormality. Remote left frontal infarct. D/ / 04/03/2017 18:15:07 Nasir Katz MD / [email or web address] Interpreting Provider: Nasir Katz MD Checklist - LKW: 3-4.5 hrs Add. Warnings/Precautions Patient/family understanding: The patient/family members have been counseled and understood the risk, benefit , and alternatives of treatment. S.B.A.R. - S.B.A.R. Situation: Demographics, MOA Background: Presenting Complaint, Relevant PMH, Meds, & Allergies Assessment: Vital Signs, Course and respsone to treatment, Exam Concerns, Patient/Family Expectation, Pertinant Lab Results Recommendation: Barrier(s) to disposition, Recommendation based on pending studies, treatments, or consults S.B.A.RRaúl Report Given to: Dr. Torres
[2017-04-03 17:05] LABS: Basophils # 0.1 K/mcL (0.0-0.2); Basophils % 0.5 %; Hematocrit 45.1 % (37.5-50.1); Immature Platelets 3.1 % (1.1-6.1); Lymphocytes # 0.8 K/mcL (0.6-4.6); Lymphocytes % 5.2 %; Mean Corpuscular HGB Conc 33.3 g/dL (31.6-35.5); Mean Corpuscular Hemoglobin 29.4 pg (28.0-33.3); Mean Corpuscular Volume 88.3 fL (83.0-100.0); Mean Platelet Volume 10.6 fL (9.4-12.4); Monocytes # 0.7 K/mcL (0.0-1.3); Monocytes % 4.6 %; Platelet Count 215 K/mcL (140-400); Red Blood Count 5.11 M/mcL (4.19-5.50); Red Cell Distribution Width 15.1 % (11.5-14.5); Segmented Neutrophils % 88.7 %
[2017-04-03 17:11] LABS: INR 3.4; Prothrombin Time 37.6 Seconds (9.4-12.1)
[2017-04-03 17:12] LABS: Neutrophils # 13.7 K/mcL (1.6-8.9)
[2017-04-03] MEDS ORDERED: Vancomycin 1,500 MG in D5% in Water 250 ML IVPB ONE ×2 (17:31→17:36)
[2017-04-03] MEDS ORDERED: Piperacillin/Tazobactam 3.375 GM in Water for inj. (sterile) 20 ML IVP ONE (17:31)
[2017-04-03 17:32] LABS: Reactive Lymphocytes Present (Not Present)
[2017-04-03 17:43] LABS: Bilirubin,Urine Moderate (Negative); Blood,Urine Moderate (Negative); Clarity,Urine Cloudy (Clear); Color,Urine Yellow (Yellow); Glucose,Urine (UA) 100 mg/dL (Normal); Ketones,Urine Negative (Negative); Leukocyte Esterase,Urine Small (Negative); Nitrite,Urine Negative (Negative); Protein,Urine 30 mg/dL (Neg-Trace); Specific Gravity,Urine >= 1.030 (1.010-1.025); Urobilinogen,Urine Normal (Normal)
[2017-04-03 17:45] LABS: Squamous Epithelial Cell,Urine Few per lpf (None-Few)
[2017-04-03 17:46] LABS: Hyaline Casts,Urine Few per lpf (None-Few)
[2017-04-03 17:47] LABS: Mucus,Urine Few (Few)
[2017-04-03 17:48] LABS: Amorphous Sediment,Urine Moderate (Few)
[2017-04-03 17:49] LABS: Bacteria,Urine Moderate per hpf (None-Few)
[2017-04-03 17:50] LABS: Amphetamine Screen,Urine Negative ng/mL (Cutoff=1000); Barbiturate Screen,Urine Negative ng/mL (Cutoff=200); Benzodiazepines Screen,Urine Negative ng/mL (Cutoff=200); Cannabinoid Screen,Urine Negative ng/mL (Cutoff = 50); Cocaine Screen,Urine Negative ng/mL (Cutoff= 300); Opiate Screen,Urine Positive ng/mL (Cutoff=300); Phencyclidine Screen,Urine Negative ng/mL (Cutoff=25)
[2017-04-03 17:58] LABS: Thyroid Stimulating Hormone 4.587 mcIU/mL (0.340-5.600)
[2017-04-03 18:43] LABS: Albumin 3.8 g/dL (3.5-5.7); Albumin/Globulin Ratio 1.1 (1.1-2.2); Bilirubin,Total 1.4 mg/dL (0.3-1.0); Globulin 3.4 g/dL (2.4-3.5); Potassium 4.7 mEq/L (3.5-5.1); Total Protein 7.2 g/dL (6.4-8.9)
[2017-04-03] MEDS ORDERED: Ondansetron 4 MG/2 ML VIAL IVP PRN (21:28)
[2017-04-03] MEDS ORDERED: Acetaminophen 325 MG TABLET PO PRN (21:28)
[2017-04-03] MEDS ORDERED: Naloxone 0.4 MG/ML INJ IVP PRN (21:28)
[2017-04-03] MEDS ORDERED: *HR* Morphine 2 MG/ML SYRINGE IVP PRN (21:28)
[2017-04-03] MEDS ORDERED: 0.9 % Sodium Chloride 1,000 ML IVC SCH (21:30)
[2017-04-03] MEDS ORDERED: D5% in Water 1,000 ML IVC PRN (21:31)
[2017-04-03] MEDS ORDERED: Dextrose Gel 15 GM/37.5 ML TUBE PO PRN ×2 (21:31)
[2017-04-03] MEDS ORDERED: *HR* Dextrose 50 % in Water (Syg) 50 ML SYRINGE IVP PRN (21:31)
[2017-04-03] MEDS ORDERED: ALPRAZolam 1 MG TABLET PO PRN (21:32)
--- NOTE | 2017-04-03 21:34 | Urology - Consult Note ---
Date of Encounter: 04/03/17 Time of Encounter: 21:32 - Assessment and Plan (1) Hydronephrosis with renal and ureteral calculus obstruction Current Visit: Yes Status: Acute Assessment and plan: I personally reviewed the CT scan. There are multiple ureteral calculi with severe hydronephrosis on the left side. Patient requires cystoscopy, retrograde pyelogram and ureteral stent placement. Unable to basket extract stones with his potential infection. Manipulation of his urinary track could increase risk of urosepsis. We will require a staged procedure. Patient's vital signs stabilized in the emergency room after IV fluids and antibiotics. We'll plan to proceed with the procedure in the morning and less patient destabilizes overnight. Appreciate hospitalist recommendations. Urology CN:[email or web address] Consult date: 04/03/17 Reason for consult Urology: Hydronephrosis History of present illness: Patient seen in the urology office and found to have worsening mental status and significant lethargy. Patient referred to emergency room secondary to significant symptoms. CT scan discovered multiple left ureteral calculi with severe hydronephrosis. Elevated white cell count 15,000. Acute renal insufficiency. Currently admitted the hospitalist. IV antibiotics and IV fluids started. Patient has had significant illness over the last week. Worsening symptoms. Poor historian regarding details Past Med Surg Social Fam HX - Past Medical History Medical history: atrial fibrillation, CVA, diabetes, hyperlipidemia, hypertension, myocardial infarction, renal disease Psychiatric history: anxiety - Past Surgical History Surgical History: angioplasty/stent, other - Social History Smoking Status: Former smoker Smokeless Tobacco Status: Yes Alcohol use: none Drug use: none - Family History Mother Family Member Ethnicity: Non- Living Status: Cause of : kidney failure Hx Family Cardiac Disorders: No Hx Family Respiratory Disorders: No Hx Family Cancer: No Hx Family GI Disorders: No Hx Family Genitourinary Disorders: No Hx Family Endocrine Disorder: No Hx Family Musculoskeletal Disorders: No Hx Family Neuromuscular Disorders: No Hx Family Neurologic Disorders: No Hx Family HEENT Disorders: No Hx Family Autoimmune Disorders: No Hx Family Reproductive Disorders: No Hx Family Psychosocial Disorders: No Brother Family Member Ethnicity: Non- Living Status: Hx Family Cardiac Disorders: Yes ([place], HD) Sister Family Member Ethnicity: Non- Living Status: Hx Family Cardiac Disorders: Yes Hx Family Cancer: Yes (Ovarian) Father Adopted: No Family Member Ethnicity: Non- Living Status: Cause of : [place] Hx Family Cardiac Disorders: Yes Hx Family Respiratory Disorders: No Hx Family Cancer: No Hx Family GI Disorders: No Hx Family Genitourinary Disorders: No Hx Family Endocrine Disorder: No Hx Family Musculoskeletal Disorders: No Hx Family Neuromuscular Disorders: No Hx Family Neurologic Disorders: No Hx Family HEENT Disorders: No Hx Family Autoimmune Disorders: No Hx Family Reproductive Disorders: No Hx Family Psychosocial Disorders: No Medications and Allergies Cholecalciferol (Vitamin D3) [Vitamin D3] 50,000 unit PO MO 11/23/14 [History] Fenofibrate [Tricor] 145 mg PO HS #0 11/23/14 [History] Lisinopril [Zestril] 40 mg PO DAILY 11/23/14 [History] Esomeprazole Magnesium [Nexium] 20 mg PO DAILY 08/13/15 [History] Gemfibrozil [Lopid] 600 mg PO BIDWM 08/13/15 [History] Oxybutynin Chloride [Ditropan Xl] 10 mg PO DAILY 08/13/15 [History] Ranitidine HCl [Heartburn Relief] 150 mg PO BID 08/13/15 [History] Baclofen 20 mg PO HS 08/01/16 [History] Docusate [Colace] 100 mg PO BID PRN 08/01/16 [History] [place]-3/Dha/Epa/Fish Oil [Fish Oil 1,000 mg Softgel] 1,000 mg PO TID 08/01/16 [ History] BuPROPion XL (24 HR) [Wellbutrin Xl] 150 mg PO DAILY 08/28/16 [History] Isosorbide MONOnitrate (24 HR) [Imdur] 120 mg PO DAILY 08/28/16 [History] Aspirin Enteric Coated [Aspirin EC] 81 mg PO DAILY #30 tablet. 09/01/16 [Rx] Insulin Regular U-500 [HumuLIN R U-500] 200 unit SQ 1200 03/02/17 [History] Insulin Regular U-500 [HumuLIN R U-500] 300 unit SQ QAM 03/02/17 [History] Metoprolol [Lopressor] 25 mg PO BID 03/02/17 [History] Potassium Chloride [K-Tab ER] 20 meq PO DAILY 03/02/17 [History] Rosuvastatin [Crestor] 40 mg PO HS 03/02/17 [History] Warfarin [Coumadin] 2.5 mg PO SUTUWETHSA 03/02/17 [History] Warfarin [Coumadin] 5 mg PO MOFR 03/02/17 [History] ALPRAZolam [Xanax 1 MG Tablet] 1 mg PO BID PRN 04/03/17 [History] Insulin Regular U-500 [HumuLIN R U-500] 425 unit SQ QPM 04/03/17 [History] Metformin HCl [Glucophage] 1,000 mg PO BID 04/03/17 [History] 3 Allergy/AdvReac Type Severity Reaction Status Date / Time No Known Allergies Allergy Verified 03/01/17 16:52 Review of Systems - Constitutional fever(s), malaise - EENT Nose, mouth and throat: no dizziness - Cardiovascular no chest pain - Respiratory no cough - Gastrointestinal abdominal pain, nausea - Genitourinary flank pain - Musculoskeletal back pain - Integumentary no erythema - Neurological confusion - Hematologic/Lymphatic no easy bleeding - Allergic/Immunologic no throat swelling Exam Initial Vital Signs Temp Pulse Resp BP Pulse Ox 98.4 F 102 18 86/48 96 04/03/17 16:29 04/03/17 16:29 04/03/17 16:29 04/03/17 16:29 04/03/17 16:29 - General physical appearance Present: no distress, chronically ill - Eyes Present: conjunctiva is clear - ENT Present: normal mucosa - Neck Present: no masses - Respiratory Present: normal respiratory effort - Cardiovascular Cardiovascular exam IM: tachycardia - Abdomen Abdomen: Present: soft, suprapubic tenderness. Absent: masses - Integumentary Present: no rash - Neurologic Present: normal coordination - Additional Findings Somewhat disoriented but able to answer person and place. Able to understand and communicate current medical issues. Some left CVA tenderness Urology Results - Labs 04/03/17 16:55 04/03/17 16:55 Abnormal lab results WBC 15.4 K/mcL (4.3-11.1) H 04/03/17 16:55 RDW 15.1 % (11.5-14.5) H 04/03/17 16:55 Neutrophils # 13.7 K/mcL (1.6-8.9) H 04/03/17 16:55 Reactive Lymphocytes Present (Not Present) A 04/03/17 16:55 PT 37.6 Seconds (9.4-12.1) H 04/03/17 16:55 Sodium 135 mEq/L (136-145) L 04/03/17 16:55 Carbon Dioxide 17 mEq/L (23-29) L 04/03/17 16:55 BUN 51 mg/dL (8-23) H 04/03/17 16:55 Creatinine 2.99 mg/dL (0.70-1.30) H 04/03/17 16:55 Est GFR ( Amer) 26 (> 60) L 04/03/17 16:55 Est GFR (Non-Af Amer) 21 (> 60) L 04/03/17 16:55 Glucose 212 mg/dL (70-105) H 04/03/17 16:55 POC Glucose 206 (58-89) H 04/03/17 17:11 Total Bilirubin 1.4 mg/dL (0.3-1.0) H 04/03/17 16:55 Ammonia 77 mcmol/L (16-53) H 04/03/17 16:55 Troponin I 0.06 ng/mL (< 0.04) H* 04/03/17 16:55 Ur Specimen Adequacy See below A 04/03/17 17:30 Urine Clarity Cloudy (Clear) A 04/03/17 17:30 Ur Specific [place] >= 1.030 (1.010-1.025) H 04/03/17 17:30 Urine Protein 30 mg/dL (Neg-Trace) H 04/03/17 17:30 Urine Glucose (UA) 100 mg/dL (Normal) H 04/03/17 17:30 Urine Blood Moderate (Negative) H 04/03/17 17:30 Urine Bilirubin Moderate (Negative) H 04/03/17 17:30 Ur Leukocyte Esterase Small (Negative) H 04/03/17 17:30 Urine Microscopic RBC 3-5 per hpf (0-3) H 04/03/17 17:30 Urine Microscopic WBC 5-15 per hpf (0-3) H 04/03/17 17:30 Amorphous Sediment Moderate (Few) H 04/03/17 17:30 Urine Bacteria Moderate per hpf (None-Few) H 04/03/17 17:30 Ur Culture Indicated? YES (NO) A 04/03/17 17:30 Urine Opiates Screen Positive ng/mL ([id number]) H 04/03/17 17:30 All other labs normal. Consult Discharge Plan - Plan Referrals: Jayme Alarcon MD [Primary Care Provider] -
--- NOTE | 2017-04-03 21:37 | Internal Med History&Physical ---
<Analy Torres - Last Filed: 04/03/17 21:36> Date of Encounter: 04/03/17 Time of Encounter: 21:15 Internal Medicine - H&P: HPI Chief complaint: Confusion, weakness, difficulty urination Admitted From: Emergency Dept Plans for Post Hospital Care: Home History of present illness: Mr. Sapp is a 62 year old male Past Med Surg Social Fam HX - Past Medical History Medical history: atrial fibrillation, CVA, diabetes, hyperlipidemia, hypertension, myocardial infarction, renal disease Psychiatric history: anxiety - Past Surgical History Surgical History: angioplasty/stent, other - Social History Smoking Status: Former smoker Smokeless Tobacco Status: Yes Alcohol use: none Drug use: none - Family History Mother Family Member Ethnicity: Non- Living Status: Cause of : kidney failure Hx Family Cardiac Disorders: No Hx Family Respiratory Disorders: No Hx Family Cancer: No Hx Family GI Disorders: No Hx Family Genitourinary Disorders: No Hx Family Endocrine Disorder: No Hx Family Musculoskeletal Disorders: No Hx Family Neuromuscular Disorders: No Hx Family Neurologic Disorders: No Hx Family HEENT Disorders: No Hx Family Autoimmune Disorders: No Hx Family Reproductive Disorders: No Hx Family Psychosocial Disorders: No Brother Family Member Ethnicity: Non- Living Status: Hx Family Cardiac Disorders: Yes ([place], HD) Sister Family Member Ethnicity: Non- Living Status: Hx Family Cardiac Disorders: Yes Hx Family Cancer: Yes (Ovarian) Father Adopted: No Family Member Ethnicity: Non- Living Status: Cause of : [place] Hx Family Cardiac Disorders: Yes Hx Family Respiratory Disorders: No Hx Family Cancer: No Hx Family GI Disorders: No Hx Family Genitourinary Disorders: No Hx Family Endocrine Disorder: No Hx Family Musculoskeletal Disorders: No Hx Family Neuromuscular Disorders: No Hx Family Neurologic Disorders: No Hx Family HEENT Disorders: No Hx Family Autoimmune Disorders: No Hx Family Reproductive Disorders: No Hx Family Psychosocial Disorders: No Internal Medicine - H&P: Meds Cholecalciferol (Vitamin D3) [Vitamin D3] 50,000 unit PO MO 11/23/14 [History] Fenofibrate [Tricor] 145 mg PO HS #0 11/23/14 [History] Lisinopril [Zestril] 40 mg PO DAILY 11/23/14 [History] Esomeprazole Magnesium [Nexium] 20 mg PO DAILY 08/13/15 [History] Gemfibrozil [Lopid] 600 mg PO BIDWM 08/13/15 [History] Oxybutynin Chloride [Ditropan Xl] 10 mg PO DAILY 08/13/15 [History] Ranitidine HCl [Heartburn Relief] 150 mg PO BID 08/13/15 [History] Baclofen 20 mg PO HS 08/01/16 [History] Docusate [Colace] 100 mg PO BID PRN 08/01/16 [History] [place]-3/Dha/Epa/Fish Oil [Fish Oil 1,000 mg Softgel] 1,000 mg PO TID 08/01/16 [ History] BuPROPion XL (24 HR) [Wellbutrin Xl] 150 mg PO DAILY 08/28/16 [History] Isosorbide MONOnitrate (24 HR) [Imdur] 120 mg PO DAILY 08/28/16 [History] Aspirin Enteric Coated [Aspirin EC] 81 mg PO DAILY #30 tablet. 09/01/16 [Rx] Insulin Regular U-500 [HumuLIN R U-500] 200 unit SQ 1200 03/02/17 [History] Insulin Regular U-500 [HumuLIN R U-500] 300 unit SQ QAM 03/02/17 [History] Metoprolol [Lopressor] 25 mg PO BID 03/02/17 [History] Potassium Chloride [K-Tab ER] 20 meq PO DAILY 03/02/17 [History] Rosuvastatin [Crestor] 40 mg PO HS 03/02/17 [History] Warfarin [Coumadin] 2.5 mg PO SUTUWETHSA 03/02/17 [History] Warfarin [Coumadin] 5 mg PO MOFR 03/02/17 [History] ALPRAZolam [Xanax 1 MG Tablet] 1 mg PO BID PRN 04/03/17 [History] Insulin Regular U-500 [HumuLIN R U-500] 425 unit SQ QPM 04/03/17 [History] Metformin HCl [Glucophage] 1,000 mg PO BID 04/03/17 [History] 3 Allergy/AdvReac Type Severity Reaction Status Date / Time No Known Allergies Allergy Verified 03/01/17 16:52 All Systems PM: A 10-system review of systems was performed and is negative for pertinent findings except as documented above in the HPI. - Constitutional Vitals: Temp Pulse Resp BP Pulse Ox 99.4 F 102 22 128/78 94 04/03/17 20:37 04/03/17 20:37 04/03/17 20:37 04/03/17 20:37 04/03/17 20:37 General appearance: Present: A&O X 1 (somnolent nad lethargic), obese. Absent: answers questions appropriately - Respiratory Respiratory exam: Present: CTAB. Absent: accessory muscle use, rales, rhonchi, wheezes - Cardiovascular Cardiovascular exam: Present: irregular rhythm, +S1, +S2. Absent: diastolic murmur, gallop, rubs, systolic murmur - GI/Abdominal GI/Abdominal exam: Present: normal bowel sounds, soft (obese), no peritoneal signs. Absent: distended, tenderness - Extremities Exam Extremities exam: Present: full ROM, warm, radial pulses palpable and symmetrical. Absent: calf tenderness, cyanotic, pedal edema - Neurological Exam Neurological exam: Present: altered (somnolent, confused, unable to answer questions appropriately), CN II-XII intact, no focal deficits. Absent: pronater drift, facial droop, speech deficit Internal Med - H&P Results - Labs CBC & Chem 7: 04/03/17 16:55 04/03/17 16:55 <Justin West F - Last Filed: 04/03/17 22:28> Date of Encounter: 04/03/17 Internal Medicine - H&P: HPI History of present illness: Mr. Sapp is a 62 year old male All Systems PM: A 10-system review of systems was performed and is negative for pertinent findings except as documented above in the HPI. - Constitutional Vitals: Temp Pulse Resp BP Pulse Ox 99.4 F 102 22 128/78 94 04/03/17 20:37 04/03/17 20:37 04/03/17 20:37 04/03/17 20:37 04/03/17 20:37 Internal Med - H&P Results - Labs CBC & Chem 7: 04/03/17 16:55 04/03/17 16:55 - Attending Attestation I examined this patient and my medical decision-making was reviewed with the Resident Physician. I agree with the documented findings, disposition and treatment plan as described except to the extent set forth below. Patient with findings consistent with infected stone. Patient also has findings of sepsis. Discussed case with on-call urologist. Urologist feels patient is safe till tomorrow morning for formal evaluation and possible surgical intervention. Discussed laboratory findings as well as advanced imaging findings with urologist. Patient be admitted to the floor after initiation of broad-spectrum antibiotics and wynn cultures.
[2017-04-03] MEDS ORDERED: Insulin DETEMIR 100 UNIT/ML X5UNITS SQ SCH (21:45)
[2017-04-04] MEDS: Insulin LISPRO 300 UNITS/3 ML VIAL SQ SCH ×4 (00:14→21:30)
--- NOTE | 2017-04-04 02:23 | Internal Med History&Physical ---
Date of Encounter: 04/03/17 Time of Encounter: 21:15 Assessment and Plan (1) UTI (urinary tract infection) Current visit: Yes Status: Acute Recurrent complicated UTIs secondary to obstructive uropathy/ureteral stones. Urine culture from recent admission grew pansensitive Escherichia coli. Received a dose of vancomycin and Zosyn in the emergency room. Continue IV Rocephin and follow up final urine culture. CT abdomen/pelvis showed left periureteral and perinephric stranding along with left-sided hydronephrosis and hydroureter with 3 obstructing stones, biggest stone measuring around 6 mm. Urology was consulted, appreciate recommendations- plan for OR tomorrow for cystoscopy and ureteral stenting and staged stone removal. Qualifiers: Urinary tract infection type: acute cystitis Hematuria presence: without hematuria Qualified Code(s): N30.00 - Acute cystitis without hematuria (2) Ureterolithiasis Current visit: Yes Status: Acute recurrent; plan as above; (3) Elevated troponin Current visit: Yes Status: Acute Mild troponin leak, likely demand ischemia due to underlying sepsis. Continue telemetry monitoring and cycle troponins. (4) Acute kidney injury Current visit: Yes Status: Acute Acute on chronic renal failure due to underlying infection. Continue IV hydration and monitor serum creatinine closely. Avoid nephrotoxic agents. We will hold metformin and LANETTE inhibitor for now. (5) Severe sepsis Current visit: Yes Status: Acute Presented with leukocytosis, tachycardia, acute kidney injury and troponin leak with source of infection-UTI. Continue IV hydration and IV antibiotics, remaining plan as above. (6) Afib Current visit: Yes Status: Chronic Currently rate controlled. Continue beta allan, on long-term anticoagulation with Coumadin. INR is noted to be elevated at 3.4, hold Coumadin for now. Qualifiers: Atrial fibrillation type: persistent Qualified Code(s): I48.1 - Persistent atrial fibrillation (7) HTN (hypertension) Current visit: Yes Status: Chronic Qualifiers: Hypertension type: essential hypertension Qualified Code(s): I10 - Essential (primary) hypertension (8) CAD (coronary artery disease) Current visit: Yes Status: Chronic Qualifiers: Coronary Disease-Associated Artery/Lesion type: [place] artery [place] vs. transplanted heart: [place] heart Associated angina: without angina Qualified Code(s): I25.10 - Atherosclerotic heart disease of [place] coronary artery without angina pectoris (9) DM2 (diabetes mellitus, type 2) Current visit: Yes Status: Chronic Blood sugars noted to be elevated due to infection. Start Accu-Chek blood glucose monitoring with basal bolus insulin regimen. Currently nothing by mouth. 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 Sapp is a 62 year old male with h/o- recurrent renal stones and UTIs was sent from Urology office with confusion and abdominal pain. Patient had a followup Urology appointment today after having a recent hospitalization for UTI and sepsis. He is currently quite sleepy and weak and unable to provide history, which is obtained from his at bedside. Patient has been having right-sided lower abdominal pain, radiating to his right flank associated with difficulty urinating for the last 2-3 days. He also had subjective chills, shortness of breath. No nausea, vomiting, leg swelling, fever. No hematuria. He was also noted to be more confused and sleepy today. Past Med Surg Social Fam HX - Past Medical History Medical history: atrial fibrillation, coronary artery disease, CVA, diabetes, hyperlipidemia, hypertension, myocardial infarction, renal disease Psychiatric history: anxiety - Past Surgical History Surgical History: angioplasty/stent, carotid endarterectomy (left), other ( implanted loop recorder) - Social History Smoking Status: Former smoker Smokeless Tobacco Status: Yes Alcohol use: none Drug use: none Occupational status: disabled Current living situation: Home, With Family Activity Level: Independent ambulation Recent Out of Country Travel Within the Last 8 Weeks: No Exposure or Possible Exposure to Illness During Travel: No - Family History Mother Family Member Ethnicity: Non- Living Status: Cause of : kidney failure Hx Family Cardiac Disorders: No Hx Family Respiratory Disorders: No Hx Family Cancer: No Hx Family GI Disorders: No Hx Family Genitourinary Disorders: No Hx Family Endocrine Disorder: No Hx Family Musculoskeletal Disorders: No Hx Family Neuromuscular Disorders: No Hx Family Neurologic Disorders: No Hx Family HEENT Disorders: No Hx Family Autoimmune Disorders: No Hx Family Reproductive Disorders: No Hx Family Psychosocial Disorders: No Brother Family Member Ethnicity: Non- Living Status: Hx Family Cardiac Disorders: Yes ([place], HD) Sister Family Member Ethnicity: Non- Living Status: Hx Family Cardiac Disorders: Yes Hx Family Cancer: Yes (Ovarian) Father Adopted: No Family Member Ethnicity: Non- Living Status: Cause of : [place] Hx Family Cardiac Disorders: Yes Hx Family Respiratory Disorders: No Hx Family Cancer: No Hx Family GI Disorders: No Hx Family Genitourinary Disorders: No Hx Family Endocrine Disorder: No Hx Family Musculoskeletal Disorders: No Hx Family Neuromuscular Disorders: No Hx Family Neurologic Disorders: No Hx Family HEENT Disorders: No Hx Family Autoimmune Disorders: No Hx Family Reproductive Disorders: No Hx Family Psychosocial Disorders: No Internal Medicine - H&P: Meds Cholecalciferol (Vitamin D3) [Vitamin D3] 50,000 unit PO MO 11/23/14 [History] Fenofibrate [Tricor] 145 mg PO HS #0 11/23/14 [History] Lisinopril [Zestril] 40 mg PO DAILY 11/23/14 [History] Esomeprazole Magnesium [Nexium] 20 mg PO DAILY 08/13/15 [History] Gemfibrozil [Lopid] 600 mg PO BIDWM 08/13/15 [History] Oxybutynin Chloride [Ditropan Xl] 10 mg PO DAILY 08/13/15 [History] Ranitidine HCl [Heartburn Relief] 150 mg PO BID 08/13/15 [History] Baclofen 20 mg PO HS 08/01/16 [History] Docusate [Colace] 100 mg PO BID PRN 08/01/16 [History] [place]-3/Dha/Epa/Fish Oil [Fish Oil 1,000 mg Softgel] 1,000 mg PO TID 08/01/16 [ History] BuPROPion XL (24 HR) [Wellbutrin Xl] 150 mg PO DAILY 08/28/16 [History] Isosorbide MONOnitrate (24 HR) [Imdur] 120 mg PO DAILY 08/28/16 [History] Aspirin Enteric Coated [Aspirin EC] 81 mg PO DAILY #30 tablet. 09/01/16 [Rx] Insulin Regular U-500 [HumuLIN R U-500] 200 unit SQ 1200 03/02/17 [History] Insulin Regular U-500 [HumuLIN R U-500] 300 unit SQ QAM 03/02/17 [History] Metoprolol [Lopressor] 25 mg PO BID 03/02/17 [History] Potassium Chloride [K-Tab ER] 20 meq PO DAILY 03/02/17 [History] Rosuvastatin [Crestor] 40 mg PO HS 03/02/17 [History] Warfarin [Coumadin] 2.5 mg PO SUTUWETHSA 03/02/17 [History] Warfarin [Coumadin] 5 mg PO MOFR 03/02/17 [History] ALPRAZolam [Xanax 1 MG Tablet] 1 mg PO BID PRN 04/03/17 [History] Insulin Regular U-500 [HumuLIN R U-500] 425 unit SQ QPM 04/03/17 [History] Metformin HCl [Glucophage] 1,000 mg PO BID 04/03/17 [History] 3 Allergy/AdvReac Type Severity Reaction Status Date / Time No Known Allergies Allergy Verified 03/01/17 16:52 All Systems PM: A 10-system review of systems was performed and is negative for pertinent findings except as documented above in the HPI. - Constitutional Constitutional: chills, fatigue, malaise, weakness, no fever(s), no night sweats - EENT Eyes: no change in vision, no discharge, no pain, no photophobia Ears: no ear discharge, no ear pain, no tinnitus Nose, mouth and throat: no dysphagia, no nasal discharge, no neck pain, no sore throat - Cardiovascular Cardiovascular ROS IM: no chest pain, no diaphoresis, no dyspnea, no lightheadedness, no palpitations, no syncope - Respiratory Respiratory: dyspnea - Gastrointestinal Gastrointestinal: abdominal pain - Genitourinary Genitourinary ROS male: difficulty urinating, dysuria - Musculoskeletal Musculoskeletal ROS IM: no numbness, no tingling - Integumentary Integumentary IM: no rash, no unusual bruising - Neurological Neurological ROS: confusion - Hematologic/Lymphatic Hematologic/Lymphatic: no easy bruising - Constitutional Vitals: Temp Pulse Resp BP Pulse Ox 101.0 F H 90 20 128/78 96 04/04/17 00:38 04/03/17 23:27 04/03/17 23:27 04/03/17 20:37 04/03/17 23:27 General appearance: Present: A&O X 1 (somnolent and lethargic), obese. Absent: answers questions appropriately - Respiratory Respiratory exam: Present: CTAB. Absent: accessory muscle use, rales, rhonchi, wheezes - Cardiovascular Cardiovascular exam: Present: irregular rhythm, +S1, +S2. Absent: diastolic murmur, gallop, rubs, systolic murmur - GI/Abdominal GI/Abdominal exam: Present: normal bowel sounds, soft (obese), no peritoneal signs. Absent: distended, tenderness - Extremities Exam Extremities exam: Present: full ROM, warm, radial pulses palpable and symmetrical. Absent: calf tenderness, cyanotic, pedal edema - Neurological Exam Neurological exam: Present: altered (somnolent, confused, unable to answer questions appropriately), CN II-XII intact, no focal deficits. Absent: pronater drift, facial droop, speech deficit - Skin Skin exam: Present: dry, intact Internal Med - H&P Results - Labs CBC & Chem 7: 04/03/17 16:55 04/03/17 16:55
[2017-04-04 04:35] LABS: Potassium 4.2 mEq/L (3.5-5.1)
[2017-04-04 04:48] LABS: Hematocrit 41.9 % (37.5-50.1); Hemoglobin 13.6 g/dL (12.9-16.9); Mean Corpuscular HGB Conc 32.5 g/dL (31.6-35.5); Mean Corpuscular Hemoglobin 29.1 pg (28.0-33.3); Mean Corpuscular Volume 89.5 fL (83.0-100.0); Mean Platelet Volume 10.7 fL (9.4-12.4); Platelet Count 165 K/mcL (140-400); Red Blood Count 4.68 M/mcL (4.19-5.50); Red Cell Distribution Width 15.2 % (11.5-14.5)
[2017-04-04 05:56] LABS: Platelet Estimate Normal (Normal)
[2017-04-04 05:59] LABS: Monocytes # 0.8 K/mcL (0.0-1.3); Neutrophils # 7.3 K/mcL (1.6-8.9)
[2017-04-04 06:01] LABS: Calcium 8.5 mg/dL (8.6-10.3); Magnesium 1.3 mg/dL (1.6-2.6)
[2017-04-04 06:18] LABS: Enterococcus by PCR Not Detected (Not Detect); Staphylococcus aureus by PCR Not Detected (Not Detect); Streptococcus agalactiae(B)PCR Not Detected (Not Detect); Streptococcus by PCR Not Detected (Not Detect); Streptococcus pneumoniae PCR Not Detected (Not Detect); Streptococcus pyogenes (A) PCR Not Detected (Not Detect); blaKPC Carbapenem-Resist Gene Not Detected (Not Detect)
[2017-04-04 06:19] LABS: Acinetobacter baumannii by PCR Not Detected (Not Detect); Candida albicans by PCR Not Detected (Not Detect); Candida glabrata by PCR Not Detected (Not Detect); Candida krusei by PCR Not Detected (Not Detect); Candida parapsilosis by PCR Not Detected (Not Detect); Candida tropicalis by PCR Not Detected (Not Detect); Escherichia coli by PCR ***DETECTED*** (Not Detect); Klebsiella oxytoca by PCR Not Detected (Not Detect); Klebsiella pneumoniae by PCR Not Detected (Not Detect); Pseudomonas aeruginosa by PCR Not Detected (Not Detect); Serratia marcescens by PCR Not Detected (Not Detect)
--- NOTE | 2017-04-04 08:01 | Urology Progress Note ---
Date of Encounter: 04/04/17 Time of Encounter: 07:56 - Assessment and Plan (1) Hydronephrosis with renal and ureteral calculus obstruction Current Visit: Yes Status: Acute Assessment and plan: Cr increased from 2.99 to 3.5. fever and tachycardia. BP stable. pt on the schedule for ureteral stent placement this AM. I discussed with the patient and the family that he could become more ill and potentially require ICU or 2N care after the procedure. pt voiced an understanding regarding the indication for the procedure. they understand that he has a very serious medical condition with multiple comorbidities and that the outcome is guarded even with intervention. Progress Note Narrative: pt states he "feels better" temp overnight Objective Initial Vital Signs Temp Pulse Resp BP Pulse Ox 98.4 F 102 18 86/48 96 04/03/17 16:29 04/03/17 16:29 04/03/17 16:29 04/03/17 16:29 04/03/17 16:29 - General physical appearance Present: no distress, chronically ill - Abdomen Present: soft - Labs 04/04/17 04:06 04/04/17 04:06 Diabetes panel 04/04/17 Range/Units 04:06 Sodium 134 L (136-145) mEq/L Potassium 4.2 (3.5-5.1) mEq/L Chloride 105 (98-107) mEq/L Carbon Dioxide 15 L (23-29) mEq/L BUN 61 H (8-23) mg/dL Creatinine 3.53 H (0.70-1.30) mg/dL Glucose 250 H (70-105) mg/dL Calcium 8.5 L (8.6-10.3) mg/dL Calcium panel 04/04/17 Range/Units 04:06 Calcium 8.5 L (8.6-10.3) mg/dL Pituitary panel 04/04/17 Range/Units 04:06 Sodium 134 L (136-145) mEq/L Potassium 4.2 (3.5-5.1) mEq/L Chloride 105 (98-107) mEq/L Carbon Dioxide 15 L (23-29) mEq/L BUN 61 H (8-23) mg/dL Creatinine 3.53 H (0.70-1.30) mg/dL Glucose 250 H (70-105) mg/dL Calcium 8.5 L (8.6-10.3) mg/dL Adrenal panel 04/04/17 Range/Units 04:06 Sodium 134 L (136-145) mEq/L Potassium 4.2 (3.5-5.1) mEq/L Chloride 105 (98-107) mEq/L Carbon Dioxide 15 L (23-29) mEq/L BUN 61 H (8-23) mg/dL Creatinine 3.53 H (0.70-1.30) mg/dL Glucose 250 H (70-105) mg/dL Calcium 8.5 L (8.6-10.3) mg/dL Consult Discharge Plan - Plan Referrals: Jayme Alarcon MD [Primary Care Provider] -
--- NOTE | 2017-04-04 08:54 | Anesthesia Evaluation PreOp ---
Date of Encounter: 04/04/17 Time of Encounter: 08:51 - Past History Planned Operation: Cystoscopy, left ureteral stent Cardiac History: ME, HTN, Hyperlipidemia, Arrhythmia ( paroxysymal a fib; holter : non-sustained V tach, freq PVC's, Nocturnal Pauses 2.8 sec.), Cardiac Stent ( 2011), Other Pulmonary History: Former smoker, HIRAL Dx, Other (lumbar stenosis) [employer] History: CVA ( CVA 08/08/2016) Other Medical History: Renal (Stones), Diabetes Type II (poorly controlled), GERD, Other (Severe sepsis) Anesthesia History: Past Anesthesia (Ear sx, Left CEA, angioplasty/Stent,) Alcohol Use: none Drug use: none Medications and Allergies Cholecalciferol (Vitamin D3) [Vitamin D3] 50,000 unit PO MO 11/23/14 [History] Fenofibrate [Tricor] 145 mg PO HS #0 11/23/14 [History] Lisinopril [Zestril] 40 mg PO DAILY 11/23/14 [History] Esomeprazole Magnesium [Nexium] 20 mg PO DAILY 08/13/15 [History] Gemfibrozil [Lopid] 600 mg PO BIDWM 08/13/15 [History] Oxybutynin Chloride [Ditropan Xl] 10 mg PO DAILY 08/13/15 [History] Ranitidine HCl [Heartburn Relief] 150 mg PO BID 08/13/15 [History] Baclofen 20 mg PO HS 08/01/16 [History] Docusate [Colace] 100 mg PO BID PRN 08/01/16 [History] [place]-3/Dha/Epa/Fish Oil [Fish Oil 1,000 mg Softgel] 1,000 mg PO TID 08/01/16 [ History] BuPROPion XL (24 HR) [Wellbutrin Xl] 150 mg PO DAILY 08/28/16 [History] Isosorbide MONOnitrate (24 HR) [Imdur] 120 mg PO DAILY 08/28/16 [History] Aspirin Enteric Coated [Aspirin EC] 81 mg PO DAILY #30 tablet. 09/01/16 [Rx] Insulin Regular U-500 [HumuLIN R U-500] 200 unit SQ 1200 03/02/17 [History] Insulin Regular U-500 [HumuLIN R U-500] 300 unit SQ QAM 03/02/17 [History] Metoprolol [Lopressor] 25 mg PO BID 03/02/17 [History] Potassium Chloride [K-Tab ER] 20 meq PO DAILY 03/02/17 [History] Rosuvastatin [Crestor] 40 mg PO HS 03/02/17 [History] Warfarin [Coumadin] 2.5 mg PO SUTUWETHSA 03/02/17 [History] Warfarin [Coumadin] 5 mg PO MOFR 03/02/17 [History] ALPRAZolam [Xanax 1 MG Tablet] 1 mg PO BID PRN 04/03/17 [History] Insulin Regular U-500 [HumuLIN R U-500] 425 unit SQ QPM 04/03/17 [History] Metformin HCl [Glucophage] 1,000 mg PO BID 04/03/17 [History] 3 Allergy/AdvReac Type Severity Reaction Status Date / Time No Known Allergies Allergy Verified 03/01/17 16:52 - Meds/Allergy Pre-op Review Medications Reviewed: Yes Allergies Reviewed: Yes Beta Blockers on Current Med List: Yes If Beta Blockers taken, Date/Time (Last Dose taken): 04/03/2017 @ 21:36 Anesthesia Results - Labs 04/04/17 04:06 04/04/17 04:06 Laboratory Tests 04/03/17 04/04/17 04/04/17 16:55 04:06 04:06 WBC 10.2 Hgb 13.6 Hct 41.9 Plt Count 165 INR 3.4 Sodium 134 L Potassium 4.2 Chloride 105 Carbon Dioxide 15 L BUN 61 H Creatinine 3.53 H CORONARY ANGIOGRAPHY 08/01/16 Indications: Unstable Angina Impressions: Double vessel coronary artery disease. Previously stented Mid RCA and OM1 are patent. Recommendations: Optimal medical therapy of patient's disease. Aggressive risk factor modification. Echo Date of Study: 01/16/2016 Impressions: Sinus rhythm with frequent PVCs. Normal LV systolic function, LVEF 60-65%. Mild concentric left ventricular hypertrophy. Moderate left ventricular diastolic dysfunction. Normal right ventricular structure and function. Mildly dilated left atrium. No significant valvular dysfunction. - Imaging EKG: report reviewed (AFIB, LAFB) Anesthesia Exam O2 Sat Height 1.65 m Weight 101.151 kg O2 Sat by Pulse Oximetry 95 O2 Sat by Pulse Oximetry 95 O2 Sat by Pulse Oximetry 96 O2 Sat by Pulse Oximetry 94 O2 Sat by Pulse Oximetry 93 O2 Sat by Pulse Oximetry 99 O2 Sat by Pulse Oximetry 96 Vital Signs Temp Pulse Resp BP Pulse Ox 98.4 F 102 18 86/48 96 04/03/17 16:29 04/03/17 16:29 04/03/17 16:29 04/03/17 16:29 04/03/17 16:29 Vital Signs/O2 Sat, Most Current Temp Pulse Resp BP Pulse Ox 100.7 F H 109 18 118/74 95 04/04/17 06:43 04/04/17 06:43 04/04/17 06:43 04/04/17 06:43 04/04/17 06:43 Height: 5'5'' Weight: 223# NPO (# of Hours): > 8 hrs Pain Scale: 0 - HEENT Pupil (Motor): Pupils equal, EOMI Mallampati: III Teeth: Missing, Edentulous Denture Type: Upper: Complete Oral Opening: Greater than 3 - [employer] LOC: Oriented [employer] Motor: Normal RUE [employer] Sensory: Normal: RUE, LUE, RLE, LLE, Face - Cardiac Rhythm: Irregular Murmur: None JVD: No Carotid Bruit: No - Pulmonary Breath Sounds: bilateral Clear Respiratory Effort: Symmetrical Anesthesia Assess/Plan ASA Score: 4, E Modified Jerome Scale for Level of Consciousness: Cooperative, oriented, and tranquil Anesthetic Plan: MAC Autologous Blood: Yes Monitoring Plan: Standard Monitors Recovery Plan: Other
[2017-04-04] MEDS ORDERED: Aspirin Enteric Coated 81 MG Tablet PO SCH (09:00)
[2017-04-04] MEDS ORDERED: cefTRIAXone 1,000 MG in Water for inj. (sterile) 10 ML IVP SCH (09:00)
[2017-04-04] MEDS ORDERED: BuPROPion XL (24 HR) 150 MG TABLET PO SCH (09:00)
[2017-04-04] MEDS ORDERED: *HR* Midazolam HCl 2 MG/2 ML VIAL ONE (10:26)
[2017-04-04] MEDS ORDERED: Ketamine *HR* 500 MG/10 ML MDV ONE (10:27)
[2017-04-04] MEDS ORDERED: *HR* FentaNYL (PF) 100 MCG/2 ML VIAL ONE (10:32)
--- NOTE | 2017-04-04 11:12 | Event Note ---
Date of Encounter: 04/04/17 Time of Encounter: 11:11 s/p stent placement. urosepsis. pts condition guarded and needs monitored bed. place 2N. discussed with hospitalists.
--- NOTE | 2017-04-04 11:18 | Operative Note ---
Date of procedure: 04/04/17 Pre-op diagnosis: left ureteral stones and urosepsis Post-op diagnosis: same Procedure: cystoscopy and left ureteral stent placement. Anesthesia: GETA Surgeon: Lencho Bernstein Was there an assistant women's soccer coach present: No Estimated blood loss (cc): 0 Specimen: none Condition: stable Disposition: PACU Procedure in Detail: PROCEDURE IN DETAIL: Patient was taken back to the operating room, positioned supine on the operating table. Secondary to the patient's significant comorbidities and current status general anesthetic or full Arnold anesthesia were not possible. He was kept in the supine position and prepped and draped in sterile fashion. Timeout was performed confirming the proper patient and procedure. Flexible cystoscope was inserted into the bladder without difficulty. Unfortunately, the patient did not tolerate placement of the flex scope well and continued to move, raise his legs and attempt to move from the table. His continued movement during the case made it difficult to complete the stent placement. I was able to identify the left ureteral orifice and cannulated the orifice with a zip wire. Under fluoroscopic vision the zip wire did pass up to the expected location of the kidney. It was significant gross purulent material draining from the left ureteral orifice. I passed a 4.8 x 26 stent through the flexible scope and used the 5 [place] ureteral catheter as the pusher. The patient was moving a tremendous amount during placement of the stent which resulted in the stent being pushed just proximal to the ureteral orifice. Unable to proceed with ureteroscopy to remove the stent into the bladder because the patient was not under anesthesia. It was obvious that significant purulent material continued to drain from the orifice and I elected to stop the procedure. Shipman catheter was placed in the procedure with obvious cloudy, brownish milky urine.
--- NOTE | 2017-04-04 11:23 | Anesthesia Evaluation Post Op ---
Date of Encounter: 04/04/17 Time of Encounter: 11:23 - Vital Signs Vital Signs: Vital Signs/O2 Sat, Most Current Temp Pulse Resp BP Pulse Ox 101.5 F H 90 16 131/76 96 04/04/17 11:18 04/04/17 11:18 04/04/17 11:18 04/04/17 11:18 04/04/17 11:18 - Lungs Lungs: Clear Ascult./Percussion - Airway Airway: Non-obstructed - Cardiovascular Regular Rate - Mental Status Mental Status: Alert & Oriented, Answers Appropriately - Pain Pain Scale: 0 Pain Scale used: Numeric (1 - 10) - Nausea Vomiting Nausea Vomiting: Not Present - Hydration Hydration: NPO, Has not voided - Discharge PostOp Status: Transfer Patient to floor
[2017-04-04] MEDS ORDERED: Ondansetron 4 MG/2 ML VIAL IVP PRN (11:55)
[2017-04-04] MEDS ORDERED: D5% in Water 1,000 ML IVC PRN (11:55)
[2017-04-04] MEDS ORDERED: *HR* Dextrose 50 % in Water (Syg) 50 ML SYRINGE IVP PRN (11:55)
[2017-04-04] MEDS ORDERED: Dextrose Gel 15 GM/37.5 ML TUBE PO PRN ×2 (11:55)
[2017-04-04] MEDS ORDERED: Naloxone 0.4 MG/ML INJ IVP PRN (11:55)
[2017-04-04] MEDS ORDERED: Insulin LISPRO 300 UNITS/3 ML VIAL SQ SCH (12:00)
[2017-04-04] MEDS: Acetaminophen 325 MG TABLET PO PRN ×2 (12:37→19:01)
[2017-04-04] MEDS: 0.9 % Sodium Chloride 1,000 ML IVC SCH (12:37)
--- NOTE | 2017-04-04 14:18 | Internal Med Progress Note ---
Date of Encounter: 04/04/17 Time of Encounter: 14:00 - Assessment and plan (1) Severe sepsis Current Visit: Yes Status: Acute Assessment and plan: Severe sepsis, present on admission, secondary to a UTI - with acute encephalopathy and ELIN Recurrent complicated UTIs secondary to obstructive uropathy Continue IV Zosyn, IV fluids, Tylenol PRN Blood cultures - positive for gram-negative rods Urine cultures - pending Chest x-ray - no acute process CT abdomen - left obstructing ureteral stone with left hydronephrosis and left hydroureter Patient and family explained about guarded condition and prognosis Urology following Labs in a.m., cardiac telemetry, monitor closely (2) UTI (urinary tract infection) Current Visit: Yes Status: Acute Assessment and plan: Urine Cultures - pending Plan as above Qualifiers: Urinary tract infection type: acute cystitis Hematuria presence: without hematuria Qualified Code(s): N30.00 - Acute cystitis without hematuria (3) Ureterolithiasis Current Visit: Yes Status: Acute Assessment and plan: Acute left side obstructing ureteral stones - with left hydronephrosis and left hydroureter S/p successful cystoscopy and left ureteral stent placement Urology following (4) Acute kidney injury Current Visit: Yes Status: Acute Assessment and plan: Severe acute kidney injury - secondary to sepsis and urinary tract obstruction Continue fluids, labs in a.m. Nephrology consultation if renal function worsens (5) Elevated troponin Current Visit: Yes Status: Acute Assessment and plan: Mild troponin leak, likely demand ischemia and due to sepsis - no anginal symptoms Troponin peak 0.07 EKG - atrial fibrillation with no acute ST-T changes Continue Aspirin, Crestor (6) Atrial fibrillation Current Visit: Yes Status: Acute Assessment and plan: Chronic atrial fibrillation, rate controlled Continue home dose of Lopressor, patient is on Coumadin for anticoagulation INR - 3.4 Restart Coumadin when ok with urology Qualifiers: Atrial fibrillation type: paroxysmal Qualified Code(s): I48.0 - Paroxysmal atrial fibrillation (7) CAD (coronary artery disease) Current Visit: Yes Status: Chronic Assessment and plan: History of coronary artery disease, s/p stents, stable - no anginal symptoms at this time [facility] (08/01/2016) - previously stented mid RCA and OM1 are patent Echocardiogram (01/16/2016) - LVEF 60-65%, normal RV structure and function, mild LVH, no valvular dysfunction Continue Aspirin, Crestor, Lopressor, Imdur Qualifiers: Coronary Disease-Associated Artery/Lesion type: [place] artery [place] vs. transplanted heart: [place] heart Associated angina: without angina Qualified Code(s): I25.10 - Atherosclerotic heart disease of [place] coronary artery without angina pectoris (8) DM2 (diabetes mellitus, type 2) Current Visit: Yes Status: Chronic Assessment and plan: Type 2 diabetes mellitus, insulin-dependent, hyperglycemia Continue insulin sliding scale and glucose checks Patient is on Glucophage and Humulin U-500 at home Qualifiers: Diabetes mellitus complication status: with kidney complications Diabetes mellitus complication detail: with chronic kidney disease Diabetes mellitus retirement insulin use: with 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 Chronic kidney disease stage: stage 3 (moderate) Qualified Code(s): E11.22 - Type 2 diabetes mellitus with diabetic chronic kidney disease; N18.3 - Chronic kidney disease, stage 3 ( moderate); N18.3 - Chronic kidney disease, stage 3 (moderate); Z79.4 - [facility] (current) use of insulin; Z79.4 - [facility] (current) use of insulin; 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; 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 (9) HLD (hyperlipidemia) Current Visit: Yes Status: Chronic Assessment and plan: Continue home dose of Crestor, TriCor, Lopid Qualifiers: Hyperlipidemia type: unspecified Qualified Code(s): E78.5 - Hyperlipidemia , unspecified (10) HTN (hypertension) Current Visit: Yes Status: Chronic Assessment and plan: Essential hypertension, controlled, monitor Continue home dose of Lopressor Hold Lisinopril due to ELIN Qualifiers: Hypertension type: essential hypertension Qualified Code(s): I10 - Essential (primary) hypertension (11) 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 fib Continue Aspirin, Crestor, will restart Coumadin when cleared by urology (12) DVT prophylaxis Current Visit: Yes Status: Acute Assessment and plan: Continue SCDs, restart Coumadin when cleared by urology - Time Spent With Patient 25 - 35 minutes - Subjective Interval history: Examined this afternoon. Patient is awake and alert. Not in any distress. Continues to have fever. Hemodynamically stable. Denies chest pain or shortness of breath. Denies abdominal pain or back pain. No other acute events or complaints. Admitted for ureterolithiasis and sepsis secondary to UTI. Cystoscopy and left ureteral stent placement done today by Dr. Bernstein. Patient has tolerated procedure well. - Constitutional Vitals: Temp Pulse Resp BP Pulse Ox 100.3 F H 92 20 134/78 94 04/04/17 13:45 04/04/17 13:30 04/04/17 13:30 04/04/17 13:30 04/04/17 13:30 General appearance: Present: cooperative, A&O X 3 (slightly confused at times, otherwise able to answer questions appropriately), pleasant, no acute distress, obese, answers questions appropriately - Head Head exam: Present: atraumatic - Eye Eye exam: Present: EOMI - ENT ENT exam: Present: mucous membranes dry - Respiratory Respiratory exam: Present: CTAB. Absent: accessory muscle use, chest wall tenderness, rales, respiratory distress, rhonchi, wheezes, tachypnea - Cardiovascular Cardiovascular exam: Present: RRR, +S1, +S2 - GI/Abdominal GI/Abdominal exam: Present: distended (Protuberant abdomen), soft (Obese), no peritoneal signs. Absent: firm, guarding, tenderness - Extremities Exam Extremities exam: Present: pedal edema (trace b/l), radial pulses palpable and symmetrical. Absent: calf tenderness, cyanotic - Neurological Exam Neurological exam: Present: alert, oriented X3, no focal deficits. Absent: facial droop, speech deficit Internal Medicine: Result - Labs CBC & Chem 7: 04/04/17 04:06 04/04/17 04:06 Labs: Short CBC 04/04/17 Range/Units 04:06 WBC 10.2 (4.3-11.1) K/mcL Hgb 13.6 (12.9-16.9) g/dL Hct 41.9 (37.5-50.1) % Plt Count 165 (140-400) K/mcL Neutrophils # 7.3 (1.6-8.9) K/mcL BMP 04/04/17 04:06 Sodium 134 L Potassium 4.2 Chloride 105 Carbon Dioxide 15 L BUN 61 H Creatinine 3.53 H Glucose 250 H Calcium 8.5 L Cardiac Enzymes 04/04/17 Range/Units 04:06 Troponin I 0.07 H* (< 0.04) ng/mL - ABG Interpretation ABG results: PT/INR, D-dimer PT 37.6 Seconds (9.4-12.1) H 04/03/17 16:55 - VTE Documentation of Mechanical Device: Intermittent pneumatic compression device Consult Discharge Plan - Plan Referrals: Jayme Alarcon MD [Primary Care Provider] -
[2017-04-04] MEDS ORDERED: Piperacillin/Tazobactam 3.375 GM/200 ML BAG IVPB SCH (16:00)
[2017-04-04] MEDS: *HR* OxyCODONE/APAP 5/325 TABLET PO PRN ×2 (17:00→22:57)
[2017-04-04] MEDS ORDERED: Fenofibrate 54 MG TABLET PO SCH (21:00)
[2017-04-04] MEDS: Insulin DETEMIR 100 UNIT/ML X5UNITS SQ SCH (22:56)
[2017-04-04] MEDS: Fenofibrate 54 MG TABLET PO SCH (22:56)
[2017-04-04] MEDS: ALPRAZolam 1 MG TABLET PO PRN (22:57)
[2017-04-05] MEDS ORDERED: 0.9 % Sodium Chloride 1,000 ML ONE ×2 (00:37→07:39)
[2017-04-05] MEDS: 0.9 % Sodium Chloride 1,000 ML IVC SCH ×3 (00:41→23:56)
[2017-04-05] MEDS: *HR* Morphine 2 MG/ML SYRINGE IVP PRN ×2 (00:41→04:14)
[2017-04-05] MEDS: Piperacillin/Tazobactam 3.375 GM/200 ML BAG IVPB SCH ×4 (02:28→23:56)
[2017-04-05] MEDS: Acetaminophen 325 MG TABLET PO PRN (03:44)
[2017-04-05 04:45] LABS: Basophils % 0.5 %; Hematocrit 36.9 % (37.5-50.1); Hemoglobin 12.3 g/dL (12.9-16.9); Immature Granulocytes % 0.7 % (0-4); Lymphocytes # 0.5 K/mcL (0.6-4.6); Lymphocytes % 8.6 %; Mean Corpuscular HGB Conc 33.3 g/dL (31.6-35.5); Mean Corpuscular Hemoglobin 29.5 pg (28.0-33.3); Mean Corpuscular Volume 88.5 fL (83.0-100.0); Mean Platelet Volume 10.8 fL (9.4-12.4); Monocytes # 0.3 K/mcL (0.0-1.3); Monocytes % 5.1 %; Platelet Count 108 K/mcL (140-400); Red Blood Count 4.17 M/mcL (4.19-5.50); Red Cell Distribution Width 15.4 % (11.5-14.5); Segmented Neutrophils % 85.1 %
[2017-04-05 04:55] LABS: INR 2.4; Prothrombin Time 26.3 Seconds (9.4-12.1)
[2017-04-05 04:57] LABS: ABG Base Excess -4 mEq/L (-2 to 3); ABG HCO3 19 mEq/L (21-27); ABG Oxygen Saturation 97 % (95-98); ABG PCO2 28 mmHg (35-45); ABG PH 7.44 pH Units (7.32-7.45); ABG PO2 89 mmHg (85-104); ABG TCO2 20 mEq/L (20-26)
[2017-04-05 05:04] LABS: Calcium 8.3 mg/dL (8.6-10.3); Magnesium 2.1 mg/dL (1.6-2.6)
--- NOTE | 2017-04-05 07:13 | Urology Progress Note ---
Date of Encounter: 04/05/17 Time of Encounter: 07:11 - Assessment and Plan (1) Hydronephrosis with renal and ureteral calculus obstruction Current Visit: Yes Status: Resolved Assessment and plan: s/p stent placement with significant pyonephrosis. pt urosepsis. it is encouraging his renal function has improved today and he is making decent output. no new recs. continue IVF and ABX. Progress Note Narrative: pt asleep. no acute events overnight. Objective Initial Vital Signs Temp Pulse Resp BP Pulse Ox 98.4 F 102 18 86/48 96 04/03/17 16:29 04/03/17 16:29 04/03/17 16:29 04/03/17 16:29 04/03/17 16:29 - General physical appearance Present: no distress, no pain - Additional Exam urine still with some debris but clearing. - Labs 04/05/17 04:35 04/05/17 04:35 Diabetes panel 04/05/17 Range/Units 04:35 Sodium 136 (136-145) mEq/L Potassium 4.0 (3.5-5.1) mEq/L Chloride 108 H (98-107) mEq/L Carbon Dioxide 18 L (23-29) mEq/L BUN 57 H (8-23) mg/dL Creatinine 2.47 H (0.70-1.30) mg/dL Glucose 210 H (70-105) mg/dL Calcium 8.3 L (8.6-10.3) mg/dL Calcium panel 04/05/17 Range/Units 04:35 Calcium 8.3 L (8.6-10.3) mg/dL Pituitary panel 04/05/17 Range/Units 04:35 Sodium 136 (136-145) mEq/L Potassium 4.0 (3.5-5.1) mEq/L Chloride 108 H (98-107) mEq/L Carbon Dioxide 18 L (23-29) mEq/L BUN 57 H (8-23) mg/dL Creatinine 2.47 H (0.70-1.30) mg/dL Glucose 210 H (70-105) mg/dL Calcium 8.3 L (8.6-10.3) mg/dL Adrenal panel 04/05/17 Range/Units 04:35 Sodium 136 (136-145) mEq/L Potassium 4.0 (3.5-5.1) mEq/L Chloride 108 H (98-107) mEq/L Carbon Dioxide 18 L (23-29) mEq/L BUN 57 H (8-23) mg/dL Creatinine 2.47 H (0.70-1.30) mg/dL Glucose 210 H (70-105) mg/dL Calcium 8.3 L (8.6-10.3) mg/dL - VTE Documentation of Mechanical Device: Intermittent pneumatic compression device Consult Discharge Plan - Plan Referrals: Jayme Alarcon MD [Primary Care Provider] -
[2017-04-05] MEDS: Aspirin Enteric Coated 81 MG Tablet PO SCH (07:52)
[2017-04-05] MEDS: BuPROPion XL (24 HR) 150 MG TABLET PO SCH (07:52)
[2017-04-05] MEDS: Insulin DETEMIR 100 UNIT/ML X5UNITS SQ SCH ×2 (07:53→22:05)
[2017-04-05] MEDS: Insulin LISPRO 300 UNITS/3 ML VIAL SQ SCH ×4 (08:03→22:04)
[2017-04-05] MEDS ORDERED: cefTRIAXone 1,000 MG in Water for inj. (sterile) 10 ML IVP SCH (09:00)
--- NOTE | 2017-04-05 13:55 | Internal Med Progress Note ---
Date of Encounter: 04/05/17 Time of Encounter: 08:40 - Assessment and plan (1) Severe sepsis Current Visit: Yes Status: Acute Assessment and plan: Severe sepsis, present on admission, secondary to a UTI - with acute encephalopathy and ELIN - slowly improving, continues to have fever Recurrent complicated UTIs secondary to obstructive uropathy Continue IV Zosyn, IV fluids, Tylenol PRN Blood cultures - E.coli Urine cultures - E.coli Chest x-ray - no acute process CT abdomen - left obstructing ureteral stone with left hydronephrosis and left hydroureter Patient and family explained about guarded condition and prognosis Urology following - appreciate input Labs in a.m., cardiac telemetry, monitor closely (2) UTI (urinary tract infection) Current Visit: Yes Status: Acute Assessment and plan: Urine Cultures - E.coli, sensitivities pending Plan as above Qualifiers: Urinary tract infection type: acute cystitis Hematuria presence: without hematuria Qualified Code(s): N30.00 - Acute cystitis without hematuria (3) Ureterolithiasis Current Visit: Yes Status: Acute Assessment and plan: Acute left side obstructing ureteral stones - with left hydronephrosis and left hydroureter S/p successful cystoscopy and left ureteral stent placement Urology following - appreciate input (4) Acute kidney injury Current Visit: Yes Status: Acute Assessment and plan: Severe acute kidney injury - secondary to sepsis and urinary tract obstruction Cr - 2.47 - slowly improving, good urine output Continue fluids, labs in a.m. Nephrology consultation if renal function worsens (5) Elevated troponin Current Visit: Yes Status: Acute Assessment and plan: Mild troponin leak, likely demand ischemia and due to sepsis - no anginal symptoms Troponin peak 0.07 EKG - atrial fibrillation with no acute ST-T changes Continue Aspirin, Crestor, Warfarin (6) Atrial fibrillation Current Visit: Yes Status: Acute Assessment and plan: Chronic atrial fibrillation, rate controlled Continue home dose of Lopressor, patient is on Coumadin for anticoagulation INR - 2.4 Restart Coumadin today Qualifiers: Atrial fibrillation type: paroxysmal Qualified Code(s): I48.0 - Paroxysmal atrial fibrillation (7) CAD (coronary artery disease) Current Visit: Yes Status: Chronic Assessment and plan: History of CAD s/p stents, stable - no anginal symptoms at this time [facility] (08/01/2016) - previously stented mid RCA and OM1 are patent Echocardiogram (01/16/2016) - LVEF 60-65%, normal RV structure and function, mild LVH, no valvular dysfunction Continue Aspirin, Crestor, Lopressor, Imdur Qualifiers: Coronary Disease-Associated Artery/Lesion type: [place] artery [place] vs. 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 Chronic kidney disease stage: stage 3 (moderate) Qualified Code(s): E11.22 - Type 2 diabetes mellitus with diabetic chronic kidney disease; N18.3 - Chronic kidney disease, stage 3 ( moderate); N18.3 - Chronic kidney disease, stage 3 (moderate); Z79.4 - FPC (current) use of insulin; Z79.4 - FPC (current) use of insulin; Z79.4 - FPC (current) use of insulin; Z79.4 - 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 insulin (9) HLD (hyperlipidemia) Current Visit: Yes Status: Chronic Assessment and plan: Continue home dose of Crestor, TriCor, Lopid Qualifiers: Hyperlipidemia type: unspecified Qualified Code(s): E78.5 - Hyperlipidemia , unspecified (10) HTN (hypertension) Current Visit: Yes Status: Chronic Assessment and plan: Essential hypertension, controlled, monitor Continue home dose of Lopressor Hold Lisinopril due to ELIN Qualifiers: Hypertension type: essential hypertension Qualified Code(s): I10 - Essential (primary) hypertension (11) 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 fib Continue Aspirin, Crestor, restart Coumadin today (12) DVT prophylaxis Current Visit: Yes Status: Acute Assessment and plan: Continue SCDs, restart Coumadin today INR therapeutic - Time Spent With Patient 25 - 35 minutes - Subjective Interval history: Examined this afternoon. Patient is awake and alert. Not in any distress. Continues to have fever spikes. Hemodynamically stable. Denies chest pain or shortness of breath. Denies abdominal pain or back pain. Complains of mild generalized weakness. No other acute events or complaints. Good urine output. Tolerating oral diet. Admitted for ureterolithiasis and sepsis secondary to UTI. Cystoscopy and left ureteral stent placement done by Dr. Bernstein. Patient has tolerated procedure well. Seems to be improving. - Constitutional Vitals: Temp Pulse Resp BP Pulse Ox 98.5 F 76 20 115/66 95 04/05/17 11:28 04/05/17 11:28 04/05/17 11:28 04/05/17 11:28 04/05/17 11:28 General appearance: Present: cooperative, A&O X 2, pleasant, no acute distress, obese, answers questions appropriately - Head Head exam: Present: atraumatic - Eye Eye exam: Present: EOMI - ENT ENT exam: Present: mucous membranes dry - Respiratory Respiratory exam: Present: CTAB. Absent: accessory muscle use, chest wall tenderness, rales, respiratory distress, rhonchi, wheezes, tachypnea - Cardiovascular Cardiovascular exam: Present: RRR, +S1, +S2 - GI/Abdominal GI/Abdominal exam: Present: soft (obese, protuberant), no peritoneal signs. Absent: distended, firm, guarding, tenderness - Extremities Exam Extremities exam: Present: pedal edema (trace b/l), radial pulses palpable and symmetrical. Absent: calf tenderness, cyanotic - Neurological Exam Neurological exam: Present: alert, no focal deficits. Absent: facial droop, speech deficit Additional comments: able to verbalize, follows verbal commands. No focal deficits. oriented to place and person, but not to time. Internal Medicine: Result - Labs CBC & Chem 7: 04/05/17 04:35 04/05/17 04:35 Labs: Short CBC 04/05/17 Range/Units 04:35 WBC 5.9 (4.3-11.1) K/mcL Hgb 12.3 L (12.9-16.9) g/dL Hct 36.9 L (37.5-50.1) % Plt Count 108 L (140-400) K/mcL Neutrophils # 5.0 (1.6-8.9) K/mcL BMP 04/05/17 04:35 Sodium 136 Potassium 4.0 Chloride 108 H Carbon Dioxide 18 L BUN 57 H Creatinine 2.47 H Glucose 210 H Calcium 8.3 L - ABG Interpretation ABG results: ABG ABG pH 7.44 pH Units (7.32-7.45) 04/05/17 04:53 ABG pCO2 28 mmHg (35-45) L 04/05/17 04:53 ABG pO2 89 mmHg (85-104) 04/05/17 04:53 ABG O2 Saturation 97 % (95-98) 04/05/17 04:53 PT/INR, D-dimer PT 26.3 Seconds (9.4-12.1) H 04/05/17 04:35 - VTE Documentation of Mechanical Device: Intermittent pneumatic compression device Consult Discharge Plan - Plan Referrals: Jayme Alarcon MD [Primary Care Provider] -
[2017-04-05] MEDS: (Omega-3/Dha/Epa/Fish Oil [Fish Oil 1,000 Mg Softgel]) PO SCH ×2 (14:48→21:28)
[2017-04-05] MEDS: *HR* OxyCODONE/APAP 5/325 TABLET PO PRN (17:23)
[2017-04-05] MEDS ORDERED: *HR* Warfarin 2.5 MG TABLET PO SCH (18:00)
[2017-04-05] MEDS: Fenofibrate 54 MG TABLET PO SCH (21:27)
[2017-04-05] MEDS: ALPRAZolam 1 MG TABLET PO PRN (22:00)
[2017-04-06] MEDS: Acetaminophen 325 MG TABLET PO PRN ×2 (00:47→21:11)
[2017-04-06] MEDS: *HR* Morphine 2 MG/ML SYRINGE IVP PRN ×2 (02:23→18:46)
[2017-04-06] MEDS: (Omega-3/Dha/Epa/Fish Oil [Fish Oil 1,000 Mg Softgel]) PO SCH ×3 (08:10→21:03)
[2017-04-06] MEDS: Insulin LISPRO 300 UNITS/3 ML VIAL SQ SCH ×4 (08:11→21:11)
[2017-04-06] MEDS: Famotidine 20 MG TABLET PO SCH (08:48)
[2017-04-06] MEDS: Piperacillin/Tazobactam 3.375 GM/200 ML BAG IVPB SCH ×3 (08:49→23:21)
[2017-04-06] MEDS: Aspirin Enteric Coated 81 MG Tablet PO SCH (08:49)
[2017-04-06] MEDS: BuPROPion XL (24 HR) 150 MG TABLET PO SCH (08:49)
[2017-04-06] MEDS: Insulin DETEMIR 100 UNIT/ML X5UNITS SQ SCH ×2 (08:51→21:12)
--- NOTE | 2017-04-06 08:53 | Urology Progress Note ---
Date of Encounter: 04/06/17 Time of Encounter: 08:48 - Assessment and Plan (1) Hydronephrosis with renal and ureteral calculus obstruction Current Visit: Yes Status: Resolved Assessment and plan: obstruction resolved with stent. labs pending. continue ABX. no further intervention at this time. with comorbidities pt will likely take significant time to recover. Progress Note Narrative: pt still with fever overnight. stable Objective Initial Vital Signs Temp Pulse Resp BP Pulse Ox 98.4 F 102 18 86/48 96 04/03/17 16:29 04/03/17 16:29 04/03/17 16:29 04/03/17 16:29 04/03/17 16:29 - Additional Exam sosa remains clear. - Labs 04/05/17 04:35 04/05/17 04:35 - VTE Documentation of Mechanical Device: Intermittent pneumatic compression device Consult Discharge Plan - Plan Referrals: Jayme Alarcon MD [Primary Care Provider] -
[2017-04-06 09:50] LABS: Basophils % 0.4 %; Eosinophils % 0.1 %; Hematocrit 36.6 % (37.5-50.1); Immature Granulocytes % 0.5 % (0-4); Lymphocytes # 0.5 K/mcL (0.6-4.6); Lymphocytes % 6.3 %; Mean Corpuscular HGB Conc 32.8 g/dL (31.6-35.5); Mean Corpuscular Hemoglobin 29.2 pg (28.0-33.3); Mean Corpuscular Volume 89.1 fL (83.0-100.0); Mean Platelet Volume 11.8 fL (9.4-12.4); Monocytes # 0.5 K/mcL (0.0-1.3); Monocytes % 6.9 %; Neutrophils # 6.6 K/mcL (1.6-8.9); Platelet Count 105 K/mcL (140-400); Red Blood Count 4.11 M/mcL (4.19-5.50); Red Cell Distribution Width 16.1 % (11.5-14.5); Segmented Neutrophils % 85.8 %
[2017-04-06 09:53] LABS: BUN/Creatinine Ratio 28 (6-26); Blood Urea Nitrogen 41 mg/dL (8-23); Calcium 8.2 mg/dL (8.6-10.3); Carbon Dioxide 17 mEq/L (23-29); Chloride 109 mEq/L (98-107); Glucose 164 mg/dL (70-105); Osmolality,Calculated 296 (280-300); Potassium 4.2 mEq/L (3.5-5.1); Sodium 136 mEq/L (136-145); eGFR For African Americans > 60 (> 60); eGFR For Non-African Americans 50 (> 60)
[2017-04-06 10:04] LABS: INR 3.1; Prothrombin Time 34.6 Seconds (9.4-12.1)
--- NOTE | 2017-04-06 11:49 | Internal Med Progress Note ---
Date of Encounter: 04/06/17 Time of Encounter: 08:50 - Assessment and plan (1) Severe sepsis Current Visit: Yes Status: Acute Assessment and plan: Severe sepsis, present on admission, secondary to a UTI - with acute encephalopathy and ELIN - slowly improving, continues to have fever and is also tachypneic Recurrent complicated UTIs secondary to obstructive uropathy Continue IV Zosyn, IV fluids, Tylenol PRN Blood cultures - E.coli - sensitivities pending Urine cultures - E.coli Chest x-ray - no acute process CT abdomen - left obstructing ureteral stone with left hydronephrosis and left hydroureter Patient and family explained about guarded condition and prognosis Urology following - appreciate input Labs in a.m., cardiac telemetry, monitor closely (2) UTI (urinary tract infection) Current Visit: Yes Status: Acute Assessment and plan: Urine Cultures - E.coli, sensitivities pending Plan as above Qualifiers: Urinary tract infection type: acute cystitis Hematuria presence: without hematuria Qualified Code(s): N30.00 - Acute cystitis without hematuria (3) Ureterolithiasis Current Visit: Yes Status: Acute Assessment and plan: Acute left side obstructing ureteral stones - with left hydronephrosis and left hydroureter S/p successful cystoscopy and left ureteral stent placement - postop day #2 Urology following - appreciate input (4) Acute kidney injury Current Visit: Yes Status: Acute Assessment and plan: Severe acute kidney injury - secondary to sepsis and urinary tract obstruction - improved Cr - 1.44 - improved, good urine output Continue fluids, labs in a.m. Nephrology consultation if renal function worsens (5) Elevated troponin Current Visit: Yes Status: Acute Assessment and plan: Mild troponin leak, likely demand ischemia and due to sepsis - no anginal symptoms Troponin peak 0.07 EKG - atrial fibrillation with no acute ST-T changes Continue Aspirin, Crestor, Warfarin INR is therapeutic (6) Atrial fibrillation Current Visit: Yes Status: Acute Assessment and plan: Chronic atrial fibrillation, rate controlled Continue home dose of Lopressor, patient is on Coumadin for anticoagulation INR - 3.1 Restart Coumadin today, pharmacy to dose Coumadin Qualifiers: Atrial fibrillation type: paroxysmal Qualified Code(s): I48.0 - Paroxysmal atrial fibrillation (7) CAD (coronary artery disease) Current Visit: Yes Status: Chronic Assessment and plan: History of CAD s/p stents, stable - no anginal symptoms at this time [facility] (08/01/2016) - previously stented mid RCA and OM1 are patent Echocardiogram (01/16/2016) - LVEF 60-65%, normal RV structure and function, mild LVH, no valvular dysfunction Continue Aspirin, Crestor, Lopressor, Imdur, Coumadin Qualifiers: Coronary Disease-Associated Artery/Lesion type: [place] artery [place] vs. 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 Chronic kidney disease stage: stage 3 (moderate) Qualified Code(s): E11.22 - Type 2 diabetes mellitus with diabetic chronic kidney disease; N18.3 - Chronic kidney disease, stage 3 ( moderate); N18.3 - Chronic kidney disease, stage 3 (moderate); Z79.4 - snf (current) use of insulin; Z79.4 - adjunct faculty for medical 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 (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) use of insulin; Z79.4 - adjunct faculty for medical terminology (current) use of insulin; Z79.4 - snf (current) use of insulin (9) HLD (hyperlipidemia) Current Visit: Yes Status: Chronic Assessment and plan: Continue home dose of Crestor, TriCor, Lopid Qualifiers: Hyperlipidemia type: unspecified Qualified Code(s): E78.5 - Hyperlipidemia , unspecified (10) HTN (hypertension) Current Visit: Yes Status: Chronic Assessment and plan: Essential hypertension, controlled, monitor Continue home dose of Lopressor Hold Lisinopril due to ELIN Qualifiers: Hypertension type: essential hypertension Qualified Code(s): I10 - Essential (primary) hypertension (11) 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 fib Continue Aspirin, Crestor, restart Coumadin today, pharmacy to dose Coumadin (12) DVT prophylaxis Current Visit: Yes Status: Acute Assessment and plan: Continue SCDs, restart Coumadin INR is therapeutic - Time Spent With Patient 25 - 35 minutes - Subjective Interval history: Examined this morning. Patient is awake and alert. Not in any distress. Patient had a fever spike last night and early this morning. Hemodynamically stable. Denies chest pain or shortness of breath. Patient however continues to be tachypneic. Complains of generalized weakness. Denies abdominal pain or back pain. No other acute events or complaints. Good urine output. Tolerating oral diet. Admitted for ureterolithiasis and sepsis secondary to UTI. Cystoscopy and left ureteral stent placement done by Dr. Bernstein. Patient has tolerated procedure well. ELIN has improved. - Constitutional Vitals: Temp Pulse Resp BP Pulse Ox 99.4 F 81 42 161/82 97 04/06/17 08:01 04/06/17 08:01 04/06/17 08:01 04/06/17 08:01 04/06/17 08:01 General appearance: Present: cooperative, A&O X 2, pleasant, no acute distress, obese, answers questions appropriately Exam: Generalized weakness. Ill-appearing - Head Head exam: Present: atraumatic - Eye Eye exam: Present: EOMI - ENT ENT exam: Present: mucous membranes moist - Respiratory Respiratory exam: Present: CTAB, tachypnea. Absent: accessory muscle use, chest wall tenderness, rales, respiratory distress, rhonchi, wheezes - Cardiovascular Cardiovascular exam: Present: RRR, +S1, +S2 - GI/Abdominal GI/Abdominal exam: Present: soft (Obese, protuberant), no peritoneal signs. Absent: distended, firm, guarding, tenderness - Extremities Exam Extremities exam: Present: pedal edema (Mild bilateral), radial pulses palpable and symmetrical. Absent: calf tenderness, cyanotic - Neurological Exam Neurological exam: Present: alert, oriented X3, no focal deficits. Absent: facial droop, speech deficit Internal Medicine: Result - Labs CBC & Chem 7: 04/06/17 09:21 04/06/17 09:21 Labs: Short CBC 04/06/17 Range/Units 09:21 WBC 7.7 (4.3-11.1) K/mcL Hgb 12.0 L (12.9-16.9) g/dL Hct 36.6 L (37.5-50.1) % Plt Count 105 L (140-400) K/mcL Neutrophils # 6.6 (1.6-8.9) K/mcL BMP 04/06/17 09:21 Sodium 136 Potassium 4.2 Chloride 109 H Carbon Dioxide 17 L BUN 41 H Creatinine 1.44 H Glucose 164 H Calcium 8.2 L - ABG Interpretation ABG results: ABG ABG pH 7.44 pH Units (7.32-7.45) 04/05/17 04:53 ABG pCO2 28 mmHg (35-45) L 04/05/17 04:53 ABG pO2 89 mmHg (85-104) 04/05/17 04:53 ABG O2 Saturation 97 % (95-98) 04/05/17 04:53 PT/INR, D-dimer PT 34.6 Seconds (9.4-12.1) H 04/06/17 09:21 - VTE Documentation of Mechanical Device: Intermittent pneumatic compression device Consult Discharge Plan - Plan Referrals: Jayme Alarcon MD [Primary Care Provider] -
[2017-04-06] MEDS: 0.9 % Sodium Chloride 1,000 ML IVC SCH (12:37)
[2017-04-06] MEDS ORDERED: Furosemide 40 MG/4 ML VIAL IVP ONE (13:44)
[2017-04-06] MEDS ORDERED: Furosemide 40 MG/4 ML VIAL ONE (13:51)
[2017-04-06 17:28] LABS: ABG Base Excess -4 mEq/L (-2 to 3); ABG HCO3 18 mEq/L (21-27); ABG Oxygen Saturation 97 % (95-98); ABG PCO2 26 mmHg (35-45); ABG PH 7.45 pH Units (7.32-7.45); ABG PO2 86 mmHg (85-104); ABG TCO2 19 mEq/L (20-26)
--- NOTE | 2017-04-06 17:55 | Event Note ---
Date of Encounter: 04/06/17 Time of Encounter: 17:30 Examined this evening. Patient seems more confused than this morning. Continues to be tachypneic. No fever spikes today. He has been hemodynamically stable throughout the day. ABG has been reviewed, and his PO2 is within normal limits and PCO2 level is low. PH is within normal limits. Chest x-ray done this morning revealed moderate to severe pulmonary vascular congestion. One dose of IV 40 mg Lasix was given and IV fluids were stopped. Patient had good diuresis. His creatinine is 1.4 today which is improved significantly. Patient has been continued on his Warfarin and his INR is 3.1 today. Unclear as to why patient is tachypneic and confused. Possibly due to sepsis and possible acute delirium. His O2 saturation has been above 95% on 2 L nasal cannula. Patient has been tolerating oral diet well. Continue to monitor closely and continue supportive care.
[2017-04-06] MEDS ORDERED: *HR* Warfarin 5 MG TABLET PO SCH (18:00)
[2017-04-06] MEDS ORDERED: *HR* LORazepam 2 MG/ML VIAL ONE (18:36)
[2017-04-06] MEDS ORDERED: *HR* Morphine 2 MG/ML SYRINGE IVP ONE (19:18)
[2017-04-06] MEDS: Fenofibrate 54 MG TABLET PO SCH (21:11)
[2017-04-07] MEDS: ALPRAZolam 1 MG TABLET PO PRN (04:26)
[2017-04-07] MEDS: Acetaminophen 325 MG TABLET PO PRN ×2 (06:20→20:24)
[2017-04-07 06:34] LABS: Prothrombin Time 65.4 Seconds (9.4-12.1)
[2017-04-07 06:35] LABS: INR 5.8
[2017-04-07 06:38] LABS: BUN/Creatinine Ratio 24 (6-26); Blood Urea Nitrogen 35 mg/dL (8-23); Calcium 8.7 mg/dL (8.6-10.3); Carbon Dioxide 22 mEq/L (23-29); Chloride 106 mEq/L (98-107); Glucose 80 mg/dL (70-105); Osmolality,Calculated 289 (280-300); Potassium 3.5 mEq/L (3.5-5.1); Sodium 136 mEq/L (136-145); eGFR For African Americans > 60 (> 60); eGFR For Non-African Americans 50 (> 60)
--- NOTE | 2017-04-07 07:43 | Urology Progress Note ---
Date of Encounter: 04/07/17 Time of Encounter: 07:37 - Assessment and Plan (1) Hydronephrosis with renal and ureteral calculus obstruction Current Visit: Yes Status: Resolved Assessment and plan: s/p stent placement. renal function has responded appropriately. pt continues to have low grade fevers and confusion. this is concerning but not unexpected based on his comorbidities and degree of urosepsis. continue current management for now. will follow. if pt does not improve over next few days will reimage with CT scan. Progress Note Narrative: pt continues to have confusion. Objective Initial Vital Signs Temp Pulse Resp BP Pulse Ox 98.4 F 102 18 86/48 96 04/03/17 16:29 04/03/17 16:29 04/03/17 16:29 04/03/17 16:29 04/03/17 16:29 - General physical appearance Present: chronically ill - Additional Exam pt opens eyes but did not respond to questions. urine clear. - Labs 04/06/17 09:21 04/07/17 05:43 Diabetes panel 04/06/17 04/07/17 Range/Units 09:21 05:43 Sodium 136 136 (136-145) mEq/L Potassium 4.2 3.5 (3.5-5.1) mEq/L Chloride 109 H 106 (98-107) mEq/L Carbon Dioxide 17 L 22 L (23-29) mEq/L BUN 41 H 35 H (8-23) mg/dL Creatinine 1.44 H 1.43 H (0.70-1.30) mg/dL Glucose 164 H 80 (70-105) mg/dL Calcium 8.2 L 8.7 (8.6-10.3) mg/dL Calcium panel 04/06/17 04/07/17 Range/Units 09:21 05:43 Calcium 8.2 L 8.7 (8.6-10.3) mg/dL Pituitary panel 04/06/17 04/07/17 Range/Units 09:21 05:43 Sodium 136 136 (136-145) mEq/L Potassium 4.2 3.5 (3.5-5.1) mEq/L Chloride 109 H 106 (98-107) mEq/L Carbon Dioxide 17 L 22 L (23-29) mEq/L BUN 41 H 35 H (8-23) mg/dL Creatinine 1.44 H 1.43 H (0.70-1.30) mg/dL Glucose 164 H 80 (70-105) mg/dL Calcium 8.2 L 8.7 (8.6-10.3) mg/dL Adrenal panel 04/06/17 04/07/17 Range/Units 09:21 05:43 Sodium 136 136 (136-145) mEq/L Potassium 4.2 3.5 (3.5-5.1) mEq/L Chloride 109 H 106 (98-107) mEq/L Carbon Dioxide 17 L 22 L (23-29) mEq/L BUN 41 H 35 H (8-23) mg/dL Creatinine 1.44 H 1.43 H (0.70-1.30) mg/dL Glucose 164 H 80 (70-105) mg/dL Calcium 8.2 L 8.7 (8.6-10.3) mg/dL - VTE Documentation of Mechanical Device: Intermittent pneumatic compression device Consult Discharge Plan - Plan Referrals: Jayme Alarcon MD [Primary Care Provider] - (SENT WEB REQUEST ON 04-06-17 @ 1319) Lencho Bernstein MD [Partnered Physician] - (SENT WEB REQUEST ON 04-06-17 @ [phone])
[2017-04-07 07:48] LABS: Basophils % 0.4 %; Eosinophils % 0.3 %; Hematocrit 37.6 % (37.5-50.1); Hemoglobin 12.4 g/dL (12.9-16.9); Immature Granulocytes % 1.2 % (0-4); Lymphocytes # 0.9 K/mcL (0.6-4.6); Lymphocytes % 13.7 %; Mean Corpuscular Volume 87.9 fL (83.0-100.0); Mean Platelet Volume 12.2 fL (9.4-12.4); Monocytes # 0.5 K/mcL (0.0-1.3); Monocytes % 7.1 %; Neutrophils # 5.3 K/mcL (1.6-8.9); Platelet Count 120 K/mcL (140-400); Red Blood Count 4.28 M/mcL (4.19-5.50); Segmented Neutrophils % 77.3 %
[2017-04-07] MEDS: Aspirin Enteric Coated 81 MG Tablet PO SCH (07:55)
[2017-04-07] MEDS: BuPROPion XL (24 HR) 150 MG TABLET PO SCH (07:55)
[2017-04-07] MEDS: Famotidine 20 MG TABLET PO SCH (07:56)
[2017-04-07] MEDS: Insulin LISPRO 300 UNITS/3 ML VIAL SQ SCH ×4 (07:56→20:25)
[2017-04-07] MEDS: Piperacillin/Tazobactam 3.375 GM/200 ML BAG IVPB SCH ×2 (07:58→17:02)
[2017-04-07] MEDS: (Omega-3/Dha/Epa/Fish Oil [Fish Oil 1,000 Mg Softgel]) PO SCH ×3 (07:59→20:26)
[2017-04-07] MEDS: Insulin DETEMIR 100 UNIT/ML X5UNITS SQ SCH ×2 (10:33→20:25)
--- NOTE | 2017-04-07 11:16 | Electrocardiograph Report ---
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
--- NOTE | 2017-04-07 18:53 | Internal Med Progress Note ---
Date of Encounter: 04/07/17 Time of Encounter: 11:00 - Assessment and plan (1) Severe sepsis Current Visit: Yes Status: Acute Assessment and plan: Severe sepsis, present on admission, secondary to a UTI - with acute encephalopathy and ELIN - slowly improving, Recurrent complicated UTIs secondary to obstructive uropathy Continue IV Zosyn, IV fluids, Tylenol PRN Blood cultures - E.coli - sensitivities pending Urine cultures - E.coli Chest x-ray - no acute process CT abdomen - left obstructing ureteral stone with left hydronephrosis and left hydroureter Urology following - appreciate input Labs in a.m., cardiac telemetry, monitor closely (2) UTI (urinary tract infection) Current Visit: Yes Status: Acute Assessment and plan: Urine Cultures - E.coli, sensitivities pending Plan as above Qualifiers: Urinary tract infection type: acute cystitis Hematuria presence: without hematuria Qualified Code(s): N30.00 - Acute cystitis without hematuria (3) Hydronephrosis with renal and ureteral calculus obstruction Current Visit: Yes Status: Resolved Assessment and plan: -s/p stent placement. renal function has responded appropriately. -continue current management for now. -Recommendations that if patient does not improve over next few days to reimage with CT scan. -Appreciate any further recommendations from urology (4) Acute kidney injury Current Visit: Yes Status: Acute Assessment and plan: Severe acute kidney injury - secondary to sepsis and urinary tract obstruction - improved Cr - 1.43 - improved, good urine output Continue fluids, labs in a.m. Nephrology consultation if renal function worsens - Subjective Interval history: Patient with loose stools this morning Patient continues to have supratherapeutic INR - Constitutional Vitals: Temp Pulse Resp BP Pulse Ox 101.3 F H 90 26 139/78 99 04/07/17 16:37 04/07/17 16:37 04/07/17 16:37 04/07/17 16:37 04/07/17 16:37 General appearance: Present: cooperative, A&O X 2, pleasant, no acute distress, obese, answers questions appropriately - Respiratory Respiratory exam: Present: CTAB. Absent: accessory muscle use, rales, rhonchi, wheezes - Cardiovascular Cardiovascular exam: Present: RRR, +S1, +S2. Absent: diastolic murmur, gallop, rubs, systolic murmur Internal Medicine: Result - Labs CBC & Chem 7: 04/07/17 05:43 04/07/17 05:43 Labs: Short CBC 04/07/17 Range/Units 05:43 WBC 6.8 (4.3-11.1) K/mcL Hgb 12.4 L (12.9-16.9) g/dL Hct 37.6 (37.5-50.1) % Plt Count 120 L (140-400) K/mcL Neutrophils # 5.3 (1.6-8.9) K/mcL BMP 04/07/17 05:43 Sodium 136 Potassium 3.5 Chloride 106 Carbon Dioxide 22 L BUN 35 H Creatinine 1.43 H Glucose 80 Calcium 8.7 - ABG Interpretation ABG results: ABG ABG pH 7.45 pH Units (7.32-7.45) 04/06/17 17:22 ABG pCO2 26 mmHg (35-45) L 04/06/17 17:22 ABG pO2 86 mmHg (85-104) 04/06/17 17:22 ABG O2 Saturation 97 % (95-98) 04/06/17 17:22 PT/INR, D-dimer PT 65.4 Seconds (9.4-12.1) H* D 04/07/17 05:43 - VTE Documentation of Mechanical Device: Intermittent pneumatic compression device Consult Discharge Plan - Plan Referrals: Jayme Alarcon MD [Primary Care Provider] - (SENT WEB REQUEST ON 04-06-17 @ [phone]) Lencho Bernstein MD [Partnered Physician] - 04/15/17 9:30 am ()
[2017-04-07] MEDS: Fenofibrate 54 MG TABLET PO SCH (20:25)
[2017-04-08] MEDS: Piperacillin/Tazobactam 3.375 GM/200 ML BAG IVPB SCH ×4 (00:18→23:42)
[2017-04-08] MEDS: Acetaminophen 325 MG TABLET PO PRN (06:50)
[2017-04-08] MEDS: Insulin LISPRO 300 UNITS/3 ML VIAL SQ SCH ×4 (08:02→21:35)
[2017-04-08] MEDS: Aspirin Enteric Coated 81 MG Tablet PO SCH (08:05)
[2017-04-08] MEDS: BuPROPion XL (24 HR) 150 MG TABLET PO SCH (08:05)
[2017-04-08] MEDS: Famotidine 20 MG TABLET PO SCH (08:05)
[2017-04-08] MEDS: (Omega-3/Dha/Epa/Fish Oil [Fish Oil 1,000 Mg Softgel]) PO SCH ×3 (08:06→21:32)
[2017-04-08] MEDS: Insulin DETEMIR 100 UNIT/ML X5UNITS SQ SCH ×2 (08:11→21:34)
[2017-04-08 09:42] LABS: Basophils # 0.1 K/mcL (0.0-0.2); Basophils % 0.8 %; Eosinophils # 0.1 K/mcL (0.0-0.6); Eosinophils % 0.9 %; Hematocrit 40.5 % (37.5-50.1); Hemoglobin 13.2 g/dL (12.9-16.9); Immature Granulocytes % 1.3 % (0-4); Lymphocytes # 1.4 K/mcL (0.6-4.6); Lymphocytes % 17.2 %; Mean Corpuscular HGB Conc 32.6 g/dL (31.6-35.5); Mean Corpuscular Hemoglobin 28.8 pg (28.0-33.3); Mean Corpuscular Volume 88.2 fL (83.0-100.0); Mean Platelet Volume 11.8 fL (9.4-12.4); Monocytes # 0.3 K/mcL (0.0-1.3); Platelet Count 155 K/mcL (140-400); Red Blood Count 4.59 M/mcL (4.19-5.50); Segmented Neutrophils % 75.8 %
[2017-04-08 09:48] LABS: BUN/Creatinine Ratio 25 (6-26); Blood Urea Nitrogen 33 mg/dL (8-23); Calcium 8.8 mg/dL (8.6-10.3); Carbon Dioxide 20 mEq/L (23-29); Chloride 107 mEq/L (98-107); Glucose 130 mg/dL (70-105); Osmolality,Calculated 293 (280-300); Potassium 4.1 mEq/L (3.5-5.1); Sodium 137 mEq/L (136-145); eGFR For African Americans > 60 (> 60); eGFR For Non-African Americans 54 (> 60)
[2017-04-08 11:03] LABS: Platelet Estimate Normal (Normal)
--- NOTE | 2017-04-08 18:47 | Internal Med Progress Note ---
Date of Encounter: 04/08/17 Time of Encounter: 11:00 - Assessment and plan (1) Severe sepsis Current Visit: Yes Status: Acute Assessment and plan: Severe sepsis, present on admission, secondary to a UTI - with acute encephalopathy and ELIN - slowly improving, Recurrent complicated UTIs secondary to obstructive uropathy Continue IV Zosyn, IV fluids, Tylenol PRN Blood cultures - E.coli - sensitivities pending Urine cultures - E.coli Chest x-ray - no acute process CT abdomen - left obstructing ureteral stone with left hydronephrosis and left hydroureter Urology following - appreciate input Labs in a.m., cardiac telemetry, monitor closely (2) UTI (urinary tract infection) Current Visit: Yes Status: Acute Assessment and plan: Urine Cultures - E.coli, sensitivities pending Plan as above Qualifiers: Urinary tract infection type: acute cystitis Hematuria presence: without hematuria Qualified Code(s): N30.00 - Acute cystitis without hematuria (3) Hydronephrosis with renal and ureteral calculus obstruction Current Visit: Yes Status: Resolved Assessment and plan: -s/p stent placement. renal function has responded appropriately. -continue current management for now. -Recommendations that if patient does not improve over next few days to reimage with CT scan. -Appreciate any further recommendations from urology (4) Acute kidney injury Current Visit: Yes Status: Acute Assessment and plan: Severe acute kidney injury - secondary to sepsis and urinary tract obstruction - improved Cr - 1.34 - improved, good urine output Continue fluids, labs in a.m. Nephrology consultation if renal function worsens - Subjective Interval history: Patient with no loose stools overnight and improving per family who are at bedside - Constitutional Vitals: Temp Pulse Resp BP Pulse Ox 98.7 F 86 32 121/68 99 04/08/17 16:13 04/08/17 16:13 04/08/17 16:13 04/08/17 16:13 04/08/17 16:13 General appearance: Present: cooperative, A&O X 2, pleasant, no acute distress, obese, answers questions appropriately - Respiratory Respiratory exam: Present: CTAB. Absent: accessory muscle use, rales, rhonchi, wheezes - Cardiovascular Cardiovascular exam: Present: RRR, +S1, +S2. Absent: diastolic murmur, gallop, rubs, systolic murmur Internal Medicine: Result - Labs CBC & Chem 7: 04/08/17 09:19 04/08/17 09:19 Labs: Short CBC 04/08/17 Range/Units 09:19 WBC 7.9 (4.3-11.1) K/mcL Hgb 13.2 (12.9-16.9) g/dL Hct 40.5 (37.5-50.1) % Plt Count 155 (140-400) K/mcL Neutrophils # 6.0 (1.6-8.9) K/mcL BMP 04/08/17 09:19 Sodium 137 Potassium 4.1 Chloride 107 Carbon Dioxide 20 L BUN 33 H Creatinine 1.34 H Glucose 130 H Calcium 8.8 - ABG Interpretation ABG results: ABG ABG pH 7.45 pH Units (7.32-7.45) 04/06/17 17:22 ABG pCO2 26 mmHg (35-45) L 04/06/17 17:22 ABG pO2 86 mmHg (85-104) 04/06/17 17:22 ABG O2 Saturation 97 % (95-98) 04/06/17 17:22 PT/INR, D-dimer PT 65.4 Seconds (9.4-12.1) H* D 04/07/17 05:43 - VTE Documentation of Mechanical Device: Intermittent pneumatic compression device Consult Discharge Plan - Plan Referrals: Jayme Alarcon MD [Primary Care Provider] - 04/15/17 2:15 pm () Lencho Bernstein MD [Partnered Physician] - 04/15/17 9:30 am ()
[2017-04-08] MEDS: Fenofibrate 54 MG TABLET PO SCH (21:34)
[2017-04-09] MEDS: Acetaminophen 325 MG TABLET PO PRN ×2 (06:22→20:53)
--- NOTE | 2017-04-09 06:45 | Urology Progress Note ---
Date of Encounter: 04/08/17 Time of Encounter: 16:30 - Assessment and Plan (1) Hydronephrosis with renal and ureteral calculus obstruction Current Visit: Yes Status: Resolved Assessment and plan: renal function improved greatly. still with low grade fevers but improvement in mental status most encouraging. continue ABX. PT/OT. no need for repeat imaging with improvement Progress Note Subjective: feels better Narrative: pt doing much better. awake and appropriate conversation. Objective Initial Vital Signs Temp Pulse Resp BP Pulse Ox 98.4 F 102 18 86/48 96 04/03/17 16:29 04/03/17 16:29 04/03/17 16:29 04/03/17 16:29 04/03/17 16:29 - General physical appearance Present: no distress, chronically ill - Additional Exam urine clear - Labs 04/08/17 09:19 04/08/17 09:19 Diabetes panel 04/08/17 Range/Units 09:19 Sodium 137 (136-145) mEq/L Potassium 4.1 (3.5-5.1) mEq/L Chloride 107 (98-107) mEq/L Carbon Dioxide 20 L (23-29) mEq/L BUN 33 H (8-23) mg/dL Creatinine 1.34 H (0.70-1.30) mg/dL Glucose 130 H (70-105) mg/dL Calcium 8.8 (8.6-10.3) mg/dL Calcium panel 04/08/17 Range/Units 09:19 Calcium 8.8 (8.6-10.3) mg/dL Pituitary panel 04/08/17 Range/Units 09:19 Sodium 137 (136-145) mEq/L Potassium 4.1 (3.5-5.1) mEq/L Chloride 107 (98-107) mEq/L Carbon Dioxide 20 L (23-29) mEq/L BUN 33 H (8-23) mg/dL Creatinine 1.34 H (0.70-1.30) mg/dL Glucose 130 H (70-105) mg/dL Calcium 8.8 (8.6-10.3) mg/dL Adrenal panel 04/08/17 Range/Units 09:19 Sodium 137 (136-145) mEq/L Potassium 4.1 (3.5-5.1) mEq/L Chloride 107 (98-107) mEq/L Carbon Dioxide 20 L (23-29) mEq/L BUN 33 H (8-23) mg/dL Creatinine 1.34 H (0.70-1.30) mg/dL Glucose 130 H (70-105) mg/dL Calcium 8.8 (8.6-10.3) mg/dL - VTE Documentation of Mechanical Device: Intermittent pneumatic compression device Consult Discharge Plan - Plan Referrals: Jayme Alarcon MD [Primary Care Provider] - 04/15/17 2:15 pm () Lencho Bernstein MD [Partnered Physician] - 04/15/17 9:30 am ()
[2017-04-09] MEDS: BuPROPion XL (24 HR) 150 MG TABLET PO SCH (08:21)
[2017-04-09] MEDS: Aspirin Enteric Coated 81 MG Tablet PO SCH (08:21)
[2017-04-09] MEDS: Famotidine 20 MG TABLET PO SCH (08:22)
[2017-04-09] MEDS: Piperacillin/Tazobactam 3.375 GM/200 ML BAG IVPB SCH ×3 (08:22→23:44)
[2017-04-09] MEDS: Insulin LISPRO 300 UNITS/3 ML VIAL SQ SCH ×4 (08:23→20:54)
[2017-04-09] MEDS: (Omega-3/Dha/Epa/Fish Oil [Fish Oil 1,000 Mg Softgel]) PO SCH ×3 (08:23→20:54)
[2017-04-09] MEDS: Insulin DETEMIR 100 UNIT/ML X5UNITS SQ SCH ×2 (08:27→20:52)
[2017-04-09 09:16] LABS: Basophils # 0.1 K/mcL (0.0-0.2); Basophils % 0.6 %; Eosinophils # 0.2 K/mcL (0.0-0.6); Eosinophils % 2.2 %; Hematocrit 41.8 % (37.5-50.1); Hemoglobin 13.3 g/dL (12.9-16.9); Immature Granulocytes % 0.4 % (0-4); Lymphocytes # 1.5 K/mcL (0.6-4.6); Lymphocytes % 15.4 %; Mean Corpuscular HGB Conc 31.8 g/dL (31.6-35.5); Mean Corpuscular Hemoglobin 28.2 pg (28.0-33.3); Mean Corpuscular Volume 88.6 fL (83.0-100.0); Mean Platelet Volume 11.7 fL (9.4-12.4); Monocytes # 0.3 K/mcL (0.0-1.3); Monocytes % 3.4 %; Neutrophils # 7.5 K/mcL (1.6-8.9); Platelet Count 257 K/mcL (140-400); Red Blood Count 4.72 M/mcL (4.19-5.50); Red Cell Distribution Width 15.9 % (11.5-14.5)
[2017-04-09 10:29] LABS: Platelet Estimate Normal (Normal)
[2017-04-09 15:07] LABS: BUN/Creatinine Ratio 22 (6-26); Blood Urea Nitrogen 26 mg/dL (8-23); Calcium 8.9 mg/dL (8.6-10.3); Carbon Dioxide 22 mEq/L (23-29); Chloride 104 mEq/L (98-107); Glucose 106 mg/dL (70-105); Osmolality,Calculated 287 (280-300); Potassium 3.6 mEq/L (3.5-5.1); Sodium 136 mEq/L (136-145); eGFR For African Americans > 60 (> 60); eGFR For Non-African Americans > 60 (> 60)
--- NOTE | 2017-04-09 18:44 | Internal Med Progress Note ---
Date of Encounter: 04/09/17 Time of Encounter: 11:00 - Assessment and plan (1) Severe sepsis Current Visit: Yes Status: Acute Assessment and plan: Severe sepsis, present on admission, secondary to a UTI - with acute encephalopathy and ELIN - slowly improving, Recurrent complicated UTIs secondary to obstructive uropathy Patient without leukocytosis still with low-grade fevers Continue IV Zosyn, IV fluids, Tylenol PRN Blood cultures - E.coli - sensitivities pending Urine cultures - E.coli Chest x-ray - no acute process CT abdomen - left obstructing ureteral stone with left hydronephrosis and left hydroureter; s/p stent Urology following - appreciate input Labs in a.m., cardiac telemetry, monitor closely (2) UTI (urinary tract infection) Current Visit: Yes Status: Acute Assessment and plan: Urine Cultures - E.coli, sensitivities pending Plan as above Qualifiers: Urinary tract infection type: acute cystitis Hematuria presence: without hematuria Qualified Code(s): N30.00 - Acute cystitis without hematuria (3) Hydronephrosis with renal and ureteral calculus obstruction Current Visit: Yes Status: Resolved Assessment and plan: -s/p stent placement. renal function has responded appropriately. -continue current management for now. -Recommendations that if patient does not improve over next few days to reimage with CT scan. -Appreciate any further recommendations from urology (4) Acute kidney injury Current Visit: Yes Status: Acute Assessment and plan: Resolved; continue to monitor - Subjective Interval history: Patient continues to improve per family report. - Constitutional Vitals: Temp Pulse Resp BP Pulse Ox 99.7 F H 68 22 119/69 95 04/09/17 15:06 04/09/17 15:06 04/09/17 15:06 04/09/17 15:06 04/09/17 15:06 General appearance: Present: cooperative, A&O X 2, pleasant, no acute distress, obese, answers questions appropriately - Cardiovascular Cardiovascular exam: Present: bradycardia, RRR, +S1, +S2. Absent: diastolic murmur, gallop, rubs, systolic murmur Internal Medicine: Result - Labs CBC & Chem 7: 04/09/17 08:51 04/09/17 08:51 Labs: Short CBC 04/09/17 Range/Units 08:51 WBC 9.6 (4.3-11.1) K/mcL Hgb 13.3 (12.9-16.9) g/dL Hct 41.8 (37.5-50.1) % Plt Count 257 D (140-400) K/mcL Neutrophils # 7.5 (1.6-8.9) K/mcL BMP 04/09/17 08:51 Sodium 136 Potassium 3.6 Chloride 104 Carbon Dioxide 22 L BUN 26 H Creatinine 1.18 Glucose 106 H Calcium 8.9 - ABG Interpretation ABG results: ABG ABG pH 7.45 pH Units (7.32-7.45) 04/06/17 17:22 ABG pCO2 26 mmHg (35-45) L 04/06/17 17:22 ABG pO2 86 mmHg (85-104) 04/06/17 17:22 ABG O2 Saturation 97 % (95-98) 04/06/17 17:22 PT/INR, D-dimer PT 65.4 Seconds (9.4-12.1) H* D 04/07/17 05:43 - VTE Documentation of Mechanical Device: Intermittent pneumatic compression device Consult Discharge Plan - Plan Referrals: Jayme Alarcon MD [Primary Care Provider] - 04/15/17 2:15 pm () Lencho Bernstein MD [Partnered Physician] - 04/15/17 9:30 am ()
[2017-04-09] MEDS: Fenofibrate 54 MG TABLET PO SCH (20:53)
[2017-04-09] MEDS: ALPRAZolam 1 MG TABLET PO PRN (20:53)
[2017-04-10] MEDS: ALPRAZolam 1 MG TABLET PO PRN ×2 (08:16→21:21)
[2017-04-10] MEDS: BuPROPion XL (24 HR) 150 MG TABLET PO SCH (08:16)
[2017-04-10] MEDS: Aspirin Enteric Coated 81 MG Tablet PO SCH (08:16)
[2017-04-10] MEDS: Famotidine 20 MG TABLET PO SCH (08:16)
[2017-04-10] MEDS: (Omega-3/Dha/Epa/Fish Oil [Fish Oil 1,000 Mg Softgel]) PO SCH ×3 (08:17→21:08)
[2017-04-10] MEDS: Piperacillin/Tazobactam 3.375 GM/200 ML BAG IVPB SCH ×3 (08:17→23:54)
[2017-04-10] MEDS: Insulin LISPRO 300 UNITS/3 ML VIAL SQ SCH ×4 (08:17→21:07)
[2017-04-10] MEDS: Insulin DETEMIR 100 UNIT/ML X5UNITS SQ SCH ×2 (09:30→21:07)
[2017-04-10 10:01] LABS: Hematocrit 37.4 % (37.5-50.1); Hemoglobin 12.5 g/dL (12.9-16.9); Mean Corpuscular HGB Conc 33.4 g/dL (31.6-35.5); Mean Corpuscular Volume 86.8 fL (83.0-100.0); Mean Platelet Volume 11.5 fL (9.4-12.4); Platelet Count 294 K/mcL (140-400); Red Blood Count 4.31 M/mcL (4.19-5.50); Red Cell Distribution Width 15.8 % (11.5-14.5)
[2017-04-10 10:12] LABS: INR 6.2; Prothrombin Time 69.6 Seconds (9.4-12.1)
[2017-04-10 11:41] LABS: BUN/Creatinine Ratio 23 (6-26); Blood Urea Nitrogen 24 mg/dL (8-23); Calcium 8.6 mg/dL (8.6-10.3); Carbon Dioxide 22 mEq/L (23-29); Chloride 105 mEq/L (98-107); Glucose 218 mg/dL (70-105); Osmolality,Calculated 287 (280-300); Potassium 3.9 mEq/L (3.5-5.1); Sodium 133 mEq/L (136-145); eGFR For African Americans > 60 (> 60); eGFR For Non-African Americans > 60 (> 60)
[2017-04-10 17:06] LABS: Eosinophils # 0.2 K/mcL (0.0-0.6); Lymphocytes # 0.9 K/mcL (0.6-4.6); Monocytes # 0.2 K/mcL (0.0-1.3); Platelet Estimate Normal (Normal); Reactive Lymphocytes Present (Not Present)
--- NOTE | 2017-04-10 18:58 | Internal Med Progress Note ---
Date of Encounter: 04/10/17 Time of Encounter: 11:00 - Assessment and plan (1) Severe sepsis Current Visit: Yes Status: Acute Assessment and plan: Severe sepsis, present on admission, secondary to a UTI - with acute encephalopathy and ELIN - slowly improving, Recurrent complicated UTIs secondary to obstructive uropathy Patient without leukocytosis still with low-grade fevers Continue IV Zosyn, IV fluids, Tylenol PRN Blood cultures - E.coli; repeat blood cultures negative Urine cultures - E.coli Chest x-ray - no acute process CT abdomen - left obstructing ureteral stone with left hydronephrosis and left hydroureter; s/p stent Urology following - appreciate input Labs in a.m., cardiac telemetry, monitor closely (2) UTI (urinary tract infection) Current Visit: Yes Status: Acute Assessment and plan: Urine Cultures - E.coli, sensitivities pending Plan as above Qualifiers: Urinary tract infection type: acute cystitis Hematuria presence: without hematuria Qualified Code(s): N30.00 - Acute cystitis without hematuria (3) Hydronephrosis with renal and ureteral calculus obstruction Current Visit: Yes Status: Resolved Assessment and plan: -s/p stent placement. renal function has responded appropriately. -continue current management for now. -Recommendations that if patient does not improve over next few days to reimage with CT scan. -Appreciate any further recommendations from urology (4) Acute kidney injury Current Visit: Yes Status: Acute Assessment and plan: Resolved; continue to monitor - Subjective Interval history: Patient continues to improve per family report. - Constitutional Vitals: Temp Pulse Resp BP Pulse Ox 98.3 F 82 30 123/76 99 04/10/17 16:37 04/10/17 16:37 04/10/17 16:37 04/10/17 16:37 04/10/17 16:37 General appearance: Present: cooperative, A&O X 2, pleasant, no acute distress, obese, answers questions appropriately - Respiratory Respiratory exam: Present: CTAB. Absent: accessory muscle use, rales, rhonchi, wheezes - Cardiovascular Cardiovascular exam: Present: RRR, +S1, +S2. Absent: diastolic murmur, gallop, rubs, systolic murmur Internal Medicine: Result - Labs CBC & Chem 7: 04/10/17 09:39 04/10/17 09:39 Labs: Short CBC 04/10/17 Range/Units 09:39 WBC 9.3 (4.3-11.1) K/mcL Hgb 12.5 L (12.9-16.9) g/dL Hct 37.4 L (37.5-50.1) % Plt Count 294 (140-400) K/mcL Neutrophils # 8.0 (1.6-8.9) K/mcL BMP 04/10/17 09:39 Sodium 133 L Potassium 3.9 Chloride 105 Carbon Dioxide 22 L BUN 24 H Creatinine 1.05 Glucose 218 H Calcium 8.6 - ABG Interpretation ABG results: ABG ABG pH 7.45 pH Units (7.32-7.45) 04/06/17 17:22 ABG pCO2 26 mmHg (35-45) L 04/06/17 17:22 ABG pO2 86 mmHg (85-104) 04/06/17 17:22 ABG O2 Saturation 97 % (95-98) 04/06/17 17:22 PT/INR, D-dimer PT 69.6 Seconds (9.4-12.1) H* 04/10/17 09:39 - VTE Documentation of Mechanical Device: Intermittent pneumatic compression device Consult Discharge Plan - Plan Referrals: Jayme Alarcon MD [Primary Care Provider] - 04/15/17 2:15 pm () Lencho Bernstein MD [Partnered Physician] - 04/15/17 9:30 am ()
[2017-04-10] MEDS: Fenofibrate 54 MG TABLET PO SCH (21:06)
[2017-04-11] MEDS ORDERED: *HR* LORazepam 2 MG/ML VIAL IVP ONE (02:28)
[2017-04-11 04:23] LABS: INR 1.8; Prothrombin Time 19.1 Seconds (9.4-12.1)
[2017-04-11] MEDS: ALPRAZolam 1 MG TABLET PO PRN ×2 (08:46→20:05)
[2017-04-11] MEDS: Piperacillin/Tazobactam 3.375 GM/200 ML BAG IVPB SCH ×3 (08:46→23:50)
[2017-04-11] MEDS: Aspirin Enteric Coated 81 MG Tablet PO SCH (08:46)
[2017-04-11] MEDS: BuPROPion XL (24 HR) 150 MG TABLET PO SCH (08:46)
[2017-04-11] MEDS: Insulin DETEMIR 100 UNIT/ML X5UNITS SQ SCH ×2 (08:46→20:10)
[2017-04-11] MEDS: Insulin LISPRO 300 UNITS/3 ML VIAL SQ SCH ×4 (08:47→20:09)
[2017-04-11] MEDS: (Omega-3/Dha/Epa/Fish Oil [Fish Oil 1,000 Mg Softgel]) PO SCH ×3 (08:47→20:10)
[2017-04-11] MEDS: Famotidine 20 MG TABLET PO SCH (08:48)
[2017-04-11 09:20] LABS: Basophils # 0.1 K/mcL (0.0-0.2); Basophils % 0.6 %; Eosinophils # 0.2 K/mcL (0.0-0.6); Eosinophils % 2.7 %; Hematocrit 38.8 % (37.5-50.1); Hemoglobin 12.5 g/dL (12.9-16.9); Immature Granulocytes % 0.3 % (0-4); Lymphocytes # 1.8 K/mcL (0.6-4.6); Lymphocytes % 20.3 %; Mean Corpuscular HGB Conc 32.2 g/dL (31.6-35.5); Mean Corpuscular Hemoglobin 28.5 pg (28.0-33.3); Mean Corpuscular Volume 88.4 fL (83.0-100.0); Mean Platelet Volume 11.4 fL (9.4-12.4); Monocytes # 0.6 K/mcL (0.0-1.3); Monocytes % 6.5 %; Platelet Count 363 K/mcL (140-400); Red Blood Count 4.39 M/mcL (4.19-5.50); Red Cell Distribution Width 15.7 % (11.5-14.5); Segmented Neutrophils % 69.6 %
[2017-04-11 09:48] LABS: BUN/Creatinine Ratio 26 (6-26); Blood Urea Nitrogen 23 mg/dL (8-23); Carbon Dioxide 21 mEq/L (23-29); Chloride 106 mEq/L (98-107); Glucose 142 mg/dL (70-105); Osmolality,Calculated 286 (280-300); Potassium 3.8 mEq/L (3.5-5.1); Sodium 135 mEq/L (136-145); eGFR For African Americans > 60 (> 60); eGFR For Non-African Americans > 60 (> 60)
[2017-04-11] MEDS ORDERED: Warfarin perPT PO PRN (18:00)
[2017-04-11] MEDS ORDERED: *HR* Warfarin 2.5 MG TABLET PO STA (18:50)
--- NOTE | 2017-04-11 19:02 | Internal Med Progress Note ---
Date of Encounter: 04/11/17 Time of Encounter: 11:00 - Assessment and plan (1) Severe sepsis Current Visit: Yes Status: Acute Assessment and plan: Severe sepsis, present on admission, secondary to a UTI - with acute encephalopathy and ELIN - slowly improving, Recurrent complicated UTIs secondary to obstructive uropathy Patient without leukocytosis still with low-grade fevers Continue IV Zosyn, IV fluids, Tylenol PRN Blood cultures - E.coli; repeat blood cultures negative Urine cultures - E.coli Chest x-ray - no acute process CT abdomen - left obstructing ureteral stone with left hydronephrosis and left hydroureter; s/p stent Urology following - appreciate input Labs in a.m., cardiac telemetry, monitor closely (2) UTI (urinary tract infection) Current Visit: Yes Status: Acute Assessment and plan: Urine Cultures - E.coli Plan as above Qualifiers: Urinary tract infection type: acute cystitis Hematuria presence: without hematuria Qualified Code(s): N30.00 - Acute cystitis without hematuria (3) Hydronephrosis with renal and ureteral calculus obstruction Current Visit: Yes Status: Resolved Assessment and plan: -s/p stent placement. renal function has responded appropriately. -continue current management for now. -Recommendations that if patient does not improve over next few days to reimage with CT scan. -Appreciate any further recommendations from urology (4) Acute kidney injury Current Visit: Yes Status: Acute Assessment and plan: Resolved; continue to monitor - Subjective Interval history: Patient continues to improve per family report. Patient is having some sundowning episodes at night - Constitutional Vitals: Temp Pulse Resp BP Pulse Ox 98.4 F 75 15 133/74 91 04/11/17 16:07 04/11/17 16:07 04/11/17 16:07 04/11/17 16:07 04/11/17 16:07 General appearance: Present: cooperative, A&O X 2, pleasant, no acute distress, obese, answers questions appropriately - Respiratory Respiratory exam: Present: CTAB. Absent: accessory muscle use, rales, rhonchi, wheezes - Cardiovascular Cardiovascular exam: Present: RRR, +S1, +S2. Absent: diastolic murmur, gallop, rubs, systolic murmur Internal Medicine: Result - Labs CBC & Chem 7: 04/11/17 08:45 04/11/17 08:45 Labs: Short CBC 04/11/17 Range/Units 08:45 WBC 8.6 (4.3-11.1) K/mcL Hgb 12.5 L (12.9-16.9) g/dL Hct 38.8 (37.5-50.1) % Plt Count 363 (140-400) K/mcL Neutrophils # 6.0 (1.6-8.9) K/mcL BMP 04/11/17 08:45 Sodium 135 L Potassium 3.8 Chloride 106 Carbon Dioxide 21 L BUN 23 Creatinine 0.87 Glucose 142 H Calcium 9.0 - ABG Interpretation ABG results: ABG ABG pH 7.45 pH Units (7.32-7.45) 04/06/17 17:22 ABG pCO2 26 mmHg (35-45) L 04/06/17 17:22 ABG pO2 86 mmHg (85-104) 04/06/17 17:22 ABG O2 Saturation 97 % (95-98) 04/06/17 17:22 PT/INR, D-dimer PT 19.1 Seconds (9.4-12.1) H D 04/11/17 03:02 - VTE Documentation of Mechanical Device: Intermittent pneumatic compression device Consult Discharge Plan - Plan Referrals: Jayme Alarcon MD [Primary Care Provider] - 04/15/17 2:15 pm () Lencho Bernstein MD [Partnered Physician] - 04/15/17 9:30 am ()
[2017-04-11] MEDS: Fenofibrate 54 MG TABLET PO SCH (20:04)
[2017-04-12] MEDS ORDERED: *HR* LORazepam 2 MG/ML VIAL IVP ONE (00:14)
[2017-04-12 03:31] LABS: INR 1.8; Prothrombin Time 19.6 Seconds (9.4-12.1)
[2017-04-12] MEDS: Famotidine 20 MG TABLET PO SCH (08:44)
[2017-04-12] MEDS: BuPROPion XL (24 HR) 150 MG TABLET PO SCH (08:44)
[2017-04-12] MEDS: Piperacillin/Tazobactam 3.375 GM/200 ML BAG IVPB SCH ×2 (08:45→17:30)
[2017-04-12] MEDS: (Omega-3/Dha/Epa/Fish Oil [Fish Oil 1,000 Mg Softgel]) PO SCH ×2 (08:45→12:30)
[2017-04-12] MEDS: Aspirin Enteric Coated 81 MG Tablet PO SCH (08:45)
[2017-04-12] MEDS: Insulin LISPRO 300 UNITS/3 ML VIAL SQ SCH ×3 (08:49→18:02)
[2017-04-12] MEDS: Insulin DETEMIR 100 UNIT/ML X5UNITS SQ SCH (08:49)
[2017-04-12 10:43] LABS: Basophils # 0.1 K/mcL (0.0-0.2); Basophils % 0.7 %; Eosinophils # 0.2 K/mcL (0.0-0.6); Eosinophils % 2.1 %; Hematocrit 42.2 % (37.5-50.1); Hemoglobin 13.4 g/dL (12.9-16.9); Immature Granulocytes % 0.6 % (0-4); Lymphocytes # 1.7 K/mcL (0.6-4.6); Lymphocytes % 19.4 %; Mean Corpuscular HGB Conc 31.8 g/dL (31.6-35.5); Mean Corpuscular Hemoglobin 28.4 pg (28.0-33.3); Mean Corpuscular Volume 89.4 fL (83.0-100.0); Mean Platelet Volume 11.2 fL (9.4-12.4); Monocytes # 0.6 K/mcL (0.0-1.3); Monocytes % 6.3 %; Neutrophils # 6.3 K/mcL (1.6-8.9); Platelet Count 462 K/mcL (140-400); Red Blood Count 4.72 M/mcL (4.19-5.50); Red Cell Distribution Width 15.6 % (11.5-14.5); Segmented Neutrophils % 70.9 %
[2017-04-12 11:07] LABS: BUN/Creatinine Ratio 23 (6-26); Blood Urea Nitrogen 23 mg/dL (8-23); Calcium 9.4 mg/dL (8.6-10.3); Carbon Dioxide 21 mEq/L (23-29); Chloride 104 mEq/L (98-107); Glucose 203 mg/dL (70-105); Osmolality,Calculated 287 (280-300); Potassium 4.3 mEq/L (3.5-5.1); Sodium 134 mEq/L (136-145); eGFR For African Americans > 60 (> 60); eGFR For Non-African Americans > 60 (> 60)
[2017-04-12 11:44] VITALS: BP 118/102
--- NOTE | 2017-04-12 15:54 | Discharge Summary ---
Date of Encounter: 04/12/17 Time of Encounter: 11:00 - Discharge Diagnosis (1) Severe sepsis Priority: Primary Status: Acute (2) UTI (urinary tract infection) Priority: Primary Status: Acute Qualifiers: Urinary tract infection type: acute cystitis Hematuria presence: without hematuria Qualified Code(s): N30.00 - Acute cystitis without hematuria (3) Hydronephrosis with renal and ureteral calculus obstruction Priority: Primary Status: Resolved (4) Acute kidney injury Priority: Primary Status: Acute - Discharge Medications Prescriptions: ALPRAZolam [Xanax 1 MG Tablet] 1 mg PO BID PRN #14 tablet PRN Reason: Anxiety Acybrryiqzac-Rzaj-Aqzqtajw,Iso [Zosyn 3.375 gm/50 ml Galaxy] 3.375 gm IV Q8H # 15 froz.piggy Home Medications: Cholecalciferol (Vitamin D3) [Vitamin D3] 50,000 unit PO MO 11/23/14 [History] Fenofibrate [Tricor] 145 mg PO HS #0 11/23/14 [History] Lisinopril [Zestril] 40 mg PO DAILY 11/23/14 [History] Esomeprazole Magnesium [Nexium] 20 mg PO DAILY 08/13/15 [History] Gemfibrozil [Lopid] 600 mg PO BIDWM 08/13/15 [History] Oxybutynin Chloride [Ditropan Xl] 10 mg PO DAILY 08/13/15 [History] Ranitidine HCl [Heartburn Relief] 150 mg PO BID 08/13/15 [History] Baclofen 20 mg PO HS 08/01/16 [History] Docusate [Colace] 100 mg PO BID PRN 08/01/16 [History] [place]-3/Dha/Epa/Fish Oil [Fish Oil 1,000 mg Softgel] 1,000 mg PO TID 08/01/16 [ History] BuPROPion XL (24 HR) [Wellbutrin Xl] 150 mg PO DAILY 08/28/16 [History] Isosorbide MONOnitrate (24 HR) [Imdur] 120 mg PO DAILY 08/28/16 [History] Aspirin Enteric Coated [Aspirin EC] 81 mg PO DAILY #30 tablet. 09/01/16 [Rx] Insulin Regular U-500 [HumuLIN R U-500] 200 unit SQ 1200 03/02/17 [History] Insulin Regular U-500 [HumuLIN R U-500] 300 unit SQ QAM 03/02/17 [History] Metoprolol [Lopressor] 25 mg PO BID 03/02/17 [History] Potassium Chloride [K-Tab ER] 20 meq PO DAILY 03/02/17 [History] Rosuvastatin [Crestor] 40 mg PO HS 03/02/17 [History] Warfarin [Coumadin] 2.5 mg PO SUTUWETHSA 03/02/17 [History] Warfarin [Coumadin] 5 mg PO MOFR 03/02/17 [History] Insulin Regular U-500 [HumuLIN R U-500] 425 unit SQ QPM 04/03/17 [History] Metformin HCl [Glucophage] 1,000 mg PO BID 04/03/17 [History] ALPRAZolam [Xanax 1 MG Tablet] 1 mg PO BID PRN #14 tablet 04/12/17 [Rx] Gnlyakdptuyr-Kdxy-Skwairmx,Iso [Zosyn 3.375 gm/50 ml Galaxy] 3.375 gm IV Q8H # 15 froz.piggy 04/12/17 [Rx] Allergies/Adverse Reactions: 3 Allergy/AdvReac Type Severity Reaction Status Date / Time No Known Allergies Allergy Verified 03/01/17 16:52 Date of admission: 04/04/17 01:29 Primary care physician: Jayme Alarcon MD Consults: 04/08/17 11:11 Consult to Physical Therapy [CONS] Routine Comment: Evaluate, develop and implement POC Reason for Consult: Patient was septic and has weakness OT [Consult to Occupational Therapy] [CONS] Routine Comment: Evaluate, develop and implement POC Reason for Consult: Patient was septic and has weakness 04/09/17 11:21 Consult to Music Educator [CONS] Routine Reason for SW Consult: ECF Placement. 04/05/17 14:03 Consult for Pharmacy Education [CONS] Routine Reason for Consult: warfarin dosing Call Completed: No - Patient Status Disposition: Transfer SNF Condition: Fair - Discharge Instructions Follow Up With: Jayme Alarcon MD [Primary Care Provider] - 04/15/17 2:15 pm () Lencho Bernstein MD [Partnered Physician] - 04/15/17 9:30 am () Hospital course: Patient is a 62-year-old male with past medical history significant for recurrent nephrolithiasis/acute cystitis in addition to coronary arterial disease, CVA, diabetes, hyperlipidemia, hypertension and CK-MB, who presented to the ER on 04/08/17 due to shortness of breath. Patient was sent from Urology office with confusion and abdominal pain. He had a follow-up Urology appointment due to a recent hospitalization for acute cystitis with sepsis. In the ER, patient was found to be febrile with leukocytosis and pyuria. CT of the abdomen/pelvis showed Left periureteral and perinephric stranding as well as left hydronephrosis with a Left hydroureter with 3 obstructing left ureteral stones, largest within the proximal ureter measuring 6 mm. Patient was admitted to the progressive stepdown unit for sepsis secondary to UTI due to obstructing nephrolithiasis with ELIN. During patients hospital stay, patient was found to be bacteremic with Escherichia coli secondary to acute cystitis due to obstructive uropathy. Urology was consulted for obstructive uropathy and stent was placed. Patient sepsis resolved with treatment of acute cystitis with IV Zosyn; patient s ELIN subsequently resolved as well. Patients bacteremia also resolved with above treatment. He is medically stable to be discharged to [facility] to continue a 5 day course of Zosyn and to follow-up with urology as an outpatient. - Time Spent with Patient Total time spent providing and/or coordinating discharge services: Less than 30 minutes - Constitutional Vitals: Temp Pulse Resp BP Pulse Ox 98.1 F 64 15 118/102 98 04/12/17 12:30 04/12/17 12:30 04/12/17 12:30 04/12/17 12:30 04/12/17 12:30 General appearance: Present: cooperative, A&O X 2, pleasant, no acute distress, obese, answers questions appropriately - Respiratory Respiratory exam: Present: CTAB. Absent: accessory muscle use, rales, rhonchi, wheezes - Cardiovascular Cardiovascular exam: Present: RRR, +S1, +S2. Absent: diastolic murmur, gallop, rubs, systolic murmur - VTE Documentation of Mechanical Device: Intermittent pneumatic compression device
[2017-04-12] MEDS ORDERED: *HR* Warfarin 2.5 MG TABLET PO ONE (18:00)
== END 2017-04-12 18:55 | DRG 871 ==
LOC: 3BNU 16:00 → EMEROO 16:00 → 3BNU 20:01 → SUATTDRO 04-04 01:29 → 2NNU 04-04 11:52
PROVIDERS: ADMIT Internal Medicine; ATTEND Hospitalist

== ENCOUNTER 2017-04-22 11:13 | Inpatient (IN) ==
[2017-04-22] MEDS ORDERED: 0.9 % Sodium Chloride 1,000 ML ONE (11:31)
[2017-04-22] MEDS ORDERED: 0.9 % Sodium Chloride 1,000 ML IVC ONE ×2 (11:36→15:50)
--- NOTE | 2017-04-22 11:48 | Emergency Department Note ---
START Narrative - START START: Simply a start note. Care of this patient will be assumed by the oncoming physician. Briefly, this is an Ill appearing 62-year-old male is brought from a local [facility] for evaluation of weakness and abnormal laboratory results. Per the family's report, the patient had been at the extended care facility after an episode of urosepsis from a complicated kidney stone. The family states that the patient had had ureteral stents placed by Dr. Bernstein. They state that he is currently being treated with IV antibiotics at the detention thoroughly right upper extremity PICC line. The patient had a follow-up appointment with his pourer buggy ladle, Dr. Dutton this morning. According to the family members, Dr. Dutton requested that the patient be brought to the emergency department for further evaluation of generalized weakness and decreased kidney function.
[2017-04-22 12:23] LABS: Bilirubin,Urine Small (Negative); Blood,Urine Trace (Negative); Clarity,Urine Turbid (Clear); Color,Urine Dark Yellow (Yellow); Glucose,Urine (UA) Normal (Normal); Ketones,Urine Negative (Negative); Leukocyte Esterase,Urine Large (Negative); Nitrite,Urine Negative (Negative); PH,Urine 5.5 pH Units (5.0-8.0); Protein,Urine 30 mg/dL (Neg-Trace); Specific Gravity,Urine 1.019 (1.010-1.025); Urobilinogen,Urine Normal (Normal)
[2017-04-22 12:25] LABS: Bacteria,Urine None Seen per hpf (None-Few); Squamous Epithelial Cell,Urine Many per lpf (None-Few); WBC,Urine TNTC per hpf (0-3)
[2017-04-22 13:00] LABS: Basophils # 0.1 K/mcL (0.0-0.2); Basophils % 0.7 %; Eosinophils # 0.2 K/mcL (0.0-0.6); Eosinophils % 1.4 %; Hematocrit 32.1 % (37.5-50.1); Hemoglobin 10.1 g/dL (12.9-16.9); Immature Granulocytes % 0.9 % (0-4); Immature Platelets 2.7 % (1.1-6.1); Lymphocytes # 1.2 K/mcL (0.6-4.6); Lymphocytes % 9.6 %; Mean Corpuscular HGB Conc 31.5 g/dL (31.6-35.5); Mean Corpuscular Hemoglobin 28.3 pg (28.0-33.3); Mean Corpuscular Volume 89.9 fL (83.0-100.0); Monocytes # 1.1 K/mcL (0.0-1.3); Monocytes % 8.3 %; Neutrophils # 10.2 K/mcL (1.6-8.9); Platelet Count 387 K/mcL (140-400); Red Blood Count 3.57 M/mcL (4.19-5.50); Red Cell Distribution Width 15.3 % (11.5-14.5); Segmented Neutrophils % 79.1 %
[2017-04-22] MEDS ORDERED: Piperacillin/Tazobactam 3.375 GM in Water for inj. (sterile) 20 ML 20 ML IVP ONE (13:06)
[2017-04-22 13:09] LABS: Activated Partial Thrombo Time 57.9 Seconds (26.0-36.0)
[2017-04-22 13:15] LABS: Prothrombin Time 52.2 Seconds (9.4-12.1)
[2017-04-22 13:16] LABS: Albumin 2.7 g/dL (3.5-5.7); Albumin/Globulin Ratio 0.6 (1.1-2.2); Bilirubin,Direct 0.2 mg/dL (0.0-0.2); Bilirubin,Indirect 0.4 mg/dL (0.0-1.2); Bilirubin,Total 0.6 mg/dL (0.3-1.0); Calcium 8.3 mg/dL (8.6-10.3); Globulin 4.8 g/dL (2.4-3.5); INR 4.7; Magnesium 1.3 mg/dL (1.6-2.6); Phosphorous 3.2 mg/dL (2.7-4.5); Potassium 4.7 mEq/L (3.5-5.1); Total Protein 7.5 g/dL (6.4-8.9)
--- NOTE | 2017-04-22 13:43 | Emergency Department Note ---
Disposition Clinical Impression: UTI (urinary tract infection), Hypotension, ELIN (acute kidney injury) Disposition: Admitted As Inpatient Condition: Fair Referrals: Jayme Alarcon MD [Primary Care Provider] - Forms: ED Satisfaction Letter Time of Disposition: 18:28 General Adult HPI - General Chief complaint: ED Recheck/Abnormal Lab/Rx Stated complaint: abdnormal labs Time Seen by Provider: 04/22/17 11:35 Source: patient, EMS Limitations: no limitations Nursing Notes Reviewed: Yes Vital Signs Reviewed: Yes - History of Present Illness HPI Narrative: Patient is a 62-year-old male that presents to the emergency department for abnormal labs. Family states that he has been somewhat confused and was seen at the kidney doctor and was sent to the emergency department. They state that 3 weeks ago he had a stent placed in the ureter and has had 3 kidney stones. States that when he saw the doctor he had decreased kidney function seem to be dehydrated and had decreased blood pressure. States that he feels sluggish and overall not feeling well. Pain Scale: 5 - Related Data Home Medications Medication Instructions Recorded Confirmed Cholecalciferol (Vitamin D3) 50,000 unit PO MO 11/23/14 04/22/17 [Vitamin D3] Lisinopril [Zestril] 40 mg PO DAILY 11/23/14 04/22/17 Gemfibrozil [Lopid] 600 mg PO BIDWM 08/13/15 04/22/17 Oxybutynin Chloride [Ditropan Xl] 10 mg PO HS 08/13/15 04/22/17 Ranitidine HCl [Heartburn Relief] 150 mg PO BID 08/13/15 04/22/17 Baclofen 20 mg PO HS 08/01/16 04/22/17 Docusate [Colace] 200 mg PO DAILY PRN 08/01/16 04/22/17 [place]-3/Dha/Epa/Fish Oil [Fish Oil 1,000 mg PO TID 08/01/16 04/22/17 1,000 mg Softgel] BuPROPion XL (24 HR) [Wellbutrin 150 mg PO HS 08/28/16 04/22/17 Xl] Metoprolol [Lopressor] 25 mg PO BID 03/02/17 04/22/17 Potassium Chloride [K-Tab ER] 20 meq PO DAILY 03/02/17 04/22/17 Metformin HCl [Glucophage] 1,000 mg PO BID 04/03/17 04/22/17 ALPRAZolam [Xanax 0.5 MG Tablet] 0.5 mg PO TID PRN 04/22/17 04/22/17 Atorvastatin Calcium [Lipitor] 80 mg PO HS 04/22/17 04/22/17 Fenofibrate Nanocrystallized 145 mg PO HS 04/22/17 04/22/17 [Tricor] Fluticasone/Vilanterol [Breo 1 each IH DAILY 04/22/17 04/22/17 Ellipta 100-25 Mcg INH] Insulin Regular, Human [Novolin R] 0 - 10 unit SQ ACHS 04/22/17 04/22/17 Isosorbide MONOnitrate [Isosorbide 120 mg PO DAILY 04/22/17 04/22/17 Mononitrate ER] Pantoprazole Sodium [Protonix] 40 mg PO DAILY 04/22/17 04/22/17 Warfarin [Coumadin] 2 mg PO 1800 04/22/17 04/22/17 Previous Rx's Medication Instructions Recorded Aspirin Enteric Coated [Aspirin EC] 81 mg PO DAILY #30 tablet. 09/01/16 ALPRAZolam [Xanax 1 MG Tablet] 1 mg PO BID PRN #14 tablet 04/12/17 Zotkzyohabnl-Plnx-Imkewzid,Iso 3.375 gm IV Q8H #15 froz.piggy 04/12/17 [Zosyn 3.375 gm/50 ml Galaxy] Allergies Allergy/AdvReac Type Severity Reaction Status Date / Time No Known Allergies Allergy Verified 03/01/17 16:52 All systems ED: reviewed and negative except as stated. Constitutional: Reports: other (Tiredness ) Musculoskeletal: Reports: back pain Past Medical History - Past Medical History Medical history: Reports: atrial fibrillation, coronary artery disease, CVA, diabetes, hyperlipidemia, hypertension, myocardial infarction, renal disease Surgical history: Reports: angioplasty/stent, carotid endarterectomy (left), other (implanted loop recorder) Psychiatric history: Reports: anxiety - Social History Smoking Status: Never smoker Smokeless Tobacco Status: No Alcohol use: Reports: none Drug use: Reports: none Physical Exam - General Limitations: no limitations General appearance: alert, in no apparent distress - Head Head exam: atraumatic, normocephalic - Eye Eye exam: Present: normal appearance, EOMI - Neck Neck exam: Present: normal inspection, full ROM, trachea midline - Respiratory Respiratory exam: Present: normal lung sounds bilaterally. Absent: respiratory distress, wheezes - Cardiovascular Cardiovascular exam: Present: regular rate, irregular rhythm, normal heart sounds, +S1, +S2 - Abdominal Exam Abdominal exam: Present: soft, Non-Tender, normal bowel sounds - Neurological Exam Neurological exam: Present: alert, CN II-XII intact - Expanded Neurological Exam Patient oriented to: Present: person, place. Absent: time Cranial nerves: EOM function (II, III, IV, ): Normal (Patient has slight drop to Right eyelid which family states is chronic for him ), facial sensation (V): Normal, facial palsy (VII): Normal, gag reflex (IX): Normal, spinal accessory function (XI): Normal, tongue deviation (XII): Normal Cerebellar function: finger to nose: Normal, heel to [place]: Normal Motor strength - LUE: 5/5 Motor strength - RUE: 5/5 Motor strength - LLE: 5/5 Motor strength - RLE: 5/5 Upper motor neuron exam: pronator drift: Absent bilaterally Sensory exam upper extremity: light touch: Normal Sensory exam lower extremity: light touch: Normal Coma Scale Eye Opening: Spontaneous Coma Scale Motor Response: Obeys Commands Coma Scale Verbal Response: Oriented Coma Scale Total: 15 - Psychiatric Psychiatric exam: Present: normal affect, normal mood - Skin Skin exam: Present: warm, dry, intact Course Vital Signs Temperature 97.3 F L 04/22/17 11:15 Pulse Rate 86 04/22/17 11:15 Respiratory Rate 18 04/22/17 11:15 Blood Pressure 85/45 04/22/17 11:15 O2 Sat by Pulse Oximetry 98 04/22/17 11:15 Temperature 97.3 F L 04/22/17 11:15 Pulse Rate 96 04/22/17 19:51 Respiratory Rate 16 04/22/17 19:51 Blood Pressure 141/82 04/22/17 19:51 O2 Sat by Pulse Oximetry 98 04/22/17 19:51 Oxygen Delivery Oxygen Delivery Room Air Medical Decision Making - MDM Narrative Medical decision making narrative: Due to the patient presenting with hypotension and possible dehydration we have ordered, CBC, BMP, lactic acid, blood cultures, urinalysis and an influenza swab. The patient will also be given IV fluids and we will obtain a CT of the head and abdomen and pelvis. Patient will also be started on IV antibiotics. Due to patient being hypotensive he will be given more fluid. The patient has a lactic acid of 1.9 has an elevated white count of 12.8 patient's influenza was negative. Due to the patient having recent stent placement and what appears to be a urinary tract infection called and spoke with the on-call urologist and they stated that they would consult with this patient tomorrow. I spoke with the hospitalist and they have accepted the patient service the patient be admitted to the hospital for further evaluation and management. Patient is currently stable and able to be admitted to the hospital. The patient will be admitted to the hospital at this time. - Lab Data Lab results reviewed: Yes I reviewed the patient's lab results. Result diagrams: 04/22/17 12:39 04/22/17 12:39 Lab Results 04/22/17 04/22/17 04/22/17 Range/Units 12:15 12:39 12:39 WBC 12.8 H (4.3-11.1) K/mcL RBC 3.57 L (4.19-5.50) M/mcL Hgb 10.1 L (12.9-16.9) g/dL Hct 32.1 L (37.5-50.1) % MCV 89.9 (83.0-100.0) fL MCH 28.3 (28.0-33.3) pg MCHC 31.5 L (31.6-35.5) g/dL RDW 15.3 H (11.5-14.5) % Plt Count 387 (140-400) K/mcL MPV 11.0 (9.4-12.4) fL Immature Gran % 0.9 (0-4) % Seg Neutrophils % 79.1 % Lymphocytes % 9.6 % Monocytes % 8.3 % Eosinophils % 1.4 % Basophils % 0.7 % Neutrophils # 10.2 H (1.6-8.9) K/mcL Lymphocytes # 1.2 (0.6-4.6) K/mcL Monocytes # 1.1 (0.0-1.3) K/mcL Eosinophils # 0.2 (0.0-0.6) K/mcL Basophils # 0.1 (0.0-0.2) K/mcL Immature Plt Fraction 2.7 (1.1-6.1) % PT 52.2 H* (9.4-12.1) Seconds INR 4.7 H* APTT 57.9 H (26.0-36.0) Seconds Sodium (136-145) mEq/L Potassium (3.5-5.1) mEq/L Chloride (98-107) mEq/L Carbon Dioxide (23-29) mEq/L BUN (8-23) mg/dL Creatinine (0.70-1.30) mg/dL Est GFR ( Amer) (> 60) Est GFR (Non-Af Amer) (> 60) BUN/Creatinine Ratio (6-26) Glucose (70-105) mg/dL Calculated Osmolality (280-300) Lactic Acid (0.5-2.2) mmol/L Calcium (8.6-10.3) mg/dL Phosphorus (2.7-4.5) mg/dL Magnesium (1.6-2.6) mg/dL Total Bilirubin (0.3-1.0) mg/dL Direct Bilirubin (0.0-0.2) mg/dL Indirect Bilirubin (0.0-1.2) mg/dL AST (13-39) Units/L ALT (7-52) Units/L Alkaline Phosphatase (34-104) Units/L Troponin I (< 0.04) ng/mL B-Natriuretic Peptide (Less than 100) pg/mL Serum Total Protein (6.4-8.9) g/dL Albumin (3.5-5.7) g/dL Globulin (2.4-3.5) g/dL Albumin/Globulin Ratio (1.1-2.2) Ur Specimen Adequacy See below A Urine Color Dark Yellow (Yellow) Urine Clarity Turbid A (Clear) Urine pH 5.5 (5.0-8.0) pH Units Ur Specific [place] 1.019 (1.010-1.025) Urine Protein 30 H (Neg-Trace) mg/dL Urine Glucose (UA) Normal (Normal) mg/dL Urine Ketones Negative (Negative) mg/dL Urine Blood Trace H (Negative) Urine Nitrite Negative (Negative) Urine Bilirubin Small H (Negative) Urine Urobilinogen Normal (Normal) mg/dL Ur Leukocyte Esterase Large H (Negative) Urine Microscopic RBC 3-5 H (0-3) per hpf Urine Microscopic WBC TNTC H (0-3) per hpf Ur Squamous Epith Cells Many H (None-Few) per lpf Urine Bacteria None Seen (None-Few) per hpf Hyaline Casts Test Not Performed Ur Culture Indicated? NO. (NO) 04/22/17 04/22/17 04/22/17 Range/Units 12:39 12:39 12:39 WBC (4.3-11.1) K/mcL RBC (4.19-5.50) M/mcL Hgb (12.9-16.9) g/dL Hct (37.5-50.1) % MCV (83.0-100.0) fL MCH (28.0-33.3) pg MCHC (31.6-35.5) g/dL RDW (11.5-14.5) % Plt Count (140-400) K/mcL MPV (9.4-12.4) fL Immature Gran % (0-4) % Seg Neutrophils % % Lymphocytes % % Monocytes % % Eosinophils % % Basophils % % Neutrophils # (1.6-8.9) K/mcL Lymphocytes # (0.6-4.6) K/mcL Monocytes # (0.0-1.3) K/mcL Eosinophils # (0.0-0.6) K/mcL Basophils # (0.0-0.2) K/mcL Immature Plt Fraction (1.1-6.1) % PT (9.4-12.1) Seconds INR APTT (26.0-36.0) Seconds Sodium 132 L (136-145) mEq/L Potassium 4.7 (3.5-5.1) mEq/L Chloride 107 (98-107) mEq/L Carbon Dioxide 17 L (23-29) mEq/L BUN 48 H (8-23) mg/dL Creatinine 2.44 H (0.70-1.30) mg/dL Est GFR ( Amer) 33 L (> 60) Est GFR (Non-Af Amer) 27 L (> 60) BUN/Creatinine Ratio 20 (6-26) Glucose 183 H (70-105) mg/dL Calculated Osmolality 291 (280-300) Lactic Acid 1.9 (0.5-2.2) mmol/L Calcium 8.3 L (8.6-10.3) mg/dL Phosphorus 3.2 (2.7-4.5) mg/dL Magnesium 1.3 L (1.6-2.6) mg/dL Total Bilirubin 0.6 (0.3-1.0) mg/dL Direct Bilirubin 0.2 (0.0-0.2) mg/dL Indirect Bilirubin 0.4 (0.0-1.2) mg/dL AST 17 (13-39) Units/L ALT 9 (7-52) Units/L Alkaline Phosphatase 64 (34-104) Units/L Troponin I < 0.03 (< 0.04) ng/mL B-Natriuretic Peptide (Less than 100) pg/mL Serum Total Protein 7.5 (6.4-8.9) g/dL Albumin 2.7 L (3.5-5.7) g/dL Globulin 4.8 H (2.4-3.5) g/dL Albumin/Globulin Ratio 0.6 L (1.1-2.2) Ur Specimen Adequacy Urine Color (Yellow) Urine Clarity (Clear) Urine pH (5.0-8.0) pH Units Ur Specific [place] (1.010-1.025) Urine Protein (Neg-Trace) mg/dL Urine Glucose (UA) (Normal) mg/dL Urine Ketones (Negative) mg/dL Urine Blood (Negative) Urine Nitrite (Negative) Urine Bilirubin (Negative) Urine Urobilinogen (Normal) mg/dL Ur Leukocyte Esterase (Negative) Urine Microscopic RBC (0-3) per hpf Urine Microscopic WBC (0-3) per hpf Ur Squamous Epith Cells (None-Few) per lpf Urine Bacteria (None-Few) per hpf Hyaline Casts Ur Culture Indicated? (NO) 04/22/17 Range/Units 12:39 WBC (4.3-11.1) K/mcL RBC (4.19-5.50) M/mcL Hgb (12.9-16.9) g/dL Hct (37.5-50.1) % MCV (83.0-100.0) fL MCH (28.0-33.3) pg MCHC (31.6-35.5) g/dL RDW (11.5-14.5) % Plt Count (140-400) K/mcL MPV (9.4-12.4) fL Immature Gran % (0-4) % Seg Neutrophils % % Lymphocytes % % Monocytes % % Eosinophils % % Basophils % % Neutrophils # (1.6-8.9) K/mcL Lymphocytes # (0.6-4.6) K/mcL Monocytes # (0.0-1.3) K/mcL Eosinophils # (0.0-0.6) K/mcL Basophils # (0.0-0.2) K/mcL Immature Plt Fraction (1.1-6.1) % PT (9.4-12.1) Seconds INR APTT (26.0-36.0) Seconds Sodium (136-145) mEq/L Potassium (3.5-5.1) mEq/L Chloride (98-107) mEq/L Carbon Dioxide (23-29) mEq/L BUN (8-23) mg/dL Creatinine (0.70-1.30) mg/dL Est GFR ( Amer) (> 60) Est GFR (Non-Af Amer) (> 60) BUN/Creatinine Ratio (6-26) Glucose (70-105) mg/dL Calculated Osmolality (280-300) Lactic Acid (0.5-2.2) mmol/L Calcium (8.6-10.3) mg/dL Phosphorus (2.7-4.5) mg/dL Magnesium (1.6-2.6) mg/dL Total Bilirubin (0.3-1.0) mg/dL Direct Bilirubin (0.0-0.2) mg/dL Indirect Bilirubin (0.0-1.2) mg/dL AST (13-39) Units/L ALT (7-52) Units/L Alkaline Phosphatase (34-104) Units/L Troponin I (< 0.04) ng/mL B-Natriuretic Peptide 86 (Less than 100) pg/mL Serum Total Protein (6.4-8.9) g/dL Albumin (3.5-5.7) g/dL Globulin (2.4-3.5) g/dL Albumin/Globulin Ratio (1.1-2.2) Ur Specimen Adequacy Urine Color (Yellow) Urine Clarity (Clear) Urine pH (5.0-8.0) pH Units Ur Specific [place] (1.010-1.025) Urine Protein (Neg-Trace) mg/dL Urine Glucose (UA) (Normal) mg/dL Urine Ketones (Negative) mg/dL Urine Blood (Negative) Urine Nitrite (Negative) Urine Bilirubin (Negative) Urine Urobilinogen (Normal) mg/dL Ur Leukocyte Esterase (Negative) Urine Microscopic RBC (0-3) per hpf Urine Microscopic WBC (0-3) per hpf Ur Squamous Epith Cells (None-Few) per lpf Urine Bacteria (None-Few) per hpf Hyaline Casts Ur Culture Indicated? (NO) - Radiology Data Radiology results reviewed: Yes I reviewed the patient's radiology results. Head CT 04/22/17 12:14 IMPRESSION: No acute intracranial abnormality. Stable small old infarction in the left frontal lobe and tiny old infarction in the right cerebellar hemisphere. Mild parenchymal volume loss. Mild chronic microvascular disease. D/ / Kashif Alarcon MD / Kashif Alarcon MD Interpreting Provider: Kashif Alarcon MD Abdomen/Pelvis CT 04/22/17 13:30 IMPRESSION: Interval placement of left nephroureteral stent. Distal end of the stent is coiled within the distal left ureter/left ureterovesicular junction. Consider repositioning. Severe left hydronephrosis is unchanged. There is worsening left perinephric and periureteral soft tissue stranding. Previously identified left ureteral calculus has resolved. Nonobstructing left renal calculi measure up to 6 mm, similar to prior. D/ / 04/22/2017 14:53:33 Bella Collado MD / aniyah Interpreting Provider: Bella Collado MD - EKG Data EKG #1 EKG attestation: Yes I reviewed and interpreted this EKG. EKG results narrative: EKG shows atrial fibrillation at a rate of 79 beats minute, QRS duration of 103 , QTC of 396 with no STEMI noted on EKG. There is no previous EKG for comparison. Attestation Statement - Attestation Attestation: I examined this patient and my medical decision-making was reviewed with the Resident Physician. I agree with the documented findings, disposition and treatment plan as described except to the extent set forth below. Findings consistent with hydronephrosis related to obstructive uropathy. Patient will be admitted to the hospital for further evaluation. Urology was notified.
[2017-04-22] MEDS ORDERED: Vancomycin 1,500 MG in D5% in Water 250 ML IVPB ONE (14:00)
--- NOTE | 2017-04-22 17:55 | Event Note ---
Date of Encounter: 04/22/17 Time of Encounter: 17:37 Patient and examined with nurse practitioner. Patient presents with uro sepsis. He has a PICC line and has been receiving antibiotics and the skilled nursing for UTI. 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 On imaging patient has obstructive uropathy. We will start the patient vancomycin and cefepime according to prior cultures. We will notify urology services that the patient is hypotensive. Systolic blood pressure in the 100s after 2 L bolus of normal saline. repeat lactic acid. Continue hydration. Patient is full code.
[2017-04-22] MEDS ORDERED: Ondansetron ODT 4 MG TAB.RAPDIS SL PRN (18:48)
[2017-04-22] MEDS ORDERED: Acetaminophen 325 MG TABLET PO PRN (18:48)
[2017-04-22] MEDS ORDERED: Naloxone 0.4 MG/ML INJ IVP PRN (18:48)
[2017-04-22] MEDS ORDERED: *HR* Phytonadione 5 MG TABLET PO ONE (18:57)
[2017-04-22] MEDS ORDERED: D5% in Water 1,000 ML IVC PRN (19:00)
[2017-04-22] MEDS ORDERED: Dextrose Gel 15 GM/37.5 ML TUBE PO PRN ×2 (19:00)
[2017-04-22] MEDS ORDERED: Vancomycin 1,250 MG in D5% in Water 250 ML IVPB SCH (19:00)
[2017-04-22] MEDS ORDERED: *HR* Dextrose 50 % in Water (Syg) 50 ML SYRINGE IVP PRN (19:00)
--- NOTE | 2017-04-22 19:44 | Internal Med History&Physical ---
Date of Encounter: 04/22/17 Time of Encounter: 19:42 Assessment and Plan (1) Hydronephrosis Current visit: Yes Status: Acute Patient had recently been admitted to this facility for urosepsis and hydronephrosis he did have a left ureteral stent placed and was an ECF receiving antibiotics. He did have a change in mental state CT of abdomen was obtained which did show severe left hydronephrosis with resolving left ureteral calculus and a nonobstructing left renal calculi. Patient was given IV fluids, urology was notified per ER physician, Dr. Cardoza was updated concerning patient 's blood pressure he will see patient in a.m. Continue with cefepime and vancomycin-previous culture grew Escherichia coli sensitive to cefepime Keep patient nothing by mouth for now possible surgery in a.m. Qualifiers: Hydronephrosis type: unspecified Qualified Code(s): N13.30 - Unspecified hydronephrosis (2) CAD (coronary artery disease) Current visit: No Status: Chronic We will continue with aspirin and statin will decrease beta allan down to 12.5 twice a day due to low blood pressure we will hold lisinopril and Imdur for now Continuous cardiac monitoring Nitrates as needed Qualifiers: Coronary Disease-Associated Artery/Lesion type: kashia artery [place] vs. 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 Chronic kidney disease stage: stage 3 (moderate) Qualified Code(s): E11.22 - Type 2 diabetes mellitus with diabetic chronic kidney disease; N18.3 - Chronic kidney disease, stage 3 ( moderate); N18.3 - Chronic kidney disease, stage 3 (moderate); 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 CT of head was negative Blood cultures and urine cultures have been obtained will initiate on empiric antibiotics. Continue with IV fluids (5) Supratherapeutic INR Current visit: No Status: Acute Patient is on Coumadin for atrial fibrillation INR was 4.7-we will hold Coumadin and give vitamin K 5 mg by mouth Recheck coags in a.m. (6) A-fib Current visit: No Status: Chronic Jayjay patient is in atrial fibrillation with a controlled rate continue with metoprolol holding Coumadin for now due to supratherapeutic INR Monitor INR daily Resume Coumadin once INR around 2 Qualifiers: Atrial fibrillation type: paroxysmal Qualified Code(s): I48.0 - Paroxysmal atrial fibrillation (7) DVT prophylaxis Current visit: No Status: Acute Patient was supratherapeutic. INR we will hold Coumadin place on SCDs Internal Medicine - H&P: HPI Chief complaint: AMS Admitted From: Emergency Dept Plans for Post Hospital Care: Home History of present illness: Mr. Sapp is a 62 year old male past medical history including diabetes paroxysmal atrial fibrillation he is on Coumadin [place] in 2011 CAD with 3 stents CVA and 2017 CK D hypertension. Patient was recently admitted to this facility 04/04/2017 at that time for urosepsis and obstructive uropathy with stent placement. He was discharged to [facility] for continued IV treatment. He was doing well up until a few days ago patient began to display lethargy and confusion he went to his scheduled appointment with nephrology and had abnormal renal panel. He was brought to the ER and on presentation he was hypotensive with systolic in the 80s. He was given 2 L bolus of normal saline lab work was obtained which did reveal an AK I as well as a supratherapeutic INR and leukocytosis. CT of head was negative for any intracranial abnormalities CT of abdomen did show obstructive uropathy. Blood and urine cultures were obtained and the patient was initiated on vancomycin and Zosyn. He has been admitted for further work up and evaluation. Presently the patient arouses to verbal stimuli he is alert and oriented 2 and follow simple commands. Presently he is hemodynamically stable at this time. Past Med Surg Social Fam HX - Past Medical History Medical history: atrial fibrillation, coronary artery disease, CVA, diabetes, hyperlipidemia, hypertension, myocardial infarction, renal disease Psychiatric history: anxiety - Past Surgical History Surgical History: angioplasty/stent, carotid endarterectomy (left), other ( implanted loop recorder) - Social History Smoking Status: Never smoker Smokeless Tobacco Status: No Alcohol use: none Drug use: none - Family History Mother Family Member Ethnicity: Non- Living Status: Hx Family Cardiac Disorders: No Hx Family Respiratory Disorders: No Hx Family Cancer: No Hx Family GI Disorders: No Hx Family Endocrine Disorder: No Hx Family Neuromuscular Disorders: No Hx Family Neurologic Disorders: No Hx Family HEENT Disorders: No Hx Family Autoimmune Disorders: No Brother Family Member Ethnicity: Non- Living Status: Hx Family Cardiac Disorders: Yes ([place], HD) Sister Family Member Ethnicity: Non- Living Status: Hx Family Cardiac Disorders: Yes Hx Family Cancer: Yes (Ovarian) Father Adopted: No Family Member Ethnicity: Non- Living Status: Hx Family Cardiac Disorders: Yes Hx Family Respiratory Disorders: No Hx Family Cancer: No Hx Family GI Disorders: No Hx Family Endocrine Disorder: No Hx Family Neuromuscular Disorders: No Hx Family Neurologic Disorders: No Hx Family HEENT Disorders: No Hx Family Autoimmune Disorders: No Internal Medicine - H&P: Meds Cholecalciferol (Vitamin D3) [Vitamin D3] 50,000 unit PO MO 11/23/14 [History] Lisinopril [Zestril] 40 mg PO DAILY 11/23/14 [History] Gemfibrozil [Lopid] 600 mg PO BIDWM 08/13/15 [History] Oxybutynin Chloride [Ditropan Xl] 10 mg PO HS 08/13/15 [History] Ranitidine HCl [Heartburn Relief] 150 mg PO BID 08/13/15 [History] Baclofen 20 mg PO HS 08/01/16 [History] Docusate [Colace] 200 mg PO DAILY PRN 08/01/16 [History] [place]-3/Dha/Epa/Fish Oil [Fish Oil 1,000 mg Softgel] 1,000 mg PO TID 08/01/16 [ History] BuPROPion XL (24 HR) [Wellbutrin Xl] 150 mg PO HS 08/28/16 [History] Aspirin Enteric Coated [Aspirin EC] 81 mg PO DAILY #30 tablet. 09/01/16 [Rx] Metoprolol [Lopressor] 25 mg PO BID 03/02/17 [History] Potassium Chloride [K-Tab ER] 20 meq PO DAILY 03/02/17 [History] Metformin HCl [Glucophage] 1,000 mg PO BID 04/03/17 [History] ALPRAZolam [Xanax 1 MG Tablet] 1 mg PO BID PRN #14 tablet 04/12/17 [Rx] Dynlnhrxlfpn-Emub-Xqqdvvhz,Iso [Zosyn 3.375 gm/50 ml Galaxy] 3.375 gm IV Q8H # 15 froz.piggy 04/12/17 [Rx] ALPRAZolam [Xanax 0.5 MG Tablet] 0.5 mg PO TID PRN 04/22/17 [History] Atorvastatin Calcium [Lipitor] 80 mg PO HS 04/22/17 [History] Fenofibrate Nanocrystallized [Tricor] 145 mg PO HS 04/22/17 [History] Fluticasone/Vilanterol [Breo Ellipta 100-25 Mcg INH] 1 each IH DAILY 04/22/17 [ History] Insulin Regular, Human [Novolin R] 0 - 10 unit SQ ACHS 04/22/17 [History] Isosorbide MONOnitrate [Isosorbide Mononitrate ER] 120 mg PO DAILY 04/22/17 [ History] Pantoprazole Sodium [Protonix] 40 mg PO DAILY 04/22/17 [History] Warfarin [Coumadin] 2 mg PO 1800 04/22/17 [History] 3 Allergy/AdvReac Type Severity Reaction Status Date / Time No Known Allergies Allergy Verified 03/01/17 16:52 ROS unobtainable: due to mental status All Systems PM: A 10-system review of systems was performed and is negative for pertinent findings except as documented above in the HPI. - Constitutional Vitals: Temp Pulse Resp BP Pulse Ox 97.3 F L 84 16 126/87 98 04/22/17 11:15 04/22/17 17:00 04/22/17 17:00 04/22/17 17:00 04/22/17 17:00 General appearance: Present: A&O X 2 - Head Head exam: Present: atraumatic, normocephalic - Eye Eye exam: Present: PERRL, conjuntiva pink, sclera anicteric Pupils: Present: PERRL - Neck Neck exam general surgery: Present: supple, trachea midline. Absent: lymphadenopathy - Respiratory Respiratory exam: Present: CTAB. Absent: accessory muscle use, rales, rhonchi, wheezes - Cardiovascular Cardiovascular exam: Present: RRR, +S1, +S2. Absent: diastolic murmur, gallop, rubs, systolic murmur - GI/Abdominal GI/Abdominal exam: Present: normal bowel sounds, soft, no peritoneal signs. Absent: distended, tenderness - Extremities Exam Extremities exam: Present: warm, radial pulses palpable and symmetrical. Absent : calf tenderness, cyanotic, pedal edema - Neurological Exam Neurological exam: Present: alert, CN II-XII intact, no focal deficits. Absent : pronater drift, facial droop, speech deficit - Skin Skin exam: Present: dry, intact Internal Med - H&P Results - Labs CBC & Chem 7: 04/22/17 12:39 04/22/17 12:39 Labs: Short CBC 04/22/17 Range/Units 12:39 WBC 12.8 H (4.3-11.1) K/mcL Hgb 10.1 L (12.9-16.9) g/dL Hct 32.1 L (37.5-50.1) % Plt Count 387 (140-400) K/mcL Neutrophils # 10.2 H (1.6-8.9) K/mcL BMP 04/22/17 12:39 Sodium 132 L Potassium 4.7 Chloride 107 Carbon Dioxide 17 L BUN 48 H Creatinine 2.44 H Glucose 183 H Calcium 8.3 L Cardiac Enzymes 04/22/17 Range/Units 12:39 Troponin I < 0.03 (< 0.04) ng/mL Liver Function 04/22/17 Range/Units 12:39 Total Bilirubin 0.6 (0.3-1.0) mg/dL Direct Bilirubin 0.2 (0.0-0.2) mg/dL AST 17 (13-39) Units/L ALT 9 (7-52) Units/L Alkaline Phosphatase 64 (34-104) Units/L Albumin 2.7 L (3.5-5.7) g/dL Urine 04/22/17 Range/Units 12:15 Urine Color Dark Yellow (Yellow) Urine Clarity Turbid A (Clear) Urine pH 5.5 (5.0-8.0) pH Units Ur Specific [place] 1.019 (1.010-1.025) Urine Protein 30 H (Neg-Trace) mg/dL Urine Glucose (UA) Normal (Normal) mg/dL - EKG Data EKG shows normal: sinus rhythm - Impressions ITS Impressions Head CT 04/22/17 12:14 IMPRESSION: No acute intracranial abnormality. Stable small old infarction in the left frontal lobe and tiny old infarction in the right cerebellar hemisphere. Mild parenchymal volume loss. Mild chronic microvascular disease. D/ / Kashif Alarcon MD / Kashif Alarcon MD Interpreting Provider: Kashif Alarcon MD Abdomen/Pelvis CT 04/22/17 13:30 IMPRESSION: Interval placement of left nephroureteral stent. Distal end of the stent is coiled within the distal left ureter/left ureterovesicular junction. Consider repositioning. Severe left hydronephrosis is unchanged. There is worsening left perinephric and periureteral soft tissue stranding. Previously identified left ureteral calculus has resolved. Nonobstructing left renal calculi measure up to 6 mm, similar to prior. D/ / 04/22/2017 14:53:33 Bella Collado MD / aniyah Interpreting Provider: Bella Collado MD - Diagnostic Studies Other Images Additional comments: Head CT 04/22/17 12:14 IMPRESSION: No acute intracranial abnormality. Stable small old infarction in the left frontal lobe and tiny old infarction in the right cerebellar hemisphere. Mild parenchymal volume loss. Mild chronic microvascular disease. D/ / Kashif Alarcon MD / Kashif Alarcon MD Interpreting Provider: Kashif Alarcon MD Abdomen/Pelvis CT 04/22/17 13:30
[2017-04-22] MEDS ORDERED: Acetaminophen 325 MG TABLET PO ONE (19:57)
[2017-04-22] MEDS: 0.9 % Sodium Chloride 1,000 ML IVC SCH (22:02)
[2017-04-23] MEDS: Insulin LISPRO 300 UNITS/3 ML VIAL SQ SCH ×5 (01:00→21:05)
[2017-04-23 04:20] LABS: Basophils # 0.1 K/mcL (0.0-0.2); Basophils % 0.8 %; Eosinophils # 0.3 K/mcL (0.0-0.6); Eosinophils % 2.8 %; Hematocrit 32.5 % (37.5-50.1); Hemoglobin 10.3 g/dL (12.9-16.9); Immature Granulocytes % 0.5 % (0-4); Lymphocytes # 0.9 K/mcL (0.6-4.6); Lymphocytes % 8.3 %; Mean Corpuscular HGB Conc 31.7 g/dL (31.6-35.5); Mean Corpuscular Hemoglobin 28.1 pg (28.0-33.3); Mean Corpuscular Volume 88.8 fL (83.0-100.0); Mean Platelet Volume 10.8 fL (9.4-12.4); Monocytes # 0.9 K/mcL (0.0-1.3); Monocytes % 8.3 %; Neutrophils # 8.6 K/mcL (1.6-8.9); Platelet Count 349 K/mcL (140-400); Red Blood Count 3.66 M/mcL (4.19-5.50); Red Cell Distribution Width 15.5 % (11.5-14.5); Segmented Neutrophils % 79.3 %
[2017-04-23 04:27] LABS: INR 2.7; Prothrombin Time 29.7 Seconds (9.4-12.1)
[2017-04-23 04:30] LABS: Activated Partial Thrombo Time 40.9 Seconds (26.0-36.0)
[2017-04-23 04:45] LABS: Calcium 8.7 mg/dL (8.6-10.3); Magnesium 1.8 mg/dL (1.6-2.6); Potassium 4.3 mEq/L (3.5-5.1)
[2017-04-23] MEDS: Cefepime HCl 2,000 MG in Water for inj. (sterile) 20 ML 20 ML IVP SCH (06:33)
--- NOTE | 2017-04-23 07:52 | Electrocardiograph Report ---
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
[2017-04-23] MEDS: Aspirin Enteric Coated 81 MG Tablet PO SCH (08:47)
[2017-04-23] MEDS: (Fluticasone/Vilanterol [Breo Ellipta 100-25 Mcg Inh]) IH SCH (08:48)
[2017-04-23] MEDS ORDERED: Aminoglycoside Consult 1 EACH MC ONE (10:39)
[2017-04-23] MEDS: 0.9 % Sodium Chloride 1,000 ML IVC SCH ×3 (11:05→21:11)
--- NOTE | 2017-04-23 13:45 | Urology - Consult Note ---
Date of Encounter: 04/23/17 Time of Encounter: 13:43 - Assessment and Plan (1) Hydronephrosis Current Visit: Yes Status: Acute Assessment and plan: Patient's left ureteral stent appears to have moved a little bit more distally. His serum creatinine improved overnight just with IV fluids. If his serum currently continues to improve then I will not plan on intervening during this hospitalization. If his serum creatinine fails to improve then we will perform bedside cystoscopy and if able to see stent will pull it down if not able to see stent will need to consider operative intervention. Qualifiers: Hydronephrosis type: unspecified Qualified Code(s): N13.30 - Unspecified hydronephrosis (2) Acute kidney injury Current Visit: No Status: Acute Assessment and plan: Resolving at this time with IV fluids. Continue with IV fluids at this time. Urology CN:[email or web address] Consult date: 04/23/17 Reason for consult Urology: Hydronephrosis Requesting physician: Griffin Diaz History of present illness: Wesley is a 62-year-old male known to the urology service for recent left ureteral stone status post stenting in the operating room without anesthesia secondary to severe risk of undergoing general anesthesia. Patient was at a nursing facility where he was found to have a rising serum creatinine. Patient states that he was not drinking much in the way of fluids there. Patient's serum grouting improved overnight just with IV fluids. Repeat CT scan showed that the distal curl of the left ureteral stent could be partially in the bladder. No pain at this time. Patient did pass his distal ureteral stone. Past Med Surg Social Fam HX - Past Medical History Medical history: atrial fibrillation, coronary artery disease, CVA, diabetes, hyperlipidemia, hypertension, myocardial infarction, renal disease, other Psychiatric history: anxiety - Past Surgical History Surgical History: angioplasty/stent, carotid endarterectomy, other - Social History Smoking Status: Former smoker Smokeless Tobacco Status: Yes (chewing tobacco) Alcohol use: none Drug use: none - Family History Mother Family Member Ethnicity: Non- Living Status: Hx Family Cardiac Disorders: No Hx Family Respiratory Disorders: No Hx Family Cancer: No Hx Family GI Disorders: No Hx Family Endocrine Disorder: No Hx Family Neuromuscular Disorders: No Hx Family Neurologic Disorders: No Hx Family HEENT Disorders: No Hx Family Autoimmune Disorders: No Brother Family Member Ethnicity: Non- Living Status: Hx Family Cardiac Disorders: Yes ([place], HD) Sister Family Member Ethnicity: Non- Living Status: Hx Family Cardiac Disorders: Yes Hx Family Cancer: Yes (Ovarian) Father Adopted: No Family Member Ethnicity: Non- Living Status: Hx Family Cardiac Disorders: Yes Hx Family Respiratory Disorders: No Hx Family Cancer: No Hx Family GI Disorders: No Hx Family Endocrine Disorder: No Hx Family Neuromuscular Disorders: No Hx Family Neurologic Disorders: No Hx Family HEENT Disorders: No Hx Family Autoimmune Disorders: No Medications and Allergies Cholecalciferol (Vitamin D3) [Vitamin D3] 50,000 unit PO MO 11/23/14 [History] Lisinopril [Zestril] 40 mg PO DAILY 11/23/14 [History] Gemfibrozil [Lopid] 600 mg PO BIDWM 08/13/15 [History] Oxybutynin Chloride [Ditropan Xl] 10 mg PO HS 08/13/15 [History] Ranitidine HCl [Heartburn Relief] 150 mg PO BID 08/13/15 [History] Baclofen 20 mg PO HS 08/01/16 [History] Docusate [Colace] 200 mg PO DAILY PRN 08/01/16 [History] [place]-3/Dha/Epa/Fish Oil [Fish Oil 1,000 mg Softgel] 1,000 mg PO TID 08/01/16 [ History] BuPROPion XL (24 HR) [Wellbutrin Xl] 150 mg PO HS 08/28/16 [History] Aspirin Enteric Coated [Aspirin EC] 81 mg PO DAILY #30 tablet. 09/01/16 [Rx] Metoprolol [Lopressor] 25 mg PO BID 03/02/17 [History] Potassium Chloride [K-Tab ER] 20 meq PO DAILY 03/02/17 [History] Metformin HCl [Glucophage] 1,000 mg PO BID 04/03/17 [History] ALPRAZolam [Xanax 1 MG Tablet] 1 mg PO BID PRN #14 tablet 04/12/17 [Rx] Tjagmvowiyon-Djjm-Fprswtjd,Iso [Zosyn 3.375 gm/50 ml Galaxy] 3.375 gm IV Q8H # 15 froz.piggy 04/12/17 [Rx] ALPRAZolam [Xanax 0.5 MG Tablet] 0.5 mg PO TID PRN 04/22/17 [History] Atorvastatin Calcium [Lipitor] 80 mg PO HS 04/22/17 [History] Fenofibrate Nanocrystallized [Tricor] 145 mg PO HS 04/22/17 [History] Fluticasone/Vilanterol [Breo Ellipta 100-25 Mcg INH] 1 each IH DAILY 04/22/17 [ History] Insulin Regular, Human [Novolin R] 0 - 10 unit SQ ACHS 04/22/17 [History] Isosorbide MONOnitrate [Isosorbide Mononitrate ER] 120 mg PO DAILY 04/22/17 [ History] Pantoprazole Sodium [Protonix] 40 mg PO DAILY 04/22/17 [History] Warfarin [Coumadin] 2 mg PO 1800 04/22/17 [History] 3 Allergy/AdvReac Type Severity Reaction Status Date / Time No Known Allergies Allergy Verified 03/01/17 16:52 Review of Systems ROS unobtainable: due to mental status Exam Initial Vital Signs Temp Pulse Resp BP Pulse Ox 97.3 F L 86 18 85/45 98 04/22/17 11:15 04/22/17 11:15 04/22/17 11:15 04/22/17 11:15 04/22/17 11:15 - General physical appearance Present: well developed - Eyes Absent: icteric - ENT Present: normal nares - Neck Present: no lymphadenopathy - Respiratory Present: normal respiratory effort - Cardiovascular Cardiovascular exam IM: RRR - Abdomen Abdomen: Present: soft - Integumentary Present: no rash Urology Results - Labs 04/23/17 04:10 04/23/17 04:10 Abnormal lab results RBC 3.66 M/mcL (4.19-5.50) L 04/23/17 04:10 Hgb 10.3 g/dL (12.9-16.9) L 04/23/17 04:10 Hct 32.5 % (37.5-50.1) L 04/23/17 04:10 RDW 15.5 % (11.5-14.5) H 04/23/17 04:10 PT 29.7 Seconds (9.4-12.1) H 04/23/17 04:10 APTT 40.9 Seconds (26.0-36.0) H 04/23/17 04:10 Sodium 135 mEq/L (136-145) L 04/23/17 04:10 Chloride 110 mEq/L (98-107) H 04/23/17 04:10 Carbon Dioxide 17 mEq/L (23-29) L 04/23/17 04:10 BUN 36 mg/dL (8-23) H 04/23/17 04:10 Creatinine 1.73 mg/dL (0.70-1.30) H 04/23/17 04:10 Est GFR ( Amer) 49 (> 60) L 04/23/17 04:10 Est GFR (Non-Af Amer) 40 (> 60) L 04/23/17 04:10 Glucose 172 mg/dL (70-105) H 04/23/17 04:10 POC Glucose 172 (58-89) H 04/23/17 11:23 Albumin 2.7 g/dL (3.5-5.7) L 04/22/17 12:39 Globulin 4.8 g/dL (2.4-3.5) H 04/22/17 12:39 Albumin/Globulin Ratio 0.6 (1.1-2.2) L 04/22/17 12:39 Ur Specimen Adequacy See below A 04/22/17 12:15 Urine Clarity Turbid (Clear) A 04/22/17 12:15 Urine Protein 30 mg/dL (Neg-Trace) H 04/22/17 12:15 Urine Blood Trace (Negative) H 04/22/17 12:15 Urine Bilirubin Small (Negative) H 04/22/17 12:15 Ur Leukocyte Esterase Large (Negative) H 04/22/17 12:15 Urine Microscopic RBC 3-5 per hpf (0-3) H 04/22/17 12:15 Urine Microscopic WBC TNTC per hpf (0-3) H 04/22/17 12:15 Ur Squamous Epith Cells Many per lpf (None-Few) H 04/22/17 12:15 Diabetes panel 04/23/17 Range/Units 04:10 Sodium 135 L (136-145) mEq/L Potassium 4.3 (3.5-5.1) mEq/L Chloride 110 H (98-107) mEq/L Carbon Dioxide 17 L (23-29) mEq/L BUN 36 H (8-23) mg/dL Creatinine 1.73 H (0.70-1.30) mg/dL Glucose 172 H (70-105) mg/dL Calcium 8.7 (8.6-10.3) mg/dL Calcium panel 04/23/17 Range/Units 04:10 Calcium 8.7 (8.6-10.3) mg/dL Pituitary panel 04/23/17 Range/Units 04:10 Sodium 135 L (136-145) mEq/L Potassium 4.3 (3.5-5.1) mEq/L Chloride 110 H (98-107) mEq/L Carbon Dioxide 17 L (23-29) mEq/L BUN 36 H (8-23) mg/dL Creatinine 1.73 H (0.70-1.30) mg/dL Glucose 172 H (70-105) mg/dL Calcium 8.7 (8.6-10.3) mg/dL Adrenal panel 04/23/17 Range/Units 04:10 Sodium 135 L (136-145) mEq/L Potassium 4.3 (3.5-5.1) mEq/L Chloride 110 H (98-107) mEq/L Carbon Dioxide 17 L (23-29) mEq/L BUN 36 H (8-23) mg/dL Creatinine 1.73 H (0.70-1.30) mg/dL Glucose 172 H (70-105) mg/dL Calcium 8.7 (8.6-10.3) mg/dL All other labs normal. - Imaging CT scan - abdomen: image reviewed CT scan - pelvis: image reviewed Consult Discharge Plan - Plan Referrals: Jayme Alarcon MD [Primary Care Provider] -
[2017-04-23] MEDS ORDERED: Vancomycin 1,000 MG in D5% in Water 250 ML IVPB SCH (14:00)
--- NOTE | 2017-04-23 14:49 | Internal Med Progress Note ---
Date of Encounter: 04/23/17 Time of Encounter: 14:46 - Assessment and plan (1) Sepsis Current Visit: No Status: Acute Assessment and plan: Sepsis from acute pyelonephritis, hydronephrosis obstructive stone Improved WBC from 4.8 down to 10.9 heart rate come down. Continue IV cefepime Qualifiers: Sepsis type: sepsis due to unspecified organism Qualified Code(s): A41.9 - Sepsis, unspecified organism (2) Pyelonephritis, acute Current Visit: Yes Status: Acute Assessment and plan: Patient has history of Escherichia coli UTI, Escherichia coli is pansensitive. Will DC vancomycin. Continue IV cefepime (3) CAD (coronary artery disease) Current Visit: No Status: Chronic Assessment and plan: Stable no chest pain continue home medication Qualifiers: Coronary Disease-Associated Artery/Lesion type: [place] artery [place] vs. transplanted heart: [place] heart Associated angina: without angina Qualified Code(s): I25.10 - Atherosclerotic heart disease of [place] coronary artery without angina pectoris (4) DM2 (diabetes mellitus, type 2) Current Visit: No Status: Chronic Assessment and plan: Continue Accu-Chek every 6 hours and sliding scale Qualifiers: Diabetes mellitus complication status: with kidney complications Diabetes mellitus complication detail: with chronic kidney disease Diabetes mellitus intermission coordinator insulin use: with intermission coordinator use Chronic kidney disease stage: stage 3 (moderate) Qualified Code(s): E11.22 - Type 2 diabetes mellitus with diabetic chronic kidney disease; N18.3 - Chronic kidney disease, stage 3 ( moderate); N18.3 - Chronic kidney disease, stage 3 (moderate); Z79.4 - senior care (current) use of insulin; Z79.4 - local intermodal truck driver (current) use of insulin; Z79.4 - local intermodal truck driver (current) use of insulin; Z79.4 - local intermodal truck driver (current) use of insulin (5) Atrial fibrillation Current Visit: No Status: Acute Assessment and plan: Heart rate is well controlled, hold Coumadin for possible procedure I has a 2.7 Qualifiers: Atrial fibrillation type: paroxysmal Qualified Code(s): I48.0 - Paroxysmal atrial fibrillation (6) Hydronephrosis with renal and ureteral calculus obstruction Current Visit: No Status: Resolved Assessment and plan: Urology is on board, CR has been training down, may do bedside cystoscope Per Dr Cardoza (7) Encephalopathy acute Current Visit: No Status: Acute Assessment and plan: Metabolic encephalopathy from sepsis. resolved - Time Spent With Patient 25 - 35 minutes - Subjective Interval history: Patient had recently been admitted to this facility for urosepsis and hydronephrosis he did have a left ureteral stent placed and was discharged on 04/12 to [facility] for 5 days of IV zosyn. Patient was seen by manpower development specialist manager to yesterday , had a lab done which showed acute renal failure. Per his patient also has some confusing from baseline. He was sent to emergency room for further evaluation. CT of abdomen was obtained which did show severe left hydronephrosis with resolving left ureteral calculus and a nonobstructing left renal calculi. Patient was given IV fluids, urology was notified per ER physician, Dr. Cardoza saw the patient this morning, Cr trending down is in the room, patient is back to the baseline now. Patient is doing well, he is afebrile. Patient appears hungry and wants to have diet. He denies abdominal pain no nausea or vomiting. Abdomen is soft no hematuria. Plan is continue IV fluids follow up kidney function tomorrow. Dr. Cardoza may do bedside the cystoscope tomorrow - Constitutional Vitals: Temp Pulse Resp BP Pulse Ox 99.1 F 83 22 135/78 99 04/23/17 11:19 04/23/17 11:19 04/23/17 11:19 04/23/17 11:19 04/23/17 11:19 General appearance: Present: A&O X 2, pleasant, no acute distress Exam: CONSTITUTIONAL: patient appears as an age appropriate male in no acute distress. EYES Clear sclerae, bilateral pupils are equal, reactive to light. EMOI. RESPIRATORY: No accessory muscle use, bilateral clear to auscultation, no wheezing, no crackles/rales. CARDIOVASCULAR: Regular heart rate, normal S1 and S2, no murmurs GASTROINTESTINAL: bowel sounds present, soft, no tenderness. MUSCULOSKELETAL: Joints in normal range of motion, no clubbing, no edema, no cyanosis. Bilateral peripheral pulses 2+. NEUROLOGIC: CN II to XII are grossly intact, no focal neurological deficit. Internal Medicine: Result - Labs CBC & Chem 7: 04/23/17 04:10 04/23/17 04:10 Labs: Short CBC 04/23/17 Range/Units 04:10 WBC 10.9 (4.3-11.1) K/mcL Hgb 10.3 L (12.9-16.9) g/dL Hct 32.5 L (37.5-50.1) % Plt Count 349 (140-400) K/mcL Neutrophils # 8.6 (1.6-8.9) K/mcL BMP 04/23/17 04:10 Sodium 135 L Potassium 4.3 Chloride 110 H Carbon Dioxide 17 L BUN 36 H Creatinine 1.73 H Glucose 172 H Calcium 8.7 - ABG Interpretation ABG results: PT/INR, D-dimer PT 29.7 Seconds (9.4-12.1) H 04/23/17 04:10 Consult Discharge Plan - Plan Referrals: Jayme Alarcon MD [Primary Care Provider] -
[2017-04-23] MEDS: Fenofibrate 54 MG TABLET PO SCH (21:05)
[2017-04-24 03:22] LABS: Basophils # 0.1 K/mcL (0.0-0.2); Basophils % 0.5 %; Eosinophils # 0.3 K/mcL (0.0-0.6); Eosinophils % 2.8 %; Hematocrit 28.1 % (37.5-50.1); Hemoglobin 9.1 g/dL (12.9-16.9); Immature Granulocytes % 0.6 % (0-4); Lymphocytes # 1.4 K/mcL (0.6-4.6); Mean Corpuscular HGB Conc 32.4 g/dL (31.6-35.5); Mean Corpuscular Hemoglobin 28.7 pg (28.0-33.3); Mean Corpuscular Volume 88.6 fL (83.0-100.0); Monocytes # 0.8 K/mcL (0.0-1.3); Monocytes % 8.3 %; Neutrophils # 7.4 K/mcL (1.6-8.9); Platelet Count 318 K/mcL (140-400); Red Blood Count 3.17 M/mcL (4.19-5.50); Red Cell Distribution Width 15.3 % (11.5-14.5); Segmented Neutrophils % 73.8 %
[2017-04-24 03:35] LABS: BUN/Creatinine Ratio 18 (6-26); Blood Urea Nitrogen 24 mg/dL (8-23); Calcium 8.5 mg/dL (8.6-10.3); Carbon Dioxide 19 mEq/L (23-29); Chloride 107 mEq/L (98-107); Glucose 179 mg/dL (70-105); Magnesium 1.4 mg/dL (1.6-2.6); Osmolality,Calculated 285 (280-300); Potassium 3.9 mEq/L (3.5-5.1); Sodium 133 mEq/L (136-145); eGFR For African Americans > 60 (> 60); eGFR For Non-African Americans 56 (> 60)
[2017-04-24] MEDS: Cefepime HCl 2,000 MG in Water for inj. (sterile) 20 ML 20 ML IVP SCH (06:32)
--- NOTE | 2017-04-24 07:54 | Internal Med Progress Note ---
Date of Encounter: 04/24/17 Time of Encounter: 07:59 - Assessment and plan (1) Sepsis Current Visit: No Status: Acute Assessment and plan: Sepsis from acute pyelonephritis, hydronephrosis obstructive stone resolved, Continue IV cefepime BC has NGSF, flu is negative, no urine culture on admission Qualifiers: Sepsis type: sepsis due to unspecified organism Qualified Code(s): A41.9 - Sepsis, unspecified organism (2) Pyelonephritis, acute Current Visit: Yes Status: Acute Assessment and plan: Patient has history of Escherichia coli UTI, Escherichia coli is pansensitive. Continue IV cefepime. Patient is doing well, denies abdominal pain no hematuria, creatinine improved , but not to baseline yet He still have low-grade fever, no urine culture was obtained on admission We will continue IV fluids 1 more day, can discharge on levofloxacin based on previous culture sensitivity (3) CAD (coronary artery disease) Current Visit: No Status: Chronic Assessment and plan: Stable no chest pain continue home medication Qualifiers: Coronary Disease-Associated Artery/Lesion type: [place] artery [place] vs. transplanted heart: [place] heart Associated angina: without angina Qualified Code(s): I25.10 - Atherosclerotic heart disease of [place] coronary artery without angina pectoris (4) DM2 (diabetes mellitus, type 2) Current Visit: No Status: Chronic Assessment and plan: Continue Accu-Chek every 6 hours and sliding scale Qualifiers: Diabetes mellitus complication status: with kidney complications Diabetes mellitus complication detail: with chronic kidney disease Diabetes mellitus alf insulin use: with alf use Chronic kidney disease stage: stage 3 (moderate) Qualified Code(s): E11.22 - Type 2 diabetes mellitus with diabetic chronic kidney disease; N18.3 - Chronic kidney disease, stage 3 ( moderate); N18.3 - Chronic kidney disease, stage 3 (moderate); Z79.4 - prison (current) use of insulin; Z79.4 - prison (current) use of insulin; Z79.4 - prison (current) use of insulin; Z79.4 - 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 resolved (8) Acute renal failure Current Visit: Yes Status: Acute Assessment and plan: Cr improved with IVF, likley from dehydration and pre-renal, Cr is not back to baseline yet. follow up AM Qualifiers: Acute renal failure type: with other specified pathological lesion Qualified Code(s): N17.8 - Other acute kidney failure (9) HTN (hypertension) Current Visit: No Status: Chronic Assessment and plan: well controlled Qualifiers: Hypertension type: essential hypertension Qualified Code(s): I10 - Essential (primary) hypertension - Time Spent With Patient 25 - 35 minutes - Subjective Interval history: Patient had recently been admitted to this facility for urosepsis and hydronephrosis he did have a left ureteral stent placed and was discharged on 04/12 to [facility]CF for 5 days of IV zosyn. Patient was seen by houseperson to yesterday , had a lab done which showed acute renal failure. Per his patient also has some confusing from baseline. He was sent to emergency room for further evaluation. CT of abdomen was obtained which did show severe left hydronephrosis with resolving left ureteral calculus and a nonobstructing left renal calculi. Patient was given IV fluids, urology was notified per ER physician, Dr. Cardoza saw the patient this morning, Cr trending down is in the room, patient is back to the baseline now. Patient is doing well, he is afebrile. Patient appears hungry and wants to have diet. He denies abdominal pain no nausea or vomiting. Abdomen is soft no hematuria. Patient is doing well, denies abdominal pain no hematuria, creatinine improved, but not to baseline yet He still have low-grade fever, no urine culture was obtained on admission We will continue IV fluids 1 more day, can discharge on levofloxacin based on previous culture sensitivity - Constitutional Vitals: Temp Pulse Resp BP Pulse Ox 99.3 F 95 20 148/98 99 04/24/17 07:35 04/24/17 07:35 04/24/17 07:35 04/24/17 07:35 04/24/17 07:35 General appearance: Present: A&O X 2, pleasant, no acute distress Exam: CONSTITUTIONAL: patient appears as an age appropriate male in no acute distress. EYES Clear sclerae, bilateral pupils are equal, reactive to light. EMOI. RESPIRATORY: No accessory muscle use, bilateral clear to auscultation, no wheezing, no crackles/rales. CARDIOVASCULAR: Regular heart rate, normal S1 and S2, no murmurs GASTROINTESTINAL: bowel sounds present, soft, no tenderness. MUSCULOSKELETAL: Joints in normal range of motion, no clubbing, no edema, no cyanosis. Bilateral peripheral pulses 2+. NEUROLOGIC: CN II to XII are grossly intact, no focal neurological deficit. Internal Medicine: Result - Labs CBC & Chem 7: 04/24/17 03:10 04/24/17 03:10 Labs: Short CBC 04/24/17 Range/Units 03:10 WBC 10.0 (4.3-11.1) K/mcL Hgb 9.1 L (12.9-16.9) g/dL Hct 28.1 L (37.5-50.1) % Plt Count 318 (140-400) K/mcL Neutrophils # 7.4 (1.6-8.9) K/mcL BMP 04/24/17 03:10 Sodium 133 L Potassium 3.9 Chloride 107 Carbon Dioxide 19 L BUN 24 H Creatinine 1.30 Glucose 179 H Calcium 8.5 L - ABG Interpretation ABG results: PT/INR, D-dimer PT 29.7 Seconds (9.4-12.1) H 04/23/17 04:10 Consult Discharge Plan - Plan Referrals: Jayme Alarcon MD [Primary Care Provider] -
[2017-04-24] MEDS ORDERED: ALPRAZolam 0.5 MG TABLET PO PRN (08:09)
[2017-04-24 08:15] LABS: INR 1.7; Prothrombin Time 18.4 Seconds (9.4-12.1)
[2017-04-24] MEDS ORDERED: NON-FORMULARY MEDICATION 1 EACH EACH (Piperacillin-Tazo-Dextrose,Iso [Zosyn 3.375 Gm/50 Ml IV SCH (08:15)
[2017-04-24] MEDS: 0.9 % Sodium Chloride 1,000 ML IVC SCH (08:30)
[2017-04-24] MEDS: Aspirin Enteric Coated 81 MG Tablet PO SCH (08:38)
[2017-04-24] MEDS: Famotidine 20 MG TABLET PO SCH ×2 (08:38→20:35)
[2017-04-24] MEDS: Isosorbide MONOnitrate (24 HR) 60 MG TAB.ER.24H PO SCH (08:38)
[2017-04-24] MEDS: Cholecalciferol (D-3) 1,000 UNIT TABLET PO SCH (08:38)
[2017-04-24] MEDS: Insulin LISPRO 300 UNITS/3 ML VIAL SQ SCH ×4 (08:44→20:22)
[2017-04-24] MEDS: (Fluticasone/Vilanterol [Breo Ellipta 100-25 Mcg Inh]) IH SCH (08:45)
[2017-04-24] MEDS: Piperacillin/Tazobactam 3.375 GM/200 ML BAG IVPB SCH ×2 (10:00→16:12)
--- NOTE | 2017-04-24 16:00 | Urology Progress Note ---
Date of Encounter: 04/24/17 Time of Encounter: 15:59 - Assessment and Plan (1) Hydronephrosis Current Visit: Yes Status: Acute Qualifiers: Hydronephrosis type: unspecified Qualified Code(s): N13.30 - Unspecified hydronephrosis (2) Acute kidney injury Current Visit: No Status: Acute Assessment and plan: almost resolved. likely from dehydration. no urgent urological surgery need. patient will be scheduled with Dr. Bernstein for surgery. Progress Note Narrative: patient seen. sleeping this afternoon. serum creatinine improved to 1.3. Objective Initial Vital Signs Temp Pulse Resp BP Pulse Ox 97.3 F L 86 18 85/45 98 04/22/17 11:15 04/22/17 11:15 04/22/17 11:15 04/22/17 11:15 04/22/17 11:15 - General physical appearance Present: well developed - Abdomen Present: soft - Labs 04/24/17 03:10 04/24/17 03:10 Diabetes panel 04/24/17 Range/Units 03:10 Sodium 133 L (136-145) mEq/L Potassium 3.9 (3.5-5.1) mEq/L Chloride 107 (98-107) mEq/L Carbon Dioxide 19 L (23-29) mEq/L BUN 24 H (8-23) mg/dL Creatinine 1.30 (0.70-1.30) mg/dL Glucose 179 H (70-105) mg/dL Calcium 8.5 L (8.6-10.3) mg/dL Calcium panel 04/24/17 Range/Units 03:10 Calcium 8.5 L (8.6-10.3) mg/dL Pituitary panel 04/24/17 Range/Units 03:10 Sodium 133 L (136-145) mEq/L Potassium 3.9 (3.5-5.1) mEq/L Chloride 107 (98-107) mEq/L Carbon Dioxide 19 L (23-29) mEq/L BUN 24 H (8-23) mg/dL Creatinine 1.30 (0.70-1.30) mg/dL Glucose 179 H (70-105) mg/dL Calcium 8.5 L (8.6-10.3) mg/dL Adrenal panel 04/24/17 Range/Units 03:10 Sodium 133 L (136-145) mEq/L Potassium 3.9 (3.5-5.1) mEq/L Chloride 107 (98-107) mEq/L Carbon Dioxide 19 L (23-29) mEq/L BUN 24 H (8-23) mg/dL Creatinine 1.30 (0.70-1.30) mg/dL Glucose 179 H (70-105) mg/dL Calcium 8.5 L (8.6-10.3) mg/dL Consult Discharge Plan - Plan Referrals: Jayme Alarcon MD [Primary Care Provider] - 05/04/17 2:15 pm
[2017-04-24] MEDS ORDERED: *HR* Warfarin 2 MG TABLET PO SCH (18:00)
[2017-04-24] MEDS: Fenofibrate 54 MG TABLET PO SCH (20:35)
[2017-04-24] MEDS ORDERED: Baclofen 10 MG TABLET PO SCH (21:00)
[2017-04-24] MEDS ORDERED: BuPROPion XL (24 HR) 150 MG TABLET PO SCH (21:00)
[2017-04-25] MEDS: Piperacillin/Tazobactam 3.375 GM/200 ML BAG IVPB SCH ×2 (00:12→08:19)
[2017-04-25 04:43] LABS: Basophils # 0.1 K/mcL (0.0-0.2); Basophils % 0.6 %; Eosinophils # 0.6 K/mcL (0.0-0.6); Eosinophils % 6.3 %; Hematocrit 28.8 % (37.5-50.1); Hemoglobin 9.3 g/dL (12.9-16.9); Immature Granulocytes % 0.5 % (0-4); Lymphocytes # 1.4 K/mcL (0.6-4.6); Lymphocytes % 14.2 %; Mean Corpuscular HGB Conc 32.3 g/dL (31.6-35.5); Mean Corpuscular Hemoglobin 28.1 pg (28.0-33.3); Mean Platelet Volume 10.7 fL (9.4-12.4); Monocytes # 0.7 K/mcL (0.0-1.3); Monocytes % 7.4 %; Neutrophils # 6.7 K/mcL (1.6-8.9); Platelet Count 345 K/mcL (140-400); Red Blood Count 3.31 M/mcL (4.19-5.50); Red Cell Distribution Width 15.5 % (11.5-14.5)
[2017-04-25 04:53] LABS: INR 1.7; Prothrombin Time 18.3 Seconds (9.4-12.1)
[2017-04-25 04:58] LABS: BUN/Creatinine Ratio 20 (6-26); Blood Urea Nitrogen 22 mg/dL (8-23); Calcium 8.4 mg/dL (8.6-10.3); Carbon Dioxide 22 mEq/L (23-29); Chloride 105 mEq/L (98-107); Glucose 165 mg/dL (70-105); Osmolality,Calculated 281 (280-300); Potassium 3.7 mEq/L (3.5-5.1); Sodium 132 mEq/L (136-145); eGFR For African Americans > 60 (> 60); eGFR For Non-African Americans > 60 (> 60)
[2017-04-25] MEDS: Isosorbide MONOnitrate (24 HR) 60 MG TAB.ER.24H PO SCH (08:18)
[2017-04-25] MEDS: Famotidine 20 MG TABLET PO SCH (08:18)
[2017-04-25] MEDS: Cholecalciferol (D-3) 1,000 UNIT TABLET PO SCH (08:18)
[2017-04-25] MEDS: Aspirin Enteric Coated 81 MG Tablet PO SCH (08:18)
[2017-04-25] MEDS: Insulin LISPRO 300 UNITS/3 ML VIAL SQ SCH ×2 (08:19→11:41)
[2017-04-25] MEDS: (Fluticasone/Vilanterol [Breo Ellipta 100-25 Mcg Inh]) IH SCH (08:19)
[2017-04-25 11:25] VITALS: BP 99/65
--- NOTE | 2017-04-25 11:33 | Discharge Summary ---
Date of Encounter: 05/10/17 Time of Encounter: 11:30 - Discharge Diagnosis (1) Sepsis Priority: Primary Status: Acute Comments: Patient had recently been admitted to this facility for urosepsis and hydronephrosis he did have a left ureteral stent placed and was discharged on 04/12 to [facility] for 5 days of IV zosyn. Patient was seen by cafeteria helper prior to admission, had bood work done which showed acute renal failure. Also has some confusing from baseline. CT of abdomen was obtained which did show severe left hydronephrosis with left ureteral calculus and a nonobstructing left renal calculi. Patient was given IV fluids, urology consulte. Dr. Cardoza. Cr trending down He was treated with IV Cefepime. plan to discharge on levofloxacin based on previous culture sensitivity Sepsis from acute pyelonephritis, hydronephrosis obstructive stone Patient has history of Escherichia coli UTI, Escherichia coli is pansensitive. Qualifiers: Sepsis type: sepsis due to unspecified organism Qualified Code(s): A41.9 - Sepsis, unspecified organism (2) Pyelonephritis, acute Priority: Secondary Status: Acute (3) Acute kidney injury Priority: Secondary Status: Acute (5) Encephalopathy acute Priority: Secondary Status: Acute Comments: He had confussion prior to admission which improved with treatment of sepsis. His Encephalopthy is related to sepsis - Discharge Medications Home Medications: Cholecalciferol (Vitamin D3) [Vitamin D3] 50,000 unit PO MO 11/23/14 [History] Lisinopril [Zestril] 40 mg PO DAILY 11/23/14 [History] Gemfibrozil [Lopid] 600 mg PO BIDWM 08/13/15 [History] Oxybutynin Chloride [Ditropan Xl] 10 mg PO HS 08/13/15 [History] Baclofen 20 mg PO HS 08/01/16 [History] Docusate [Colace] 200 mg PO DAILY PRN 08/01/16 [History] [place]-3/Dha/Epa/Fish Oil [Fish Oil 1,000 mg Softgel] 1,000 mg PO TID 08/01/16 [ History] BuPROPion XL (24 HR) [Wellbutrin Xl] 150 mg PO HS 08/28/16 [History] Aspirin Enteric Coated [Aspirin EC] 81 mg PO DAILY #30 tablet. 09/01/16 [Rx] Metoprolol [Lopressor] 25 mg PO BID 03/02/17 [History] Potassium Chloride [K-Tab ER] 20 meq PO DAILY 03/02/17 [History] Metformin HCl [Glucophage] 1,000 mg PO BID 04/03/17 [History] ALPRAZolam [Xanax 1 MG Tablet] 1 mg PO BID PRN #14 tablet 04/12/17 [Rx] ALPRAZolam [Xanax 0.5 MG Tablet] 0.5 mg PO TID PRN 04/22/17 [History] Atorvastatin Calcium [Lipitor] 80 mg PO HS 04/22/17 [History] Fenofibrate Nanocrystallized [Tricor] 145 mg PO HS 04/22/17 [History] Fluticasone/Vilanterol [Breo Ellipta 100-25 Mcg INH] 1 each IH DAILY 04/22/17 [ History] Insulin Regular, Human [Novolin R] 0 - 10 unit SQ ACHS 04/22/17 [History] Isosorbide MONOnitrate [Isosorbide Mononitrate ER] 120 mg PO DAILY 04/22/17 [ History] Pantoprazole Sodium [Protonix] 40 mg PO DAILY 04/22/17 [History] Warfarin [Coumadin] 2 mg PO 1800 04/22/17 [History] Acetaminophen [Tylenol] 650 mg PO Q6HR PRN tablet 04/25/17 [Rx] HYDROcodone/Acet 5/325 mg [[place] 5-325 mg] 1 tab PO Q6H PRN #20 tab 04/27/17 [Rx ] Sulfamethoxazole/Trimeth DS [Bactrim DS] 1 each PO BID #14 tablet 04/27/17 [Rx] Allergies/Adverse Reactions: 3 Allergy/AdvReac Type Severity Reaction Status Date / Time No Known Allergies Allergy Verified 04/28/17 15:13 - Notes to Outpatient Provider Follow-up with the urologist. Date of admission: 04/22/17 21:10 Primary care physician: Jayme Alarcon MD Consults: 04/22/17 22:16 Consult to Bank Runner [CONS] Routine Reason for SW Consult: possible need for ecf upon discharge 04/23/17 12:09 Consult to Physical Therapy [CONS] Routine Comment: Evaluate, develop and implement POC Reason for Consult: weakness 04/23/17 12:10 Consult to Occupational Therapy [CONS] Routine Comment: Evaluate, develop and implement POC Reason for Consult: SNF - Patient Status Disposition: Home, Self-Care Condition: Good Functional capacity at discharge: uses cane/walker Overall status at discharge: patient is back to baseline - Discharge Instructions Instructions: Levofloxacin (By mouth), Acute Kidney Injury (DC), Urinary Tract Infection in Men (DC), Diabetes Mellitus Type 2 in Adults (DC) Follow Up With: Jayme Alarcon MD [Primary Care Provider] - - Diet and Activity Diet: advance to your usual diet Interval History: Patient was treated for acute renal failure and acute pyelonephritis. Renal function improving and then normalized. He denies any back pain. No fever. No burning urination. No chest pain or shortness of breath at rest. Hospital course: Mr. Sapp is a 62 year old male - Time Spent with Patient Total time spent providing and/or coordinating discharge services: Greater than 30 minutes - Constitutional Vitals: Temp Pulse Resp BP Pulse Ox 98.8 F 80 18 99/65 97 04/25/17 11:24 04/25/17 11:24 04/25/17 11:24 04/25/17 11:24 04/25/17 11:24 General appearance: Present: A&O X 2, pleasant, no acute distress Exam: Obese male. No distress. No cyanosis or jaundice. S1-S2 regular. No murmur appreciated. Respiratory system decreased and abolish repetitions or rhonchi. Abdomen obese nontender. No flank tenderness. Extremities no significant edema. SYNTHETIC CLOTH BINDING CUTTER alert awake oriented fusion.
== END 2017-04-25 13:45 | disposition home or self-care (01) | DRG 871 ==
LOC: EMEROO 11:13 → 2NNU 11:13 → OBSVTOIN 21:10 → SUATTDRO 21:10 → 2NNU 21:21
PROVIDERS: ADMIT Hospitalist; ATTEND Hospitalist

== ENCOUNTER 2017-05-22 11:19 | Inpatient (IN) ==
[2017-05-22] MEDS ORDERED: 0.9 % Sodium Chloride 1,000 ML IVC ONE ×2 (11:46→17:35)
--- NOTE | 2017-05-22 11:50 | Emergency Department Note ---
START Narrative - START START: I examined this patient and my medical decision-making was reviewed with the LIMEROCK TOWER LOADER/PA/Advanced Practice Nurse/Resident Physician. I agree with the documented findings, disposition and treatment plan as described except to the extent set forth below. I did see the patient immediately upon arrival the patient is profoundly hypotensive with a systolic blood pressure of 63 and the patient will be given IV fluids, labs, the patient states his recently diagnosed with the flu based on a swab and placed on Tamiflu as well as a antibiotic medication. Patient will be admitted to the hospital. Labs and chest x-ray are pending. EKG will be done. The patient was placed on a stopping builder. 1150 Recheck of the patient shows that the blood pressure has improved to 88 systolic. The patient is getting IV fluids through an 18-gauge needle. Labs are pending. 1205
[2017-05-22] MEDS ORDERED: 0.9 % Sodium Chloride 1,000 ML ONE (11:57)
[2017-05-22] MEDS: 0.9 % Sodium Chloride 1,000 ML IVC SCH ×5 (12:00→17:36)
--- NOTE | 2017-05-22 12:07 | Emergency Department Note ---
Disposition Clinical Impression: Dehydration, Sepsis, UTI (urinary tract infection), Abdominal pain Disposition: Transfer Inpatient Rehab Fac Condition: Fair Instructions: Urinary Tract Infection in Men (ED), Sepsis (GEN), Abdominal Pain (ED) Referrals: Jayme Alarcon MD [Primary Care Provider] - Forms: ED Satisfaction Letter Time of Disposition: 12:52 Weakness HPI - General Chief complaint: ED Weakness Stated complaint: + Flu, getting worse Time Seen by Provider: 05/22/17 11:45 Source: patient, family Limitations: no limitations - History of Present Illness HPI Narrative: Mr Sapp is a 62 yo M recently D/C'ed from [facility] on 04/25/17 for encephalopathy and sepsis, D/C'ed on 04/12/17 for severe sepsis 2/2 UTI, D/C'ed on 03/03/17 for Sepsis 2/2 UTI w/ pmh of Afib, HTN, CAD, ELIN, HIRAL, and T2DM presents to [facility] ED after developing hypotension at his coumadin clinic appointment today (~60's/ ~30's). He's seen with his today, she responds to most of the questions for him. They report that he tested positive for flu in his doctor's office, and was diagnosed with dehydration recently. Patient also reports associated weakness, diarrhea, nausea, vomiting, chills, fever, general aches, "feeling bad in general", and inconsistent abdominal aches diffusely. also has the flu. Patient denies chest pain, lost of consciousness or change in urination patterns. Pt Subjective Complaint: generalized weakness/fatigue Onset (ago): day(s) Duration: constant Location: generalized Migration: none Pain Severity: severe Pain Scale: 10 If pain, quality: aching Improves with: none Worsens with: none Associated symptoms: Reports: diaphoresis, fever/chills, headaches, nausea/ vomiting, myalgias. Denies: chest pain, confusion, dark stools, dysuria, easy bruising - Related Data Home Medications Medication Instructions Recorded Confirmed Cholecalciferol (Vitamin D3) 50,000 unit PO MO 11/23/14 05/12/17 [Vitamin D3] Gemfibrozil [Lopid] 600 mg PO BIDWM 08/13/15 05/12/17 Baclofen 20 mg PO HS 08/01/16 05/12/17 [place]-3/Dha/Epa/Fish Oil [Fish Oil 1,000 mg PO TID 08/01/16 05/12/17 1,000 mg Softgel] BuPROPion XL (24 HR) [Wellbutrin 150 mg PO HS 08/28/16 05/12/17 Xl] Metoprolol [Lopressor] 25 mg PO BID 03/02/17 05/12/17 Potassium Chloride [K-Tab ER] 20 meq PO DAILY 03/02/17 05/12/17 Fenofibrate Nanocrystallized 145 mg PO HS 04/22/17 05/12/17 [Tricor] Isosorbide MONOnitrate [Isosorbide 120 mg PO DAILY 04/22/17 05/12/17 Mononitrate ER] Esomeprazole Magnesium [Nexium] 20 mg PO DAILY 05/12/17 05/12/17 Insulin ASPART [NovoLOG] 0 - 16 unit SQ TIDWM 05/12/17 05/12/17 Insulin Regular U-500 [HumuLIN R 60 unit SQ 05/12/17 05/12/17 U-500] Insulin Regular U-500 [HumuLIN R 80 unit SQ [facility] 05/12/17 05/12/17 U-500] Lisinopril [Zestril] 40 mg PO DAILY 05/12/17 05/12/17 Magnesium Oxide [Magnesium] 400 mg PO DAILY 05/12/17 05/12/17 Ranitidine HCl [Zantac] 150 mg PO BID 05/12/17 05/12/17 Rosuvastatin [Crestor] 40 mg PO HS 05/12/17 05/12/17 Tamsulosin [Flomax] 0.4 mg PO DAILY 05/12/17 05/12/17 Warfarin [Coumadin] 2.5 mg PO 1800 05/12/17 05/12/17 Previous Rx's Medication Instructions Recorded Aspirin Enteric Coated [Aspirin EC] 81 mg PO DAILY #30 tablet. 09/01/16 ALPRAZolam [Xanax 1 MG Tablet] 1 mg PO BID PRN #14 tablet 04/12/17 Allergies Allergy/AdvReac Type Severity Reaction Status Date / Time No Known Allergies Allergy Verified 05/12/17 09:52 All systems ED: reviewed and negative except as stated. Review of Systems: As Per HPI Past Medical History - Past Medical History Attestation: Yes The following information was validated with the patient. Medical history: Reports: arthritis, atrial fibrillation, coronary artery disease, diabetes, GERD, hyperlipidemia, kidney stones, thyroid disease Surgical history: Reports: angioplasty/stent, carotid endarterectomy, other Psychiatric history: Reports: anxiety - Social History Smoking Status: Former smoker Smokeless Tobacco Status: No Alcohol use: Reports: none Drug use: Reports: none Physical Exam - General Limitations: no limitations General appearance: alert, in no apparent distress - Head Head exam: atraumatic, normocephalic, normal inspection - Eye Eye exam: Present: other (pale icterus) - ENT ENT exam: mucous membranes dry - Chest Chest inspection: Present: normal inspection, symmetric chest wall rise - Respiratory Respiratory exam: Present: normal lung sounds bilaterally - Cardiovascular Cardiovascular exam: Present: tachycardia - Abdominal Exam Abdominal exam: Present: soft, Non-Tender, diminished bowel sounds. Absent: guarding Course Course Narrative: patient is ill appearing. Ordered 2 L NS, and labs. - Reevaluation(s) Reevaluation #1: patient remains unchanged, in consistent pain. will admit at this time. Patient unable to urinate for the last few hours, will place sosa at this time. Time: 12:45 Vital Signs Temperature 97.8 F 05/22/17 11:29 Pulse Rate 67 05/22/17 11:29 Respiratory Rate 18 05/22/17 11:29 Blood Pressure 63/41 05/22/17 11:29 O2 Sat by Pulse Oximetry 98 05/22/17 11:29 Temperature 97.8 F 05/22/17 11:29 Pulse Rate 66 05/22/17 12:45 Respiratory Rate 22 05/22/17 12:45 Blood Pressure 96/82 05/22/17 12:45 O2 Sat by Pulse Oximetry 98 05/22/17 12:45 Oxygen Delivery Oxygen Delivery Room Air Weakness - MDM Narrative Medical decision making narrative: patient has multiple recent UTI sepsis admissions and with recent positive flu swab, concerned for sepsis with low BP vs possible cards etiology vs less likely pancreatitis/acute hepatitis. Labs and U/A reviewed. Will admit at this time due to positive flu, acute urinary incontinence, low BP, and recent multiple admissions for sepsis. Patient is high risk for sepsis. - Differential Diagnosis Differential Diagnosis: Likely: anemia, sepsis/infection, dehydration, metabolic - Medical Records Medical records reviewed: Yes I reviewed the patient's medical records. - Lab Data Lab results reviewed: Yes I reviewed the patient's lab results. Result diagrams: 05/22/17 11:53 05/22/17 11:53 Lab Results 05/22/17 05/22/17 05/22/17 Range/Units 11:53 11:53 11:53 WBC 6.8 (4.3-11.1) K/mcL RBC 4.08 L (4.19-5.50) M/mcL Hgb 10.6 L (12.9-16.9) g/dL Hct 34.6 L (37.5-50.1) % MCV 84.8 (83.0-100.0) fL MCH 26.0 L (28.0-33.3) pg MCHC 30.6 L (31.6-35.5) g/dL RDW 16.0 H (11.5-14.5) % Plt Count 533 H (140-400) K/mcL MPV 10.0 (9.4-12.4) fL Immature Gran % 1.0 (0-4) % Seg Neutrophils % 43.3 % Lymphocytes % 45.3 % Monocytes % 5.7 % Eosinophils % 3.8 % Basophils % 0.9 % Neutrophils # 3.0 (1.6-8.9) K/mcL Lymphocytes # 3.1 (0.6-4.6) K/mcL Monocytes # 0.4 (0.0-1.3) K/mcL Eosinophils # 0.3 (0.0-0.6) K/mcL Basophils # 0.1 (0.0-0.2) K/mcL Sodium 133 L (136-145) mEq/L Potassium 5.0 (3.5-5.1) mEq/L Chloride 106 (98-107) mEq/L Carbon Dioxide 20 L (23-29) mEq/L BUN 40 H (8-23) mg/dL Creatinine 1.89 H (0.70-1.30) mg/dL Est GFR ( Amer) 44 L (> 60) Est GFR (Non-Af Amer) 36 L (> 60) BUN/Creatinine Ratio 21 (6-26) Glucose 216 H (70-105) mg/dL Calculated Osmolality 292 (280-300) Lactic Acid (0.5-2.2) mmol/L Calcium 9.1 (8.6-10.3) mg/dL Ammonia 36 (16-53) mcmol/L Troponin I (< 0.04) ng/mL 05/22/17 05/22/17 Range/Units 11:53 11:59 WBC (4.3-11.1) K/mcL RBC (4.19-5.50) M/mcL Hgb (12.9-16.9) g/dL Hct (37.5-50.1) % MCV (83.0-100.0) fL MCH (28.0-33.3) pg MCHC (31.6-35.5) g/dL RDW (11.5-14.5) % Plt Count (140-400) K/mcL MPV (9.4-12.4) fL Immature Gran % (0-4) % Seg Neutrophils % % Lymphocytes % % Monocytes % % Eosinophils % % Basophils % % Neutrophils # (1.6-8.9) K/mcL Lymphocytes # (0.6-4.6) K/mcL Monocytes # (0.0-1.3) K/mcL Eosinophils # (0.0-0.6) K/mcL Basophils # (0.0-0.2) K/mcL Sodium (136-145) mEq/L Potassium (3.5-5.1) mEq/L Chloride (98-107) mEq/L Carbon Dioxide (23-29) mEq/L BUN (8-23) mg/dL Creatinine (0.70-1.30) mg/dL Est GFR ( Amer) (> 60) Est GFR (Non-Af Amer) (> 60) BUN/Creatinine Ratio (6-26) Glucose (70-105) mg/dL Calculated Osmolality (280-300) Lactic Acid 1.4 (0.5-2.2) mmol/L Calcium (8.6-10.3) mg/dL Ammonia (16-53) mcmol/L Troponin I < 0.03 (< 0.04) ng/mL - Radiology Data Radiology results reviewed: Yes I reviewed the patient's radiology results.
[2017-05-22 12:18] LABS: Hematocrit 34.6 % (37.5-50.1); Hemoglobin 10.6 g/dL (12.9-16.9); Lymphocytes % 45.3 %; Mean Corpuscular HGB Conc 30.6 g/dL (31.6-35.5); Mean Corpuscular Volume 84.8 fL (83.0-100.0); Platelet Count 533 K/mcL (140-400); Red Blood Count 4.08 M/mcL (4.19-5.50); Segmented Neutrophils % 43.3 %
[2017-05-22 12:19] LABS: Basophils # 0.1 K/mcL (0.0-0.2); Basophils % 0.9 %; Eosinophils # 0.3 K/mcL (0.0-0.6); Eosinophils % 3.8 %; Lymphocytes # 3.1 K/mcL (0.6-4.6); Monocytes # 0.4 K/mcL (0.0-1.3); Monocytes % 5.7 %
[2017-05-22 12:25] LABS: Calcium 9.1 mg/dL (8.6-10.3)
[2017-05-22 13:24] LABS: Bilirubin,Urine Negative (Negative); Blood,Urine Trace-intact (Negative); Clarity,Urine Slightly Cloudy (Clear); Glucose,Urine (UA) 100 mg/dL (Normal); Ketones,Urine Negative (Negative); Leukocyte Esterase,Urine Negative (Negative); Nitrite,Urine Negative (Negative); PH,Urine 5.5 pH Units (5.0-8.0); Protein,Urine 30 mg/dL (Neg-Trace); Urobilinogen,Urine Normal (Normal)
[2017-05-22 13:25] LABS: Color,Urine Yellow (Yellow)
[2017-05-22 14:12] LABS: INR 6.7; Prothrombin Time 75.7 Seconds (9.4-12.1)
[2017-05-22 15:50] LABS: Hyaline Casts,Urine Few per lpf (None-Few)
[2017-05-22 15:51] LABS: Bacteria,Urine Moderate per hpf (None-Few); Squamous Epithelial Cell,Urine Few per lpf (None-Few)
[2017-05-22 15:52] LABS: RBC,Urine 0-3 per hpf (0-3)
[2017-05-22] MEDS ORDERED: Acetaminophen 325 MG TABLET PO PRN (17:05)
[2017-05-22] MEDS ORDERED: Naloxone 0.4 MG/ML INJ IVP PRN (17:05)
--- NOTE | 2017-05-22 17:10 | Internal Med History&Physical ---
<Alexi Quintana - Last Filed: 05/22/17 18:05> Date of Encounter: 05/22/17 Time of Encounter: 17:08 Assessment and Plan (1) Dehydration Current visit: Yes Status: Acute Most likely from dehydration secondary to N/V/D. Holding patient's home blood pressure medications. Patient received 2 L of normal saline in the ED. Current blood pressure is 104 /69 with a heart rate of 61. Will order 100 mL's per hour maintenance fluid 1. Patient clinically improved greatly after just 2 L of normal saline. (2) Hypotension Current visit: Yes Status: Acute As stated in Dehydration. Qualifiers: Hypotension type: other hypotension type Qualified Code(s): I95.89 - Other hypotension (3) Nausea vomiting and diarrhea Current visit: Yes Status: Acute Patient has had nausea, vomiting, and diarrhea for 3 days denies any blood. Most likely due to a viral illness considering recent sick contacts have similar symptoms Plan disorders CT of the abdomen and pelvis due to the patient's left lower quadrant abdominal pain and supratherapeutic INR to rule out any GI bleed. Fluid hydration as mentioned above. Strict I's and O's. We will recheck electro lites in the morning. PRN Zofran for nausea and vomiting (4) Supratherapeutic INR Current visit: Yes Status: Acute Hold Coumadin. Recheck coags in the morning. Patient will receive one unit FFP tonight. (5) ELIN (acute kidney injury) Current visit: Yes Status: Acute Patient's creatinine was elevated at 1.89 records show a creatinine of 1.27 on 04/27/2017. I suspect this is due to the patient's dehydration. We will treat with IV hydration and recheck BMP in a.m. Avoid nephrotoxic drugs. (6) DM2 (diabetes mellitus, type 2) Current visit: No Status: Chronic Patient will be started on a low-dose sliding scale subcutaneous insulin. He will also be given a basal insulin Levemir 30 units twice a day. Routine glucose checks. Diabetic diet ordered. Qualifiers: Diabetes mellitus complication status: with kidney complications Diabetes mellitus complication detail: with chronic kidney disease Diabetes mellitus penitentiary insulin use: with penitentiary use Chronic kidney disease stage: stage 3 (moderate) Qualified Code(s): E11.22 - Type 2 diabetes mellitus with diabetic chronic kidney disease; N18.3 - Chronic kidney disease, stage 3 ( moderate); N18.3 - Chronic kidney disease, stage 3 (moderate); Z79.4 - retirement (current) use of insulin; Z79.4 - retirement (current) use of insulin; Z79.4 - long term care pharmacist (current) use of insulin; Z79.4 - retirement (current) use of insulin (7) Atrial fibrillation Current visit: No Status: Acute We will hold patient's Lopressor at this time. Continue on cardiac monitoring. Qualifiers: Atrial fibrillation type: paroxysmal Qualified Code(s): I48.0 - Paroxysmal atrial fibrillation (8) CAD (coronary artery disease) Current visit: No Status: Chronic We will hold patient's Lopressor, lisinopril, and continue his home medication mononitrate. Qualifiers: Coronary Disease-Associated Artery/Lesion type: [place] artery [place] vs. transplanted heart: [place] heart Associated angina: without angina Qualified Code(s): I25.10 - Atherosclerotic heart disease of [place] coronary artery without angina pectoris (9) DVT prophylaxis Current visit: No Status: Acute Patient is supratherapeutic, so DVT prophylaxis at this time. Continue to reassess as INR normalizes. Internal Medicine - H&P: HPI Chief complaint: Hypotension; N/V/D; supratherapeutic INR Admitted From: Emergency Dept Plans for Post Hospital Care: Home History of present illness: Mr. Sapp is a 62 year old male with a past medical history of atrial fibrillation, CAD with stents placed one year ago, GERD, HLD, carotid endarterectomy, CVA, kidney stones presenting to the emergency department today from the Coumadin clinic for the complaint of hypotension. The patient states that 5 days ago he was having symptoms of cough and feeling generally ill and was diagnosed with influenza, however he did not have a rapid flu test. At that time he was started on azithromycin and Tamiflu for bronchitis and influenza. Patient states that 3 days ago he developed nausea, vomiting, diarrhea and abdominal pain. He states recent sick contacts include his daughter who has similar symptoms and his who also currently has the same symptoms. The patient was being seen at the Coumadin clinic which he takes for his atrial fibrillation and is found to to be hypotensive in the 60s/40s and his INR supratherapeutic at 6.7. The patient was not sent to the emergency department where he received 2 L of normal saline. His metabolic panel was remarkable for a creatinine of 1.89 with his most recent creatinine being 1. and April. His CBC showed a hemoglobin of 10.6 which is consistent downtrending when compared to his prior. Platelets are also elevated at 533. The patient's UA was negative for infection. Troponin was negative. Lactic acid was 1.4. The patient no imaging done at that time. After receiving the IV fluids the patient's felt symptomatically better. He is admitted to the hospital for his hypotension as well as his GI symptoms and supratherapeutic INR. The patient denies any signs or symptoms of GI bleed including blood in his vomit or red or black and tarry stools. He states that he feels much improved after the fluids. Last episode of diarrhea was this morning and it was brown and watery. Denies any fevers, chills, headache, or chest pain. Patient states he is hungry. Past Med Surg Social Fam HX - Past Medical History Medical history: arthritis, atrial fibrillation, coronary artery disease, CVA, diabetes, GERD, hyperlipidemia, kidney stones, thyroid disease Psychiatric history: anxiety - Past Surgical History Surgical History: angioplasty/stent, carotid endarterectomy, other - Social History Smoking Status: Former smoker Smokeless Tobacco Status: No Alcohol use: none Drug use: none - Family History Mother Family Member Ethnicity: Non- Living Status: Hx Family Cardiac Disorders: No Hx Family Respiratory Disorders: No Hx Family Cancer: No Hx Family GI Disorders: No Hx Family Endocrine Disorder: No Hx Family Neuromuscular Disorders: No Hx Family Neurologic Disorders: No Hx Family HEENT Disorders: No Hx Family Autoimmune Disorders: No Brother Family Member Ethnicity: Non- Living Status: Hx Family Cardiac Disorders: Yes (MD, HD) Sister Family Member Ethnicity: Non- Living Status: Hx Family Cardiac Disorders: Yes Hx Family Cancer: Yes (Ovarian) Father Adopted: No Family Member Ethnicity: Non- Living Status: Hx Family Cardiac Disorders: Yes Hx Family Respiratory Disorders: No Hx Family Cancer: No Hx Family GI Disorders: No Hx Family Endocrine Disorder: No Hx Family Neuromuscular Disorders: No Hx Family Neurologic Disorders: No Hx Family HEENT Disorders: No Hx Family Autoimmune Disorders: No Internal Medicine - H&P: Meds Cholecalciferol (Vitamin D3) [Vitamin D3] 50,000 unit PO MO 11/23/14 [History] Gemfibrozil [Lopid] 600 mg PO BIDWM 08/13/15 [History] Baclofen 20 mg PO HS 08/01/16 [History] [place]-3/Dha/Epa/Fish Oil [Fish Oil 1,000 mg Softgel] 1,000 mg PO TID 08/01/16 [ History] BuPROPion XL (24 HR) [Wellbutrin Xl] 150 mg PO HS 08/28/16 [History] Aspirin Enteric Coated [Aspirin EC] 81 mg PO DAILY #30 tablet. 09/01/16 [Rx] Metoprolol [Lopressor] 25 mg PO BID 03/02/17 [History] Potassium Chloride [K-Tab ER] 20 meq PO DAILY 03/02/17 [History] Fenofibrate Nanocrystallized [Tricor] 145 mg PO HS 04/22/17 [History] Isosorbide MONOnitrate [Isosorbide Mononitrate ER] 120 mg PO DAILY 04/22/17 [ History] Esomeprazole Magnesium [Nexium] 20 mg PO DAILY 05/12/17 [History] Insulin Regular U-500 [HumuLIN R U-500] 60 unit SQ QAM 05/12/17 [History] Insulin Regular U-500 [HumuLIN R U-500] 85 unit SQ HS 05/12/17 [History] Magnesium Oxide [Magnesium] 400 mg PO DAILY 05/12/17 [History] Ranitidine HCl [Zantac] 150 mg PO BID 05/12/17 [History] Rosuvastatin [Crestor] 40 mg PO HS 05/12/17 [History] Tamsulosin [Flomax] 0.4 mg PO DAILY 05/12/17 [History] Warfarin [Coumadin] 2.5 mg PO TUWETH 05/12/17 [History] Cefdinir [Omnicef] 300 mg PO BID 05/22/17 [History] Insulin Regular, Human [Humulin R U-500 Kwikpen] 40 unit SQ 1200 05/22/17 [ History] Lisinopril [Zestril] 20 mg PO DAILY 05/22/17 [History] 3 Allergy/AdvReac Type Severity Reaction Status Date / Time No Known Allergies Allergy Verified 05/12/17 09:52 All Systems PM: A 10-system review of systems was performed and is negative for pertinent findings except as documented above in the HPI. - Constitutional Constitutional: fatigue, no chills, no fever(s) - Cardiovascular Cardiovascular ROS IM: lightheadedness, no chest pain, no diaphoresis, no dyspnea, no dyspnea on exertion, no palpitations, no syncope - Respiratory Respiratory: cough (acute on chronic), no dyspnea on exertion, no wheezing, no pain with cough - Gastrointestinal Gastrointestinal: abdominal pain (diffuse, greatest in LLQ), diarrhea (watery, non-bloody), nausea, vomiting, no coffee ground emesis, no hematemesis, no hematochezia - Hematologic/Lymphatic Hematologic/Lymphatic: no easy bleeding, no easy bruising - Constitutional Vitals: Temp Pulse Resp BP Pulse Ox 96.8 F L 61 16 104/69 96 05/22/17 15:44 05/22/17 15:44 05/22/17 15:44 05/22/17 15:44 05/22/17 15:44 General appearance: Present: A&O X 3, no acute distress, obese Exam: Patient is sitting in bed in no acute distress he speaks to me in full sentences. During my exam the patient gets out of bed to ambulate to the bathroom without difficulty. He has good color. - Head Head exam: Present: atraumatic, normal inspection, normocephalic - Eye Eye exam: Present: EOMI, normal appearance - ENT ENT exam: Present: mucous membranes moist, normal oropharynx - Neck Neck exam general surgery: Present: full ROM, normal inspection, trachea midline. Absent: tenderness - Respiratory Respiratory exam: Present: CTAB. Absent: rhonchi, wheezes - Cardiovascular Cardiovascular exam: Present: RRR, +S1, +S2 - GI/Abdominal GI/Abdominal exam: Present: hyperactive bowel sounds, soft, tenderness (mild diffuse, greatest in LLQ. ), no peritoneal signs. Absent: distended, firm, guarding - Extremities Exam Extremities exam: Present: full ROM, normal capillary refill, normal inspection , warm, radial pulses palpable and symmetrical. Absent: calf tenderness, pedal edema, tenderness - Back Exam Back exam: Present: full ROM, normal inspection. Absent: CVA tenderness (L), CVA tenderness (R) - Neurological Exam Neurological exam: Present: alert, normal gait, oriented X3, no focal deficits - Psychiatric Psychiatric exam: Present: normal affect, normal mood - Skin Skin exam: Present: dry, intact, normal color, warm Internal Med - H&P Results - Labs CBC & Chem 7: 05/22/17 11:53 05/22/17 11:53 <Kendell Mosquera - Last Filed: 05/22/17 22:13> Date of Encounter: 05/22/17 Internal Medicine - H&P: HPI History of present illness: Mr. Sapp is a 62 year old male All Systems PM: A 10-system review of systems was performed and is negative for pertinent findings except as documented above in the HPI. - Constitutional Vitals: Temp Pulse Resp BP Pulse Ox 97.6 F 68 18 101/64 92 05/22/17 19:08 05/22/17 19:08 05/22/17 19:08 05/22/17 19:08 05/22/17 19:08 Internal Med - H&P Results - Labs CBC & Chem 7: 05/22/17 11:53 05/22/17 11:53 - Impressions ITS Impressions Abdomen/Pelvis CT 05/22/17 18:19 IMPRESSION: 1. Interval removal of the left ureteral stent. There is residual mild left hydronephrosis. Perinephric and periureteral fat stranding the left have increased, concerning for pyelonephritis/pyelitis. Unchanged left renal calculi. 2. Unchanged nonobstructing nephrolithiasis on the right. 3. Focal fat stranding involving the subcutaneous fat of the right lower quadrant abdominal wall. Correlate with any clinical evidence of cellulitis in that location. D/ / Kemar Gonzales MD / Kemar Gonzales MD Interpreting Provider: Kemar Gonzales MD - Attending Attestation I examined this patient and my medical decision-making was reviewed with the Resident Physician, Dr Quintana. I agree with the documented findings, disposition and treatment plan as described except to the extent set forth below. Patient sent to the hospital for evaluation of hypotension. He reports a history of diarrhea. On exam he is in no acute distress. Heart is regular. Lungs are clear. Abdomen soft and nontender. Assessment and plan: Dehydration secondary to nausea vomiting and diarrhea causing acute kidney injury. Additionally supratherapeutic INR. Given his hypotension on presentation and supratherapeutic INR there is a concern of occult bleeding. We will transfuse 1 unit of FFP and check CT of the abdomen and pelvis. We will provide IV fluids with normal saline. Kendell Mosquera MD
[2017-05-22] MEDS ORDERED: *HR* Dextrose 50 % in Water (Syg) 50 ML SYRINGE IVP PRN (17:32)
[2017-05-22] MEDS ORDERED: Dextrose Gel 15 GM/37.5 ML TUBE PO PRN ×2 (17:32)
[2017-05-22] MEDS ORDERED: D5% in Water 1,000 ML IVC PRN (17:32)
[2017-05-22] MEDS ORDERED: Ondansetron 4 MG/2 ML VIAL IVP PRN (17:50)
[2017-05-22] MEDS: Insulin LISPRO 300 UNITS/3 ML VIAL SQ SCH (18:13)
[2017-05-22] MEDS: Baclofen 10 MG TABLET PO SCH (20:19)
[2017-05-22] MEDS: BuPROPion XL (24 HR) 150 MG TABLET PO SCH (20:19)
[2017-05-22] MEDS: Famotidine 20 MG TABLET PO SCH (20:19)
[2017-05-22] MEDS: Fenofibrate 54 MG TABLET PO SCH (20:19)
[2017-05-22] MEDS ORDERED: 0.9 % Sodium Chloride 250 ML ONE (22:06)
[2017-05-22] MEDS: Insulin DETEMIR 100 UNIT/ML X5UNITS SQ SCH (23:11)
[2017-05-23 03:53] LABS: Basophils % 0.5 %; Eosinophils # 0.3 K/mcL (0.0-0.6); Hematocrit 30.4 % (37.5-50.1); Hemoglobin 9.3 g/dL (12.9-16.9); Immature Granulocytes % 0.8 % (0-4); Lymphocytes # 2.8 K/mcL (0.6-4.6); Lymphocytes % 43.2 %; Mean Corpuscular HGB Conc 30.6 g/dL (31.6-35.5); Mean Corpuscular Hemoglobin 26.3 pg (28.0-33.3); Mean Corpuscular Volume 85.9 fL (83.0-100.0); Mean Platelet Volume 9.8 fL (9.4-12.4); Monocytes # 0.3 K/mcL (0.0-1.3); Monocytes % 5.2 %; Neutrophils # 2.9 K/mcL (1.6-8.9); Platelet Count 451 K/mcL (140-400); Red Blood Count 3.54 M/mcL (4.19-5.50); Red Cell Distribution Width 15.9 % (11.5-14.5); Segmented Neutrophils % 45.3 %
[2017-05-23 04:15] LABS: INR 4.4; Prothrombin Time 48.6 Seconds (9.4-12.1)
[2017-05-23 04:36] LABS: BUN/Creatinine Ratio 22 (6-26); Blood Urea Nitrogen 31 mg/dL (8-23); Calcium 8.7 mg/dL (8.6-10.3); Carbon Dioxide 21 mEq/L (23-29); Chloride 111 mEq/L (98-107); Glucose 85 mg/dL (70-105); Osmolality,Calculated 292 (280-300); Potassium 4.4 mEq/L (3.5-5.1); Sodium 138 mEq/L (136-145); eGFR For African Americans > 60 (> 60); eGFR For Non-African Americans 51 (> 60)
[2017-05-23] MEDS: Insulin LISPRO 300 UNITS/3 ML VIAL SQ SCH ×3 (07:41→17:07)
[2017-05-23] MEDS: Isosorbide MONOnitrate (24 HR) 60 MG TAB.ER.24H PO SCH (08:24)
[2017-05-23] MEDS: Famotidine 20 MG TABLET PO SCH (08:24)
[2017-05-23] MEDS: Insulin DETEMIR 100 UNIT/ML X5UNITS SQ SCH ×2 (08:30→21:26)
--- NOTE | 2017-05-23 12:16 | Internal Med Progress Note ---
Date of Encounter: 05/23/17 Time of Encounter: 12:14 - Assessment and plan (1) Hypotension Current Visit: Yes Status: Acute Assessment and plan: - Had a recent URI, has been nausea and vomiting, likely dehydration. - Resolved after IV fluid. - We will resume home medication for HTN if BP>140. Qualifiers: Hypotension type: other hypotension type Qualified Code(s): I95.89 - Other hypotension (2) ELIN (acute kidney injury) Current Visit: Yes Status: Acute Assessment and plan: - By reviewing the chart, he had several episodes of history of ELIN in the past. - Unclear if this is because of a kidney stone or other etiology. He underwent stone retrieval last month. - Current ELIN likely due to dehydration. Creatinine trending down to 1.4 this morning from 1.8 yesterday. We will continue IV fluid and repeat RFP in the morning. (3) Anemia Current Visit: Yes Status: Acute Assessment and plan: - Had a chronic anemia started last year. No formal workup documented in the chart. - He is also on Coumadin but he reported he has been follow-up Coumadin clinic regularly and his INR was well controlled. - Last colonoscopy about 4 years ago, no reported abnormalities. - We will check stool for occult blood, reticulocyte count, iron panel. - May consult GI if stool occult blood positive. Qualifiers: Anemia type: unspecified type Qualified Code(s): D64.9 - Anemia, unspecified (4) Afib Current Visit: No Status: Chronic Assessment and plan: - INR 4.4 this morning. Hold Coumadin for today and recheck PT/INR in the morning. Qualifiers: Atrial fibrillation type: persistent Qualified Code(s): I48.1 - Persistent atrial fibrillation (5) HTN (hypertension) Current Visit: No Status: Chronic Assessment and plan: - Well controlled at this time. will resume home meds Lopressor if SBP>140. Qualifiers: Hypertension type: essential hypertension Qualified Code(s): I10 - Essential (primary) hypertension (6) DM2 (diabetes mellitus, type 2) Current Visit: No Status: Chronic Assessment and plan: - Continue current treatment, monitor blood sugar, adjust insulin as indicated. Qualifiers: Diabetes mellitus complication status: with kidney complications Diabetes mellitus complication detail: with chronic kidney disease Diabetes mellitus alf insulin use: with terminal gauger use Chronic kidney disease stage: stage 3 (moderate) Qualified Code(s): E11.22 - Type 2 diabetes mellitus with diabetic chronic kidney disease; N18.3 - Chronic kidney disease, stage 3 ( moderate); N18.3 - Chronic kidney disease, stage 3 (moderate); Z79.4 - assisted (current) use of insulin; Z79.4 - long term (current) use of insulin; Z79.4 - assisted (current) use of insulin; Z79.4 - long term (current) use of insulin (7) Ureterolithiasis Current Visit: No Status: Acute Assessment and plan: - Status post stent removal. (8) Pyelonephritis, acute Current Visit: No Status: Acute Assessment and plan: - UA negative for UTI. - Time Spent With Patient Greater than 35 minutes - Subjective Interval history: Pt denies abd pain, N/V, black or bloody stool. No fever, chills, or night sweats. No chest pain,sob, or cough. - Constitutional Vitals: Temp Pulse Resp BP Pulse Ox 97.7 F 74 16 106/68 98 05/23/17 10:43 05/23/17 10:43 05/23/17 10:43 05/23/17 10:43 05/23/17 10:43 General appearance: Present: A&O X 3, no acute distress, obese Exam: PHYSICAL EXAMINATION: GENERAL APPEARANCE: The patient is alert, oriented and in no acute distress. HEENT: Head is normocephalic. The sinuses are nontender. Pupils are equal and reactive. The nares are patent. Oropharynx clear without lesions. NECK: Supple without lymphadenopathy. HEART: Regular rate and rhythm. LUNGS: No crackles or wheezes are heard. ABDOMEN: Soft, nontender, nondistended with good bowel sounds heard. Inguinal area is normal. EXTREMITIES: Without cyanosis, clubbing or edema. NEUROLOGICAL: Gross nonfocal. SKIN: Warm and dry without any rash. Internal Medicine: Result - Labs CBC & Chem 7: 05/23/17 03:19 05/23/17 03:19 Labs: Short CBC 05/23/17 Range/Units 03:19 WBC 6.4 (4.3-11.1) K/mcL Hgb 9.3 L (12.9-16.9) g/dL Hct 30.4 L (37.5-50.1) % Plt Count 451 H (140-400) K/mcL Neutrophils # 2.9 (1.6-8.9) K/mcL BMP 05/23/17 03:19 Sodium 138 Potassium 4.4 Chloride 111 H Carbon Dioxide 21 L BUN 31 H Creatinine 1.40 H Glucose 85 Calcium 8.7 - ABG Interpretation ABG results: PT/INR, D-dimer PT 48.6 Seconds (9.4-12.1) H* 05/23/17 03:19 - Impressions Impressions Abdomen/Pelvis CT 05/22/17 18:19 IMPRESSION: 1. Interval removal of the left ureteral stent. There is residual mild left hydronephrosis. Perinephric and periureteral fat stranding the left have increased, concerning for pyelonephritis/pyelitis. Unchanged left renal calculi. 2. Unchanged nonobstructing nephrolithiasis on the right. 3. Focal fat stranding involving the subcutaneous fat of the right lower quadrant abdominal wall. Correlate with any clinical evidence of cellulitis in that location. D/ / Kemar Gonzales MD / Kemar Gonzales MD Interpreting Provider: Kemar Gonzales MD Consult Discharge Plan - Plan Referrals: Jayme Alarcon MD [Primary Care Provider] -
[2017-05-23 13:36] LABS: Immature Reticulocyte % 15.7 % (11.0-38.0); Retculocyte # 0.03 M/mcL (0.05-0.10); Reticulocyte % 0.9 % (1.6-2.8)
[2017-05-23 14:03] LABS: % Iron Saturation 18 % (20-55); Iron 53 mcg/dL (65-175); Transferrin 207 mg/dL (203-362)
[2017-05-23] MEDS: Pantoprazole 40 MG VIAL IVP SCH (17:08)
[2017-05-23] MEDS: Fenofibrate 54 MG TABLET PO SCH (20:05)
[2017-05-23] MEDS: Baclofen 10 MG TABLET PO SCH (20:05)
[2017-05-23] MEDS: BuPROPion XL (24 HR) 150 MG TABLET PO SCH (20:05)
[2017-05-24] MEDS: Pantoprazole 40 MG VIAL IVP SCH ×2 (05:07→16:33)
[2017-05-24 05:13] LABS: Hematocrit 28.6 % (37.5-50.1); Hemoglobin 9.1 g/dL (12.9-16.9); Mean Corpuscular HGB Conc 31.8 g/dL (31.6-35.5); Mean Corpuscular Hemoglobin 26.6 pg (28.0-33.3); Mean Corpuscular Volume 83.6 fL (83.0-100.0); Platelet Count 407 K/mcL (140-400); Red Blood Count 3.42 M/mcL (4.19-5.50); Red Cell Distribution Width 15.9 % (11.5-14.5)
[2017-05-24 05:19] LABS: INR 3.1
[2017-05-24 05:29] LABS: Albumin 2.9 g/dL (3.5-5.7); BUN/Creatinine Ratio 20 (6-26); Blood Urea Nitrogen 24 mg/dL (8-23); Carbon Dioxide 22 mEq/L (23-29); Chloride 111 mEq/L (98-107); Glucose 69 mg/dL (70-105); Osmolality,Calculated 290 (280-300); Phosphorous 2.7 mg/dL (2.7-4.5); Sodium 139 mEq/L (136-145); eGFR For African Americans > 60 (> 60); eGFR For Non-African Americans > 60 (> 60)
--- NOTE | 2017-05-24 08:40 | Electrocardiograph Report ---
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
[2017-05-24] MEDS ORDERED: Famotidine 20 MG TABLET PO SCH (09:00)
[2017-05-24] MEDS: Isosorbide MONOnitrate (24 HR) 60 MG TAB.ER.24H PO SCH (09:08)
[2017-05-24] MEDS: Insulin DETEMIR 100 UNIT/ML X5UNITS SQ SCH ×2 (09:09→20:04)
[2017-05-24] MEDS: Insulin LISPRO 300 UNITS/3 ML VIAL SQ SCH ×3 (09:10→16:31)
--- NOTE | 2017-05-24 10:09 | Internal Med Progress Note ---
Date of Encounter: 05/24/17 Time of Encounter: 10:07 - Assessment and plan (1) ELIN (acute kidney injury) Current Visit: Yes Status: Acute Assessment and plan: This is improving. Given hypotension I will restart his IV fluids. Check labs in the morning (2) Hypotension Current Visit: Yes Status: Acute Assessment and plan: - Had a recent URI, has been nausea and vomiting, likely dehydration. This resolved for some time however it is back to being hypotensive this morning. Hold antihypertensives. Continue IV fluids. We will give a 500 mL bolus this morning. Qualifiers: Hypotension type: other hypotension type Qualified Code(s): I95.89 - Other hypotension (3) Nausea vomiting and diarrhea Current Visit: Yes Status: Acute Assessment and plan: Continue symptomatic treatment. (4) Hematemesis Current Visit: Yes Status: Acute Assessment and plan: Gastric fluid positive for blood. Continue IV PPI. GI consult. Nothing by mouth. Check stools for blood. Hemoglobin did drop one cramps since admission. This dropped 3-4 g since early April. H/H Q8hrs Qualifiers: Nausea presence: with nausea Qualified Code(s): K92.0 - Hematemesis (5) Supratherapeutic INR Current Visit: Yes Status: Acute Assessment and plan: INR down to 3.1. No signs of bleeding. Hold Coumadin. Supratherapeutic INR could be secondary to being on cefdinir and Tamiflu recently. (6) Atrial fibrillation Current Visit: No Status: Acute Assessment and plan: Rate controlled. Hold metoprolol due to hypotension. Anticoagulated with Coumadin however INR is supratherapeutic. Qualifiers: Atrial fibrillation type: paroxysmal Qualified Code(s): I48.0 - Paroxysmal atrial fibrillation (7) Diabetes mellitus Current Visit: No Status: Acute Assessment and plan: Continue Levemir 30 units twice a day. Continue insulin sliding scale. Continue with Accu-Cheks Qualifiers: Diabetes mellitus type: type 1 Diabetes mellitus complication status: without complication Qualified Code(s): E10.9 - Type 1 diabetes mellitus without complications (8) DVT prophylaxis Current Visit: No Status: Acute Assessment and plan: INR is supratherapeutic at 3.1. - Subjective Interval history: Patient was examined. Patient's blood pressures on the lower side this morning. He was admitted with hypotension, nausea/vomiting/diarrhea. Nausea/ vomiting/diarrhea seemed to be resolved now. Recently was put on Tamiflu and cefdinir for acute bronchitis and suspected flu although no formal testing was done for the flu. Found to have hypotension and acute kidney failure. Started on IV fluids. Kidney function improved after that. His blood pressure also improved however this morning is on the lower side again. - Constitutional Vitals: Temp Pulse Resp BP Pulse Ox 98.3 F 84 15 79/53 97 05/24/17 08:03 05/24/17 08:03 05/24/17 08:03 05/24/17 08:03 05/24/17 08:03 General appearance: Present: A&O X 3, no acute distress, obese Exam: GEN: NAD CVS: RRR. S1, S2, No m/r/g RESP: CTAB ABD: Soft, NT, ND, +BS EXT: No edema. 2+ DP. No rashes NEURO: Nonfocal Internal Medicine: Result - Labs CBC & Chem 7: 05/24/17 04:20 05/24/17 04:20 Labs: Short CBC 05/24/17 Range/Units 04:20 WBC 6.3 (4.3-11.1) K/mcL Hgb 9.1 L (12.9-16.9) g/dL Hct 28.6 L (37.5-50.1) % Plt Count 407 H (140-400) K/mcL BMP 05/24/17 04:20 Sodium 139 Potassium 4.0 Chloride 111 H Carbon Dioxide 22 L BUN 24 H Creatinine 1.21 Glucose 69 L Calcium 9.0 Liver Function 05/24/17 Range/Units 04:20 Albumin 2.9 L (3.5-5.7) g/dL - ABG Interpretation ABG results: PT/INR, D-dimer PT 34.0 Seconds (9.4-12.1) H 05/24/17 04:20 - VTE Reasons for not Prescribing Prophylaxis: Treatment not Indicated - Low risk for VTE Consult Discharge Plan - Plan Referrals: Jayme Alarcon MD [Primary Care Provider] -
[2017-05-24] MEDS ORDERED: 0.9 % Sodium Chloride 500 ML IVC ONE (10:10)
[2017-05-24] MEDS: 0.9 % Sodium Chloride 1,000 ML IVC SCH ×2 (11:05→21:38)
[2017-05-24 14:14] LABS: Hematocrit 28.7 % (37.5-50.1); Hemoglobin 8.9 g/dL (12.9-16.9)
[2017-05-24 14:55] LABS: % Iron Saturation 20 % (20-55); Ferritin 830 ng/ml (20-250); Iron 57 mcg/dL (65-175); Transferrin 205 mg/dL (203-362)
[2017-05-24 15:02] LABS: Folate 8.2 ng/mL (3.0-16.0)
[2017-05-24] MEDS ORDERED: Warfarin perPT PO PRN (18:00)
[2017-05-24] MEDS: Baclofen 10 MG TABLET PO SCH (20:04)
[2017-05-24] MEDS: Fenofibrate 54 MG TABLET PO SCH (20:04)
[2017-05-24] MEDS: BuPROPion XL (24 HR) 150 MG TABLET PO SCH (20:04)
[2017-05-24 21:40] LABS: Hematocrit 26.5 % (37.5-50.1); Hemoglobin 8.4 g/dL (12.9-16.9)
[2017-05-25] MEDS: Pantoprazole 40 MG VIAL IVP SCH ×2 (05:09→16:24)
[2017-05-25 05:49] LABS: Basophils % 0.7 %; Eosinophils # 0.3 K/mcL (0.0-0.6); Eosinophils % 4.3 %; Hematocrit 27.5 % (37.5-50.1); Hemoglobin 8.6 g/dL (12.9-16.9); Immature Granulocytes % 1.7 % (0-4); Lymphocytes # 2.4 K/mcL (0.6-4.6); Lymphocytes % 41.7 %; Mean Corpuscular HGB Conc 31.3 g/dL (31.6-35.5); Mean Corpuscular Hemoglobin 26.5 pg (28.0-33.3); Mean Corpuscular Volume 84.6 fL (83.0-100.0); Mean Platelet Volume 10.1 fL (9.4-12.4); Monocytes # 0.4 K/mcL (0.0-1.3); Monocytes % 6.1 %; Neutrophils # 2.6 K/mcL (1.6-8.9); Platelet Count 391 K/mcL (140-400); Red Blood Count 3.25 M/mcL (4.19-5.50); Segmented Neutrophils % 45.5 %
[2017-05-25 05:54] LABS: INR 2.3; Prothrombin Time 25.2 Seconds (9.4-12.1)
[2017-05-25 06:05] LABS: BUN/Creatinine Ratio 16 (6-26); Blood Urea Nitrogen 17 mg/dL (8-23); Calcium 8.7 mg/dL (8.6-10.3); Carbon Dioxide 22 mEq/L (23-29); Chloride 112 mEq/L (98-107); Glucose 56 mg/dL (70-105); Osmolality,Calculated 289 (280-300); Potassium 3.6 mEq/L (3.5-5.1); Sodium 140 mEq/L (136-145); eGFR For African Americans > 60 (> 60); eGFR For Non-African Americans > 60 (> 60)
[2017-05-25] MEDS: Insulin LISPRO 300 UNITS/3 ML VIAL SQ SCH ×4 (07:32→20:28)
--- NOTE | 2017-05-25 07:50 | Internal Med Progress Note ---
Date of Encounter: 05/25/17 Time of Encounter: 07:47 - Assessment and plan (1) ELIN (acute kidney injury) Current Visit: Yes Status: Acute Assessment and plan: This is improving. Stop IV fluids. Check labs in the morning (2) Hypotension Current Visit: Yes Status: Acute Assessment and plan: Had a recent URI, has been having nausea and vomiting, likely dehydration. resolved with IVF. Stop IVF. Qualifiers: Hypotension type: other hypotension type Qualified Code(s): I95.89 - Other hypotension (3) Nausea vomiting and diarrhea Current Visit: Yes Status: Acute Assessment and plan: Continue symptomatic treatment. (4) GI bleed Current Visit: Yes Status: Acute Assessment and plan: stools are also positive. Continue IV PPI. GI to see. he had breakfast already unfortunately. Will likely need to be NPO after midnight but will leave up to GI when they see him. Hemoglobin continues to drop 2g total since admission. since admission. This dropped 3-4 g since early April. H/H Q8hrs Qualifiers: GI bleed type/associated pathology: unspecified gastrointestinal hemorrhage type Qualified Code(s): K92.2 - Gastrointestinal hemorrhage, unspecified (5) Supratherapeutic INR Current Visit: Yes Status: Acute Assessment and plan: INR down to 2.3. No signs of bleeding. Hold Coumadin again till seen by GI. Supratherapeutic INR could be secondary to being on cefdinir and Tamiflu recently. (6) Atrial fibrillation Current Visit: No Status: Acute Assessment and plan: Rate controlled. resume metoprolol now that BP is elevated. Anticoagulated with Coumadin but that is on hold now due to high GI bleed. Qualifiers: Atrial fibrillation type: paroxysmal Qualified Code(s): I48.0 - Paroxysmal atrial fibrillation (7) Diabetes mellitus Current Visit: No Status: Acute Assessment and plan: hold levemir with glucose in the 50-60s. c/w SSI. Continue with Accu-Cheks Qualifiers: Diabetes mellitus type: type 1 Diabetes mellitus complication status: without complication Qualified Code(s): E10.9 - Type 1 diabetes mellitus without complications (8) Severe protein-calorie malnutrition Current Visit: Yes Status: Acute Assessment and plan: dietary following. on dietary supplements. (9) DVT prophylaxis Current Visit: No Status: Acute Assessment and plan: INR is 2.3 - Subjective Interval history: Patient was examined. Patient's blood pressures much improved. It is actually on the higher side now. With a systolic in the 150s. The patient been afebrile. He was admitted with hypotension, nausea/vomiting/diarrhea. Denies bloody stools or hematemesis. Nausea/vomiting/diarrhea is much improved. Glucose in 50-60s this morning but no symptoms. Recently was put on Tamiflu and cefdinir for acute bronchitis and suspected flu although no formal testing was done for the flu. Found to have hypotension and acute kidney failure. Started on IV fluids. Kidney function improved after that. - Constitutional Vitals: Temp Pulse Resp BP Pulse Ox 97.5 F L 75 16 159/89 99 05/25/17 07:38 05/25/17 07:38 05/25/17 07:38 05/25/17 07:38 05/25/17 07:38 General appearance: Present: A&O X 3, no acute distress, obese Exam: GEN: NAD CVS: RRR. S1, S2, No m/r/g RESP: CTAB ABD: Soft, NT, ND, +BS EXT: No edema. 2+ DP. No rashes NEURO: Nonfocal Internal Medicine: Result - Labs CBC & Chem 7: 05/25/17 04:23 05/25/17 04:23 Labs: Short CBC 05/24/17 05/24/17 05/25/17 Range/Units 13:43 21:30 04:23 WBC 5.8 (4.3-11.1) K/mcL Hgb 8.9 L 8.4 L 8.6 L (12.9-16.9) g/dL Hct 28.7 L 26.5 L 27.5 L (37.5-50.1) % Plt Count 391 (140-400) K/mcL Neutrophils # 2.6 (1.6-8.9) K/mcL BMP 05/25/17 04:23 Sodium 140 Potassium 3.6 Chloride 112 H Carbon Dioxide 22 L BUN 17 Creatinine 1.08 Glucose 56 L Calcium 8.7 - ABG Interpretation ABG results: PT/INR, D-dimer PT 25.2 Seconds (9.4-12.1) H 05/25/17 04:23 - VTE Reasons for not Prescribing Prophylaxis: Treatment not Indicated - Low risk for VTE Consult Discharge Plan - Plan Referrals: Jayme Alarcon MD [Primary Care Provider] -
[2017-05-25] MEDS: Isosorbide MONOnitrate (24 HR) 60 MG TAB.ER.24H PO SCH (08:54)
[2017-05-25] MEDS ORDERED: (Omega-3/Dha/Epa/Fish Oil [Fish Oil 1,000 Mg Softgel]) PO SCH (09:00)
[2017-05-25] MEDS: 0.9 % Sodium Chloride 1,000 ML IVC SCH (09:01)
--- NOTE | 2017-05-25 13:23 | Gastroenterology Consult Note ---
<Wesley Bell - Last Filed: 05/25/17 13:20> Date of Encounter: 05/25/17 Time of Encounter: 10:40 - Assessment and plan (1) Anemia Current Visit: Yes Status: Acute Assessment and plan: Hgb 04/12/2017 was 13.4. On admission Hgb 10.6 and this AM Hgb 8.6. Continue to monitor CBC and transfuse PRBC as indicated. Plan for EGD and colonoscopy tomorrow. Clear liquid diet today, no red or purple. NPO at midnight. If unable tolerate NuLytely please use MiraLAX prep. If not clear by 6 AM, give 2 tap water enemas. Qualifiers: Anemia type: unspecified type Qualified Code(s): D64.9 - Anemia, unspecified (2) Fecal occult blood test positive Current Visit: Yes Status: Acute Assessment and plan: Plan for EGD and colonoscopy tomorrow. (3) Supratherapeutic INR Current Visit: Yes Status: Acute Assessment and plan: INR 6.7 on admission. He has received 2 units FFP. INR today 2.3. Consider transfusing additional FFP or giving Vitamin K for EGD and colonoscopy tomorrow. (4) Elevated ferritin Current Visit: Yes Status: Acute Assessment and plan: Ferritin 830, check hemochromatosis panel. - Time Spent With Patient Total time spent is greater than 50% in coordination of care (as documented) at patient's floor/unit and/or counseling patient: GI History of Present Illness - Data of Consult Patient: new to practice Consult date: 05/25/17 Requesting Physician: Rubi Preciado CNP - Consult Narrative Reason for consult: GI bleed History of present illness: Mr. Sapp is a 62 year old male With PMHx of arthritis, Afib on Coumadin, CAD with stents placed one year ago, CVA, DM, GERD, HLD, carotid endarterectomy who presented to the ED from the [facility] with hypotension. The patient states that 5 days prior to admission he was having symptoms of cough and feeling generally ill and was diagnosed with influenza, however he did not have a rapid flu test. At that time he was started on azithromycin and Tamiflu for bronchitis and influenza. Patient states that 3 days prior to admission he developed nausea, vomiting, diarrhea and abdominal pain. The patient was being seen at the Coumadin clinic which he takes for his atrial fibrillation and is found to be hypotensive in the 60s/40s and his INR supratherapeutic at 6.7. His CBC showed Hgb of 10.6 which is consistent downtrending when compared to his prior. He denied fever, chills, chest pain. We were consulted to evaluate his anemia. Hgb this AM 8.6 and INR 2.3. Fecal occult blood test positive. Procedures: Colonoscopy 12/13/2008 Dr. Dwyer: Hyperplastic polyp and tubular adenoma. NSAIDs: ASA Anticoagulation: Coumadin Past Med Surg Social Fam HX - Past Medical History Medical history: arthritis, atrial fibrillation, coronary artery disease, CVA, diabetes, GERD, hyperlipidemia, kidney stones, thyroid disease Psychiatric history: anxiety - Past Surgical History Surgical History: angioplasty/stent, carotid endarterectomy, other - Social History Smoking Status: Former smoker Smokeless Tobacco Status: No Alcohol use: none Drug use: none - Family History Mother Family Member Ethnicity: Non- Living Status: Hx Family Cardiac Disorders: No Hx Family Respiratory Disorders: No Hx Family Cancer: No Hx Family GI Disorders: No Hx Family Endocrine Disorder: No Hx Family Neuromuscular Disorders: No Hx Family Neurologic Disorders: No Hx Family HEENT Disorders: No Hx Family Autoimmune Disorders: No Brother Family Member Ethnicity: Non- Living Status: Hx Family Cardiac Disorders: Yes (NM, HD) Sister Family Member Ethnicity: Non- Living Status: Hx Family Cardiac Disorders: Yes Hx Family Cancer: Yes (Ovarian) Father Adopted: No Family Member Ethnicity: Non- Living Status: Hx Family Cardiac Disorders: Yes Hx Family Respiratory Disorders: No Hx Family Cancer: No Hx Family GI Disorders: No Hx Family Endocrine Disorder: No Hx Family Neuromuscular Disorders: No Hx Family Neurologic Disorders: No Hx Family HEENT Disorders: No Hx Family Autoimmune Disorders: No - Gastrointestinal Gastrointestinal: Present: as per HPI - Constitutional Constitutional: as per HPI - EENT Eyes: as per HPI Ears: Present: as per HPI Nose, mouth and throat: Present: as per HPI - Cardiovascular Cardiovascular ROS: Present: as per HPI - Respiratory Respiratory IM: Present: as per HPI - Genitourinary Genitourinary: Absent: change in color, Urinary frequency - Neurological ROS Neurological GI: Present: as per HPI - Hematologic/Lymphatic Hematologic/Lymphatic pediatric: Present: as per HPI - Musculoskeletal Musculoskeletal ROS GI: Present: as per HPI - Integumentary Integumentary GI: Present: as per HPI - Psychiatric ROS Psychiatric GI: Present: as per HPI - Endocrine Endocrine IM: Present: as per HPI - Constitutional Vitals: Temp Pulse Resp BP Pulse Ox 97.5 F L 76 16 147/75 97 05/25/17 12:37 05/25/17 12:37 05/25/17 12:37 05/25/17 12:37 05/25/17 12:37 General appearance: Present: cooperative, A&O X 3, no acute distress, answers questions appropriately - Head Head exam: Present: atraumatic, normocephalic - Eye Eye exam: Present: normal appearance, sclera anicteric - ENT ENT exam: Present: mucous membranes moist - Neck Neck exam general surgery: Present: normal inspection, trachea midline - Respiratory Respiratory exam: Present: CTAB. Absent: rales, rhonchi - Cardiovascular Cardiovascular exam: Present: RRR, +S1, +S2 - GI/Abdominal GI/Abdominal exam: Present: soft, no peritoneal signs. Absent: distended, firm , guarding, tenderness - Rectal Rectal exam: Present: deferred - Extremities Exam Extremities exam: Present: warm - Neurological Exam Neurological exam: Present: no focal deficits - Psychiatric Psychiatric exam: Present: normal affect, normal mood - Skin Skin exam: Present: dry, intact, normal color, warm Results - Labs CBC & Chem 7: 05/25/17 04:23 05/25/17 04:23 Labs: Last Result Calcium 8.7 mg/dL (8.6-10.3) 05/25/17 04:23 Iron 57 mcg/dL (65-175) L 05/24/17 13:43 % Saturation 20 % (20-55) 05/24/17 13:43 Transferrin 205 mg/dL (203-362) 05/24/17 13:43 Ferritin 830 ng/ml (20-250) H 05/24/17 13:43 Troponin I < 0.03 ng/mL (< 0.04) 05/22/17 11:53 Vitamin B12 259 pg/mL (250-1100) 05/24/17 13:43 Folate 8.2 ng/mL (3.0-16.0) 05/24/17 13:43 Stool Occult Blood Positive (Negative) A 05/24/17 08:25 Entire Visit Hgb 8.6 g/dL (12.9-16.9) L 05/25/17 04:23 Hct 27.5 % (37.5-50.1) L 05/25/17 04:23 PT 25.2 Seconds (9.4-12.1) H 05/25/17 04:23 Ferritin 830 ng/ml (20-250) H 05/24/17 13:43 Ammonia 36 mcmol/L (16-53) 05/22/17 11:53 Folate 8.2 ng/mL (3.0-16.0) 05/24/17 13:43 - ABG ABG results: PT/INR, D-dimer PT 25.2 Seconds (9.4-12.1) H 05/25/17 04:23 Consult Discharge Plan - Plan Referrals: Jayme Alarcon MD [Primary Care Provider] - <Ramirez Carson - Last Filed: 05/25/17 19:05> Date of Encounter: 05/25/17 Time of Encounter: 17:30 - Time Spent With Patient Total time spent is greater than 50% in coordination of care (as documented) at patient's floor/unit and/or counseling patient: GI History of Present Illness - Data of Consult Requesting Physician: Rubi Preciado CNP - Consult Narrative History of present illness: Mr. Sapp is a 62 year old male - Constitutional Vitals: Temp Pulse Resp BP Pulse Ox 97.5 F L 68 16 110/64 97 05/25/17 15:52 05/25/17 15:52 05/25/17 15:52 05/25/17 15:52 05/25/17 15:52 Results - Labs CBC & Chem 7: 05/25/17 04:23 05/25/17 04:23 Labs: Last Result Calcium 8.7 mg/dL (8.6-10.3) 05/25/17 04:23 Iron 57 mcg/dL (65-175) L 05/24/17 13:43 % Saturation 20 % (20-55) 05/24/17 13:43 Transferrin 205 mg/dL (203-362) 05/24/17 13:43 Ferritin 830 ng/ml (20-250) H 05/24/17 13:43 Troponin I < 0.03 ng/mL (< 0.04) 05/22/17 11:53 Vitamin B12 259 pg/mL (250-1100) 05/24/17 13:43 Folate 8.2 ng/mL (3.0-16.0) 05/24/17 13:43 Stool Occult Blood Positive (Negative) A 05/24/17 08:25 Entire Visit Hgb 8.6 g/dL (12.9-16.9) L 05/25/17 04:23 Hct 27.5 % (37.5-50.1) L 05/25/17 04:23 PT 25.2 Seconds (9.4-12.1) H 05/25/17 04:23 Ferritin 830 ng/ml (20-250) H 05/24/17 13:43 Ammonia 36 mcmol/L (16-53) 05/22/17 11:53 Folate 8.2 ng/mL (3.0-16.0) 05/24/17 13:43 - ABG ABG results: PT/INR, D-dimer PT 25.2 Seconds (9.4-12.1) H 05/25/17 04:23 - Attending Attestation I examined this patient and my medical decision-making was reviewed with the DAY GUARD. I agree with the documented findings, disposition and treatment plan as described except to the extent set forth below. Patient 62-year-old male with the anemia. Did had supratherapeutic INR on presentation. Recommendation: Correction of coagulopathy, EGD colonoscopy to rule out GI causes for blood losses
[2017-05-25] MEDS ORDERED: SODIUM CHLORIDE/NAHCO3/KCL/PEG 4,000 ML SOLN.RECON PO ONE (17:00)
[2017-05-25] MEDS: Fenofibrate 54 MG TABLET PO SCH (20:28)
[2017-05-25] MEDS: BuPROPion XL (24 HR) 150 MG TABLET PO SCH (20:28)
[2017-05-25] MEDS: Baclofen 10 MG TABLET PO SCH (20:28)
[2017-05-26 05:23] LABS: Prothrombin Time 22.2 Seconds (9.4-12.1)
[2017-05-26 05:25] LABS: Basophils % 0.6 %; Eosinophils # 0.3 K/mcL (0.0-0.6); Eosinophils % 4.6 %; Hematocrit 29.7 % (37.5-50.1); Hemoglobin 9.2 g/dL (12.9-16.9); Immature Granulocytes % 1.6 % (0-4); Lymphocytes # 2.8 K/mcL (0.6-4.6); Mean Corpuscular Hemoglobin 26.4 pg (28.0-33.3); Mean Corpuscular Volume 85.3 fL (83.0-100.0); Mean Platelet Volume 10.1 fL (9.4-12.4); Monocytes # 0.4 K/mcL (0.0-1.3); Neutrophils # 3.1 K/mcL (1.6-8.9); Platelet Count 438 K/mcL (140-400); Red Blood Count 3.48 M/mcL (4.19-5.50); Red Cell Distribution Width 16.7 % (11.5-14.5); Segmented Neutrophils % 46.2 %
[2017-05-26 05:53] LABS: BUN/Creatinine Ratio 12 (6-26); Blood Urea Nitrogen 13 mg/dL (8-23); Carbon Dioxide 22 mEq/L (23-29); Chloride 108 mEq/L (98-107); Glucose 103 mg/dL (70-105); Osmolality,Calculated 286 (280-300); Potassium 3.7 mEq/L (3.5-5.1); Sodium 138 mEq/L (136-145); eGFR For African Americans > 60 (> 60); eGFR For Non-African Americans > 60 (> 60)
[2017-05-26] MEDS: Pantoprazole 40 MG VIAL IVP SCH ×2 (06:14→17:05)
[2017-05-26] MEDS: Insulin LISPRO 300 UNITS/3 ML VIAL SQ SCH ×4 (08:08→20:19)
[2017-05-26] MEDS: Isosorbide MONOnitrate (24 HR) 60 MG TAB.ER.24H PO SCH (09:18)
--- NOTE | 2017-05-26 09:36 | Internal Med Progress Note ---
Date of Encounter: 05/26/17 Time of Encounter: 10:20 - Assessment and plan (1) GI bleed Current Visit: Yes Status: Suspected Assessment and plan: Possible GI bleed. Hemoglobin levels are stable here. He did have a drop in his hemoglobin over the past month. Plan for upper GI endoscopy and colonoscopy today. Will follow results. Continue PPI. Qualifiers: GI bleed type/associated pathology: unspecified gastrointestinal hemorrhage type Qualified Code(s): K92.2 - Gastrointestinal hemorrhage, unspecified (2) Anemia Current Visit: Yes Status: Acute Assessment and plan: Hemoglobin 9.2 this morning. Planned upper GI endoscopy and colonoscopy today. Qualifiers: Anemia type: unspecified type Qualified Code(s): D64.9 - Anemia, unspecified (3) ELIN (acute kidney injury) Current Visit: Yes Status: Resolved Assessment and plan: Renal function back to baseline. (4) Atrial fibrillation Current Visit: Yes Status: Acute Assessment and plan: Rate controlled. Coumadin on hold due to possible GI bleed. Qualifiers: Atrial fibrillation type: paroxysmal Qualified Code(s): I48.0 - Paroxysmal atrial fibrillation (5) Diabetes mellitus Current Visit: Yes Status: Chronic Assessment and plan: Well controlled. Continue current insulin regimen and diabetic diet once patient is able to eat Qualifiers: Diabetes mellitus type: type 1 Diabetes mellitus complication status: without complication Qualified Code(s): E10.9 - Type 1 diabetes mellitus without complications (6) DVT prophylaxis Current Visit: No Status: Acute Assessment and plan: With SCDs (7) Hypotension Current Visit: Yes Status: Resolved Assessment and plan: Improved now. Hypotension could be related to dehydration and anemia. We will continue to monitor blood pressure closely. Qualifiers: Hypotension type: other hypotension type Qualified Code(s): I95.89 - Other hypotension (8) Severe protein-calorie malnutrition Current Visit: Yes Status: Acute Assessment and plan: Nutrition following. Diabetic diet. (9) Supratherapeutic INR Current Visit: Yes Status: Acute Assessment and plan: Improved now. INR 2 today. Will transfuse 1 more unit of fresh frozen plasma as patient is to undergo upper GI endoscopy and colonoscopy today. Continue to hold Coumadin. - Subjective Interval history: Patient is awake and alert. Awaiting EGD and colonoscopy planned for later today new complaints at this time. No hematemesis or melena. - Constitutional Vitals: Temp Pulse Resp BP Pulse Ox 97.6 F 68 16 129/86 98 05/26/17 07:03 05/26/17 07:03 05/26/17 07:03 05/26/17 07:03 05/26/17 07:03 General appearance: Present: A&O X 3, no acute distress, obese, answers questions appropriately - Neck Neck exam general surgery: Present: supple, trachea midline. Absent: lymphadenopathy - Respiratory Respiratory exam: Present: CTAB. Absent: accessory muscle use, rales, rhonchi, wheezes - Cardiovascular Cardiovascular exam: Present: RRR, +S1, +S2. Absent: diastolic murmur, gallop, rubs, systolic murmur - GI/Abdominal GI/Abdominal exam: Present: normal bowel sounds, soft, no peritoneal signs. Absent: distended, tenderness - Extremities Exam Extremities exam: Present: warm, radial pulses palpable and symmetrical. Absent : calf tenderness, cyanotic, pedal edema Internal Medicine: Result - Labs CBC & Chem 7: 05/26/17 04:12 05/26/17 04:12 Labs: Short CBC 05/26/17 Range/Units 04:12 WBC 6.7 (4.3-11.1) K/mcL Hgb 9.2 L (12.9-16.9) g/dL Hct 29.7 L (37.5-50.1) % Plt Count 438 H (140-400) K/mcL Neutrophils # 3.1 (1.6-8.9) K/mcL BMP 05/26/17 04:12 Sodium 138 Potassium 3.7 Chloride 108 H Carbon Dioxide 22 L BUN 13 Creatinine 1.06 Glucose 103 Calcium 9.0 - ABG Interpretation ABG results: PT/INR, D-dimer PT 22.2 Seconds (9.4-12.1) H 05/26/17 04:12 - VTE Reasons for not Prescribing Prophylaxis: Treatment not Indicated - Low risk for VTE Consult Discharge Plan - Plan Referrals: Jayme Alarcon MD [Primary Care Provider] - 05/29/17 9:00 am
[2017-05-26] MEDS ORDERED: 0.9 % Sodium Chloride 250 ML ONE (10:53)
[2017-05-26] MEDS ORDERED: Propofol 500 MG/50 ML INFUS..BTL ONE (13:34)
[2017-05-26] MEDS ORDERED: Lidocaine -MPF 2% 2 ML VIAL ONE (13:35)
--- NOTE | 2017-05-26 13:45 | Anesthesia Evaluation PreOp ---
Date of Encounter: 05/26/17 Time of Encounter: 13:40 - Past History Planned Operation: EGD/Colon Cardiac History: Arrhythmia (Paroxysmal AFib anticoagulated on Coumadin admitted with supratherapeutic INR), Other (ECHO 01/2016 - Impressions: Sinus rhythm with frequent PVCs. Normal LV systolic function, LVEF 60-65%. Mild concentric left ventricular hypertrophy. Moderate left ventricular diastolic dysfunction. Normal right ventricular structure and function. Mildly dilated left atrium. No significant valvular dysfunction. Unable to estimate RVSP due to lack of TR jet. Left Ventricular Wall Motion: Rest Echo Findings All wall segments showed normal motion.) Other Medical History: Diabetes Type II, Other ("Severe protein calorie malnutrition noted on H&P) Anesthesia History: No Prior Anesthetic Complications, Past Anesthesia Alcohol Use: none Drug use: none Medications and Allergies Cholecalciferol (Vitamin D3) [Vitamin D3] 50,000 unit PO MO 11/23/14 [History] Gemfibrozil [Lopid] 600 mg PO BIDWM 08/13/15 [History] Baclofen 20 mg PO HS 08/01/16 [History] [place]-3/Dha/Epa/Fish Oil [Fish Oil 1,000 mg Softgel] 1,000 mg PO TID 08/01/16 [ History] BuPROPion XL (24 HR) [Wellbutrin Xl] 150 mg PO HS 08/28/16 [History] Aspirin Enteric Coated [Aspirin EC] 81 mg PO DAILY #30 tablet. 09/01/16 [Rx] Metoprolol [Lopressor] 25 mg PO BID 03/02/17 [History] Potassium Chloride [K-Tab ER] 20 meq PO DAILY 03/02/17 [History] Fenofibrate Nanocrystallized [Tricor] 145 mg PO HS 04/22/17 [History] Isosorbide MONOnitrate [Isosorbide Mononitrate ER] 120 mg PO DAILY 04/22/17 [ History] Esomeprazole Magnesium [Nexium] 20 mg PO DAILY 05/12/17 [History] Insulin Regular U-500 [HumuLIN R U-500] 60 unit SQ QAM 05/12/17 [History] Insulin Regular U-500 [HumuLIN R U-500] 85 unit SQ HS 05/12/17 [History] Magnesium Oxide [Magnesium] 400 mg PO DAILY 05/12/17 [History] Ranitidine HCl [Zantac] 150 mg PO BID 05/12/17 [History] Rosuvastatin [Crestor] 40 mg PO HS 05/12/17 [History] Tamsulosin [Flomax] 0.4 mg PO DAILY 05/12/17 [History] Warfarin [Coumadin] 2.5 mg PO WETH 05/12/17 [History] Cefdinir [Omnicef] 300 mg PO BID 05/22/17 [History] Insulin Regular, Human [Humulin R U-500 Kwikpen] 40 unit SQ 1200 05/22/17 [ History] Lisinopril [Zestril] 20 mg PO DAILY 05/22/17 [History] 3 Allergy/AdvReac Type Severity Reaction Status Date / Time No Known Allergies Allergy Verified 05/12/17 09:52 - Meds/Allergy Pre-op Review Medications Reviewed: Yes Allergies Reviewed: Yes Anesthesia Results - Labs 05/26/17 04:12 05/26/17 04:12 Laboratory Results WBC 6.7 K/mcL (4.3-11.1) 05/26/17 04:12 RBC 3.48 M/mcL (4.19-5.50) L 05/26/17 04:12 Hgb 9.2 g/dL (12.9-16.9) L 05/26/17 04:12 Hct 29.7 % (37.5-50.1) L 05/26/17 04:12 MCV 85.3 fL (83.0-100.0) 05/26/17 04:12 MCH 26.4 pg (28.0-33.3) L 05/26/17 04:12 MCHC 31.0 g/dL (31.6-35.5) L 05/26/17 04:12 RDW 16.7 % (11.5-14.5) H 05/26/17 04:12 Plt Count 438 K/mcL (140-400) H 05/26/17 04:12 MPV 10.1 fL (9.4-12.4) 05/26/17 04:12 Reticulocyte # 0.03 M/mcL (0.05-0.10) L 05/23/17 13:20 Immature Gran % 1.6 % (0-4) 05/26/17 04:12 Seg Neutrophils % 46.2 % 05/26/17 04:12 Lymphocytes % 41.0 % 05/26/17 04:12 Monocytes % 6.0 % 05/26/17 04:12 Eosinophils % 4.6 % 05/26/17 04:12 Basophils % 0.6 % 05/26/17 04:12 Neutrophils # 3.1 K/mcL (1.6-8.9) 05/26/17 04:12 Lymphocytes # 2.8 K/mcL (0.6-4.6) 05/26/17 04:12 Monocytes # 0.4 K/mcL (0.0-1.3) 05/26/17 04:12 Eosinophils # 0.3 K/mcL (0.0-0.6) 05/26/17 04:12 Basophils # 0.0 K/mcL (0.0-0.2) 05/26/17 04:12 Percent Retic 0.9 % (1.6-2.8) L 05/23/17 13:20 Immature Retic Fraction 15.7 % (11.0-38.0) 05/23/17 13:20 Retic Hgb Equivalent 31.1 pg (28.61-36.33) 05/23/17 13:20 PT 22.2 Seconds (9.4-12.1) H 05/26/17 04:12 INR 2.0 05/26/17 04:12 Sodium 138 mEq/L (136-145) 05/26/17 04:12 Potassium 3.7 mEq/L (3.5-5.1) 05/26/17 04:12 Chloride 108 mEq/L (98-107) H 05/26/17 04:12 Carbon Dioxide 22 mEq/L (23-29) L 05/26/17 04:12 BUN 13 mg/dL (8-23) 05/26/17 04:12 Creatinine 1.06 mg/dL (0.70-1.30) 05/26/17 04:12 Est GFR ( Amer) > 60 (> 60) 05/26/17 04:12 Est GFR (Non-Af Amer) > 60 (> 60) 05/26/17 04:12 BUN/Creatinine Ratio 12 (6-26) 05/26/17 04:12 Glucose 103 mg/dL (70-105) 05/26/17 04:12 POC Glucose 126 (58-89) H 05/25/17 19:56 Calculated Osmolality 286 (280-300) 05/26/17 04:12 Lactic Acid 1.4 mmol/L (0.5-2.2) 05/22/17 11:59 Calcium 9.0 mg/dL (8.6-10.3) 05/26/17 04:12 Phosphorus 2.7 mg/dL (2.7-4.5) 05/24/17 04:20 Iron 57 mcg/dL (65-175) L 05/24/17 13:43 % Saturation 20 % (20-55) 05/24/17 13:43 Transferrin 205 mg/dL (203-362) 05/24/17 13:43 Ferritin 830 ng/ml (20-250) H 05/24/17 13:43 Ammonia 36 mcmol/L (16-53) 05/22/17 11:53 Troponin I < 0.03 ng/mL (< 0.04) 05/22/17 11:53 Albumin 2.9 g/dL (3.5-5.7) L 05/24/17 04:20 Vitamin B12 259 pg/mL (250-1100) 05/24/17 13:43 Folate 8.2 ng/mL (3.0-16.0) 05/24/17 13:43 Urine Color Yellow (Yellow) 05/22/17 12:53 Urine Clarity Slightly Cloudy (Clear) A 05/22/17 12:53 Urine pH 5.5 pH Units (5.0-8.0) 05/22/17 12:53 Ur Specific [place] 1.020 (1.010-1.025) 05/22/17 12:53 Urine Protein 30 mg/dL (Neg-Trace) H 05/22/17 12:53 Urine Glucose (UA) 100 mg/dL (Normal) H 05/22/17 12:53 Urine Ketones Negative mg/dL (Negative) 05/22/17 12:53 Urine Blood Trace-intact (Negative) H 05/22/17 12:53 Urine Nitrite Negative (Negative) 05/22/17 12:53 Urine Bilirubin Negative (Negative) 05/22/17 12:53 Urine Urobilinogen Normal mg/dL (Normal) 05/22/17 12:53 Ur Leukocyte Esterase Negative (Negative) 05/22/17 12:53 Urine Microscopic RBC 0-3 per hpf (0-3) 05/22/17 12:53 Urine Microscopic WBC 3-5 per hpf (0-3) H 05/22/17 12:53 Ur Squamous Epith Cells Few per lpf (None-Few) 05/22/17 12:53 Urine Bacteria Moderate per hpf (None-Few) H 05/22/17 12:53 Hyaline Casts Few per lpf (None-Few) 05/22/17 12:53 Ur Culture Indicated? NO (NO) 05/22/17 12:53 Stool Occult Blood Positive (Negative) A 05/24/17 08:25 Blood Type O POSITIVE 05/22/17 11:53 Antibody Screen NEGATIVE 05/22/17 11:53 Impressions Abdomen/Pelvis CT 05/22/17 18:19 IMPRESSION: 1. Interval removal of the left ureteral stent. There is residual mild left hydronephrosis. Perinephric and periureteral fat stranding the left have increased, concerning for pyelonephritis/pyelitis. Unchanged left renal calculi. 2. Unchanged nonobstructing nephrolithiasis on the right. 3. Focal fat stranding involving the subcutaneous fat of the right lower quadrant abdominal wall. Correlate with any clinical evidence of cellulitis in that location. D/ / Kemar Gonzales MD / Kemar Gonzales MD Interpreting Provider: Kemar Gonzales MD - Imaging EKG: image reviewed (05/24/17 - ATRIAL FIBRILLATION PATTERN CONSISTENT WITH PULMONARY DISEASE LEFT ANTERIOR FASCICULAR BLOCK [QRS AXIS <= -45, QR IN I, RS IN II] Electronically Signed On 05-24-2017 8:38:22 EST by Praneeth Haynes MD) Anesthesia Exam Vital Signs Temp Pulse Resp BP Pulse Ox 05/26/17 13:07 62 16 109/67 97 05/26/17 11:29 97.3 F L 66 16 101/61 97 05/26/17 11:22 97.5 F L 69 16 108/69 96 05/26/17 11:07 97.6 F 73 18 91/56 96 05/26/17 07:03 97.6 F 68 16 129/86 98 05/26/17 04:22 97.3 F L 63 16 130/76 94 05/25/17 23:49 98.1 F 68 16 121/76 92 05/25/17 20:05 97.7 F 71 18 124/73 98 05/25/17 15:52 97.5 F L 68 16 110/64 97 Intake and Output 05/25/17 05/26/17 05/26/17 23:59 07:59 15:59 Intake Total 0 / 0 300 / 300 Output Total 500 / 500 300 / 300 Balance -500 / -500 -300 / -300 300 / 300 Intake: Oral 0 / 0 Blood Product 300 / 300 Plasma Unit [id number] 300 / 300 Output: Urine 500 / 500 300 / 300 Other: Meal npo Percent of Meal Consumed 0% # Voids 2 2 Weight 87.8 kg Blood Glucose* 126 106 124 Patient Weight 05/26/17 23:59 Weight 87.8 kg Height: 5'4 Weight: 193# BMI = 33 NPO (# of Hours): MNoc - HEENT Pupil (Motor): Pupils equal, EOMI Mallampati: III Teeth: Edentulous (upper), Poor dentition Oral Opening: Greater than 3 - CHILD CARE CENTRE DIRECTOR LOC: Oriented CHILD CARE CENTRE DIRECTOR Motor: Normal RUE, Normal LUE, Normal RLE, Normal LLE, Normal Face CHILD CARE CENTRE DIRECTOR Sensory: Normal: RUE, LUE, RLE, LLE, Face - Cardiac Rhythm: Regular Murmur: None - Pulmonary Breath Sounds: bilateral Clear Respiratory Effort: Symmetrical Anesthesia Assess/Plan ASA Score: 4 Modified [place] Scale for Level of Consciousness: Cooperative, oriented, and tranquil Anesthetic Plan: General Monitoring Plan: Standard Monitors Recovery Plan: PACU Anes Supervising Prov Stmt: Pt seen/evaluated, R&B questions answered answered and consent obtained. Roddy Herrmann MD
[2017-05-26] MEDS ORDERED: EPHEDrine 50 MG/ML VIAL ONE (14:08)
[2017-05-26] MEDS: Fenofibrate 54 MG TABLET PO SCH (20:10)
[2017-05-26] MEDS: Baclofen 10 MG TABLET PO SCH (20:10)
[2017-05-26] MEDS: BuPROPion XL (24 HR) 150 MG TABLET PO SCH (20:11)
[2017-05-27 06:03] LABS: Basophils % 0.7 %; Eosinophils # 0.2 K/mcL (0.0-0.6); Eosinophils % 3.8 %; Immature Granulocytes % 1.1 % (0-4); Lymphocytes # 2.2 K/mcL (0.6-4.6); Lymphocytes % 39.2 %; Mean Corpuscular Hemoglobin 26.7 pg (28.0-33.3); Mean Corpuscular Volume 86.1 fL (83.0-100.0); Mean Platelet Volume 9.6 fL (9.4-12.4); Monocytes # 0.4 K/mcL (0.0-1.3); Monocytes % 6.7 %; Neutrophils # 2.7 K/mcL (1.6-8.9); Platelet Count 389 K/mcL (140-400); Red Blood Count 3.37 M/mcL (4.19-5.50); Segmented Neutrophils % 48.5 %
[2017-05-27 06:10] LABS: INR 1.8; Prothrombin Time 19.2 Seconds (9.4-12.1)
[2017-05-27] MEDS: Pantoprazole 40 MG VIAL IVP SCH (06:12)
[2017-05-27] MEDS ORDERED: Aspirin Enteric Coated 81 MG Tablet PO SCH (09:00)
[2017-05-27] MEDS: Isosorbide MONOnitrate (24 HR) 60 MG TAB.ER.24H PO SCH (09:54)
[2017-05-27] MEDS: Insulin LISPRO 300 UNITS/3 ML VIAL SQ SCH (09:55)
[2017-05-27 10:57] VITALS: BP 121/72
--- NOTE | 2017-05-27 11:02 | Discharge Summary ---
- NOTES TO OUTPATIENT PROVIDER Notes to Outpatient Provider: Patient admitted here for possible GI bleed. No source of active bleeding was found. However patient remains anemic. As such hold Coumadin for now. He will need periodic assessment after discharge to follow up on this and maybe resume anticoagulation at a later date if his blood counts remained stable Orders not resulted at time of discharge: Pending orders 05/25/17 04:23 Hemochromatosis 3 Mutatations Routine 05/28/17 04:00 PT/INR [Prothrombin Time INR] [COAG] AM 0400 05/29/17 04:00 PT/INR [Prothrombin Time INR] [COAG] AM 0400 05/30/17 04:00 PT/INR [Prothrombin Time INR] [COAG] AM 0400 Date of Encounter: 05/27/17 Time of Encounter: 10:58 - Discharge Diagnosis (1) GI bleed Priority: Primary Status: Acute Qualifiers: GI bleed type/associated pathology: unspecified gastrointestinal hemorrhage type Qualified Code(s): K92.2 - Gastrointestinal hemorrhage, unspecified (2) Anemia Priority: Secondary Status: Acute Qualifiers: Anemia type: iron deficiency Iron deficiency anemia type: chronic blood loss Qualified Code(s): D50.0 - Iron deficiency anemia secondary to blood loss (chronic) (3) ELIN (acute kidney injury) Priority: Secondary Status: Resolved (4) Atrial fibrillation Priority: Secondary Status: Acute Qualifiers: Atrial fibrillation type: paroxysmal Qualified Code(s): I48.0 - Paroxysmal atrial fibrillation (5) Diabetes mellitus Priority: Secondary Status: Chronic Qualifiers: Diabetes mellitus type: type 1 Diabetes mellitus complication status: without complication Qualified Code(s): E10.9 - Type 1 diabetes mellitus without complications (6) DVT prophylaxis Priority: Secondary Status: Acute (7) Hypotension Priority: Secondary Status: Resolved Qualifiers: Hypotension type: other hypotension type Qualified Code(s): I95.89 - Other hypotension (8) Severe protein-calorie malnutrition Priority: Secondary Status: Acute (9) Supratherapeutic INR Priority: Secondary Status: Resolved Hospital course: Mr. Sapp is a 62 year old male patient with a past history of atrial fibrillation, coronary artery disease, hyperlipidemia, CVA and nephrolithiasis who presented to the ER initially for from the Coumadin clinic with hypotension. Patient had been previously diagnosed with bronchitis and was started on treatment with antibiotics and Tamiflu. She began to develop nausea vomiting diarrhea and abdominal pain. In addition his INR was supratherapeutic at 6.7 initially. His hemoglobin levels had also decreased from 12.9 in early April to 10.6 on initial presentation here and have continued to decline further. His stool was positive for occult blood. Patient's renal function improved with IV hydration. He also received 2 units of fresh frozen plasma to correct his INR during his stay here. He then underwent upper GI endoscopy which showed reflux esophagitis and chronic gastritis. Colonoscopy showed diverticulosis with nonbleeding polyps. His hemoglobin levels have stabilized. No clear source of bleeding has been identified. As such I do recommend that he continue holding his Coumadin for now. He will follow up with cardiology and gastroenterology as an outpatient for further evaluation and to see if he can resume Coumadin at later date. In the meantime I have placed him on 81 mg of aspirin daily. He is stable to be discharged home today. Discharge discussed with: patient, family - Time Spent with Patient Total time spent providing and/or coordinating discharge services: Greater than 30 minutes (45 min) - Discharge Medications Prescriptions: Omeprazole [PriLOSEC] 40 mg PO BID #60 cap Home Medications: Cholecalciferol (Vitamin D3) [Vitamin D3] 50,000 unit PO MO 11/23/14 [History] Gemfibrozil [Lopid] 600 mg PO BIDWM 08/13/15 [History] Baclofen 20 mg PO HS 08/01/16 [History] [place]-3/Dha/Epa/Fish Oil [Fish Oil 1,000 mg Softgel] 1,000 mg PO TID 08/01/16 [ History] BuPROPion XL (24 HR) [Wellbutrin Xl] 150 mg PO HS 08/28/16 [History] Aspirin Enteric Coated [Aspirin EC] 81 mg PO DAILY #30 tablet. 09/01/16 [Rx] Metoprolol [Lopressor] 25 mg PO BID 03/02/17 [History] Fenofibrate Nanocrystallized [Tricor] 145 mg PO HS 04/22/17 [History] Isosorbide MONOnitrate [Isosorbide Mononitrate ER] 120 mg PO DAILY 04/22/17 [ History] Insulin Regular U-500 [HumuLIN R U-500] 60 unit SQ QAM 05/12/17 [History] Insulin Regular U-500 [HumuLIN R U-500] 85 unit SQ HS 05/12/17 [History] Magnesium Oxide [Magnesium] 400 mg PO DAILY 05/12/17 [History] Rosuvastatin [Crestor] 40 mg PO HS 05/12/17 [History] Tamsulosin [Flomax] 0.4 mg PO DAILY 05/12/17 [History] Insulin Regular, Human [Humulin R U-500 Kwikpen] 40 unit SQ 1200 05/22/17 [ History] Omeprazole [PriLOSEC] 40 mg PO BID #60 cap 05/27/17 [Rx] Allergies/Adverse Reactions: 3 Allergy/AdvReac Type Severity Reaction Status Date / Time No Known Allergies Allergy Verified 05/12/17 09:52 Date of admission: 05/23/17 14:22 Primary care physician: Jayme Alarcon MD Consults: 05/25/17 08:07 Consult to Gastroenterology [CONS] Routine Consulting Provider: Gastroenterology Mary Reason for Consult: GI bleed. H/H drop. +FOBT Call Completed: No Discharging clinician: Campbell Pinto Anticipated date of discharge: 05/27/17 - Constitutional Vitals: Temp Pulse Resp BP Pulse Ox 97.6 F 71 16 121/72 97 05/27/17 10:51 05/27/17 10:51 05/27/17 10:51 05/27/17 10:51 05/27/17 10:51 General appearance: Present: A&O X 3, no acute distress, obese, answers questions appropriately - Respiratory Respiratory exam: Present: CTAB. Absent: accessory muscle use, rales, rhonchi, wheezes - Cardiovascular Cardiovascular exam: Present: RRR, +S1, +S2. Absent: diastolic murmur, gallop, rubs, systolic murmur - GI/Abdominal GI/Abdominal exam: Present: normal bowel sounds, soft, no peritoneal signs. Absent: distended, tenderness - Extremities Exam Extremities exam: Present: warm, radial pulses palpable and symmetrical. Absent : calf tenderness, cyanotic, pedal edema - Neurological Exam Neurological exam: Present: CN II-XII intact, oriented X3, no focal deficits. Absent: facial droop, speech deficit - Skin Skin exam: Present: dry, intact - Patient Status Disposition: Home, Self-Care Condition: Good Functional capacity at discharge: independent ambulation Overall status at discharge: patient is progressing back to baseline - Ambulatory Orders Ambulatory Orders: Complete Blood Count [HEME] Time Frame: 1 Week, Facility: [facility], Location: Lab - Discharge Instructions Instructions: Omeprazole (By mouth), Atrial Fibrillation (DC), Anemia (GEN) Follow Up With: Jayme Alarcon MD [Primary Care Provider] - 05/29/17 9:00 am (Please follow up as schedule...) Miguel Angel Mosley DO [Partnered Physician] - (in 1 week for Afib) Ramirez Carson MD [Partnered Physician] - (in 1-2 weeks for follow up) - Diet and Activity Activity: increase activity as tolerated Diet: low fat, low cholesterol, low salt diet - VTE Reasons for not Prescribing Prophylaxis: Treatment not Indicated - Low risk for VTE
--- NOTE | 2017-05-27 11:05 | Physician Discharge Referral ---
Home Health/Hosp Referral Info Transfer to: Home Health Provider in Charge Post Discharge: PCP - Diagnosis (1) GI bleed Priority: Primary Status: Acute (2) Anemia Priority: Secondary Status: Acute (3) ELIN (acute kidney injury) Priority: Secondary Status: Resolved (4) Atrial fibrillation Priority: Secondary Status: Acute (5) Diabetes mellitus Priority: Secondary Status: Chronic (6) DVT prophylaxis Priority: Secondary Status: Acute (7) Hypotension Priority: Secondary Status: Resolved (8) Severe protein-calorie malnutrition Priority: Secondary Status: Acute (9) Supratherapeutic INR Priority: Secondary Status: Resolved - Respiratory Orders Smoking Cessation: Smoking cessation has been advised. For more information, call the [place] Tobacco Quit Line at 7-318-EJTA-NOW. - Diet/Nutrition Diet/Nutrition Orders: Cardiac - Activity Activity Orders: Walker - Services Needed Following services are medically necessary services: Nursing, Home Health Aide, Physical Therapy, Occupational Therapy - Transfer Medications Prescriptions: Omeprazole [PriLOSEC] 40 mg PO BID #60 cap Home Medications: Cholecalciferol (Vitamin D3) [Vitamin D3] 50,000 unit PO MO 11/23/14 [History] Gemfibrozil [Lopid] 600 mg PO BIDWM 08/13/15 [History] Baclofen 20 mg PO HS 08/01/16 [History] [place]-3/Dha/Epa/Fish Oil [Fish Oil 1,000 mg Softgel] 1,000 mg PO TID 08/01/16 [ History] BuPROPion XL (24 HR) [Wellbutrin Xl] 150 mg PO HS 08/28/16 [History] Aspirin Enteric Coated [Aspirin EC] 81 mg PO DAILY #30 tablet. 09/01/16 [Rx] Metoprolol [Lopressor] 25 mg PO BID 03/02/17 [History] Fenofibrate Nanocrystallized [Tricor] 145 mg PO HS 04/22/17 [History] Isosorbide MONOnitrate [Isosorbide Mononitrate ER] 120 mg PO DAILY 04/22/17 [ History] Insulin Regular U-500 [HumuLIN R U-500] 60 unit SQ QAM 05/12/17 [History] Insulin Regular U-500 [HumuLIN R U-500] 85 unit SQ HS 05/12/17 [History] Magnesium Oxide [Magnesium] 400 mg PO DAILY 05/12/17 [History] Rosuvastatin [Crestor] 40 mg PO HS 05/12/17 [History] Tamsulosin [Flomax] 0.4 mg PO DAILY 05/12/17 [History] Insulin Regular, Human [Humulin R U-500 Kwikpen] 40 unit SQ 1200 05/22/17 [ History] Omeprazole [PriLOSEC] 40 mg PO BID #60 cap 05/27/17 [Rx] Allergies/Adverse Reactions: 3 Allergy/AdvReac Type Severity Reaction Status Date / Time No Known Allergies Allergy Verified 05/12/17 09:52 Certification: Further, I certify that my clinical findings support that this patient is homebound (i.e. absences from home require considerable and taxing effort and are for medical reasons or yarsani services or infrequently or short duration when for other reasons) because: Homebound Reason: Patient requires assistance of a person or device to safely leave home Attestation: My signature below is to certify that this patient is under my care and that I, or nurse practitioner, or a physician's mailroom assistant working with me, has a face-to -face encounter with this patient.
== END 2017-05-27 11:50 | disposition home or self-care (01) | DRG 377 ==
LOC: EMEROO 11:19 → 2ANU 11:19 → SUATTDRO 05-23 14:22
PROVIDERS: ADMIT Registered Nurse; ATTEND Internal Medicine

== ENCOUNTER 2020-02-20 15:16 | Inpatient (IN) ==
[2020-02-20] MEDS ORDERED: 0.9 % Sodium Chloride 1,000 ML IVC ONE ×2 (16:18→16:41)
[2020-02-20] MEDS ORDERED: Piperacillin/Tazobactam 3.375 GM in 0.9 % Sodium Chloride Mini Bag 100 ML IVPB ONE (16:41)
[2020-02-20 16:47] LABS: Basophils % 0.5 %; Eosinophils % 0.6 %; Hematocrit 47.8 % (37.5-50.1); Hemoglobin 15.7 g/dL (12.9-16.9); Immature Granulocytes % 0.6 % (0-4); Lymphocytes # 1.6 K/mcL (0.6-4.6); Lymphocytes % 25.1 %; Mean Corpuscular HGB Conc 32.8 g/dL (31.6-35.5); Mean Corpuscular Hemoglobin 29.8 pg (28.0-33.3); Mean Corpuscular Volume 90.7 fL (83.0-100.0); Mean Platelet Volume 10.6 fL (9.4-12.4); Monocytes # 0.4 K/mcL (0.0-1.3); Monocytes % 6.8 %; Neutrophils # 4.1 K/mcL (1.6-8.9); Platelet Count 267 K/mcL (140-400); Red Blood Count 5.27 M/mcL (4.19-5.50); Red Cell Distribution Width 13.5 % (11.5-14.5); Segmented Neutrophils % 66.4 %; White Blood Count 6.2 K/mcL (4.3-11.1)
[2020-02-20] MEDS ORDERED: Vancomycin 1,750 MG/517.5 ML IV.SOLN IVPB ONE (16:56)
[2020-02-20 16:58] LABS: INR 1.8; Prothrombin Time 20.7 Seconds (9.4-12.1)
[2020-02-20 17:00] LABS: Bilirubin,Urine Negative (Negative); Blood,Urine Moderate (Negative); Budding Yeast,Urine Few per hpf (None Seen); Clarity,Urine Ex.Turbid (Clear); Color,Urine Yellow (Yellow); Glucose,Urine (UA) >=1000 mg/dL (Normal); Granular Casts,Urine Many per lpf (None Seen); Ketones,Urine Negative (Negative); Leukocyte Esterase,Urine Large (Negative); Nitrite,Urine Negative (Negative); Protein,Urine >=300 mg/dL (Neg-Trace); RBC,Urine 50-100 per hpf (0-3); Renal Epithelial Cells,Urine Few per hpf (None-Few); Specific Gravity,Urine 1.023 (1.010-1.025); WBC,Urine TNTC per hpf (0-3)
[2020-02-20 17:01] LABS: Activated Partial Thrombo Time 38.1 Seconds (26.0-36.0)
[2020-02-20 17:09] LABS: VBG HCO3 26 mEq/L (21-27); VBG PCO2 48 mmHg (41-51); VBG PH 7.34 pH Units (7.32-7.42); VBG PO2 40 mmHg (25-50)
[2020-02-20 17:12] LABS: Albumin 3.7 g/dL (3.5-5.7); Albumin/Globulin Ratio 0.9 (1.1-2.2); Bilirubin,Direct 0.4 mg/dL (0.0-0.2); Bilirubin,Indirect 0.4 mg/dL (0.0-1.0); Bilirubin,Total 0.8 mg/dL (0.3-1.0); Globulin 4.1 g/dL (2.4-3.5); Magnesium 1.7 mg/dL (1.6-2.6); Phosphorous 1.9 mg/dL (2.7-4.5); Potassium 4.7 mEq/L (3.5-5.1); Total Protein 7.8 g/dL (6.4-8.9); Troponin I 0.03 ng/mL (< 0.04)
[2020-02-20 17:26] LABS: Platelet Estimate Normal (Normal)
[2020-02-20 17:27] LABS: Reactive Lymphocytes Present (Not Present)
[2020-02-20] MEDS ORDERED: Ondansetron 4 MG/2 ML VIAL IVP PRN (20:57)
[2020-02-20] MEDS ORDERED: Naloxone 0.4 MG/ML INJ IVP PRN (20:57)
[2020-02-20] MEDS ORDERED: *HR* Dextrose 50 % in Water (Vial) 50 ML VIAL IVP PRN (21:04)
[2020-02-20] MEDS ORDERED: D5% in Water 1,000 ML IVC PRN (21:04)
[2020-02-20] MEDS ORDERED: Dextrose Gel 15 GM/37.5 ML TUBE PO PRN ×2 (21:04)
[2020-02-20] MEDS: Insulin LISPRO 300 UNITS/3 ML VIAL SQ SCH (23:16)
[2020-02-21 04:57] LABS: Basophils % 0.5 %; Eosinophils # 0.1 K/mcL (0.0-0.6); Eosinophils % 1.8 %; Hematocrit 44.8 % (37.5-50.1); Hemoglobin 14.8 g/dL (12.9-16.9); Immature Granulocytes % 0.5 % (0-4); Lymphocytes # 1.2 K/mcL (0.6-4.6); Mean Corpuscular Hemoglobin 29.8 pg (28.0-33.3); Mean Corpuscular Volume 90.3 fL (83.0-100.0); Mean Platelet Volume 10.3 fL (9.4-12.4); Monocytes # 0.4 K/mcL (0.0-1.3); Monocytes % 6.5 %; Neutrophils # 3.8 K/mcL (1.6-8.9); Platelet Count 215 K/mcL (140-400); Red Blood Count 4.96 M/mcL (4.19-5.50); Red Cell Distribution Width 13.4 % (11.5-14.5); Segmented Neutrophils % 68.7 %; White Blood Count 5.5 K/mcL (4.3-11.1)
[2020-02-21 05:03] LABS: Fibrinogen 652 mg/dL (169-393); Prothrombin Time 22.2 Seconds (9.4-12.1)
[2020-02-21 05:17] LABS: BUN/Creatinine Ratio 16 (6-26); Blood Urea Nitrogen 19 mg/dL (8-23); Calcium 8.5 mg/dL (8.6-10.3); Carbon Dioxide 22 mEq/L (23-29); Chloride 105 mEq/L (98-107); Glucose 274 mg/dL (70-105); Magnesium 1.6 mg/dL (1.6-2.6); Osmolality,Calculated 292 (280-300); Potassium 4.4 mEq/L (3.5-5.1); Sodium 135 mEq/L (136-145); eGFR For African Americans > 60 (> 60); eGFR For Non-African Americans 60 (> 60)
[2020-02-21 05:18] LABS: D-Dimer 1120 ng/mLFEU (0-500)
[2020-02-21 05:42] LABS: Platelet Estimate Normal (Normal); Reactive Lymphocytes Present (Not Present)
[2020-02-21 07:39] LABS: Estimated Average Glucose 278 mg/dl
[2020-02-21] MEDS: Isosorbide MONOnitrate (24 HR) 60 MG TAB.ER.24H PO SCH (08:46)
[2020-02-21] MEDS: Nystatin POWDER 30 GM BOTTLE TP SCH ×2 (08:47→20:55)
[2020-02-21] MEDS: cefTRIAXone 1,000 MG in Water for inj. (sterile) 10 ML IVP SCH ×2 (08:47→09:04)
[2020-02-21] MEDS: Insulin LISPRO 300 UNITS/3 ML VIAL SQ SCH ×4 (08:47→20:55)
[2020-02-21] MEDS ORDERED: CefTRIAXone 1,000 MG VIAL ONE (08:52)
[2020-02-21] MEDS ORDERED: Fluconazole 150 MG TABLET PO SCH (09:00)
[2020-02-21] MEDS ORDERED: Potassium Phosphate 44 MEQ in 0.9 % Sodium Chloride 250 ML IVPB ONE (13:18)
[2020-02-21] MEDS ORDERED: NON-FORMULARY MEDICATION 1 EACH EACH (Omega-3/Dha/Epa/Fish Oil [Fish Oil 1,000 Mg Softgel] PO SCH (15:00)
[2020-02-21] MEDS: Calcium Gluconate 1gm/50mL 1 GM/50 ML BAG IVPB SCH ×4 (15:07→20:36)
[2020-02-21] MEDS ORDERED: Ipratropium 1 PUFF INHALER IH PRN (17:12)
[2020-02-21] MEDS ORDERED: Warfarin perPT PO PRN (18:00)
[2020-02-21] MEDS ORDERED: *HR* Warfarin 2.5 MG TABLET PO ONE (18:00)
[2020-02-21] MEDS ORDERED: Azithromycin 500 MG in 0.9 % Sodium Chloride 250 ML IVPB SCH (18:00)
[2020-02-21] MEDS: BuPROPion XL (24 HR) 150 MG TABLET PO SCH (20:42)
[2020-02-21] MEDS ORDERED: Insulin DETEMIR 100 UNIT/ML X5UNITS SQ SCH (21:00)
[2020-02-22] MEDS ORDERED: Haloperidol Lactate 5 MG/ML VIAL IVP ONE (03:09)
[2020-02-22 05:17] LABS: Basophils # 0.1 K/mcL (0.0-0.2); Eosinophils # 0.2 K/mcL (0.0-0.6); Hematocrit 41.6 % (37.5-50.1); Hemoglobin 13.6 g/dL (12.9-16.9); Immature Granulocytes % 0.8 % (0-4); Lymphocytes # 1.5 K/mcL (0.6-4.6); Lymphocytes % 24.8 %; Mean Corpuscular HGB Conc 32.7 g/dL (31.6-35.5); Mean Corpuscular Hemoglobin 28.9 pg (28.0-33.3); Mean Corpuscular Volume 88.5 fL (83.0-100.0); Mean Platelet Volume 10.3 fL (9.4-12.4); Monocytes # 0.5 K/mcL (0.0-1.3); Monocytes % 7.4 %; Neutrophils # 3.8 K/mcL (1.6-8.9); Platelet Count 258 K/mcL (140-400); Red Cell Distribution Width 13.4 % (11.5-14.5); White Blood Count 6.1 K/mcL (4.3-11.1)
[2020-02-22 05:18] LABS: INR 2.1
[2020-02-22 05:35] LABS: Alanine Aminotransferase 10 Units/L (7-52); Albumin 3.1 g/dL (3.5-5.7); Albumin/Globulin Ratio 0.8 (1.1-2.2); Alkaline Phosphatase 42 Units/L (34-104); Aspartate Amino Transferase 22 Units/L (13-39); BUN/Creatinine Ratio 15 (6-26); Bilirubin,Total 0.7 mg/dL (0.3-1.0); Blood Urea Nitrogen 17 mg/dL (8-23); C-Reactive Protein 213 mg/L (Less than 10); Calcium 8.8 mg/dL (8.6-10.3); Carbon Dioxide 22 mEq/L (23-29); Chloride 104 mEq/L (98-107); Glucose 197 mg/dL (70-105); Lactate Dehydrogenase 273 Units/L (140-271); Magnesium 1.7 mg/dL (1.6-2.6); Osmolality,Calculated 289 (280-300); Potassium 4.4 mEq/L (3.5-5.1); Sodium 136 mEq/L (136-145); Total Protein 7.1 g/dL (6.4-8.9); eGFR For African Americans > 60 (> 60); eGFR For Non-African Americans > 60 (> 60)
[2020-02-22 05:37] LABS: Platelet Estimate Normal (Normal); Polychromasia 1+ (Not Present); Reactive Lymphocytes Present (Not Present)
[2020-02-22 05:53] LABS: Ferritin 580 ng/mL (20-250)
[2020-02-22 06:01] LABS: Folate 21.5 ng/mL (3.0-16.0)
[2020-02-22] MEDS ORDERED: Furosemide 20 MG/2 ML VIAL IVP SCH (09:00)
[2020-02-22] MEDS ORDERED: lisinopriL 5 MG TABLET PO SCH (09:00)
[2020-02-22] MEDS: Aspirin Enteric Coated 81 MG Tablet PO SCH (09:04)
[2020-02-22] MEDS: Isosorbide MONOnitrate (24 HR) 60 MG TAB.ER.24H PO SCH (09:06)
[2020-02-22] MEDS: Fenofibrate 54 MG TABLET PO SCH (09:06)
[2020-02-22] MEDS: Nystatin POWDER 30 GM BOTTLE TP SCH ×2 (09:07→21:28)
[2020-02-22] MEDS: Insulin LISPRO 300 UNITS/3 ML VIAL SQ SCH ×7 (09:07→20:15)
[2020-02-22] MEDS: Fluconazole 200 MG/100 ML 200 MG/100 ML BAG IVPB SCH (09:10)
[2020-02-22] MEDS ORDERED: Insulin DETEMIR 100 UNIT/ML X5UNITS SQ SCH (13:45)
[2020-02-22] MEDS: cefTRIAXone 2,000 MG in Water for inj. (sterile) 20 ML IVP SCH (15:34)
[2020-02-22] MEDS: Insulin DETEMIR 100 UNIT/ML X5UNITS SQ SCH ×2 (15:35→20:06)
[2020-02-22] MEDS: Doxycycline 100 MG in 0.9 % Sodium Chloride Mini Bag 100 ML IVPB SCH (17:31)
[2020-02-22] MEDS ORDERED: *HR* Warfarin 2.5 MG TABLET PO ONE (18:00)
[2020-02-22] MEDS: BuPROPion XL (24 HR) 150 MG TABLET PO SCH (20:06)
[2020-02-22] MEDS ORDERED: *HR* LORazepam 2 MG/ML VIAL IVP ONE (20:58)
[2020-02-22] MEDS ORDERED: *HR* LORazepam 2 MG/ML VIAL ONE (21:18)
[2020-02-22] MEDS: Acetaminophen 325 MG TABLET PO PRN (21:21)
[2020-02-22] MEDS ORDERED: Ziprasidone 10 MG in Water for inj. (sterile) 0.5 ML IM ONE (23:12)
[2020-02-22] MEDS ORDERED: diazePAM 10 MG/2 ML SYRINGE IVP ONE (23:18)
[2020-02-23 02:53] LABS: Basophils % 0.6 %; Eosinophils # 0.2 K/mcL (0.0-0.6); Eosinophils % 2.8 %; Hematocrit 42.8 % (37.5-50.1); Hemoglobin 13.9 g/dL (12.9-16.9); Immature Granulocytes % 0.6 % (0-4); Lymphocytes # 1.6 K/mcL (0.6-4.6); Lymphocytes % 25.9 %; Mean Corpuscular HGB Conc 32.5 g/dL (31.6-35.5); Mean Corpuscular Hemoglobin 29.3 pg (28.0-33.3); Mean Corpuscular Volume 90.3 fL (83.0-100.0); Mean Platelet Volume 10.6 fL (9.4-12.4); Monocytes # 0.5 K/mcL (0.0-1.3); Monocytes % 7.4 %; Platelet Count 289 K/mcL (140-400); Red Blood Count 4.74 M/mcL (4.19-5.50); Red Cell Distribution Width 13.3 % (11.5-14.5); Segmented Neutrophils % 62.7 %; White Blood Count 6.3 K/mcL (4.3-11.1)
[2020-02-23 02:59] LABS: INR 2.2
[2020-02-23 03:11] LABS: Magnesium 1.6 mg/dL (1.6-2.6); Phosphorous 3.3 mg/dL (2.7-4.5)
[2020-02-23 03:40] LABS: Platelet Estimate Normal (Normal); Reactive Lymphocytes Present (Not Present)
[2020-02-23] MEDS: Doxycycline 100 MG in 0.9 % Sodium Chloride Mini Bag 100 ML IVPB SCH (04:59)
[2020-02-23] MEDS: Insulin LISPRO 300 UNITS/3 ML VIAL SQ SCH ×7 (08:50→20:13)
[2020-02-23] MEDS: Isosorbide MONOnitrate (24 HR) 60 MG TAB.ER.24H PO SCH (08:51)
[2020-02-23] MEDS: Aspirin Enteric Coated 81 MG Tablet PO SCH (08:53)
[2020-02-23] MEDS: Fenofibrate 54 MG TABLET PO SCH (08:55)
[2020-02-23] MEDS: Fluconazole 200 MG/100 ML 200 MG/100 ML BAG IVPB SCH (08:55)
[2020-02-23] MEDS: Insulin DETEMIR 100 UNIT/ML X5UNITS SQ SCH ×2 (09:00→20:18)
[2020-02-23] MEDS ORDERED: Ringers Solution, Lactated 500 ML IVC ONE (11:17)
[2020-02-23] MEDS: Nystatin POWDER 30 GM BOTTLE TP SCH ×2 (11:35→20:19)
[2020-02-23] MEDS: cefTRIAXone 2,000 MG in Water for inj. (sterile) 20 ML IVP SCH (14:21)
[2020-02-23] MEDS ORDERED: *HR* Warfarin 2.5 MG TABLET PO ONE (18:00)
[2020-02-23] MEDS: BuPROPion XL (24 HR) 150 MG TABLET PO SCH (20:18)
[2020-02-23] MEDS: Doxycycline 100 MG CAPSULE PO SCH (20:18)
[2020-02-24] MEDS: Insulin LISPRO 300 UNITS/3 ML VIAL SQ SCH ×7 (07:31→21:11)
[2020-02-24] MEDS: Fluconazole 100 MG TABLET PO SCH (08:52)
[2020-02-24] MEDS: Aspirin Enteric Coated 81 MG Tablet PO SCH (08:52)
[2020-02-24] MEDS: Insulin DETEMIR 100 UNIT/ML X5UNITS SQ SCH ×2 (08:53→21:11)
[2020-02-24] MEDS: Isosorbide MONOnitrate (24 HR) 60 MG TAB.ER.24H PO SCH (08:53)
[2020-02-24] MEDS: Fenofibrate 54 MG TABLET PO SCH (08:53)
[2020-02-24] MEDS: Doxycycline 100 MG CAPSULE PO SCH ×2 (08:53→21:11)
[2020-02-24] MEDS: Nystatin POWDER 30 GM BOTTLE TP SCH ×2 (10:21→21:12)
[2020-02-24 13:07] LABS: Basophils % 0.6 %; Eosinophils # 0.3 K/mcL (0.0-0.6); Eosinophils % 6.3 %; Hematocrit 41.6 % (37.5-50.1); Hemoglobin 13.5 g/dL (12.9-16.9); Immature Granulocytes % 0.4 % (0-4); Lymphocytes # 1.2 K/mcL (0.6-4.6); Lymphocytes % 23.4 %; Mean Corpuscular HGB Conc 32.5 g/dL (31.6-35.5); Mean Corpuscular Hemoglobin 29.2 pg (28.0-33.3); Mean Corpuscular Volume 89.8 fL (83.0-100.0); Mean Platelet Volume 10.5 fL (9.4-12.4); Monocytes # 0.3 K/mcL (0.0-1.3); Monocytes % 6.3 %; Neutrophils # 3.2 K/mcL (1.6-8.9); Platelet Count 321 K/mcL (140-400); Red Blood Count 4.63 M/mcL (4.19-5.50); Red Cell Distribution Width 13.2 % (11.5-14.5); White Blood Count 5.1 K/mcL (4.3-11.1)
[2020-02-24 13:11] LABS: INR 2.9
[2020-02-24 13:23] LABS: Large Platelets Present (Not Present); Platelet Estimate Normal (Normal); Reactive Lymphocytes Present (Not Present)
[2020-02-24 13:28] LABS: BUN/Creatinine Ratio 20 (6-26); Blood Urea Nitrogen 23 mg/dL (8-23); Calcium 8.8 mg/dL (8.6-10.3); Carbon Dioxide 22 mEq/L (23-29); Chloride 104 mEq/L (98-107); Glucose 118 mg/dL (70-105); Osmolality,Calculated 287 (280-300); Potassium 4.1 mEq/L (3.5-5.1); Sodium 136 mEq/L (136-145); eGFR For African Americans > 60 (> 60); eGFR For Non-African Americans > 60 (> 60)
[2020-02-24] MEDS ORDERED: Haloperidol Lactate 5 MG/ML VIAL IVP ONE (14:11)
[2020-02-24] MEDS: cefTRIAXone 2,000 MG in Water for inj. (sterile) 20 ML IVP SCH (14:41)
[2020-02-24] MEDS: Acetaminophen 325 MG TABLET PO PRN (14:41)
[2020-02-24] MEDS: BuPROPion XL (24 HR) 150 MG TABLET PO SCH (20:46)
[2020-02-25] MEDS ORDERED: Haloperidol Lactate 5 MG/ML VIAL IVP ONE (01:39)
[2020-02-25 06:35] LABS: INR 3.2; Prothrombin Time 36.1 Seconds (9.4-12.1)
[2020-02-25] MEDS: Aspirin Enteric Coated 81 MG Tablet PO SCH (07:58)
[2020-02-25] MEDS: Fenofibrate 54 MG TABLET PO SCH (07:58)
[2020-02-25] MEDS: Fluconazole 100 MG TABLET PO SCH (07:58)
[2020-02-25] MEDS: Insulin DETEMIR 100 UNIT/ML X5UNITS SQ SCH (07:59)
[2020-02-25] MEDS: Doxycycline 100 MG CAPSULE PO SCH (07:59)
[2020-02-25] MEDS: Isosorbide MONOnitrate (24 HR) 60 MG TAB.ER.24H PO SCH (07:59)
[2020-02-25] MEDS: Insulin LISPRO 300 UNITS/3 ML VIAL SQ SCH ×4 (08:00→11:46)
[2020-02-25] MEDS: Nystatin POWDER 30 GM BOTTLE TP SCH (08:01)
[2020-02-25 11:11] VITALS: BP 151/97
== END 2020-02-25 12:31 | disposition home health service (06) | DRG 871 ==
LOC: EMEROOARM 15:16 → 3ANU 15:16 → SUATTDRO 18:38 → 3ANU 20:21 → 2NENU 21:02
PROVIDERS: ADMIT Pharmacist; ATTEND Internal Medicine

== ENCOUNTER 2020-07-12 01:37 | Inpatient (IN) ==
[2020-07-12] MEDS ORDERED: Isovue-370 500 ML BOTTLE IVP ONE (01:48)
[2020-07-12] MEDS ORDERED: *HR* FentaNYL (PF) 100 MCG/2 ML VIAL IVP ONE (01:49)
[2020-07-12 02:31] LABS: Basophils # 0.1 K/mcL (0.0-0.2); Basophils % 0.8 %; Eosinophils # 0.2 K/mcL (0.0-0.6); Eosinophils % 2.1 %; Hematocrit 48.2 % (37.5-50.1); Hemoglobin 15.7 g/dL (12.9-16.9); Immature Granulocytes % 0.7 % (0-4); Lymphocytes # 1.9 K/mcL (0.6-4.6); Lymphocytes % 18.6 %; Mean Corpuscular HGB Conc 32.6 g/dL (31.6-35.5); Mean Corpuscular Hemoglobin 29.3 pg (28.0-33.3); Mean Corpuscular Volume 90.1 fL (83.0-100.0); Mean Platelet Volume 9.8 fL (9.4-12.4); Monocytes % 10.1 %; Neutrophils # 6.7 K/mcL (1.6-8.9); Platelet Count 173 K/mcL (140-400); Red Blood Count 5.35 M/mcL (4.19-5.50); Red Cell Distribution Width 13.5 % (11.5-14.5); Segmented Neutrophils % 67.7 %; White Blood Count 9.9 K/mcL (4.3-11.1)
[2020-07-12 02:59] LABS: Albumin 4.1 g/dL (3.5-5.7); Albumin/Globulin Ratio 1.2 (1.1-2.2); Bilirubin,Direct 0.1 mg/dL (0.0-0.2); Bilirubin,Indirect 0.4 mg/dL (0.0-1.0); Bilirubin,Total 0.5 mg/dL (0.3-1.0); Calcium 10.3 mg/dL (8.6-10.3); Globulin 3.5 g/dL (2.4-3.5); Potassium 4.2 mEq/L (3.5-5.1); Total Protein 7.6 g/dL (6.4-8.9); Troponin I 0.05 ng/mL (< 0.04)
[2020-07-12] MEDS ORDERED: 0.9 % Sodium Chloride 500 ML IVC ONE (03:00)
[2020-07-12] MEDS ORDERED: Aspirin 81 MG TAB.CHEW PO ONE (03:00)
[2020-07-12 04:52] LABS: Bilirubin,Urine Negative (Negative); Blood,Urine Large (Negative); Budding Yeast,Urine Few per hpf (None Seen); Clarity,Urine Turbid (Clear); Color,Urine Light-Yellow (Yellow); Glucose,Urine (UA) Normal (Normal); Ketones,Urine Negative (Negative); Leukocyte Esterase,Urine Large (Negative); Nitrite,Urine Negative (Negative); PH,Urine 7.5 pH Units (5.0-8.0); Protein,Urine 200 mg/dL (Neg-Trace); RBC,Urine TNTC per hpf (0-3); Specific Gravity,Urine > 1.030 (1.010-1.025); Squamous Epithelial Cell,Urine Few per hpf (None-Few); Urobilinogen,Urine Normal (Normal); WBC,Urine TNTC per hpf (0-3)
[2020-07-12] MEDS ORDERED: cefTRIAXone 1,000 MG in Water for inj. (sterile) 10 ML IVP ONE (05:00)
[2020-07-12] MEDS ORDERED: *HR* Heparin 5,000 UNIT/ML VIAL IVP PRN ×2 (06:00)
[2020-07-12] MEDS ORDERED: *HR* Heparin 5,000 UNIT/ML VIAL IVP ONE (06:00)
[2020-07-12] MEDS ORDERED: Ondansetron 4 MG/2 ML VIAL IVP PRN (06:03)
[2020-07-12] MEDS ORDERED: Naloxone 0.4 MG/ML INJ IVP PRN (06:03)
[2020-07-12] MEDS ORDERED: Acetaminophen 325 MG TABLET PO PRN (06:03)
[2020-07-12] MEDS ORDERED: Ipratropium/Albuterol Neb 3 ML IH PRN (06:06)
[2020-07-12 06:07] LABS: INR 2.2; Prothrombin Time 24.9 Seconds (9.4-12.1)
[2020-07-12] MEDS ORDERED: Perflutren Lipid Microsphere 1.3 ML in 0.9 % Sodium Chloride 8.7 ML IVP PRN (06:07)
[2020-07-12 06:13] LABS: Heparin anti-factor XA UFH < 0.04 IU/mL (0.30-0.70)
[2020-07-12] MEDS: Heparin 25,000UNIT/250ML 1/2NS 25,000 UNIT/250 ML IV.SOLN IVC SCH (06:14)
[2020-07-12 06:35] LABS: Hematocrit 47.9 % (37.5-50.1); Hemoglobin 15.8 g/dL (12.9-16.9); Mean Corpuscular Hemoglobin 29.5 pg (28.0-33.3); Mean Corpuscular Volume 89.4 fL (83.0-100.0); Mean Platelet Volume 9.7 fL (9.4-12.4); Platelet Count 166 K/mcL (140-400); Red Blood Count 5.36 M/mcL (4.19-5.50); Red Cell Distribution Width 13.5 % (11.5-14.5); White Blood Count 9.1 K/mcL (4.3-11.1)
[2020-07-12 07:41] LABS: Adenovirus Not Detected (Not Detect); Bordetella Pertussis Not Detected (Not Detect); Chlamydophila pneumoniae Not Detected (Not Detect); Coronavirus 229E Not Detected (Not Detect); Coronavirus HKU1 Not Detected (Not Detect); Coronavirus NL63 Not Detected (Not Detect); Coronavirus OC43 Not Detected (Not Detect); Human Metapneumovirus Not Detected (Not Detect); Human Rhinovirus/Enterovirus Not Detected (Not Detect); Influenza A Subtype 2009 H1 Not Detected (Not Detect); Influenza B Not Detected (Not Detect); Mycoplasma pneumoniae Not Detected (Not Detect); Parainfluenza Virus 1 Not Detected (Not Detect); Parainfluenza Virus 2 Not Detected (Not Detect); Parainfluenza Virus 3 Not Detected (Not Detect); Parainfluenza Virus 4 Not Detected (Not Detect); Respiratory Syncytial Virus Not Detected (Not Detect); SARS-CoV-2 Not Detected (Not Detect)
[2020-07-12] MEDS: carvediloL 6.25 MG TABLET PO SCH ×2 (09:55→17:08)
[2020-07-12] MEDS: Aspirin Enteric Coated 81 MG Tablet PO SCH (09:55)
[2020-07-12] MEDS: 0.9 % Sodium Chloride 1,000 ML IVC SCH ×2 (09:56→20:21)
[2020-07-12] MEDS ORDERED: D5% in Water 1,000 ML IVC PRN (10:56)
[2020-07-12] MEDS ORDERED: Dextrose Gel 15 GM/37.5 ML TUBE PO PRN ×2 (10:56)
[2020-07-12] MEDS ORDERED: *HR* Dextrose 50 % in Water (Vial) 50 ML VIAL IVP PRN (10:56)
[2020-07-12] MEDS ORDERED: Insulin LISPRO 300 UNITS/3 ML VIAL SUBQ SCH (12:00)
[2020-07-12] MEDS: Insulin LISPRO 300 UNITS/3 ML VIAL SUBQ SCH (17:08)
[2020-07-12] MEDS ORDERED: BuPROPion XL (24 HR) 150 MG TABLET PO SCH (21:00)
[2020-07-12 21:59] LABS: ABG Base Excess -1 mEq/L (-2 to 3); ABG HCO3 24 mEq/L (21-27); ABG Oxygen Saturation 90 % (95-98); ABG PCO2 41 mmHg (35-45); ABG PH 7.39 pH Units (7.32-7.45); ABG PO2 59 mmHg (85-104); ABG TCO2 26 mEq/L (20-26)
[2020-07-13] MEDS ORDERED: cefTRIAXone 1,000 MG in 0.9 % Sodium Chloride Mini Bag 100 ML IVPB SCH
[2020-07-13] MEDS ORDERED: Acetaminophen IV 500 MG/50 ML BAG IVPB ONE (02:11)
[2020-07-13] MEDS ORDERED: 0.9 % Sodium Chloride 1,000 ML IVC SCH (03:00)
[2020-07-13] MEDS: Heparin 25,000UNIT/250ML 1/2NS 25,000 UNIT/250 ML IV.SOLN IVC SCH (03:36)
[2020-07-13 04:34] LABS: Heparin anti-factor XA UFH < 0.04 IU/mL (0.30-0.70)
[2020-07-13 05:10] LABS: Prothrombin Time 22.5 Seconds (9.4-12.1)
[2020-07-13 07:14] LABS: Basophils % 0.3 %; Eosinophils # 0.1 K/mcL (0.0-0.6); Eosinophils % 0.5 %; Hematocrit 47.6 % (37.5-50.1); Hemoglobin 15.3 g/dL (12.9-16.9); Immature Granulocytes % 0.4 % (0-4); Lymphocytes # 1.8 K/mcL (0.6-4.6); Lymphocytes % 14.4 %; Mean Corpuscular HGB Conc 32.1 g/dL (31.6-35.5); Mean Corpuscular Hemoglobin 29.3 pg (28.0-33.3); Monocytes # 0.9 K/mcL (0.0-1.3); Monocytes % 7.4 %; Neutrophils # 9.5 K/mcL (1.6-8.9); Platelet Count 171 K/mcL (140-400); Red Blood Count 5.23 M/mcL (4.19-5.50); Red Cell Distribution Width 13.7 % (11.5-14.5); White Blood Count 12.3 K/mcL (4.3-11.1)
[2020-07-13] MEDS ORDERED: carvediloL 6.25 MG TABLET PO SCH (08:00)
[2020-07-13 08:44] LABS: Calcium 9.5 mg/dL (8.6-10.3); Magnesium 1.6 mg/dL (1.6-2.6); Phosphorous 3.4 mg/dL (2.7-4.5); Potassium 4.4 mEq/L (3.5-5.1); Thyroid Stimulating Hormone 1.877 mcIU/mL (0.340-5.600)
[2020-07-13] MEDS ORDERED: Fenofibrate 54 MG TABLET PO SCH (09:00)
[2020-07-13] MEDS: Insulin LISPRO 300 UNITS/3 ML VIAL SUBQ SCH ×3 (09:04→16:27)
[2020-07-13] MEDS ORDERED: Acetaminophen IV 1,000 MG/100 ML BAG IVPB ONE (09:09)
[2020-07-13] MEDS: Aspirin Enteric Coated 81 MG Tablet PO SCH (09:35)
[2020-07-13] MEDS ORDERED: Isovue-300 50ML VIAL ONE (11:44)
[2020-07-13] MEDS ORDERED: *HR* FentaNYL (PF) 100 MCG/2 ML VIAL ONE (12:04)
[2020-07-13] MEDS ORDERED: *HR* Propofol 200 MG/20 ML VIAL IVP ONE (12:05)
[2020-07-13] MEDS ORDERED: Lidocaine -MPF 2% 2 ML VIAL ONE (12:05)
[2020-07-13] MEDS ORDERED: *HR* Succinylcholine 200 MG/10 ML VIAL IVP ONE (12:06)
[2020-07-13] MEDS ORDERED: Ondansetron 4 MG/2 ML VIAL ONE (12:19)
[2020-07-13] MEDS ORDERED: Naloxone 0.4 MG/ML INJ IVP PRN (13:26)
[2020-07-13] MEDS ORDERED: Dextrose Gel 15 GM/37.5 ML TUBE PO PRN ×2 (13:26)
[2020-07-13] MEDS ORDERED: Heparin 25,000UNIT/250ML 1/2NS 25,000 UNIT/250 ML IV.SOLN IVC SCH (13:26)
[2020-07-13] MEDS ORDERED: *HR* Heparin 5,000 UNIT/ML VIAL IVP PRN ×2 (13:26)
[2020-07-13] MEDS ORDERED: Ondansetron 4 MG/2 ML VIAL IVP PRN (13:26)
[2020-07-13] MEDS ORDERED: D5% in Water 1,000 ML IVC PRN (13:26)
[2020-07-13] MEDS ORDERED: *HR* Dextrose 50 % in Water (Vial) 50 ML VIAL IVP PRN (13:26)
[2020-07-13] MEDS ORDERED: Ipratropium/Albuterol Neb 3 ML IH PRN (13:26)
[2020-07-13] MEDS: 0.9 % Sodium Chloride 1,000 ML IVC SCH (15:15)
[2020-07-13] MEDS: *HR* Belladonna Alkaloids/Opium 60 MG RECTAL SUPPOSITORY RC PRN (16:19)
[2020-07-13] MEDS: carvediloL 6.25 MG TABLET PO SCH (17:16)
[2020-07-13] MEDS ORDERED: *HR* Warfarin 2.5 MG TABLET PO ONE (18:00)
[2020-07-13] MEDS ORDERED: Warfarin perPT PO PRN (18:00)
[2020-07-13] MEDS ORDERED: Furosemide 20 MG/2 ML VIAL IVP ONE ×3 (18:10→20:49)
[2020-07-13] MEDS ORDERED: Acetaminophen 650 MG RECTAL SUPP RC ONE (20:22)
[2020-07-13] MEDS ORDERED: *HR* Labetalol 20 MG/4 ML SYRINGE IVP ONE ×2 (20:48→20:50)
[2020-07-13] MEDS: BuPROPion XL (24 HR) 150 MG TABLET PO SCH (21:08)
[2020-07-13 21:27] LABS: Bacteria,Urine Few per hpf (None-Few); Bilirubin,Urine Negative (Negative); Blood,Urine Large (Negative); Clarity,Urine Clear (Clear); Color,Urine Colorless (Yellow); Glucose,Urine (UA) Normal (Normal); Ketones,Urine Negative (Negative); Leukocyte Esterase,Urine Small (Negative); Mucus,Urine Few per lpf (None-Few); Nitrite,Urine Negative (Negative); Protein,Urine 70 mg/dL (Neg-Trace); RBC,Urine TNTC per hpf (0-3); Specific Gravity,Urine 1.009 (1.010-1.025); Urobilinogen,Urine Normal (Normal); WBC,Urine 30-50 per hpf (0-3)
[2020-07-13] MEDS ORDERED: Nystatin SUSP 5 ML UD.LIQ PO SCH (21:45)
[2020-07-13 21:50] LABS: Troponin I 0.14 ng/mL (< 0.04)
[2020-07-13 22:03] LABS: Calcium 9.4 mg/dL (8.6-10.3); Potassium 4.5 mEq/L (3.5-5.1)
[2020-07-14] MEDS ORDERED: cefTRIAXone 1,000 MG in 0.9 % Sodium Chloride Mini Bag 100 ML IVPB SCH
[2020-07-14] MEDS ORDERED: Acetaminophen 650 MG RECTAL SUPP RC ONE (03:40)
[2020-07-14] MEDS ORDERED: cefTRIAXone 1,000 MG in Water for inj. (sterile) 10 ML IVP ONE (04:00)
[2020-07-14 05:16] LABS: Basophils % 0.3 %; Eosinophils % 0.1 %; Hematocrit 47.1 % (37.5-50.1); Hemoglobin 14.7 g/dL (12.9-16.9); Immature Granulocytes % 0.7 % (0-4); Lymphocytes # 1.1 K/mcL (0.6-4.6); Lymphocytes % 10.7 %; Mean Corpuscular HGB Conc 31.2 g/dL (31.6-35.5); Mean Corpuscular Hemoglobin 28.4 pg (28.0-33.3); Mean Corpuscular Volume 90.9 fL (83.0-100.0); Mean Platelet Volume 10.1 fL (9.4-12.4); Monocytes % 10.1 %; Neutrophils # 7.8 K/mcL (1.6-8.9); Platelet Count 151 K/mcL (140-400); Red Blood Count 5.18 M/mcL (4.19-5.50); Red Cell Distribution Width 13.6 % (11.5-14.5); Segmented Neutrophils % 78.1 %
[2020-07-14 05:32] LABS: Calcium 9.1 mg/dL (8.6-10.3); Potassium 4.3 mEq/L (3.5-5.1); Troponin I 0.13 ng/mL (< 0.04)
[2020-07-14 05:54] LABS: INR 1.8
[2020-07-14] MEDS: 0.9 % Sodium Chloride 1,000 ML IVC SCH (09:28)
[2020-07-14] MEDS: Aspirin Enteric Coated 81 MG Tablet PO SCH (09:29)
[2020-07-14] MEDS: Acetaminophen 325 MG TABLET PO PRN (09:30)
[2020-07-14] MEDS: Insulin LISPRO 300 UNITS/3 ML VIAL SUBQ SCH ×3 (09:30→17:54)
[2020-07-14] MEDS: carvediloL 6.25 MG TABLET PO SCH ×2 (09:30→17:52)
[2020-07-14] MEDS: Fenofibrate 54 MG TABLET PO SCH (09:30)
[2020-07-14] MEDS ORDERED: Vancomycin 1,750 MG/517.5 ML IV.SOLN IVPB ONE (11:00)
[2020-07-14 11:35] LABS: Potassium 4.2 mEq/L (3.5-5.1)
[2020-07-14] MEDS: Cefepime HCl 2,000 MG in 0.9 % Sodium Chloride Mini Bag 100 ML IVPB SCH ×2 (12:34→20:04)
[2020-07-14] MEDS: *HR* Belladonna Alkaloids/Opium 60 MG RECTAL SUPPOSITORY RC PRN (13:42)
[2020-07-14] MEDS: Ipratropium/Albuterol Neb 3 ML IH SCH ×3 (15:17→19:27)
[2020-07-14] MEDS ORDERED: cefTRIAXone 2,000 MG in 0.9 % Sodium Chloride Mini Bag 100 ML IVPB SCH (17:00)
[2020-07-14] MEDS ORDERED: *HR* Warfarin 3 MG TABLET PO ONE (18:00)
[2020-07-14] MEDS: BuPROPion XL (24 HR) 150 MG TABLET PO SCH (20:04)
[2020-07-15] MEDS: Ipratropium/Albuterol Neb 3 ML IH SCH ×7 (00:07→23:59)
[2020-07-15 01:08] LABS: Basophils % 0.4 %; Eosinophils # 0.1 K/mcL (0.0-0.6); Eosinophils % 1.1 %; Hematocrit 43.8 % (37.5-50.1); Hemoglobin 14.1 g/dL (12.9-16.9); Immature Granulocytes % 0.4 % (0-4); Lymphocytes # 1.3 K/mcL (0.6-4.6); Lymphocytes % 18.4 %; Mean Corpuscular HGB Conc 32.2 g/dL (31.6-35.5); Mean Corpuscular Hemoglobin 29.6 pg (28.0-33.3); Mean Platelet Volume 10.3 fL (9.4-12.4); Monocytes # 0.4 K/mcL (0.0-1.3); Monocytes % 5.6 %; Neutrophils # 5.3 K/mcL (1.6-8.9); Platelet Count 141 K/mcL (140-400); Red Blood Count 4.76 M/mcL (4.19-5.50); Red Cell Distribution Width 13.6 % (11.5-14.5); Segmented Neutrophils % 74.1 %; White Blood Count 7.2 K/mcL (4.3-11.1)
[2020-07-15 01:27] LABS: Calcium 8.5 mg/dL (8.6-10.3); Potassium 4.5 mEq/L (3.5-5.1)
[2020-07-15 02:30] LABS: INR 1.6; Prothrombin Time 18.7 Seconds (9.4-12.1)
[2020-07-15] MEDS: carvediloL 6.25 MG TABLET PO SCH ×2 (07:55→16:52)
[2020-07-15] MEDS: Fenofibrate 54 MG TABLET PO SCH (07:55)
[2020-07-15] MEDS: Aspirin Enteric Coated 81 MG Tablet PO SCH (07:56)
[2020-07-15] MEDS: Cefepime HCl 2,000 MG in 0.9 % Sodium Chloride Mini Bag 100 ML IVPB SCH ×2 (07:56→20:08)
[2020-07-15] MEDS: *HR* Belladonna Alkaloids/Opium 60 MG RECTAL SUPPOSITORY RC PRN (07:57)
[2020-07-15] MEDS: Insulin LISPRO 300 UNITS/3 ML VIAL SUBQ SCH ×3 (07:58→16:53)
[2020-07-15] MEDS ORDERED: Vancomycin 1,250 MG/262.5 ML IV.SOLN IVPB SCH (11:00)
[2020-07-15] MEDS: Acetaminophen 325 MG TABLET PO PRN (13:25)
[2020-07-15] MEDS ORDERED: *HR* Warfarin 5 MG TABLET PO ONE (18:00)
[2020-07-15] MEDS: BuPROPion XL (24 HR) 150 MG TABLET PO SCH (20:09)
[2020-07-16 01:54] LABS: Basophils % 0.4 %; Eosinophils # 0.2 K/mcL (0.0-0.6); Eosinophils % 3.5 %; Hematocrit 42.5 % (37.5-50.1); Hemoglobin 13.4 g/dL (12.9-16.9); Immature Granulocytes % 0.3 % (0-4); Lymphocytes # 1.1 K/mcL (0.6-4.6); Lymphocytes % 15.7 %; Mean Corpuscular HGB Conc 31.5 g/dL (31.6-35.5); Mean Corpuscular Hemoglobin 28.3 pg (28.0-33.3); Mean Corpuscular Volume 89.7 fL (83.0-100.0); Mean Platelet Volume 10.5 fL (9.4-12.4); Monocytes # 0.8 K/mcL (0.0-1.3); Monocytes % 12.4 %; Neutrophils # 4.6 K/mcL (1.6-8.9); Platelet Count 154 K/mcL (140-400); Red Blood Count 4.74 M/mcL (4.19-5.50); Red Cell Distribution Width 13.3 % (11.5-14.5); Segmented Neutrophils % 67.7 %; White Blood Count 6.8 K/mcL (4.3-11.1)
[2020-07-16 02:09] LABS: Calcium 9.1 mg/dL (8.6-10.3); INR 1.9; Potassium 4.3 mEq/L (3.5-5.1); Prothrombin Time 21.7 Seconds (9.4-12.1)
[2020-07-16] MEDS: Ipratropium/Albuterol Neb 3 ML IH SCH ×6 (04:08→23:37)
[2020-07-16] MEDS: Aspirin Enteric Coated 81 MG Tablet PO SCH (07:57)
[2020-07-16] MEDS: carvediloL 6.25 MG TABLET PO SCH ×2 (07:57→17:39)
[2020-07-16] MEDS: Fenofibrate 54 MG TABLET PO SCH (07:57)
[2020-07-16] MEDS: Cefepime HCl 2,000 MG in 0.9 % Sodium Chloride Mini Bag 100 ML IVPB SCH ×2 (07:58→19:50)
[2020-07-16] MEDS: Insulin LISPRO 300 UNITS/3 ML VIAL SUBQ SCH ×3 (08:08→17:41)
[2020-07-16] MEDS ORDERED: *HR* HYDROmorphone (PF) 1 MG/ML SYRINGE IVP PRN (12:43)
[2020-07-16 14:19] LABS: ABG Base Excess 0 mEq/L (-2 to 3); ABG HCO3 25 mEq/L (21-27); ABG Oxygen Saturation 97 % (95-98); ABG PCO2 38 mmHg (35-45); ABG PH 7.42 pH Units (7.32-7.45); ABG PO2 89 mmHg (85-104); ABG TCO2 26 mEq/L (20-26)
[2020-07-16] MEDS ORDERED: *HR* Warfarin 2.5 MG TABLET PO ONE (18:00)
[2020-07-16] MEDS: BuPROPion XL (24 HR) 150 MG TABLET PO SCH (19:51)
[2020-07-17] MEDS: Ipratropium/Albuterol Neb 3 ML IH SCH ×6 (03:53→23:36)
[2020-07-17 03:58] LABS: Basophils % 0.5 %; Eosinophils # 0.2 K/mcL (0.0-0.6); Hematocrit 44.7 % (37.5-50.1); Hemoglobin 14.4 g/dL (12.9-16.9); Immature Granulocytes % 0.5 % (0-4); Lymphocytes # 1.1 K/mcL (0.6-4.6); Lymphocytes % 12.9 %; Mean Corpuscular HGB Conc 32.2 g/dL (31.6-35.5); Mean Corpuscular Hemoglobin 28.7 pg (28.0-33.3); Mean Corpuscular Volume 89.2 fL (83.0-100.0); Mean Platelet Volume 10.8 fL (9.4-12.4); Monocytes # 0.8 K/mcL (0.0-1.3); Monocytes % 9.1 %; Neutrophils # 6.5 K/mcL (1.6-8.9); Platelet Count 161 K/mcL (140-400); Red Blood Count 5.01 M/mcL (4.19-5.50); Red Cell Distribution Width 13.3 % (11.5-14.5); White Blood Count 8.7 K/mcL (4.3-11.1)
[2020-07-17 04:03] LABS: INR 2.2; Prothrombin Time 24.9 Seconds (9.4-12.1)
[2020-07-17 04:08] LABS: Calcium 9.4 mg/dL (8.6-10.3); Potassium 4.5 mEq/L (3.5-5.1)
[2020-07-17] MEDS: carvediloL 6.25 MG TABLET PO SCH ×2 (08:30→17:24)
[2020-07-17] MEDS: Aspirin Enteric Coated 81 MG Tablet PO SCH (08:30)
[2020-07-17] MEDS: Fenofibrate 54 MG TABLET PO SCH (08:30)
[2020-07-17] MEDS: Cefepime HCl 2,000 MG in 0.9 % Sodium Chloride Mini Bag 100 ML IVPB SCH ×2 (08:31→21:37)
[2020-07-17] MEDS: Acetaminophen 325 MG TABLET PO PRN ×2 (08:31→23:37)
[2020-07-17] MEDS: Insulin LISPRO 300 UNITS/3 ML VIAL SUBQ SCH ×3 (09:04→17:26)
[2020-07-17] MEDS ORDERED: *HR* Warfarin 2.5 MG TABLET PO ONE (18:00)
[2020-07-17] MEDS: BuPROPion XL (24 HR) 150 MG TABLET PO SCH (21:18)
[2020-07-18 01:22] LABS: Basophils % 0.4 %; Eosinophils # 0.1 K/mcL (0.0-0.6); Eosinophils % 0.7 %; Hematocrit 43.9 % (37.5-50.1); Hemoglobin 13.9 g/dL (12.9-16.9); Immature Granulocytes % 1.1 % (0-4); Lymphocytes # 1.1 K/mcL (0.6-4.6); Lymphocytes % 10.9 %; Mean Corpuscular HGB Conc 31.7 g/dL (31.6-35.5); Mean Corpuscular Hemoglobin 28.4 pg (28.0-33.3); Mean Corpuscular Volume 89.6 fL (83.0-100.0); Mean Platelet Volume 11.1 fL (9.4-12.4); Monocytes # 0.9 K/mcL (0.0-1.3); Monocytes % 8.9 %; Platelet Count 185 K/mcL (140-400); Red Cell Distribution Width 13.4 % (11.5-14.5); White Blood Count 10.2 K/mcL (4.3-11.1)
[2020-07-18 01:30] LABS: INR 2.2; Prothrombin Time 24.4 Seconds (9.4-12.1)
[2020-07-18 01:40] LABS: Calcium 8.9 mg/dL (8.6-10.3); Potassium 4.9 mEq/L (3.5-5.1)
[2020-07-18] MEDS: Ipratropium/Albuterol Neb 3 ML IH SCH ×5 (04:00→20:37)
[2020-07-18] MEDS: Insulin LISPRO 300 UNITS/3 ML VIAL SUBQ SCH ×3 (08:23→16:47)
[2020-07-18] MEDS: Fenofibrate 54 MG TABLET PO SCH (08:24)
[2020-07-18] MEDS: Aspirin Enteric Coated 81 MG Tablet PO SCH (08:24)
[2020-07-18] MEDS: Cefepime HCl 2,000 MG in 0.9 % Sodium Chloride Mini Bag 100 ML IVPB SCH ×2 (08:24→20:18)
[2020-07-18] MEDS: carvediloL 6.25 MG TABLET PO SCH ×2 (08:25→16:43)
[2020-07-18 10:19] LABS: Influenza A PCR Negative (Negative); Influenza B PCR Negative (Negative); Resp. Syncytial Virus PCR Negative (Negative)
[2020-07-18 10:20] LABS: SARS-CoV-2 by PCR (In House) Negative (Negative)
[2020-07-18 15:12] LABS: Calcium 8.7 mg/dL (8.6-10.3); Potassium 4.7 mEq/L (3.5-5.1)
[2020-07-18] MEDS: 0.9 % Sodium Chloride 1,000 ML IVC SCH (17:43)
[2020-07-18] MEDS ORDERED: *HR* Warfarin 2.5 MG TABLET PO ONE (18:00)
[2020-07-18] MEDS: BuPROPion XL (24 HR) 150 MG TABLET PO SCH (20:19)
[2020-07-19] MEDS: Ipratropium/Albuterol Neb 3 ML IH SCH ×7 (00:15→23:00)
[2020-07-19 00:38] LABS: Basophils # 0.1 K/mcL (0.0-0.2); Basophils % 0.6 %; Eosinophils # 0.3 K/mcL (0.0-0.6); Eosinophils % 3.3 %; Hematocrit 42.6 % (37.5-50.1); Hemoglobin 13.9 g/dL (12.9-16.9); Immature Granulocytes % 1.3 % (0-4); Lymphocytes # 1.3 K/mcL (0.6-4.6); Lymphocytes % 16.5 %; Mean Corpuscular HGB Conc 32.6 g/dL (31.6-35.5); Mean Corpuscular Hemoglobin 28.5 pg (28.0-33.3); Mean Corpuscular Volume 87.3 fL (83.0-100.0); Mean Platelet Volume 10.9 fL (9.4-12.4); Monocytes # 0.8 K/mcL (0.0-1.3); Neutrophils # 5.3 K/mcL (1.6-8.9); Platelet Count 250 K/mcL (140-400); Red Blood Count 4.88 M/mcL (4.19-5.50); Red Cell Distribution Width 13.5 % (11.5-14.5); Segmented Neutrophils % 68.3 %; White Blood Count 7.8 K/mcL (4.3-11.1)
[2020-07-19 00:53] LABS: Calcium 8.8 mg/dL (8.6-10.3); Potassium 4.6 mEq/L (3.5-5.1); Prothrombin Time 22.7 Seconds (9.4-12.1)
[2020-07-19 01:18] LABS: Sodium, Urine 71.7 mEq/L
[2020-07-19] MEDS: Cefepime HCl 2,000 MG in 0.9 % Sodium Chloride Mini Bag 100 ML IVPB SCH ×2 (08:11→21:36)
[2020-07-19] MEDS: Aspirin Enteric Coated 81 MG Tablet PO SCH (08:12)
[2020-07-19] MEDS: carvediloL 6.25 MG TABLET PO SCH ×2 (08:12→16:16)
[2020-07-19] MEDS: Insulin LISPRO 300 UNITS/3 ML VIAL SUBQ SCH ×3 (08:13→16:43)
[2020-07-19] MEDS: Fenofibrate 54 MG TABLET PO SCH (08:14)
[2020-07-19] MEDS: 0.9 % Sodium Chloride 1,000 ML IVC SCH (12:48)
[2020-07-19] MEDS ORDERED: *HR* Warfarin 5 MG TABLET PO ONE (18:00)
[2020-07-19] MEDS ORDERED: Insulin LISPRO 300 UNITS/3 ML VIAL SUBQ SCH (21:15)
[2020-07-19] MEDS: BuPROPion XL (24 HR) 150 MG TABLET PO SCH (21:44)
[2020-07-19] MEDS: *HR* Belladonna Alkaloids/Opium 60 MG RECTAL SUPPOSITORY RC PRN (21:44)
[2020-07-20] MEDS: 0.9 % Sodium Chloride 1,000 ML IVC SCH (02:46)
[2020-07-20] MEDS: Ipratropium/Albuterol Neb 3 ML IH SCH ×3 (03:54→11:11)
[2020-07-20 06:15] LABS: Basophils # 0.1 K/mcL (0.0-0.2); Eosinophils # 0.4 K/mcL (0.0-0.6); Eosinophils % 5.4 %; Hemoglobin 13.6 g/dL (12.9-16.9); Lymphocytes # 2.1 K/mcL (0.6-4.6); Lymphocytes % 29.1 %; Mean Corpuscular HGB Conc 32.4 g/dL (31.6-35.5); Mean Corpuscular Hemoglobin 28.8 pg (28.0-33.3); Mean Corpuscular Volume 88.8 fL (83.0-100.0); Mean Platelet Volume 10.8 fL (9.4-12.4); Monocytes # 0.6 K/mcL (0.0-1.3); Monocytes % 8.7 %; Neutrophils # 3.8 K/mcL (1.6-8.9); Platelet Count 319 K/mcL (140-400); Red Blood Count 4.73 M/mcL (4.19-5.50); Red Cell Distribution Width 13.6 % (11.5-14.5); Segmented Neutrophils % 53.8 %; White Blood Count 7.1 K/mcL (4.3-11.1)
[2020-07-20 06:21] LABS: INR 2.4; Prothrombin Time 27.5 Seconds (9.4-12.1)
[2020-07-20] MEDS: Insulin LISPRO 300 UNITS/3 ML VIAL SUBQ SCH (07:42)
[2020-07-20] MEDS: Cefepime HCl 2,000 MG in 0.9 % Sodium Chloride Mini Bag 100 ML IVPB SCH (07:42)
[2020-07-20] MEDS: carvediloL 6.25 MG TABLET PO SCH (07:43)
[2020-07-20] MEDS: Aspirin Enteric Coated 81 MG Tablet PO SCH (07:43)
[2020-07-20] MEDS: Fenofibrate 54 MG TABLET PO SCH (07:44)
[2020-07-20 08:50] LABS: Potassium 4.4 mEq/L (3.5-5.1)
[2020-07-20 11:38] VITALS: BP 122/66
[2020-07-20] MEDS ORDERED: *HR* Warfarin 2.5 MG TABLET PO ONE (18:00)
== END 2020-07-20 13:29 | disposition home health service (06) | DRG 853 ==
LOC: EMEROOARM 01:37 → CDU 01:37 → SUATTDRO 06:59 → CDU 07:34 → 2NNU 07-13 00:50 → SUATTDRO 07-13 12:52
PROVIDERS: ADMIT Student in an Organized Health Care Education/Training Program; ATTEND Internal Medicine

== ENCOUNTER 2021-02-22 09:59 | Observation (INO) ==
[2021-02-22 10:27] LABS: Basophils % 0.5 %; Eosinophils # 0.2 K/mcL (0.0-0.6); Eosinophils % 3.9 %; Hematocrit 47.5 % (37.5-50.1); Hemoglobin 15.8 g/dL (12.9-16.9); Immature Granulocytes % 0.7 % (0-4); Lymphocytes # 2.3 K/mcL (0.6-4.6); Lymphocytes % 39.8 %; Mean Corpuscular HGB Conc 33.3 g/dL (31.6-35.5); Mean Corpuscular Hemoglobin 29.2 pg (28.0-33.3); Mean Corpuscular Volume 87.6 fL (83.0-100.0); Mean Platelet Volume 10.1 fL (9.4-12.4); Monocytes # 0.4 K/mcL (0.0-1.3); Monocytes % 6.5 %; Neutrophils # 2.8 K/mcL (1.6-8.9); Platelet Count 171 K/mcL (140-400); Red Blood Count 5.42 M/mcL (4.19-5.50); Red Cell Distribution Width 14.1 % (11.5-14.5); Segmented Neutrophils % 48.6 %; White Blood Count 5.7 K/mcL (4.3-11.1)
[2021-02-22 10:36] LABS: INR 2.8
[2021-02-22 10:38] LABS: Activated Partial Thrombo Time 65.6 Seconds (26.0-36.0)
[2021-02-22 11:57] LABS: Alanine Aminotransferase 27 Units/L (7-52); Albumin 3.8 g/dL (3.5-5.7); Albumin/Globulin Ratio 1.1 (1.1-2.2); Alkaline Phosphatase 63 Units/L (34-104); Aspartate Amino Transferase 32 Units/L (13-39); BUN/Creatinine Ratio 16 (6-26); Bilirubin,Indirect 0.4 mg/dL (0.0-1.0); Bilirubin,Total 0.4 mg/dL (0.3-1.0); Blood Urea Nitrogen 23 mg/dL (8-23); Calcium 9.5 mg/dL (8.6-10.3); Carbon Dioxide 24 mEq/L (23-29); Chloride 102 mEq/L (98-107); Ethanol < 10 mg/dL (Less than 10); Globulin 3.4 g/dL (2.4-3.5); Glucose 309 mg/dL (70-105); Osmolality,Calculated 295 (280-300); Potassium 4.4 mEq/L (3.5-5.1); Sodium 135 mEq/L (136-145); Total Protein 7.2 g/dL (6.4-8.9); Troponin I 0.03 ng/mL (< 0.04); eGFR For African Americans 59 (> 60); eGFR For Non-African Americans 49 (> 60)
[2021-02-22 13:02] LABS: Bilirubin,Urine Negative (Negative); Blood,Urine Trace (Negative); Budding Yeast,Urine Few per hpf (None Seen); Clarity,Urine Turbid (Clear); Color,Urine Yellow (Yellow); Glucose,Urine (UA) 500 mg/dL (Normal); Ketones,Urine Negative (Negative); Leukocyte Esterase,Urine Large (Negative); Mucus,Urine Few per lpf (None-Few); Nitrite,Urine Negative (Negative); Protein,Urine 100 mg/dL (Neg-Trace); Specific Gravity,Urine 1.019 (1.010-1.025); Urobilinogen,Urine Normal (Normal); WBC,Urine TNTC per hpf (0-3)
[2021-02-22 13:13] LABS: Amphetamine Screen,Urine Negative ng/mL (Cutoff=1000); Barbiturate Screen,Urine Negative ng/mL (Cutoff=200); Benzodiazepines Screen,Urine Positive ng/mL (Cutoff=200); Cannabinoid Screen,Urine Negative ng/mL (Cutoff = 50); Cocaine Screen,Urine Negative ng/mL (Cutoff= 300); Opiate Screen,Urine Negative ng/mL (Cutoff=300); Phencyclidine Screen,Urine Negative ng/mL (Cutoff=25)
[2021-02-22] MEDS ORDERED: 0.9 % Sodium Chloride 1,000 ML IV ONE (13:13)
[2021-02-22] MEDS ORDERED: cefTRIAXone 1,000 MG in 0.9 % Sodium Chloride Mini Bag 100 ML IVPB ONE (13:14)
[2021-02-22] MEDS ORDERED: *HR* Dextrose 50 % in Water (Syg) 50 ML SYRINGE IVP PRN (13:33)
[2021-02-22] MEDS ORDERED: Naloxone 0.4 MG/ML INJ IVP PRN (13:33)
[2021-02-22] MEDS ORDERED: Acetaminophen 325 MG TABLET PO PRN (13:33)
[2021-02-22] MEDS ORDERED: D5% in Water 1,000 ML IVC PRN (13:33)
[2021-02-22] MEDS ORDERED: Ondansetron 4 MG/2 ML VIAL IVP PRN (13:33)
[2021-02-22] MEDS ORDERED: Dextrose Gel 15 GM/37.5 ML TUBE PO PRN ×2 (13:33)
[2021-02-22] MEDS ORDERED: *HR* HYDROcodone/Acet 5/325 mg TABLET PO PRN (14:13)
[2021-02-22] MEDS ORDERED: Nitroglycerin 0.4 MG TAB.SUBL SL PRN (14:13)
[2021-02-22] MEDS ORDERED: Insulin LISPRO 300 UNITS/3 ML VIAL SUBQ SCH (16:30)
[2021-02-22] MEDS: Insulin LISPRO 300 UNITS/3 ML VIAL SUBQ SCH (16:54)
[2021-02-22] MEDS ORDERED: Warfarin perPT PO PRN (18:00)
[2021-02-22] MEDS ORDERED: *HR* Warfarin 5 MG TABLET PO ONE (18:00)
[2021-02-22] MEDS: Ranolazine 500 MG TAB.ER.12H PO SCH (21:28)
[2021-02-22] MEDS: Insulin DETEMIR 100 UNIT/ML X5UNITS SUBQ SCH (21:29)
[2021-02-23 01:41] LABS: Basophils # 0.1 K/mcL (0.0-0.2); Basophils % 1.1 %; Eosinophils # 0.3 K/mcL (0.0-0.6); Eosinophils % 4.5 %; Hematocrit 47.6 % (37.5-50.1); Hemoglobin 15.6 g/dL (12.9-16.9); Immature Granulocytes % 0.8 % (0-4); Lymphocytes # 2.7 K/mcL (0.6-4.6); Lymphocytes % 41.1 %; Mean Corpuscular HGB Conc 32.8 g/dL (31.6-35.5); Mean Corpuscular Hemoglobin 29.1 pg (28.0-33.3); Mean Corpuscular Volume 88.6 fL (83.0-100.0); Mean Platelet Volume 10.2 fL (9.4-12.4); Monocytes # 0.5 K/mcL (0.0-1.3); Monocytes % 8.2 %; Neutrophils # 2.9 K/mcL (1.6-8.9); Platelet Count 174 K/mcL (140-400); Red Blood Count 5.37 M/mcL (4.19-5.50); Red Cell Distribution Width 14.2 % (11.5-14.5); Segmented Neutrophils % 44.3 %; White Blood Count 6.5 K/mcL (4.3-11.1)
[2021-02-23 01:57] LABS: INR 2.7; Prothrombin Time 30.4 Seconds (9.4-12.1)
[2021-02-23 02:07] LABS: Calcium 9.6 mg/dL (8.6-10.3); Magnesium 1.5 mg/dL (1.6-2.6); Potassium 4.3 mEq/L (3.5-5.1)
[2021-02-23 02:26] VITALS: O2SAT 95
[2021-02-23 06:56] VITALS: BP 150/94; PULSE 64; TEMP 97.8
[2021-02-23] MEDS: Ranolazine 500 MG TAB.ER.12H PO SCH (08:08)
[2021-02-23] MEDS: Insulin LISPRO 300 UNITS/3 ML VIAL SUBQ SCH (08:09)
[2021-02-23] MEDS: Insulin DETEMIR 100 UNIT/ML X5UNITS SUBQ SCH (08:18)
[2021-02-23] MEDS ORDERED: Magnesium Oxide 400 MG TABLET PO SCH (09:00)
[2021-02-23] MEDS ORDERED: Fenofibrate 54 MG TABLET PO SCH (09:00)
[2021-02-23] MEDS ORDERED: Aspirin Enteric Coated 81 MG Tablet PO SCH (09:00)
[2021-02-23] MEDS ORDERED: cefTRIAXone 1,000 MG in Water for inj. (sterile) 10 ML IVP SCH (09:00)
[2021-02-23] MEDS ORDERED: BuPROPion XL (24 HR) 150 MG TABLET PO SCH (09:00)
[2021-02-23] MEDS ORDERED: *HR* Warfarin 5 MG TABLET PO ONE (18:00)
== END 2021-02-23 11:56 | disposition home or self-care (01) ==
LOC: EMEROOARM 09:59 → 3BNU 09:59
PROVIDERS: ADMIT Internal Medicine; ATTEND Internal Medicine

== ENCOUNTER 2021-04-08 18:54 | Observation (INO) ==
[2021-04-08] MEDS ORDERED: Dextrose Gel 15 GM/37.5 ML TUBE PO ONE (19:03)
[2021-04-08] MEDS ORDERED: Isovue-370 500 ML BOTTLE IVP ONE (19:04)
[2021-04-08] MEDS ORDERED: Tdap (Boostrix) Vaccine 0.5 ML SYRINGE IM ONE (19:04)
[2021-04-08 19:29] LABS: Hematocrit 48.4 % (37.5-50.1); Hemoglobin 16.1 g/dL (12.9-16.9); Mean Corpuscular HGB Conc 33.3 g/dL (31.6-35.5); Mean Corpuscular Hemoglobin 29.5 pg (28.0-33.3); Mean Corpuscular Volume 88.8 fL (83.0-100.0); Mean Platelet Volume 9.8 fL (9.4-12.4); Platelet Count 166 K/mcL (140-400); Red Blood Count 5.45 M/mcL (4.19-5.50); Red Cell Distribution Width 15.1 % (11.5-14.5); White Blood Count 6.8 K/mcL (4.3-11.1)
[2021-04-08] MEDS ORDERED: *HR* Dextrose 50 % in Water (Syg) 50 ML SYRINGE IVP ONE (19:32)
[2021-04-08 19:39] LABS: INR 1.6; Prothrombin Time 17.9 Seconds (9.4-12.1)
[2021-04-08 19:41] LABS: Activated Partial Thrombo Time 45.4 Seconds (26.0-36.0)
[2021-04-08 19:49] LABS: BUN/Creatinine Ratio 16 (6-26); Blood Urea Nitrogen 30 mg/dL (8-23); Calcium 9.5 mg/dL (8.6-10.3); Carbon Dioxide 24 mEq/L (23-29); Chloride 106 mEq/L (98-107); Creatine Kinase 106 Units/L (30-223); Ethanol < 10 mg/dL (Less than 10); Glucose 55 mg/dL (70-105); Osmolality,Calculated 286 (280-300); Potassium 3.9 mEq/L (3.5-5.1); Sodium 136 mEq/L (136-145); Troponin I 0.05 ng/mL (< 0.04); eGFR For African Americans 43 (> 60); eGFR For Non-African Americans 35 (> 60)
[2021-04-08 21:01] LABS: Bilirubin,Urine Negative (Negative); Blood,Urine Negative (Negative); Clarity,Urine Clear (Clear); Color,Urine Yellow (Yellow); Glucose,Urine (UA) 70 mg/dL (Normal); Ketones,Urine Negative (Negative); Leukocyte Esterase,Urine Negative (Negative); Mucus,Urine Few per lpf (None-Few); Nitrite,Urine Negative (Negative); PH,Urine 5.5 pH Units (5.0-8.0); Protein,Urine 70 mg/dL (Neg-Trace); RBC,Urine 0-3 per hpf (0-3); Specific Gravity,Urine > 1.030 (1.010-1.025); Urobilinogen,Urine Normal (Normal); WBC,Urine 0-3 per hpf (0-3)
[2021-04-08 21:12] LABS: Amphetamine Screen,Urine Negative ng/mL (Cutoff=1000); Barbiturate Screen,Urine Negative ng/mL (Cutoff=200); Benzodiazepines Screen,Urine Negative ng/mL (Cutoff=200); Cannabinoid Screen,Urine Negative ng/mL (Cutoff = 50); Cocaine Screen,Urine Negative ng/mL (Cutoff= 300); Opiate Screen,Urine Negative ng/mL (Cutoff=300); Phencyclidine Screen,Urine Negative ng/mL (Cutoff=25)
[2021-04-08] MEDS ORDERED: Perflutren Lipid Microsphere 1.3 ML in 0.9 % Sodium Chloride 8.7 ML IVP PRN (21:22)
[2021-04-08 21:46] LABS: Influenza A PCR Negative (Negative); Influenza B PCR Negative (Negative); Resp. Syncytial Virus PCR Negative (Negative)
[2021-04-08 21:56] LABS: SARS-CoV-2 by PCR (In House) Positive (Negative)
[2021-04-09] MEDS ORDERED: *HR* Dextrose 50 % in Water (Syg) 50 ML SYRINGE IVP ONE (00:10)
[2021-04-09] MEDS ORDERED: D5% in Water 1,000 ML IVC PRN ×2 (01:30→01:35)
[2021-04-09] MEDS ORDERED: Dextrose Gel 15 GM/37.5 ML TUBE PO PRN ×2 (01:30)
[2021-04-09] MEDS ORDERED: *HR* Dextrose 50 % in Water (Syg) 50 ML SYRINGE IVP PRN (01:30)
[2021-04-09] MEDS ORDERED: Aspirin 325 MG TABLET PO ONE (01:36)
[2021-04-09 02:17] LABS: Hematocrit 48.3 % (37.5-50.1); Hemoglobin 15.5 g/dL (12.9-16.9); Mean Corpuscular HGB Conc 32.1 g/dL (31.6-35.5); Mean Corpuscular Hemoglobin 28.6 pg (28.0-33.3); Mean Corpuscular Volume 89.1 fL (83.0-100.0); Platelet Count 152 K/mcL (140-400); Red Blood Count 5.42 M/mcL (4.19-5.50); Red Cell Distribution Width 15.1 % (11.5-14.5); White Blood Count 6.3 K/mcL (4.3-11.1)
[2021-04-09 02:26] LABS: INR 1.7; Prothrombin Time 18.6 Seconds (9.4-12.1)
[2021-04-09 02:34] LABS: Calcium 9.2 mg/dL (8.6-10.3); Chol/HDL Ratio 9.2 (0-4.9); Potassium 3.8 mEq/L (3.5-5.1)
[2021-04-09] MEDS: D5% in 0.9% NACL 1,000 ML IVC SCH ×2 (02:37→15:23)
[2021-04-09 02:39] LABS: Estimated Average Glucose 166 mg/dl; Hemoglobin A1C 7.4 %
[2021-04-09] MEDS ORDERED: *HR* Warfarin 5 MG TABLET PO ONE (18:00)
[2021-04-09] MEDS ORDERED: Warfarin perPT PO PRN (18:00)
[2021-04-09] MEDS ORDERED: Insulin DETEMIR 100 UNIT/ML X5UNITS SUBQ SCH (21:00)
[2021-04-10 02:42] LABS: INR 1.5; Prothrombin Time 16.3 Seconds (9.4-12.1)
[2021-04-10] MEDS ORDERED: Nitroglycerin 0.4 MG TAB.SUBL SL PRN (07:38)
[2021-04-10] MEDS: BuPROPion XL (24 HR) 150 MG TABLET PO SCH (09:22)
[2021-04-10] MEDS: Aspirin Enteric Coated 81 MG Tablet PO SCH (09:23)
[2021-04-10] MEDS: *HR* Insulin Regular U-500 500 UNIT/ML SUBQ SCH ×3 (09:23→17:16)
[2021-04-10] MEDS: Ranolazine 500 MG TAB.ER.12H PO SCH ×2 (09:23→19:58)
[2021-04-10] MEDS: OMEGA ACID PO SCH ×2 (09:24→19:59)
[2021-04-10] MEDS: Insulin LISPRO 300 UNITS/3 ML VIAL SUBQ SCH (17:17)
[2021-04-10] MEDS ORDERED: *HR* Warfarin 5 MG TABLET PO ONE (18:00)
[2021-04-11 04:56] LABS: Hematocrit 48.7 % (37.5-50.1); Mean Corpuscular HGB Conc 32.9 g/dL (31.6-35.5); Mean Corpuscular Hemoglobin 29.6 pg (28.0-33.3); Mean Corpuscular Volume 90.2 fL (83.0-100.0); Mean Platelet Volume 9.9 fL (9.4-12.4); Platelet Count 169 K/mcL (140-400); Red Cell Distribution Width 14.6 % (11.5-14.5); White Blood Count 6.5 K/mcL (4.3-11.1)
[2021-04-11 05:08] LABS: INR 1.6; Prothrombin Time 18.3 Seconds (9.4-12.1)
[2021-04-11 05:11] LABS: BUN/Creatinine Ratio 18 (6-26); Blood Urea Nitrogen 25 mg/dL (8-23); Calcium 9.6 mg/dL (8.6-10.3); Carbon Dioxide 26 mEq/L (23-29); Chloride 106 mEq/L (98-107); Glucose 153 mg/dL (70-105); Osmolality,Calculated 291 (280-300); Potassium 4.1 mEq/L (3.5-5.1); Sodium 137 mEq/L (136-145); eGFR For African Americans > 60 (> 60); eGFR For Non-African Americans 50 (> 60)
[2021-04-11] MEDS: BuPROPion XL (24 HR) 150 MG TABLET PO SCH (08:59)
[2021-04-11] MEDS: Aspirin Enteric Coated 81 MG Tablet PO SCH (08:59)
[2021-04-11] MEDS: OMEGA ACID PO SCH ×2 (09:02→21:58)
[2021-04-11] MEDS: Ranolazine 500 MG TAB.ER.12H PO SCH ×2 (09:02→21:56)
[2021-04-11] MEDS: *HR* Insulin Regular U-500 500 UNIT/ML SUBQ SCH ×3 (09:02→17:57)
[2021-04-11] MEDS: Insulin LISPRO 300 UNITS/3 ML VIAL SUBQ SCH ×3 (09:05→17:59)
[2021-04-11] MEDS: amLODIPine 5 MG TABLET PO SCH (13:49)
[2021-04-11] MEDS ORDERED: *HR* Warfarin 5 MG TABLET PO ONE (18:00)
[2021-04-12] MEDS: *HR* OxyCODONE/APAP 5/325 TABLET PO PRN (00:21)
[2021-04-12] MEDS: Insulin LISPRO 300 UNITS/3 ML VIAL SUBQ SCH ×3 (09:06→16:38)
[2021-04-12] MEDS: Aspirin Enteric Coated 81 MG Tablet PO SCH (09:07)
[2021-04-12] MEDS: amLODIPine 5 MG TABLET PO SCH (09:07)
[2021-04-12] MEDS: BuPROPion XL (24 HR) 150 MG TABLET PO SCH (09:07)
[2021-04-12] MEDS: Ranolazine 500 MG TAB.ER.12H PO SCH ×2 (09:07→21:55)
[2021-04-12] MEDS: *HR* Insulin Regular U-500 500 UNIT/ML SUBQ SCH ×3 (09:07→17:55)
[2021-04-12] MEDS: OMEGA ACID PO SCH (09:09)
[2021-04-12 09:54] LABS: INR 2.1; Prothrombin Time 23.8 Seconds (9.4-12.1)
[2021-04-12] MEDS ORDERED: *HR* Warfarin 2.5 MG TABLET PO ONE (18:00)
[2021-04-13] MEDS: OMEGA ACID PO SCH ×2 (03:03→08:19)
[2021-04-13 03:51] LABS: INR 2.3; Prothrombin Time 25.6 Seconds (9.4-12.1)
[2021-04-13] MEDS: amLODIPine 5 MG TABLET PO SCH (08:17)
[2021-04-13] MEDS: BuPROPion XL (24 HR) 150 MG TABLET PO SCH (08:17)
[2021-04-13] MEDS: Aspirin Enteric Coated 81 MG Tablet PO SCH (08:17)
[2021-04-13] MEDS: Ranolazine 500 MG TAB.ER.12H PO SCH ×2 (08:17→20:07)
[2021-04-13] MEDS: *HR* Insulin Regular U-500 500 UNIT/ML SUBQ SCH ×3 (08:18→16:17)
[2021-04-13] MEDS: Insulin LISPRO 300 UNITS/3 ML VIAL SUBQ SCH ×3 (08:18→16:17)
[2021-04-13] MEDS ORDERED: *HR* Warfarin 2.5 MG TABLET PO ONE (18:00)
[2021-04-14] MEDS: amLODIPine 5 MG TABLET PO SCH (07:43)
[2021-04-14] MEDS: Aspirin Enteric Coated 81 MG Tablet PO SCH (07:43)
[2021-04-14] MEDS: Ranolazine 500 MG TAB.ER.12H PO SCH ×2 (07:44→21:23)
[2021-04-14] MEDS: Insulin LISPRO 300 UNITS/3 ML VIAL SUBQ SCH ×3 (07:44→16:58)
[2021-04-14] MEDS: *HR* Insulin Regular U-500 500 UNIT/ML SUBQ SCH ×3 (07:44→16:58)
[2021-04-14] MEDS: BuPROPion XL (24 HR) 150 MG TABLET PO SCH (07:44)
[2021-04-14 10:17] LABS: INR 2.4; Prothrombin Time 26.3 Seconds (9.4-12.1)
[2021-04-14] MEDS ORDERED: *HR* Warfarin 2.5 MG TABLET PO ONE (18:00)
[2021-04-14] MEDS: *HR* OxyCODONE/APAP 5/325 TABLET PO PRN (21:28)
[2021-04-15 05:22] LABS: INR 2.2; Prothrombin Time 24.1 Seconds (9.4-12.1)
[2021-04-15] MEDS: Insulin LISPRO 300 UNITS/3 ML VIAL SUBQ SCH ×3 (07:31→17:28)
[2021-04-15] MEDS ORDERED: Ergocalciferol (VIT D2) 50,000 UNIT (1.25MG) CAP PO SCH (07:36)
[2021-04-15] MEDS: Ranolazine 500 MG TAB.ER.12H PO SCH ×2 (08:41→19:45)
[2021-04-15] MEDS: Aspirin Enteric Coated 81 MG Tablet PO SCH (08:41)
[2021-04-15] MEDS: *HR* OxyCODONE/APAP 5/325 TABLET PO PRN ×2 (08:41→17:28)
[2021-04-15] MEDS: BuPROPion XL (24 HR) 150 MG TABLET PO SCH (08:41)
[2021-04-15] MEDS: amLODIPine 5 MG TABLET PO SCH (08:41)
[2021-04-15] MEDS: *HR* Insulin Regular U-500 500 UNIT/ML SUBQ SCH ×3 (08:42→17:31)
[2021-04-15] MEDS ORDERED: *HR* Warfarin 5 MG TABLET PO ONE (18:00)
[2021-04-16 01:31] LABS: INR 1.8; Prothrombin Time 20.4 Seconds (9.4-12.1)
[2021-04-16] MEDS: Insulin LISPRO 300 UNITS/3 ML VIAL SUBQ SCH ×3 (07:28→17:33)
[2021-04-16] MEDS: Aspirin Enteric Coated 81 MG Tablet PO SCH (08:31)
[2021-04-16] MEDS: Ranolazine 500 MG TAB.ER.12H PO SCH (08:31)
[2021-04-16] MEDS: amLODIPine 5 MG TABLET PO SCH (08:32)
[2021-04-16] MEDS: *HR* Insulin Regular U-500 500 UNIT/ML SUBQ SCH ×3 (08:32→17:33)
[2021-04-16] MEDS: BuPROPion XL (24 HR) 150 MG TABLET PO SCH (08:32)
[2021-04-16] MEDS: *HR* OxyCODONE/APAP 5/325 TABLET PO PRN (15:14)
[2021-04-16] MEDS ORDERED: *HR* Warfarin 5 MG TABLET PO ONE (18:00)
[2021-04-16 18:51] VITALS: BP 123/66; PULSE 75; TEMP 97.5; O2SAT 98
== END 2021-04-16 19:55 ==
LOC: EMEROOARM 18:54 → 2NENU 18:54 → SUATTDRO 22:11 → 2NENU 23:00 → 3BNU 04-16 13:53
PROVIDERS: ADMIT Internal Medicine; ATTEND Internal Medicine

== ENCOUNTER 2021-08-13 19:48 | Inpatient (IN) ==
[2021-08-13] MEDS ORDERED: Lidocaine 1% 20 ML MDV INFILT ONE (21:04)
[2021-08-13] MEDS ORDERED: Morphine Sulfate 2 MG/ML SYRINGE IVP ONE (21:16)
[2021-08-13 21:55] LABS: Basophils # 0.1 K/mcL (0.0-0.2); Basophils % 0.9 %; Eosinophils # 0.3 K/mcL (0.0-0.6); Eosinophils % 4.2 %; Hemoglobin 13.8 g/dL (12.9-16.9); Immature Granulocytes % 1.7 % (0-4); Lymphocytes # 1.6 K/mcL (0.6-4.6); Lymphocytes % 23.4 %; Mean Corpuscular HGB Conc 32.9 g/dL (31.6-35.5); Mean Corpuscular Hemoglobin 28.8 pg (28.0-33.3); Mean Corpuscular Volume 87.7 fL (83.0-100.0); Mean Platelet Volume 9.9 fL (9.4-12.4); Monocytes # 0.5 K/mcL (0.0-1.3); Monocytes % 7.1 %; Neutrophils # 4.3 K/mcL (1.6-8.9); Platelet Count 230 K/mcL (140-400); Red Blood Count 4.79 M/mcL (4.19-5.50); Red Cell Distribution Width 14.2 % (11.5-14.5); Segmented Neutrophils % 62.7 %; White Blood Count 6.9 K/mcL (4.3-11.1)
[2021-08-13 21:56] LABS: Prothrombin Time 33.2 Seconds (9.4-12.1)
[2021-08-13 21:59] LABS: Activated Partial Thrombo Time 51.2 Seconds (26.0-36.0)
[2021-08-13 22:07] LABS: Calcium 9.7 mg/dL (8.6-10.3); Potassium 4.4 mEq/L (3.5-5.1)
[2021-08-13] MEDS ORDERED: Ondansetron 4 MG/2 ML VIAL IVP PRN (23:15)
[2021-08-13] MEDS ORDERED: *HR* Promethazine 25 MG/ML VIAL IM PRN (23:15)
[2021-08-13] MEDS ORDERED: Melatonin 3 MG TABLET PO PRN (23:15)
[2021-08-13] MEDS ORDERED: Naloxone 0.4 MG/ML INJ IVP PRN (23:15)
[2021-08-13] MEDS ORDERED: Acetaminophen 325 MG TABLET PO PRN (23:15)
[2021-08-13] MEDS ORDERED: *HR* Phytonadione 5 MG TABLET PO ONE (23:18)
[2021-08-13] MEDS: *HR* OxyCODONE Immed Rel 5 MG TABLET PO PRN (23:37)
[2021-08-14] MEDS ORDERED: *HR* Dextrose 50 % in Water (Syg) 50 ML SYRINGE IVP PRN (00:44)
[2021-08-14] MEDS ORDERED: Dextrose 4 GM Chewable Tablets PO PRN ×2 (00:44)
[2021-08-14] MEDS ORDERED: D5% in Water 1,000 ML IVC PRN (00:44)
[2021-08-14] MEDS: *HR* HYDROcodone/Acet 5/325 mg TABLET PO PRN (04:11)
[2021-08-14] MEDS ORDERED: Insulin LISPRO 300 UNITS/3 ML VIAL SUBQ SCH (06:00)
[2021-08-14 06:15] LABS: Basophils % 0.5 %; Eosinophils # 0.2 K/mcL (0.0-0.6); Eosinophils % 3.3 %; Hematocrit 42.3 % (37.5-50.1); Hemoglobin 13.5 g/dL (12.9-16.9); Lymphocytes % 27.7 %; Mean Corpuscular HGB Conc 31.9 g/dL (31.6-35.5); Mean Corpuscular Hemoglobin 28.6 pg (28.0-33.3); Mean Corpuscular Volume 89.6 fL (83.0-100.0); Mean Platelet Volume 9.7 fL (9.4-12.4); Monocytes # 0.7 K/mcL (0.0-1.3); Neutrophils # 4.2 K/mcL (1.6-8.9); Platelet Count 216 K/mcL (140-400); Red Blood Count 4.72 M/mcL (4.19-5.50); Red Cell Distribution Width 14.3 % (11.5-14.5); Segmented Neutrophils % 57.5 %; White Blood Count 7.3 K/mcL (4.3-11.1)
[2021-08-14 06:22] LABS: INR 2.7
[2021-08-14 06:37] LABS: Calcium 9.5 mg/dL (8.6-10.3); Magnesium 1.4 mg/dL (1.6-2.6); Potassium 4.1 mEq/L (3.5-5.1)
[2021-08-14] MEDS ORDERED: *HR* Phytonadione 10 MG/ML AMPUL SQ ONE (09:19)
[2021-08-14] MEDS ORDERED: Perflutren Lipid Microsphere 1.3 ML in 0.9 % Sodium Chloride 8.7 ML IVP PRN (13:34)
[2021-08-14] MEDS ORDERED: Nitroglycerin 0.4 MG TAB.SUBL SL PRN (15:12)
[2021-08-14] MEDS: *HR* OxyCODONE Immed Rel 5 MG TABLET PO PRN (15:33)
[2021-08-14] MEDS: Aspirin 81 MG TAB.CHEW PO SCH (15:34)
[2021-08-14] MEDS ORDERED: Magnesium Oxide 400 MG TABLET PO STA (16:42)
[2021-08-14] MEDS: Insulin LISPRO 300 UNITS/3 ML VIAL SUBQ SCH (16:45)
[2021-08-14] MEDS: BuPROPion XL (24 HR) 150 MG TABLET PO SCH (16:46)
[2021-08-14] MEDS: amLODIPine 5 MG TABLET PO SCH (16:46)
[2021-08-14] MEDS ORDERED: Insulin DETEMIR 100 UNIT/ML X5UNITS SUBQ SCH (21:00)
[2021-08-14] MEDS: Ranolazine 500 MG TAB.ER.12H PO SCH (22:04)
[2021-08-14] MEDS: Insulin DETEMIR 100 UNIT/ML X5UNITS SUBQ SCH (22:04)
[2021-08-15 04:12] LABS: Hematocrit 42.5 % (37.5-50.1); Hemoglobin 13.6 g/dL (12.9-16.9); Mean Corpuscular Hemoglobin 28.9 pg (28.0-33.3); Mean Corpuscular Volume 90.2 fL (83.0-100.0); Mean Platelet Volume 9.7 fL (9.4-12.4); Platelet Count 218 K/mcL (140-400); Red Blood Count 4.71 M/mcL (4.19-5.50); Red Cell Distribution Width 14.2 % (11.5-14.5); White Blood Count 6.8 K/mcL (4.3-11.1)
[2021-08-15 04:17] LABS: INR 1.7; Prothrombin Time 18.4 Seconds (9.4-12.1)
[2021-08-15 04:32] LABS: BUN/Creatinine Ratio 16 (6-26); Blood Urea Nitrogen 23 mg/dL (8-23); Carbon Dioxide 24 mEq/L (23-29); Chloride 101 mEq/L (98-107); Glucose 290 mg/dL (70-105); Osmolality,Calculated 294 (280-300); Potassium 4.1 mEq/L (3.5-5.1); Sodium 135 mEq/L (136-145); eGFR For African Americans > 60 (> 60); eGFR For Non-African Americans 50 (> 60)
[2021-08-15] MEDS ORDERED: Regadenoson 0.4 MG/5 ML SYRINGE IVP ONE (06:31)
[2021-08-15] MEDS: Loratadine 10 MG TABLET PO SCH (08:00)
[2021-08-15] MEDS: Aspirin 81 MG TAB.CHEW PO SCH (08:00)
[2021-08-15] MEDS: Insulin LISPRO 300 UNITS/3 ML VIAL SUBQ SCH ×3 (08:00→17:34)
[2021-08-15] MEDS ORDERED: Aspirin Enteric Coated 81 MG Tablet PO SCH (09:00)
[2021-08-15] MEDS: BuPROPion XL (24 HR) 150 MG TABLET PO SCH (11:14)
[2021-08-15] MEDS: Ranolazine 500 MG TAB.ER.12H PO SCH ×2 (11:14→20:58)
[2021-08-15] MEDS: amLODIPine 5 MG TABLET PO SCH (11:14)
[2021-08-15 11:54] LABS: Estimated Average Glucose 235 mg/dl; Hemoglobin A1C 9.8 %
[2021-08-15] MEDS: *HR* OxyCODONE Immed Rel 5 MG TABLET PO PRN (12:03)
[2021-08-15] MEDS ORDERED: Insulin Human Regular 7 UNIT in 0.9 % Sodium Chloride 10 ML IV ONE (12:57)
[2021-08-15] MEDS ORDERED: Ringers Solution, Lactated 1,000 ML IVC SCH (13:00)
[2021-08-15] MEDS ORDERED: *HR* Propofol 200 MG/20 ML VIAL IVP ONE (13:12)
[2021-08-15] MEDS ORDERED: Ondansetron 4 MG/2 ML VIAL ONE (13:12)
[2021-08-15] MEDS ORDERED: Lidocaine -MPF 2% 2 ML VIAL ONE (13:12)
[2021-08-15] MEDS ORDERED: *HR* FentaNYL (PF) 100 MCG/2 ML VIAL ONE ×2 (13:12→13:23)
[2021-08-15] MEDS ORDERED: *HR* Midazolam HCl 2 MG/2 ML VIAL ONE (13:12)
[2021-08-15] MEDS ORDERED: Ropivacaine/PF 0.5% 30 ML VIAL ONE (13:14)
[2021-08-15] MEDS ORDERED: CeFAZolin Syr 2,000MG/20 ML 2,000 MG/20 ML SYRINGE IVPB ONE (13:15)
[2021-08-15] MEDS ORDERED: *HR* OxyCODONE Immed Rel 5 MG TABLET PO PRN (15:30)
[2021-08-15] MEDS ORDERED: *HR* FentaNYL (PF) 100 MCG/2 ML VIAL IVP PRN (15:30)
[2021-08-15] MEDS ORDERED: Ondansetron 4 MG/2 ML VIAL IVP PRN (15:30)
[2021-08-15] MEDS ORDERED: *HR* HYDROmorphone PF 0.5 MG/0.5 ML SYRINGE IVP PRN (15:30)
[2021-08-15] MEDS: Insulin DETEMIR 100 UNIT/ML X5UNITS SUBQ SCH (20:58)
[2021-08-15] MEDS: *HR* HYDROcodone/Acet 5/325 mg TABLET PO PRN (20:58)
[2021-08-15] MEDS: CeFAZolin 2,000 MG/120 ML BAG IVPB SCH (21:04)
[2021-08-16] MEDS: CeFAZolin 2,000 MG/120 ML BAG IVPB SCH ×3 (06:17→23:07)
[2021-08-16] MEDS: Aspirin 81 MG TAB.CHEW PO SCH (07:53)
[2021-08-16] MEDS: Ranolazine 500 MG TAB.ER.12H PO SCH ×2 (07:56→21:27)
[2021-08-16] MEDS: Loratadine 10 MG TABLET PO SCH (07:56)
[2021-08-16] MEDS: BuPROPion XL (24 HR) 150 MG TABLET PO SCH (07:56)
[2021-08-16] MEDS: amLODIPine 5 MG TABLET PO SCH (07:56)
[2021-08-16] MEDS: Insulin LISPRO 300 UNITS/3 ML VIAL SUBQ SCH ×3 (07:59→17:27)
[2021-08-16 09:08] LABS: Basophils % 0.3 %; Hematocrit 43.6 % (37.5-50.1); Hemoglobin 13.8 g/dL (12.9-16.9); Immature Granulocytes % 0.4 % (0-4); Lymphocytes # 1.2 K/mcL (0.6-4.6); Lymphocytes % 16.4 %; Mean Corpuscular HGB Conc 31.7 g/dL (31.6-35.5); Mean Corpuscular Hemoglobin 28.4 pg (28.0-33.3); Mean Corpuscular Volume 89.7 fL (83.0-100.0); Mean Platelet Volume 9.9 fL (9.4-12.4); Monocytes # 0.5 K/mcL (0.0-1.3); Monocytes % 6.7 %; Neutrophils # 5.5 K/mcL (1.6-8.9); Platelet Count 246 K/mcL (140-400); Red Blood Count 4.86 M/mcL (4.19-5.50); Red Cell Distribution Width 13.9 % (11.5-14.5); Segmented Neutrophils % 76.2 %; White Blood Count 7.2 K/mcL (4.3-11.1)
[2021-08-16 09:12] LABS: INR 1.3; Prothrombin Time 14.6 Seconds (9.4-12.1)
[2021-08-16 09:15] LABS: Calcium 9.7 mg/dL (8.6-10.3); Potassium 4.6 mEq/L (3.5-5.1)
[2021-08-16] MEDS: *HR* HYDROcodone/Acet 5/325 mg TABLET PO PRN (10:29)
[2021-08-16] MEDS: *HR* Enoxaparin 120 MG/0.8 ML SYRINGE SQ SCH ×2 (10:31→21:27)
[2021-08-16] MEDS: *HR* Insulin Regular U-500 500 UNIT/ML SUBQ SCH ×3 (10:31→22:07)
[2021-08-16] MEDS: *HR* OxyCODONE Immed Rel 5 MG TABLET PO PRN (17:26)
[2021-08-16] MEDS ORDERED: *HR* HYDROmorphone (PF) 1 MG/ML SYRINGE IVP ONE (18:34)
[2021-08-16] MEDS: *HR* HYDROmorphone 2 MG TABLET PO PRN (21:27)
[2021-08-16] MEDS ORDERED: *HR* HYDROcodone/Acet 5/325 mg TABLET PO ONE (23:48)
[2021-08-17] MEDS: *HR* HYDROmorphone 2 MG TABLET PO PRN ×2 (02:40→08:09)
[2021-08-17 06:23] LABS: Hematocrit 40.9 % (37.5-50.1); Hemoglobin 13.1 g/dL (12.9-16.9); Mean Corpuscular Hemoglobin 28.5 pg (28.0-33.3); Mean Corpuscular Volume 89.1 fL (83.0-100.0); Mean Platelet Volume 9.8 fL (9.4-12.4); Platelet Count 246 K/mcL (140-400); Red Blood Count 4.59 M/mcL (4.19-5.50); Red Cell Distribution Width 13.9 % (11.5-14.5); White Blood Count 7.3 K/mcL (4.3-11.1)
[2021-08-17 06:38] LABS: Potassium 3.6 mEq/L (3.5-5.1)
[2021-08-17] MEDS: CeFAZolin 2,000 MG/120 ML BAG IVPB SCH ×3 (06:42→21:19)
[2021-08-17] MEDS: Ranolazine 500 MG TAB.ER.12H PO SCH ×2 (08:06→19:46)
[2021-08-17] MEDS: BuPROPion XL (24 HR) 150 MG TABLET PO SCH (08:07)
[2021-08-17] MEDS: Metoprolol XL (24 HR) Succ 25 MG TAB.ER.24H PO SCH (08:09)
[2021-08-17] MEDS: Aspirin 81 MG TAB.CHEW PO SCH (08:09)
[2021-08-17] MEDS: amLODIPine 5 MG TABLET PO SCH (08:10)
[2021-08-17] MEDS: Loratadine 10 MG TABLET PO SCH (08:11)
[2021-08-17] MEDS: *HR* Insulin Regular U-500 500 UNIT/ML SUBQ SCH ×3 (08:21→21:17)
[2021-08-17] MEDS: Insulin LISPRO 300 UNITS/3 ML VIAL SUBQ SCH ×3 (08:31→17:01)
[2021-08-17] MEDS: *HR* Enoxaparin 120 MG/0.8 ML SYRINGE SQ SCH ×2 (10:29→21:17)
[2021-08-17] MEDS: *HR* HYDROmorphone 2 MG TABLET PO SCH ×3 (12:38→19:46)
[2021-08-17 20:57] LABS: Bilirubin,Urine Negative (Negative); Blood,Urine Moderate (Negative); Budding Yeast,Urine Few per hpf (None Seen); Clarity,Urine Ex.Turbid (Clear); Color,Urine Yellow (Yellow); Glucose,Urine (UA) 300 mg/dL (Normal); Ketones,Urine Negative (Negative); Leukocyte Esterase,Urine Large (Negative); Nitrite,Urine Negative (Negative); Protein,Urine 100 mg/dL (Neg-Trace); RBC,Urine 30-50 per hpf (0-3); Specific Gravity,Urine 1.019 (1.010-1.025); Urobilinogen,Urine Normal (Normal); WBC,Urine TNTC per hpf (0-3)
[2021-08-18] MEDS: *HR* HYDROmorphone 2 MG TABLET PO SCH ×7 (00:31→23:57)
[2021-08-18] MEDS: CeFAZolin 2,000 MG/120 ML BAG IVPB SCH ×3 (06:12→21:04)
[2021-08-18] MEDS: BuPROPion XL (24 HR) 150 MG TABLET PO SCH (07:23)
[2021-08-18] MEDS: Aspirin 81 MG TAB.CHEW PO SCH (07:24)
[2021-08-18] MEDS: Ranolazine 500 MG TAB.ER.12H PO SCH ×2 (07:24→21:03)
[2021-08-18] MEDS: amLODIPine 5 MG TABLET PO SCH (07:24)
[2021-08-18] MEDS: Metoprolol XL (24 HR) Succ 25 MG TAB.ER.24H PO SCH (07:24)
[2021-08-18] MEDS: Loratadine 10 MG TABLET PO SCH (07:24)
[2021-08-18] MEDS: Insulin LISPRO 300 UNITS/3 ML VIAL SUBQ SCH ×3 (07:28→15:52)
[2021-08-18] MEDS: *HR* Enoxaparin 120 MG/0.8 ML SYRINGE SQ SCH ×2 (08:32→21:03)
[2021-08-18] MEDS: *HR* Insulin Regular U-500 500 UNIT/ML SUBQ SCH ×3 (08:32→21:04)
[2021-08-18] MEDS: polyethylene glycoL 3350 17 GM POWD.PACK PO SCH (21:04)
[2021-08-19] MEDS: *HR* HYDROmorphone 2 MG TABLET PO SCH ×5 (04:09→20:50)
[2021-08-19] MEDS: CeFAZolin 2,000 MG/120 ML BAG IVPB SCH ×2 (05:22→14:26)
[2021-08-19] MEDS: Ranolazine 500 MG TAB.ER.12H PO SCH ×2 (07:36→20:50)
[2021-08-19] MEDS: BuPROPion XL (24 HR) 150 MG TABLET PO SCH (07:36)
[2021-08-19] MEDS: Aspirin 81 MG TAB.CHEW PO SCH (07:36)
[2021-08-19] MEDS: Loratadine 10 MG TABLET PO SCH (07:37)
[2021-08-19] MEDS: Metoprolol XL (24 HR) Succ 25 MG TAB.ER.24H PO SCH (07:37)
[2021-08-19] MEDS: polyethylene glycoL 3350 17 GM POWD.PACK PO SCH ×2 (07:37→20:50)
[2021-08-19] MEDS: amLODIPine 5 MG TABLET PO SCH (07:37)
[2021-08-19] MEDS: *HR* Insulin Regular U-500 500 UNIT/ML SUBQ SCH ×3 (07:38→20:59)
[2021-08-19] MEDS: Insulin LISPRO 300 UNITS/3 ML VIAL SUBQ SCH ×3 (07:38→16:46)
[2021-08-19] MEDS: *HR* Enoxaparin 120 MG/0.8 ML SYRINGE SQ SCH ×2 (10:36→20:49)
[2021-08-20] MEDS: *HR* HYDROmorphone 2 MG TABLET PO SCH ×6 (01:05→20:47)
[2021-08-20] MEDS: *HR* Insulin Regular U-500 500 UNIT/ML SUBQ SCH ×3 (08:21→20:47)
[2021-08-20] MEDS: *HR* Enoxaparin 120 MG/0.8 ML SYRINGE SQ SCH ×2 (08:21→20:47)
[2021-08-20] MEDS: Insulin LISPRO 300 UNITS/3 ML VIAL SUBQ SCH ×3 (08:22→16:45)
[2021-08-20] MEDS: polyethylene glycoL 3350 17 GM POWD.PACK PO SCH ×2 (08:22→20:46)
[2021-08-20] MEDS: Loratadine 10 MG TABLET PO SCH (08:23)
[2021-08-20] MEDS: amLODIPine 5 MG TABLET PO SCH (08:23)
[2021-08-20] MEDS: BuPROPion XL (24 HR) 150 MG TABLET PO SCH (08:23)
[2021-08-20] MEDS: Metoprolol XL (24 HR) Succ 25 MG TAB.ER.24H PO SCH (08:23)
[2021-08-20] MEDS: Aspirin 81 MG TAB.CHEW PO SCH (08:24)
[2021-08-20] MEDS: Ranolazine 500 MG TAB.ER.12H PO SCH ×2 (08:24→20:47)
[2021-08-21] MEDS: *HR* HYDROmorphone 2 MG TABLET PO SCH ×6 (00:15→21:03)
[2021-08-21] MEDS: amLODIPine 5 MG TABLET PO SCH (08:29)
[2021-08-21] MEDS: BuPROPion XL (24 HR) 150 MG TABLET PO SCH (08:29)
[2021-08-21] MEDS: Metoprolol XL (24 HR) Succ 25 MG TAB.ER.24H PO SCH (08:29)
[2021-08-21] MEDS: Aspirin 81 MG TAB.CHEW PO SCH (08:29)
[2021-08-21] MEDS: Loratadine 10 MG TABLET PO SCH (08:30)
[2021-08-21] MEDS: *HR* Enoxaparin 120 MG/0.8 ML SYRINGE SQ SCH (08:30)
[2021-08-21] MEDS: polyethylene glycoL 3350 17 GM POWD.PACK PO SCH ×2 (08:30→21:10)
[2021-08-21] MEDS: Ranolazine 500 MG TAB.ER.12H PO SCH ×2 (08:30→21:03)
[2021-08-21] MEDS: *HR* Insulin Regular U-500 500 UNIT/ML SUBQ SCH ×3 (09:34→21:04)
[2021-08-21] MEDS: Insulin LISPRO 300 UNITS/3 ML VIAL SUBQ SCH ×3 (09:34→16:43)
[2021-08-22] MEDS: *HR* HYDROmorphone 2 MG TABLET PO SCH ×6 (04:00→20:52)
[2021-08-22 04:27] LABS: Basophils # 0.1 K/mcL (0.0-0.2); Basophils % 1.2 %; Eosinophils # 0.4 K/mcL (0.0-0.6); Eosinophils % 5.9 %; Hematocrit 41.8 % (37.5-50.1); Hemoglobin 13.3 g/dL (12.9-16.9); Immature Granulocytes % 2.1 % (0-4); Lymphocytes # 2.4 K/mcL (0.6-4.6); Lymphocytes % 31.4 %; Mean Corpuscular HGB Conc 31.8 g/dL (31.6-35.5); Mean Corpuscular Hemoglobin 28.2 pg (28.0-33.3); Mean Corpuscular Volume 88.7 fL (83.0-100.0); Monocytes # 0.7 K/mcL (0.0-1.3); Monocytes % 9.5 %; Neutrophils # 3.7 K/mcL (1.6-8.9); Platelet Count 292 K/mcL (140-400); Red Blood Count 4.71 M/mcL (4.19-5.50); Red Cell Distribution Width 13.8 % (11.5-14.5); Segmented Neutrophils % 49.9 %; White Blood Count 7.5 K/mcL (4.3-11.1)
[2021-08-22 04:47] LABS: BUN/Creatinine Ratio 26 (6-26); Blood Urea Nitrogen 34 mg/dL (8-23); Calcium 9.7 mg/dL (8.6-10.3); Carbon Dioxide 25 mEq/L (23-29); Chloride 104 mEq/L (98-107); Glucose 70 mg/dL (70-105); Osmolality,Calculated 290 (280-300); Sodium 137 mEq/L (136-145); eGFR For African Americans > 60 (> 60); eGFR For Non-African Americans 54 (> 60)
[2021-08-22] MEDS: BuPROPion XL (24 HR) 150 MG TABLET PO SCH (08:39)
[2021-08-22] MEDS: Metoprolol XL (24 HR) Succ 25 MG TAB.ER.24H PO SCH (08:39)
[2021-08-22] MEDS: Insulin LISPRO 300 UNITS/3 ML VIAL SUBQ SCH ×2 (09:56→12:41)
[2021-08-22] MEDS: *HR* Insulin Regular U-500 500 UNIT/ML SUBQ SCH ×3 (09:57→20:53)
[2021-08-22] MEDS: Ranolazine 500 MG TAB.ER.12H PO SCH ×2 (10:02→20:52)
[2021-08-22] MEDS: amLODIPine 5 MG TABLET PO SCH (10:02)
[2021-08-22] MEDS: Loratadine 10 MG TABLET PO SCH (10:02)
[2021-08-22] MEDS: Aspirin 81 MG TAB.CHEW PO SCH (10:09)
[2021-08-22] MEDS: polyethylene glycoL 3350 17 GM POWD.PACK PO SCH ×2 (10:09→20:53)
[2021-08-22] MEDS ORDERED: CeFAZolin Syr 2,000MG/20 ML 2,000 MG/20 ML SYRINGE IVPB ONE (12:25)
[2021-08-22] MEDS ORDERED: Ringers Solution, Lactated 1,000 ML IVC SCH ×2 (12:30→19:17)
[2021-08-22] MEDS ORDERED: Ropivacaine/PF 0.5% 30 ML VIAL ONE (12:50)
[2021-08-22] MEDS ORDERED: *HR* OxyCODONE Immed Rel 5 MG TABLET PO PRN (13:00)
[2021-08-22] MEDS ORDERED: *HR* HYDROmorphone PF 0.5 MG/0.5 ML SYRINGE IVP PRN (13:00)
[2021-08-22] MEDS ORDERED: *HR* Labetalol 20 MG/4 ML SYRINGE IVP PRN (13:00)
[2021-08-22] MEDS ORDERED: Ondansetron 4 MG/2 ML VIAL IVP PRN ×2 (13:00→19:17)
[2021-08-22] MEDS ORDERED: Ondansetron 4 MG/2 ML VIAL ONE (13:10)
[2021-08-22] MEDS ORDERED: Lidocaine -MPF 2% 2 ML VIAL ONE (13:10)
[2021-08-22] MEDS ORDERED: *HR* FentaNYL (PF) 100 MCG/2 ML VIAL ONE ×2 (13:10→14:41)
[2021-08-22] MEDS ORDERED: *HR* Propofol 200 MG/20 ML VIAL IVP ONE (13:10)
[2021-08-22] MEDS ORDERED: *HR* Midazolam HCl 2 MG/2 ML VIAL ONE (13:10)
[2021-08-22] MEDS ORDERED: Haloperidol Lactate 5 MG/ML VIAL IVP ONE (16:48)
[2021-08-22] MEDS ORDERED: *HR* Dextrose 50 % in Water (Syg) 50 ML SYRINGE IVP PRN (19:17)
[2021-08-22] MEDS ORDERED: Nitroglycerin 0.4 MG TAB.SUBL SL PRN (19:17)
[2021-08-22] MEDS ORDERED: Acetaminophen 325 MG TABLET PO PRN (19:17)
[2021-08-22] MEDS ORDERED: *HR* Promethazine 25 MG/ML VIAL IM PRN (19:17)
[2021-08-22] MEDS ORDERED: Naloxone 0.4 MG/ML INJ IVP PRN (19:17)
[2021-08-22] MEDS ORDERED: Dextrose 4 GM Chewable Tablets PO PRN ×2 (19:17)
[2021-08-22] MEDS ORDERED: Melatonin 3 MG TABLET PO PRN (19:17)
[2021-08-22] MEDS ORDERED: D5% in Water 1,000 ML IVC PRN (19:17)
[2021-08-23] MEDS: *HR* HYDROmorphone 2 MG TABLET PO SCH ×4 (00:16→13:09)
[2021-08-23] MEDS ORDERED: BuPROPion XL (24 HR) 150 MG TABLET PO SCH (09:00)
[2021-08-23] MEDS ORDERED: Metoprolol XL (24 HR) Succ 25 MG TAB.ER.24H PO SCH (09:00)
[2021-08-23] MEDS ORDERED: amLODIPine 5 MG TABLET PO SCH (09:00)
[2021-08-23] MEDS ORDERED: Loratadine 10 MG TABLET PO SCH (09:00)
[2021-08-23] MEDS ORDERED: Aspirin 81 MG TAB.CHEW PO SCH (09:00)
[2021-08-23] MEDS: Ranolazine 500 MG TAB.ER.12H PO SCH (09:02)
[2021-08-23] MEDS: polyethylene glycoL 3350 17 GM POWD.PACK PO SCH (09:03)
[2021-08-23] MEDS: *HR* Insulin Regular U-500 500 UNIT/ML SUBQ SCH ×2 (09:03→13:10)
[2021-08-23] MEDS: Insulin LISPRO 300 UNITS/3 ML VIAL SUBQ SCH ×2 (09:04→12:28)
[2021-08-23 10:51] VITALS: BP 148/79; PULSE 76; TEMP 98; O2SAT 95
[2021-08-23 12:29] LABS: Influenza A PCR Negative (Negative); Influenza B PCR Negative (Negative); Resp. Syncytial Virus PCR Negative (Negative)
[2021-08-23 12:53] LABS: SARS-CoV-2 by PCR (In House) Negative (Negative)
== END 2021-08-23 13:40 | DRG 493 ==
LOC: EMEROOARM 19:48 → 4WAOSI 19:48 → SUATTDRO 22:48 → 4WAOSI 23:17 → SUATTDRO 08-14 13:53
PROVIDERS: ADMIT Internal Medicine; ATTEND Internal Medicine